=== PATIENT | female | born 1965 | race Caucasian/White ===

== ENCOUNTER 2019-02-20 10:03 | Emergency (ER) | payer MEDICAID ==
[~2019-02-20] VITALS: Ht 165.1 cm; Wt 57.1 kg
[2019-02-20] MEDS ORDERED: ROPI1TAB PO ×4 (10:26→14:45)
[2019-02-20] MEDS ORDERED: NOVOINJ3 SC ×4 (10:26→14:45)
[2019-02-20] MEDS ORDERED: BUPR150T3 PO ×2 (10:26→14:45)
[2019-02-20] MEDS ORDERED: MIRA3350 PO ×2 (10:26→14:45)
[2019-02-20] MEDS ORDERED: BASA100I SC ×2 (10:26→14:45)
[2019-02-20] MEDS ORDERED: LEVO175T2 PO ×2 (10:26→14:45)
[2019-02-20] MEDS ORDERED: ONDA4TAB6 PO ×2 (10:26→14:45)
[2019-02-20] MEDS ORDERED: SUCR1SS PO ×2 (10:40→14:45)
[2019-02-20] MEDS ORDERED: IRON1TAB2 PO ×2 (10:40→14:45)
[2019-02-20] MEDS ORDERED: CRES40TA PO ×2 (10:40→14:45)
[2019-02-20] MEDS ORDERED: PROT1TAB2 PO ×2 (10:40→14:45)
[2019-02-20] MEDS ORDERED: NS 1,000 ML IV ONE ×2 (10:45→13:00)
[2019-02-20 11:57] LABS: BASO % 0.5 % (0.0-1.0); EOS # 0.2 10^3/uL (0.0-0.5); EOS % 2.9 % (0.0-3.0); HEMOGLOBIN 9.7 g/dl (12.0-15.5); LYMPH # 1.2 10^3/uL (1.5-5.0); LYMPH % 15.1 % (24.0-44.0); MEAN CORPUSCULAR HEMOGLOBIN 26.4 pg (27.0-33.0); MEAN CORPUSCULAR HGB CONC 30.3 g/dl (32.0-36.5); MONO % 12.7 % (0.0-5.0); NEUTROPHILS # 5.5 10^3/uL (1.5-8.5); PLATELET COUNT, AUTOMATED 560 10^3/uL (150-450); RED BLOOD COUNT 3.68 10^6/uL (4.00-5.40); WHITE BLOOD COUNT 8.2 10^3/uL (4.0-10.0)
[2019-02-20 12:06] LABS: VENOUS BASE EXCESS -1.2 (-2.0-2.0); VENOUS HCO3 21.8 MEQ/L (23.0-27.0); VENOUS O2 SATURATION 95.6 % (60.0-80.0); VENOUS PARTIAL PRESSURE CO2 30.9 mmHg (38.0-50.0); VENOUS PARTIAL PRESSURE O2 72.7 mmHg (30.0-50.0); VENOUS PH 7.467 UNITS (7.330-7.430); VENOUS STANDARD HCO3 23.4 MEQ/L; VENOUS TOTAL CO2 22.8 MEQ/L (24.0-28.0)
[2019-02-20 12:37] LABS: ALBUMIN 3.1 GM/DL (3.2-5.2); ALT/SGPT 324 U/L (12-78); BILIRUBIN,DIRECT < 0.1 MG/DL (0.0-0.2); BILIRUBIN,TOTAL 0.4 MG/DL (0.2-1.0); BLOOD UREA NITROGEN 22 MG/DL (7-18); CALCIUM LEVEL 9.7 MG/DL (8.5-10.1); CARBON DIOXIDE LEVEL 25 MEQ/L (21-32); CHLORIDE LEVEL 99 MEQ/L (98-107); CREATININE FOR GFR 1.02 MG/DL (0.55-1.30); GLOMERULAR FILTRATION RATE 59.9 (>51); GLUCOSE, FASTING 425 MG/DL (70-100); LIPASE 103 U/L (73-393); POTASSIUM SERUM 5.1 MEQ/L (3.5-5.1); SODIUM LEVEL 134 MEQ/L (136-145); TOTAL PROTEIN 6.4 GM/DL (6.4-8.2)
[2019-02-20] MEDS ORDERED: ONDANSETRON 4MG/2ML VIAL (J2405) IV ONE (12:45)
[2019-02-20] MEDS ORDERED: HumuLIN R (REGULAR) INSULIN (NovoLIN R) **100U/ML** PER UNIT IV ONE (13:00)
[2019-02-20 14:52] VITALS: BP 141/91
== END 2019-02-20 15:00 | disposition home or self-care (01) ==
LOC: M ED 10:03
DX: E10.65 Type 1 diabetes mellitus with hyperglycemia (principal); Z79.4 Long term (current) use of insulin; Z90.49 Acquired absence of other specified parts of digestive tract; Z88.1 Allergy status to other antibiotic agents; Z91.040 Latex allergy status
CPT/HCPCS: 36415; 80048; 80076; 81001; 82803; 83690; 85025; 96361; 96374; 96375; 99284; J2405

== ENCOUNTER → 2019-03-02 | Outpatient (REF) | payer MEDICAID ==
[~2019-03-02] MED LIST: BASA100I SC; BUPR150T3 PO; CRES40TA PO; IRON1TAB2 PO; LEVO175T2 PO; MIRA3350 PO; NOVOINJ3 SC; ONDA4TAB6 PO; PROT1TAB2 PO; ROPI1TAB PO; SUCR1SS PO
[2019-03-02 14:00] LABS: ALBUMIN 4.2 GM/DL (3.2-5.2); BILIRUBIN,TOTAL 0.3 MG/DL (0.2-1.0); CALCIUM LEVEL 10.2 MG/DL (8.5-10.1); CREATININE FOR GFR 1.38 MG/DL (0.55-1.30); FREE T4 0.81 NG/DL (0.76-1.46); GLOMERULAR FILTRATION RATE 42.3 (>51); POTASSIUM SERUM 4.4 MEQ/L (3.5-5.1); THYROID STIMULATING HORMONE 78.5 uIU/ML (0.358-3.740); TOTAL PROTEIN 8.2 GM/DL (6.4-8.2)
== END ==
LOC: M SFHCPLAZ 11:02
PROVIDERS: ATTEND Family Medicine
DX: E10.65 Type 1 diabetes mellitus with hyperglycemia (principal); R94.5 Abnormal results of liver function studies; E03.9 Hypothyroidism, unspecified

== ENCOUNTER → 2019-04-24 | Outpatient (REF) | payer MEDICAID ==
[2019-04-24 14:31] LABS: FREE T4 1.38 NG/DL (0.76-1.46); THYROID STIMULATING HORMONE 40.4 uIU/ML (0.358-3.740)
== END ==
LOC: M SFHCPLAZ 11:31
PROVIDERS: ATTEND Family Medicine
DX: E03.9 Hypothyroidism, unspecified (principal)

== ENCOUNTER → 2019-06-07 | Outpatient (REF) | payer MEDICAID ==
[~2019-06-07] MED LIST changes: -ROPI1TAB PO; +ROPI1TAB3 PO
== END ==
LOC: M SFHCPLAZ 15:00
DX: Z53.9 Procedure and treatment not carried out, unspecified reason (principal)

== ENCOUNTER → 2019-06-07 | Outpatient (CLI) | payer MEDICAID ==
[2019-06-07 16:57] LABS: HEMATOCRIT 35.8 % (36.0-47.0); HEMOGLOBIN 11.3 g/dl (12.0-15.5); MEAN CORPUSCULAR HEMOGLOBIN 25.9 pg (27.0-33.0); MEAN CORPUSCULAR HGB CONC 31.6 g/dl (32.0-36.5); MEAN CORPUSCULAR VOLUME 82.1 fl (80.0-96.0); PLATELET COUNT, AUTOMATED 349 10^3/uL (150-450); RED BLOOD COUNT 4.36 10^6/uL (4.00-5.40); WHITE BLOOD COUNT 6.7 10^3/uL (4.0-10.0)
[2019-06-07 17:33] LABS: ALBUMIN 3.7 GM/DL (3.2-5.2); BILIRUBIN,TOTAL 0.3 MG/DL (0.2-1.0); CALCIUM LEVEL 10.2 MG/DL (8.5-10.1); CREATININE FOR GFR 1.12 MG/DL (0.55-1.30); FREE T4 1.13 NG/DL (0.76-1.46); GLOMERULAR FILTRATION RATE 53.6 (>51); POTASSIUM SERUM 4.7 MEQ/L (3.5-5.1); THYROID STIMULATING HORMONE 9.03 uIU/ML (0.358-3.740); TOTAL PROTEIN 6.9 GM/DL (6.4-8.2)
[2019-06-07 17:34] LABS: HEMOGLOBIN A1c 10.6 %
== END ==
LOC: M LAB 16:00
PROVIDERS: ATTEND Family Medicine
DX: E10.65 Type 1 diabetes mellitus with hyperglycemia (principal); E03.9 Hypothyroidism, unspecified; R00.0 Tachycardia, unspecified

== ENCOUNTER 2019-12-11 23:13 | Emergency (ER) | payer MEDICAID, OTHER ==
[~2019-12-11] VITALS: Ht 175.3 cm; Wt 49.5 kg
[2019-12-11 23:46] LABS: VENOUS BASE EXCESS -2.6 (-2.0-2.0); VENOUS HCO3 23.3 MEQ/L (23.0-27.0); VENOUS O2 SATURATION 82.9 % (60.0-80.0); VENOUS PARTIAL PRESSURE CO2 44.8 mmHg (38.0-50.0); VENOUS PARTIAL PRESSURE O2 50.8 mmHg (30.0-50.0); VENOUS PH 7.334 UNITS (7.330-7.430); VENOUS TOTAL CO2 24.7 MEQ/L (24.0-28.0)
[2019-12-11 23:47] LABS: HEMATOCRIT 34.1 % (36.0-47.0); HEMOGLOBIN 11.3 g/dl (12.0-15.5); MEAN CORPUSCULAR HEMOGLOBIN 28.5 pg (27.0-33.0); MEAN CORPUSCULAR HGB CONC 33.1 g/dl (32.0-36.5); MEAN CORPUSCULAR VOLUME 85.9 fl (80.0-96.0); PLATELET COUNT, AUTOMATED 386 10^3/uL (150-450); RED BLOOD COUNT 3.97 10^6/uL (4.00-5.40); WHITE BLOOD COUNT 7.6 10^3/uL (4.0-10.0)
[2019-12-12 00:11] LABS: HEMOGLOBIN A1c 12.4 %
[2019-12-12 00:41] LABS: ALT/SGPT 23 U/L (12-78); BLOOD UREA NITROGEN 33 MG/DL (7-18); CALCIUM LEVEL 9.9 MG/DL (8.5-10.1); CARBON DIOXIDE LEVEL 24 MEQ/L (21-32); CHLORIDE LEVEL 101 MEQ/L (98-107); CREATININE FOR GFR 1.39 MG/DL (0.55-1.30); GLOMERULAR FILTRATION RATE 41.8 (>51); GLUCOSE, FASTING 312 MG/DL (70-100); POTASSIUM SERUM 4.4 MEQ/L (3.5-5.1); SODIUM LEVEL 135 MEQ/L (136-145)
[2019-12-12 00:42] LABS: ACETONE/KETONE 0.94 MG/DL (<2.81); ALBUMIN 3.7 GM/DL (3.2-5.2); BILIRUBIN,DIRECT < 0.1 MG/DL (0.0-0.2); BILIRUBIN,TOTAL 0.2 MG/DL (0.2-1.0); LIPASE 136 U/L (73-393); MAGNESIUM LEVEL 2.2 MG/DL (1.8-2.4)
[2019-12-12 00:49] LABS: ATYPICAL LYMPH 1 % (0-5); EOSINOPHILS 3 % (0-3); LYMPHOCYTES 39 % (16-44); MONOCYTES 8 % (0-5); NEUTROPHILS 49 % (28-66); PLATELET ESTIMATE NORMAL (NORMAL)
[2019-12-12 00:50] LABS: OSMOLALITY SERUM 302 MOSM/KG (275-295)
[2019-12-12] MEDS ORDERED: NS 1,000 ML IV ONE ×2 (01:30)
[2019-12-12] MEDS ORDERED: LEVEMIR (INSULIN DETEMIR) 1 UNITS/0.01ML SC ONE (01:45)
[2019-12-12 03:10] VITALS: BP 114/55
--- NOTE | 2019-12-31 14:47 | ECGEPIP ---
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
--- NOTE | 2020-01-11 08:12 | REP ---
PORTABLE CHEST X-RAY CLINICAL: Uncontrolled diabetes. COMPARISON: None. FINDINGS: Mediastinum and cardiac silhouette normal. Lung keyes clear. No consolidation, effusion, or pneumothorax. Skeletal structures are intact. IMPRESSION: Normal portable chest x-ray. No acute cardiopulmonary process. MTDD
== END 2019-12-12 03:15 | disposition home or self-care (01) ==
LOC: M ED 23:13
DX: E11.9 Type 2 diabetes mellitus without complications (principal); E05.40 Thyrotoxicosis factitia without thyrotoxic crisis or storm; E86.0 Dehydration; R25.1 Tremor, unspecified; F17.210 Nicotine dependence, cigarettes, uncomplicated; Z88.1 Allergy status to other antibiotic agents; Z88.0 Allergy status to penicillin; Z79.4 Long term (current) use of insulin; Z79.899 Other long term (current) drug therapy

== ENCOUNTER 2020-03-16 08:08 | Inpatient (IN) | payer OTHER ==
[~2020-03-16] VITALS: Ht 162.6 cm; Wt 58.0 kg
[2020-03-16] MEDS ORDERED: NS 1,000 ML IV ONE (08:30)
[2020-03-16 08:49] LABS: BASO % 0.6 % (0.0-1.0); EOS # 0.3 10^3/uL (0.0-0.5); HEMATOCRIT 35.1 % (36.0-47.0); HEMOGLOBIN 10.7 g/dl (12.0-15.5); LYMPH # 1.7 10^3/uL (1.5-5.0); MEAN CORPUSCULAR HEMOGLOBIN 26.6 pg (27.0-33.0); MEAN CORPUSCULAR HGB CONC 30.5 g/dl (32.0-36.5); MEAN CORPUSCULAR VOLUME 87.3 fl (80.0-96.0); MONO # 0.6 10^3/uL (0.0-0.8); NEUTROPHILS # 2.2 10^3/uL (1.5-8.5); NEUTROPHILS % 44.2 % (36.0-66.0); PLATELET COUNT, AUTOMATED 319 10^3/uL (150-450); RED BLOOD COUNT 4.02 10^6/uL (4.00-5.40); WHITE BLOOD COUNT 4.9 10^3/uL (4.0-10.0)
--- NOTE | 2020-03-16 08:52 | REP ---
INDICATION: CVA - Nursing interventions must not delay CT COMPARISON: None. TECHNIQUE: Axial noncontrast images from the skull base to the vertex with coronal reformations. This CT examination was performed using the following dose reduction techniques: Automated exposure control, adjustment of mA and/or kv according to the patient's size, and use of iterative reconstruction technique. FINDINGS: The ventricles, sulci, and cisterns are normal in position and appearance. Murguia-white differentiation is maintained. No acute intracranial hemorrhage, mass/mass effect, pathology or trauma/injury. No evidence for acute infarction. No extra-axial fluid collection. Calvarium is intact. Paranasal sinuses and mastoid air cells are clear. IMPRESSION: Normal noncontrast head CT. No evidence for acute intracranial pathology or trauma/injury. <Electronically signed by Gigi Torres > 03/16/20 [id number]
--- NOTE | 2020-03-16 08:54 | REP ---
INDICATION: fall COMPARISON: None. TECHNIQUE: Axial noncontrast images from the skull base to the thoracic inlet with coronal and sagittal re-formations This CT examination was performed using the following dose reduction techniques: Automated exposure control, adjustment of mA and/or kv according to the patient's size, and use of iterative reconstruction technique. FINDINGS: Normal alignment and lordosis is maintained. Cervical vertebral bodies including transverse processes and spinous processes are intact and there is no evidence for acute fracture / compression injury or subluxation. Moderate multilevel degenerative changes include marginal spurring. Spinal canal is patent. Posterior elements are intact. Paravertebral soft tissues are normal. IMPRESSION: No evidence for acute pathology or trauma/injury. Moderate multilevel degenerative spondylosis. <Electronically signed by Gigi Torres > 03/16/20 [id number]
--- NOTE | 2020-03-16 08:54 | REP ---
INDICATION: CVA COMPARISON: 12/12/2019 TECHNIQUE: Portable AP view of the chest FINDINGS: The mediastinum and cardiac silhouette are stable and within normal limits for portable technique. The lung keyes are clear without acute consolidation, effusion, or pneumothorax. Skeletal structures are intact. IMPRESSION: No acute cardiopulmonary process appreciated. <Electronically signed by Gigi Torres > 03/16/20 [id number]
[2020-03-16] MEDS ORDERED: MORPHINE 2 MG/ML 1ML VIAL (J2270) As Ordered ONE (08:57)
[2020-03-16 08:59] LABS: INR 0.8; PROTHROMBIN TIME 11.2 SECONDS (12.5-14.3)
[2020-03-16 09:00] LABS: PARTIAL THROMBOPLASTIN TIME 22.1 SECONDS (24.2-38.5)
[2020-03-16] MEDS ORDERED: MORPHINE 2 MG/ML 1ML VIAL (J2270) IV ONE (09:00)
[2020-03-16 09:13] LABS: OSMOLALITY SERUM 299 MOSM/KG (275-295)
[2020-03-16 09:16] LABS: ALBUMIN 3.2 GM/DL (3.2-5.2); ALT/SGPT 19 U/L (12-78); BILIRUBIN,DIRECT < 0.1 MG/DL (0.0-0.2); BILIRUBIN,TOTAL 0.3 MG/DL (0.2-1.0); BLOOD UREA NITROGEN 15 MG/DL (7-18); CALCIUM LEVEL 9.6 MG/DL (8.5-10.1); CARBON DIOXIDE LEVEL 22 MEQ/L (21-32); CHLORIDE LEVEL 112 MEQ/L (98-107); CK-MB VALUE MASS 3.7 NG/ML (<3.6); CPK CREATINE PHOSPHOKINASE 127 U/L (26-192); CREATININE FOR GFR 0.91 MG/DL (0.55-1.30); ETHYL ALCOHOL (ETHANOL) < 0.003 % (0.000-0.010); FREE T4 1.16 NG/DL (0.76-1.46); GLOMERULAR FILTRATION RATE > 60.0 (>51); GLUCOSE, FASTING 160 MG/DL (70-100); MAGNESIUM LEVEL 1.9 MG/DL (1.8-2.4); MB/CK RELATIVE INDEX 2.91 (< OR =4); POTASSIUM SERUM 5.1 MEQ/L (3.5-5.1); SODIUM LEVEL 140 MEQ/L (136-145); TOTAL PROTEIN 6.4 GM/DL (6.4-8.2); TROPONIN I < 0.02 NG/ML (< 0.10)
[2020-03-16 10:08] LABS: AMPHETAMINES LEVEL URINE NEGATIVE (NEGATIVE); BARBITURATES URINE NEGATIVE (NEGATIVE); BENZODIAZEPINES URINE NEGATIVE (NEGATIVE); CANNABINOIDS URINE NEGATIVE (NEGATIVE); COCAINE METABOLITE URINE NEGATIVE (NEGATIVE); METHADONE URINE NEGATIVE (NEGATIVE); OPIATES URINE POSITIVE (NEGATIVE); PHENCYCLIDINE URINE NEGATIVE (NEGATIVE)
[2020-03-16 10:10] LABS: HEMOGLOBIN A1c 11.6 %
[2020-03-16] MEDS ORDERED: HYDROMORPHONE HCL 0.5 MG/ 0.5 ML SYRINGE (J1170 PER 1) IV ONE (10:45)
[2020-03-16] MEDS ORDERED: METOCLOPRAMIDE INJ 10MG/2ML VIAL (J2765 PER 1) IV ONE (10:45)
[2020-03-16] MEDS ORDERED: levETIRAcetam INJection 500 MG in D5W MINI-BAG PLUS 100 ML IV ONE (11:00)
[2020-03-16] MEDS ORDERED: VITMTA PO (11:44)
[2020-03-16] MEDS ORDERED: METH750T2 PO (11:44)
[2020-03-16] MEDS ORDERED: ADME100I SC ×2 (11:44)
[2020-03-16] MEDS ORDERED: LEVO150T7 PO (11:44)
[2020-03-16] MEDS ORDERED: BASA100I SC (11:44)
[2020-03-16] MEDS ORDERED: BUPR150T3 PO (11:44)
[2020-03-16] MEDS ORDERED: GABA-843 PO (11:44)
[2020-03-16] MEDS ORDERED: ROPI1TAB3 PO (11:44)
[2020-03-16] MEDS ORDERED: LABETALOL 100MG/20ML VIAL IV PRN (12:45)
--- NOTE | 2020-03-16 12:47 | HPEPDOC ---
General Date of Admission 03/16/20 Date of Service: Mar 16, 2020 Chief Complaint The patient is a 55-year-old female admitted with a reason for visit of Alt Mental Status. Source: Patient Exam Limitations: No limitations Timing/Duration: 24 hours Severity: Moderate History of Present Illness Patient is 55 years old female with past medical history of hypothyroidism, type 1 diabetes presented to the hospital after seizure. According to family she developed seizure in the morning with post ictal state. Usually patient developed seizures when she hypoglycemic. On arrival glucose level was 160. Patient stated that she had problem with balance yesterday. In ER patient was found to have negative CT scan for bleeding or acute stroke. Patient does not have leukocytosis. Her vital signs significant for hypertensive emergency with systolic blood pressure over 180. Dr. Barnard was contacted by ER physician, he recommended to continue Keppra and proceed with MRI and MRA Home Medications Scheduled Bupropion Hcl (Bupropion Xl) 150 Mg Tab.er.24h, 150 MG PO QHS, (Reported) Gabapentin (Gabapentin) 300 Mg Capsule, 300 MG PO TID, (Reported) Insulin Glargine,Hum.rec.anlog (Basaglar Kwikpen U-100) 100 Unit/1 Ml Insuln.pen, 18 UNIT SC QHS, (Reported) Insulin Lispro (Admelog) 100 Unit/1 Ml Vial, 8 UNIT SC BID, (Reported) BEFORE BREAKFAST AND LUNCH Insulin Lispro (Admelog) 100 Unit/1 Ml Vial, 15 UNIT SC ACS, (Reported) Levothyroxine Sodium (Levothyroxine Sodium) 150 Mcg Tablet, 150 MCG PO QAM, (Reported) Methocarbamol (Methocarbamol) 750 Mg Tablet, 750 MG PO TID, (Reported) Multivitamins (Thera M Plus Tablet) 1 Each Tablet, 1 TAB PO DAILY, (Reported) Ropinirole HCl (Ropinirole HCl) 1 Mg Tablet, 2 MG PO QHS, (Reported) Allergies Coded Allergies: ciprofloxacin (Verified Allergy, Unknown, hives, 12/11/19) latex (Verified Allergy, Unknown, swelling/shortness of breath, 12/11/19) piperacillin (Verified Allergy, Unknown, rash, 12/11/19) tazobactam (Verified Allergy, Unknown, rash, 12/11/19) vancomycin (Verified Allergy, Unknown, rash, 12/11/19) Past Medical History Medical History hypothyroidism, type 1 diabetes Surgical History CHOLECYSTECTOMY TOTAL HYSTERECTOMY APPENDECTOMY LEG INFECTION (LEFT) with great toe amputation ALL TOES ON RIGHT FOOT (AMPUTATION) MULTIPLE HAND SURGERIES (TRIGGER FINGER AND GROWTHS) Family History I personally reviewed family history and found not pertinent Social History * Smoker: Denies, former Smoker Alcohol: Denies Drugs: denies A-FIB/CHADSVASC A-FIB History Current/History of A-Fib/PAF?: No Current PO Anticoag Therapy: No Review of Systems Constitutional: Denies: Chills, Fever Eyes: Denies: Pain ENT: Denies: Head Aches Skin: Denies: Rash, Lesions Pulmonary: Denies: Dyspnea, Cough Cardiovascular: Denies: Chest Pain Gastrointestinal: Denies: Nausea, Vomiting Genitourinary: Denies: Dysuria Hematologic: Denies: Bruising Endocrine: Denies: Polydipsia Musculoskeletal: Denies: Neck Pain Neurological: Reports: Weakness (right leg weakness) Psych: Reports: Mood Normal Physical Examination General Exam: Positive: Alert, Cooperative Eye Exam: Positive: PERRLA ENT Exam: Positive: Atraumatic Neck Exam: Positive: Supple; Negative: JVD Chest Exam: Positive: Clear to auscultation Heart Exam: Positive: Rate Normal Telemetry: Positive: No significant arrhythmia Abdomen Exam: Positive: Normal bowel sounds Extremity Exam: Negative: Clubbing Skin Exam: Positive: Nl turgor and temperature Neuro Exam: Positive: Cranial Nerves 3-12 NL, Other (right leg strength 2/5, DTR 1/2 of LE bl) Psych Exam: Positive: Mental status NL Vital Signs Vital Signs Date Time Temp Pulse Resp B/P (MAP) Pulse Ox O2 Delivery O2 Flow Rate FiO2 03/16/20 12:15 86 18 142/65 (90) 96 Room Air 03/16/20 08:12 96.2 Laboratory Data Labs 24H Laboratory Tests 2 03/16/20 08:27: Estimated Mean Plasma Glucose 286H, Hemoglobin A1c 11.6 03/16/20 08:29: Immature Granulocyte % (Auto) 0.2, Neutrophils (%) (Auto) 44.2, Lymphocytes (%) (Auto) 35.0, Monocytes (%) (Auto) 13.0H, Eosinophils (%) (Auto) 7.0H, Basophils (%) (Auto) 0.6, Neutrophils # (Auto) 2.2, Lymphocytes # (Auto) 1.7, Monocytes # (Auto) 0.6, Eosinophils # (Auto) 0.3, Basophils # (Auto) 0.0, Nucleated Red Blood Cells % (auto) 0.0, Prothrombin Time 11.2L, Prothromb Time International Ratio 0.80, Activated Partial Thromboplast Time 22.1L, Anion Gap 6L, Glomerular Filtration Rate > 60.0, Osmolality 299H, Calcium Level 9.6, Magnesium Level 1.9, Total Bilirubin 0.3, Direct Bilirubin < 0.1, Aspartate Amino Transf (AST/SGOT) 23, Alanine Aminotransferase (ALT/SGPT) 19, Alkaline Phosphatase 141H, Total Creatine Kinase 127, Creatine Kinase MB 3.7H, Creatine Kinase MB Relative Index 2.91, Troponin I < 0.02, Total Protein 6.4, Albumin 3.2, Albumin/Globulin Ratio 1.0L, Thyroid Stimulating Hormone (TSH) 0.450, Free Thyroxine 1.16, Ethyl Alcohol Level < 0.003 03/16/20 09:29: Urine Color YELLOW, Urine Appearance CLEAR, Urine pH 5.0, Urine Specific [place] 1.013, Urine Protein NEGATIVE, Urine Glucose (UA) 1+H, Urine Ketones NEGATIVE, Urine Blood NEGATIVE, Urine Nitrite NEGATIVE, Urine Bilirubin NEGATIVE, Urine Urobilinogen 0.2, Urine Leukocyte Esterase NEGATIVE, Urine WBC (Auto) 0, Urine RBC (Auto) 2, Urine Hyaline Casts (Auto) 0, Urine Bacteria (Auto) NEGATIVE, Urine Squamous Epithelial Cells 0, Urine Sperm (Auto) , Urine Opiates Screen POSITIVEH, Urine Methadone Screen NEGATIVE, Urine Barbiturates Screen NEGATIVE, Urine Phencyclidine Screen NEGATIVE, Urine Amphetamines Screen NEGATIVE, Urine Benzodiazepines Screen NEGATIVE, Urine Cocaine Metabolite Screen NEGATIVE, Urine Cannabinoids Screen NEGATIVE 03/16/20 11:36: 03/16/20 11:57: CBC/BMP Laboratory Tests 03/16/20 08:29 Microbiology Microbiology 03/16/20 Blood Culture, Received Pending 03/16/20 Blood Culture, Received Pending Assessment/Plan Patient is 55 years old female with past medical history of hypothyroidism, type 1 diabetes presented to the hospital after seizure. According to family she developed seizure in the morning with post ictal state. Usually patient develop ed seizures when she hypoglycemic. On arrival glucose level was 160. Patient stated that she had problem with balance yesterday. In ER patient was found to have negative CT scan for bleeding or acute stroke. Patient does not have leukocytosis. Her vital signs significant for hypertensive emergency with systolic blood pressure over 180. Dr. Barnard was contacted by ER physician, he recommended to continue Keppra and proceed with MRI and MRA Problems (1) Seizure Status: Acute Problem Text: Patient has long history of seizures provoked by hypoglycemia] Neurologist team recommended Keppra 250 mg twice a day for one week then 500 mg daily EEG MRI, MRA to rule out CVA given right leg weakness and unsteady gait (2) Hypertensive emergency Status: Acute Problem Text: Labetalol IV with parameters Patient noncompliant to the treatment Lisinopril 40 mg daily (3) Uncontrolled diabetes mellitus Status: Chronic Problem Text: Patient noncompliant HbA1c 11 Detemir twice a day Diabetes diet Follow-up with data designer in the outpatient settings (4) Hypothyroidism Status: Chronic Problem Text: Continue Synthroid Plan / VTE VTE Prophylaxis Ordered?: Yes HILTON HORTON DO Mar 16, 2020 12:47
[2020-03-16] MEDS ORDERED: lisinopriL 40 MG TAB PO ONE (13:00)
[2020-03-16] MEDS ORDERED: ASPIRIN 81 MG CHEW TABLET PO ONE (13:00)
[2020-03-16] MEDS ORDERED: GLUCOSE 4GM CHEW TABLET PO PRN (13:00)
[2020-03-16] MEDS ORDERED: DEXTROSE 50% 50 ML SYRINGE IV PRN (13:00)
[2020-03-16] MEDS ORDERED: GLUCAGON INJ 1MG VIAL SC PRN (13:00)
[2020-03-16] MEDS ORDERED: LEVEMIR (INSULIN DETEMIR) 1 UNITS/0.01ML SC SCH (13:10)
--- NOTE | 2020-03-16 14:21 | REPVR ---
PROCEDURE INFORMATION: Exam: MR Head Without Contrast Exam date and time: 03/16/2020 2:11 PM Age: 55 years old Clinical indication: Numbness / parasthesia and weakness, extremity; Bilateral; Patient HX: PT states had a seizure this morning 03/16, no feeling in right leg and losing feeling in left leg; Additional info: CVA TECHNIQUE: Imaging protocol: MR of the head without contrast. COMPARISON: CT Head without contrast 03/16/2020 8:32 AM FINDINGS: Brain: There is mild generalized cerebral volume loss and a small number of scattered foci of white matter T2 hyperintensity, nonspecific but commonly secondary to chronic small vessel ischemic change. No acute ischemic infarction. No acute intracranial hemorrhage. Cerebral ventricles: Normal. No ventriculomegaly. Bones/joints: Unremarkable. Paranasal sinuses: Mild paranasal sinus mucosal thickening. Mastoid air cells: No mastoid effusion. Orbits: Unremarkable. Soft tissues: Unremarkable. IMPRESSION: No acute intracranial abnormality. Electronically signed by: Ibrahima Porter On 03/16/2020 14:22:00 PM
--- NOTE | 2020-03-16 14:33 | REPVR ---
PROCEDURE INFORMATION: Exam: MR Angiogram Head Without Contrast, Arteries Exam date and time: 03/16/2020 2:11 PM Age: 55 years old Clinical indication: Numbness and weakness; Patient HX: Patient states had a seizure this morning 03/16, no feeling in right leg and losing feeling in left leg; Additional info: CVA TECHNIQUE: Imaging protocol: MR angiogram head without contrast. Exam focused on the arteries. 3D rendering (Not supervised by radiologist): MIP and/or 3D reconstructed images were created by the technologist. COMPARISON: CT Head without contrast 03/16/2020 8:32 AM FINDINGS: Study is degraded by patient motion artifact. There is normal [id number] flow related signal intensity in the bilateral distal internal carotid arteries through the carotid termini as well as within the distal segments of the vertebral arteries. Normal flow related signal intensity within the basilar artery, anterior, middle and posterior cerebral arteries. No high-grade stenosis, occlusion, aneurysm, or other acute abnormality of the [place] vasculature. IMPRESSION: No high-grade stenosis, occlusion, or aneurysm of the [place] vasculature. Electronically signed by: Ibrahima Porter On 03/16/2020 14:32:59 PM
[2020-03-16 14:45] VITALS: BP 151/73
[2020-03-16] MEDS ORDERED: SLF 3 ML SYR IV PRN (15:15)
[2020-03-16 16:00] VITALS: BP 125/60
[2020-03-16] MEDS: HumaLOG INSULIN (NovoLOG) PER UNIT SC SCH (17:15)
[2020-03-16] MEDS: GABAPENTIN 300 MG CAP PO SCH ×2 (17:15→20:02)
[2020-03-16] MEDS: ACETAMINOPHEN TAB 650MG DOSE (2X325MG) PO PRN (17:16)
[2020-03-16] MEDS: methocarbamoL 750 MG TAB PO SCH ×2 (18:07→20:02)
[2020-03-16 20:00] VITALS: BP 87/45
[2020-03-16] MEDS: levETIRAcetam 250MG TABLET (KEPPRA) PO SCH (20:01)
[2020-03-16] MEDS: rOPINIRole 1MG TAB PO SCH (20:02)
[2020-03-16] MEDS: ATORVASTATIN 20 MG TAB PO SCH (20:02)
[2020-03-16] MEDS: buPROPion **XL** TABLET 150MG (WELLBUTRIN XL) PO SCH (20:02)
--- NOTE | 2020-03-16 20:38 | ECGEPIP ---
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
[2020-03-16] MEDS ORDERED: NS 500 ML IV ONE (22:15)
[2020-03-16] MEDS: ONDANSETRON 4MG/2ML VIAL IV PRN (22:52)
[2020-03-16] MEDS: SLF 3 ML SYR IV SCH (22:52)
[2020-03-16 23:30] VITALS: BP_SYST 100; BP_SYST 102; BP_DIAS 55; BP_DIAS 59
[2020-03-17] VITALS (7 sets, daily range): BP systolic 100–141; BP diastolic 51–65
[2020-03-17] MEDS: ACETAMINOPHEN TAB 650MG DOSE (2X325MG) PO PRN ×2 (01:11→09:49)
[2020-03-17 06:08] LABS: HEMATOCRIT 30.2 % (36.0-47.0); MEAN CORPUSCULAR HEMOGLOBIN 26.5 pg (27.0-33.0); MEAN CORPUSCULAR HGB CONC 29.8 g/dl (32.0-36.5); MEAN CORPUSCULAR VOLUME 89.1 fl (80.0-96.0); PLATELET COUNT, AUTOMATED 282 10^3/uL (150-450); RED BLOOD COUNT 3.39 10^6/uL (4.00-5.40); WHITE BLOOD COUNT 5.3 10^3/uL (4.0-10.0)
[2020-03-17 06:25] LABS: ALBUMIN 2.5 GM/DL (3.2-5.2); ALT/SGPT 14 U/L (12-78); BILIRUBIN,TOTAL 0.2 MG/DL (0.2-1.0); BLOOD UREA NITROGEN 24 MG/DL (7-18); CALCIUM LEVEL 8.5 MG/DL (8.5-10.1); CARBON DIOXIDE LEVEL 23 MEQ/L (21-32); CHLORIDE LEVEL 114 MEQ/L (98-107); GLOMERULAR FILTRATION RATE > 60.0 (>51); GLUCOSE, FASTING 169 MG/DL (70-100); MAGNESIUM LEVEL 1.8 MG/DL (1.8-2.4); POTASSIUM SERUM 4.4 MEQ/L (3.5-5.1); SODIUM LEVEL 142 MEQ/L (136-145); TOTAL PROTEIN 5.4 GM/DL (6.4-8.2)
[2020-03-17] MEDS: LEVOTHYROXINE 150MCG TABLET (0.15MG) PO SCH (06:32)
[2020-03-17] MEDS: SLF 3 ML SYR IV SCH ×3 (06:33→22:00)
[2020-03-17] MEDS ORDERED: lisinopriL 40 MG TAB PO SCH (09:00)
[2020-03-17] MEDS: ASPIRIN 81 MG CHEW TABLET PO SCH (09:38)
[2020-03-17] MEDS: levETIRAcetam 250MG TABLET (KEPPRA) PO SCH ×2 (09:38→20:44)
[2020-03-17] MEDS: GABAPENTIN 300 MG CAP PO SCH ×3 (09:38→20:44)
[2020-03-17] MEDS: methocarbamoL 750 MG TAB PO SCH ×3 (09:38→20:43)
[2020-03-17] MEDS: ENOXAPARIN 40MG/0.4ML SYRINGE (J1650 PER 10MG) SC SCH (09:38)
[2020-03-17] MEDS: LEVEMIR (INSULIN DETEMIR) 1 UNITS/0.01ML SC SCH ×2 (09:39→20:43)
[2020-03-17] MEDS: HumaLOG INSULIN (NovoLOG) PER UNIT SC SCH ×3 (09:40→17:30)
--- NOTE | 2020-03-17 10:15 | IPNPDOC ---
Text Note Date of Service The patient was seen on 03/17/20. NOTE Subjective: Overnight patient developed hypoglycemia with glucose level of 39. No seizures overnight Objective: GENERAL APPEARANCE: NAD HEENT: no scleral icterus, no JVD, EOMI CARDIOVASCULAR: S1S2 LUNGS: CTA ABDOMEN: soft & not tender w palpitation MUSCULOSKELETAL: no cyanosis, no swelling INTEGUMENT: no generalized palor NEUROLOGICAL: cranial nerve function from 2-12 intact intact, follows commands, speech not dysarthric, RLE 2/5, LLE 4/5 Assessment/Plan Patient is 55 years old female with past medical history of hypothyroidism, type 1 diabetes presented to the hospital after seizure. According to family she developed seizure in the morning with post ictal state. Usually patient developed seizures when she hypoglycemic. On arrival glucose level was 160. Patient stated that she had problem with balance yesterday. In ER patient was found to have negative CT scan for bleeding or acute stroke. Patient does not have leukocytosis. Her vital signs significant for hypertensive emergency with systolic blood pressure over 180. Dr. Barnard was contacted by ER physician, he recommended to continue Keppra and proceed with MRI and MRA Problems (1) Seizure Patient has long history of seizures provoked by hypoglycemia Neurologist team recommended Keppra 250 mg twice a day for one week then 500 mg daily Await EEG MRI, MRA negative for stroke (2) Hypertensive emergency/hypertension Labetalol IV with parameters Patient noncompliant to the treatment Lisinopril 40 mg daily Today blood pressure under control (3) Uncontrolled diabetes mellitus Patient noncompliant HbA1c 11 I decreased the dose of detemir due to episode of hyperglycemia Diabetes diet Follow-up with wire bound box machine helper in the outpatient settings (4) Hypothyroidism Continue Synthroid VS,Fishbone, I+O VS, Fishbone, I+O Laboratory Tests 03/17/20 05:40 Vital Signs Date Time Temp Pulse Resp B/P (MAP) Pulse Ox O2 Delivery O2 Flow Rate FiO2 03/17/20 07:26 97.6 85 18 106/51 (69) 96 Room Air I&O- Last 24 Hours up to 6 AM 03/17/20 06:00 Intake Total 2205 ml Output Total 950 ml Balance 1255 ml HILTON HORTON DO Mar 17, 2020 10:15
[2020-03-17] MEDS: SUMAtriptan SUCCINATE 25 MG TAB PO PRN ×2 (15:17→21:00)
[2020-03-17] MEDS: buPROPion **XL** TABLET 150MG (WELLBUTRIN XL) PO SCH (20:43)
[2020-03-17] MEDS: rOPINIRole 1MG TAB PO SCH (20:44)
[2020-03-17] MEDS: ATORVASTATIN 20 MG TAB PO SCH (20:44)
[2020-03-17] MEDS ORDERED: HumaLOG INSULIN (NovoLOG) PER UNIT SC SCH (21:00)
[2020-03-18] VITALS: BP 124/65
[2020-03-18] MEDS ORDERED: diphenhydrAMINE 50MG/ML VIAL (J1200) IM ONE (00:30)
[2020-03-18] MEDS ORDERED: diphenhydrAMINE 50MG CAP PO ONE (01:15)
[2020-03-18 04:00] VITALS: BP 149/69
[2020-03-18] MEDS: ONDANSETRON 4MG/2ML VIAL IV PRN ×2 (05:05→12:50)
[2020-03-18] MEDS: HumaLOG INSULIN (NovoLOG) PER UNIT SC SCH ×2 (05:25→12:35)
[2020-03-18] MEDS: SLF 3 ML SYR IV SCH ×2 (06:00→14:01)
[2020-03-18] MEDS: LEVOTHYROXINE 150MCG TABLET (0.15MG) PO SCH (07:20)
[2020-03-18 08:00] VITALS: BP 139/64
[2020-03-18] MEDS ORDERED: FLUBLOK(EGG FREE)(QUAD)INFLUENZA VACC 0.5ML SYRINGE 18YRS & OLDER IM ONE (09:00)
[2020-03-18] MEDS: LEVEMIR (INSULIN DETEMIR) 1 UNITS/0.01ML SC SCH (09:29)
[2020-03-18] MEDS: ENOXAPARIN 40MG/0.4ML SYRINGE (J1650 PER 10MG) SC SCH (09:29)
[2020-03-18] MEDS: methocarbamoL 750 MG TAB PO SCH ×2 (09:31→16:08)
[2020-03-18] MEDS: levETIRAcetam 250MG TABLET (KEPPRA) PO SCH (09:31)
[2020-03-18] MEDS: ASPIRIN 81 MG CHEW TABLET PO SCH (09:31)
[2020-03-18] MEDS: GABAPENTIN 300 MG CAP PO SCH ×2 (09:31→16:08)
[2020-03-18] MEDS ORDERED: KEPP250T5 PO (11:33)
[2020-03-18] MEDS ORDERED: SUMA25TA3 PO (11:33)
[2020-03-18 12:00] VITALS: BP 142/62
[2020-03-18] MEDS ORDERED: CALCIUM CARBONATE 500 MG CHEW U/D PO PRN (13:00)
--- NOTE | 2020-03-18 16:16 | DS.PDOC ---
Discharge Summary General Date of Admission Mar 16, 2020 at 12:21 Date of Discharge 03/18/2020 Discharge Summary PROCEDURES PERFORMED DURING STAY: [None]. ADMITTING DIAGNOSES: Seizure Hypertensive emergency/hypertension Uncontrolled diabetes mellitus Hypothyroidism DISCHARGE DIAGNOSES: Seizure Hypertensive emergency/hypertension Uncontrolled diabetes mellitus Hypothyroidism COMPLICATIONS/CHIEF COMPLAINT: Seizure,Uncontrolled Diabetes Mellitus. HISTORY OF PRESENT ILLNESS: Patient is 55 years old female with past medical history of hypothyroidism, type 1 diabetes presented to the hospital after seizure. According to family she developed seizure in the morning with post ictal state. Usually patient developed seizures when she hypoglycemic. On arrival glucose level was 160. Patient stated that she had problem with balance yesterday. In ER patient was found to have negative CT scan for bleeding or acute stroke. Patient does not have leukocytosis. Her vital signs significant for hypertensive emergency with systolic blood pressure over 180. Dr. Barnard was contacted by ER physician, he recommended to continue Keppra and proceed with MRI and MRA HOSPITAL COURSE: (1) Seizure Patient has long history of seizures provoked by hypoglycemia Neurologist team recommended Keppra 250 mg twice a day for one week then 500 mg daily Await EEG report MRI, MRA negative for stroke (2) Hypertensive emergency/hypertension Labetalol IV with parameters Patient noncompliant to the treatment Lisinopril 40 mg daily Today blood pressure under control (3) Uncontrolled diabetes mellitus Patient noncompliant HbA1c 11 I decreased the dose of detemir due to episode of hyperglycemia Diabetes diet Follow-up with automatic developer in the outpatient settings (4) Hypothyroidism Continue Synthroid DISCHARGE MEDICATIONS: Please see below. ALLERGIES: Please see below. PHYSICAL EXAMINATION ON DISCHARGE: VITAL SIGNS: Please see below. GENERAL APPEARANCE: NAD HEENT: no scleral icterus, no JVD, EOMI CARDIOVASCULAR: S1S2 LUNGS: CTA ABDOMEN: soft & not tender w palpitation MUSCULOSKELETAL: no cyanosis, no swelling INTEGUMENT: no generalized palor NEUROLOGICAL: cranial nerve function from 2-12 intact intact, follows commands, speech not dysarthric, RLE 2/5, LLE 4/5 LABORATORY DATA: Please see below. IMAGING: [facility] NAME: AMY MADDEN DATE OF : 1965 BUSINESS NUMBER: [id number] AGE: 55 SEX: F REPORT #: [id number] ROOM: [facility] INP TECHNOLOGIST: LEXI DOCTOR: HILTON HORTON DO Ordered for Date&Time: 03/16/20 1225 cc: [~ rep ct ivnm] Service Date&Time: 03/16/20 1411 This report is in Signed status. Interpretation performed by [facility]. Thank you for having your radiology procedures performed at [facility] RADIOLOGY REPORT Date&Time printed: [~ rep prt dt last] [~ rep prt tm last] Page 2 of 2 [place] [id number] RADIOLOGY REPORT This report is in Signed status. Interpretation performed by [facility]. Thank you for having your radiology procedures performed at [facility] RADIOLOGY REPORT Date&Time printed: [~ rep prt dt last] [~ rep prt tm last] Page 1 of 1 Exam: MR Head Without Contrast Exam date and time: 03/16/2020 2:11 PM Age: 55 years old Clinical indication: Numbness / parasthesia and weakness, extremity; Bilateral; Patient HX: PT states had a seizure this morning 03/16, no feeling in right leg and losing feeling in left leg; Additional info: CVA TECHNIQUE: Imaging protocol: MR of the head without contrast. COMPARISON: CT Head without contrast 03/16/2020 8:32 AM FINDINGS: Brain: There is mild generalized cerebral volume loss and a small number of scattered foci of white matter T2 hyperintensity, nonspecific but commonly secondary to chronic small vessel ischemic change. No acute ischemic infarction. No acute intracranial hemorrhage. Cerebral ventricles: Normal. No ventriculomegaly. Bones/joints: Unremarkable. Paranasal sinuses: Mild paranasal sinus mucosal thickening. Mastoid air cells: No mastoid effusion. Orbits: Unremarkable. Soft tissues: Unremarkable. IMPRESSION: No acute intracranial abnormality. Electronically signed by: Colt Porter On 03/16/2020 14:22:00 PM DD: COLT PORTER MD 03/16/201410 DT: ANGELIQUE 03/16/20 142 DS: BENEDICTO 03/16/20 142 [~ rep ct labl] PROGNOSIS: Fair ACTIVITY: [As tolerated]. DIET: Regular DISCHARGE INSTRUCTIONS: Follow-up with neurologist in 3-5 days, follow-up with PCP in 3-5 days DISCHARGE CONDITION: [Stable]. TIME SPENT ON DISCHARGE: Greater than 30 minutes. Vital Signs/I&Os Vital Signs Date Time Temp Pulse Resp B/P (MAP) Pulse Ox O2 Delivery O2 Flow Rate FiO2 03/18/20 12:00 98.6 85 17 142/62 (88) 96 Room Air I&O- Last 24 Hours up to 6 AM 03/18/20 06:00 Intake Total 1680 ml Output Total 2550 ml Balance -870 ml Laboratory Data Labs 24H Laboratory Tests 2 03/17/20 17:09: Bedside Glucose (Misc Panel) 51L 03/17/20 17:38: Bedside Glucose (Misc Panel) 77 03/17/20 18:24: Bedside Glucose (Misc Panel) 175H 03/17/20 20:39: Bedside Glucose (Misc Panel) 381H 03/18/20 04:34: Bedside Glucose (Misc Panel) 349H 03/18/20 08:31: Bedside Glucose (Misc Panel) 174H 03/18/20 12:11: Bedside Glucose (Misc Panel) 416H FSBS Laboratory Tests Test 03/17/20 17:09 03/17/20 17:38 03/17/20 18:24 03/17/20 20:39 Range/Units Bedside Glucose (Misc Panel) 51 77 175 381 70-105 MG/DL Test 03/18/20 04:34 03/18/20 08:31 03/18/20 12:11 Range/Units Bedside Glucose (Misc Panel) 349 174 416 70-105 MG/DL Microbiology Microbiology 03/16/20 Blood Culture - Preliminary, Resulted No Growth after 48 hours. All Specime... 03/16/20 Blood Culture - Preliminary, Resulted No Growth after 48 hours. All Specime... Discharge Medications Scheduled Bupropion Hcl (Bupropion Xl) 150 Mg Tab.er.24h, 150 MG PO QHS, (Reported) Gabapentin (Gabapentin) 300 Mg Capsule, 300 MG PO TID, (Reported) Insulin Glargine,Hum.rec.anlog (Basaglar Kwikpen U-100) 100 Unit/1 Ml Insuln.pen, 18 UNIT SC QHS, (Reported) Insulin Lispro (Admelog) 100 Unit/1 Ml Vial, 8 UNIT SC BID, (Reported) BEFORE BREAKFAST AND LUNCH Insulin Lispro (Admelog) 100 Unit/1 Ml Vial, 15 UNIT SC ACS, (Reported) Levetiracetam (Keppra) 250 Mg Tablet, 250 MG PO BID Levothyroxine Sodium (Levothyroxine Sodium) 150 Mcg Tablet, 150 MCG PO QAM, (Reported) Methocarbamol (Methocarbamol) 750 Mg Tablet, 750 MG PO TID, (Reported) Multivitamins (Thera M Plus Tablet) 1 Each Tablet, 1 TAB PO DAILY, (Reported) Ropinirole HCl (Ropinirole HCl) 1 Mg Tablet, 2 MG PO QHS, (Reported) Scheduled PRN Sumatriptan Succinate (Sumatriptan Succinate) 25 Mg Tablet, 25 MG PO Q4HP PRN for MIGRAINE Allergies Coded Allergies: ciprofloxacin (Verified Allergy, Unknown, hives, 12/11/19) latex (Verified Allergy, Unknown, swelling/shortness of breath, 12/11/19) piperacillin (Verified Allergy, Unknown, rash, 12/11/19) tazobactam (Verified Allergy, Unknown, rash, 12/11/19) vancomycin (Verified Allergy, Unknown, rash, 12/11/19) HILTON HORTON DO Mar 18, 2020 16:16
== END 2020-03-18 17:37 | disposition home or self-care (01) | DRG 53 ==
LOC: M ED 08:08 → EDBD 08:08 → M ED INP 12:21 → ENRESERV 13:17 → M PCU 14:47
PROVIDERS: ADMIT Internal Medicine; ATTEND Internal Medicine
DX: R56.9 Unspecified convulsions (principal); E10.649 Type 1 diabetes mellitus with hypoglycemia without coma; E10.65 Type 1 diabetes mellitus with hyperglycemia; I16.1 Hypertensive emergency; I10 Essential (primary) hypertension; E03.9 Hypothyroidism, unspecified; Z91.19 Patient's noncompliance with other medical treatment and regimen; Z79.4 Long term (current) use of insulin; Z79.899 Other long term (current) drug therapy; Z91.040 Latex allergy status

== ENCOUNTER 2020-12-26 17:47 | Inpatient (IN) | payer OTHER ==
[~2020-12-26] VITALS: Ht 167.6 cm; Wt 55.9 kg
[~2020-12-26 17:47] MED LIST changes: +ADME100I SC; +BUPR150T12 PO; -BUPR150T3 PO; +GABA-282 PO; +KEPP250T5 PO; +LEVO150T7 PO; +METH-1165 PO; +SUMA25TA3 PO; +VITMTA PO
[2020-12-26] MEDS ORDERED: MORPHINE 4 MG/ML 1ML VIAL/SYRINGE (J2270) IV ONE (19:40)
[2020-12-26] MEDS ORDERED: NS 1,000 ML IV SCH (19:40)
[2020-12-26 20:15] LABS: BASO % 0.4 % (0.0-1.0); EOS # 0.3 10^3/uL (0.0-0.5); EOS % 3.3 % (0.0-3.0); HEMATOCRIT 33.1 % (36.0-47.0); HEMOGLOBIN 10.7 g/dl (12.0-15.5); LYMPH # 2.2 10^3/uL (1.5-5.0); LYMPH % 26.5 % (24.0-44.0); MEAN CORPUSCULAR HEMOGLOBIN 27.7 pg (27.0-33.0); MEAN CORPUSCULAR HGB CONC 32.3 g/dl (32.0-36.5); MEAN CORPUSCULAR VOLUME 85.8 fl (80.0-96.0); MONO # 0.7 10^3/uL (0.0-0.8); MONO % 8.8 % (2.0-8.0); NEUTROPHILS % 60.6 % (36.0-66.0); PLATELET COUNT, AUTOMATED 385 10^3/uL (150-450); RED BLOOD COUNT 3.86 10^6/uL (4.00-5.40); WHITE BLOOD COUNT 8.2 10^3/uL (4.0-10.0)
[2020-12-26] MEDS: GASTROGRAFIN SOLUTION 30ML PO SCH ×2 (20:15→20:45)
[2020-12-26 20:25] LABS: INR 0.87; PROTHROMBIN TIME 12.2 SECONDS (12.7-14.5)
[2020-12-26 20:50] LABS: ALBUMIN 3.4 GM/DL (3.2-5.2); ALT/SGPT 27 U/L (12-78); BILIRUBIN,DIRECT < 0.1 MG/DL (0.0-0.2); BILIRUBIN,TOTAL 0.2 MG/DL (0.2-1.0); BLOOD UREA NITROGEN 23 MG/DL (7-18); CALCIUM LEVEL 9.1 MG/DL (8.5-10.1); CARBON DIOXIDE LEVEL 21 MEQ/L (21-32); CHLORIDE LEVEL 110 MEQ/L (98-107); CREATININE FOR GFR 1.22 MG/DL (0.55-1.30); GLOMERULAR FILTRATION RATE 48.4 (>51); GLUCOSE, FASTING 438 MG/DL (70-100); LIPASE 66 U/L (73-393); POTASSIUM SERUM 4.8 MEQ/L (3.5-5.1); SODIUM LEVEL 140 MEQ/L (136-145); TOTAL PROTEIN 6.6 GM/DL (6.4-8.2)
[2020-12-26] MEDS ORDERED: PRIMIDONE 50 MG TAB PO SCH (21:00)
[2020-12-26] MEDS ORDERED: buPROPion **XL** TABLET 150MG (WELLBUTRIN XL) PO SCH (21:00)
[2020-12-26] MEDS ORDERED: ISOVUE-370 76% 100ML VIAL As Ordered ONE (21:28)
[2020-12-26] MEDS ORDERED: HYDROMORPHONE HCL 0.5 MG/ 0.5 ML SYRINGE (J1170 PER 1) IV ONE (21:45)
--- NOTE | 2020-12-26 22:33 | REPVR ---
PROCEDURE INFORMATION: Exam: CT Abdomen And Pelvis With Contrast Exam date and time: 12/26/2020 9:36 PM Age: 55 years old Clinical indication: Abdominal pain; Localized; Left lower quadrant (llq); Additional info: Llq pain; R/O colitis/diverticulitis TECHNIQUE: Imaging protocol: Computed tomography of the abdomen and pelvis with contrast. Radiation optimization: All CT scans at this facility use at least one of these dose optimization techniques: automated exposure control; mA and/or kV adjustment per patient size (includes targeted exams where dose is matched to clinical indication); or iterative reconstruction. Contrast material: ISOVUE 370; Contrast volume: 100 ml; Contrast route: INTRAVENOUS (IV); COMPARISON: CR PORTABLE CHEST X-RAY 03/16/2020 8:40 AM FINDINGS: Liver: Normal. No mass. Gallbladder and bile ducts: Status post cholecystectomy. Pancreas: Pancreatic atrophy for age. Spleen: Normal. No splenomegaly. Adrenal glands: Normal. No mass. Kidneys and ureters: Normal. No hydronephrosis. Stomach and bowel: Wall thickening of the pylorus and to a lesser degree pre-pyloric antrum. Slight diffuse colonic wall thickening with slight pericolonic edema. Appendix: There are no changes of appendicitis. A normal appendix is not seen. Intraperitoneal space: Unremarkable. No free air. No significant fluid collection. Vasculature: There is mild calcification of the abdominal aorta with extension into the iliac arteries. Lymph nodes: Unremarkable. No enlarged lymph nodes. Urinary bladder: Unremarkable as visualized. Reproductive: Status post hysterectomy. Bones/joints: Unremarkable. No acute fracture. Soft tissues: Unremarkable. IMPRESSION: 1. There has been prior cholecystectomy and hysterectomy. 2. Question of antral gastritis and pylorospasm or PUD involving the pyloric channel. 3. Pancreatic atrophy for age. 4. Minimal nonspecific pancolitis. Electronically signed by: Cornelio Garcia On 12/26/2020 22:33:01 PM
[2020-12-26] MEDS ORDERED: ONDANSETRON 4MG/2ML VIAL IV ONE (22:40)
[2020-12-26] MEDS ORDERED: METOCLOPRAMIDE INJ 10MG/2ML VIAL (J2765 PER 1) IV ONE (23:20)
[2020-12-26] MEDS ORDERED: DEXTROSE 50% 50 ML SYRINGE IV PRN (23:30)
[2020-12-26] MEDS ORDERED: MOM 30ML SUSPENSION UDC PO PRN (23:30)
[2020-12-26] MEDS ORDERED: GLUCAGON INJ 1MG VIAL SC PRN (23:30)
[2020-12-26] MEDS ORDERED: MAALOX 30 ML SUSP *UDC PO PRN (23:30)
[2020-12-26] MEDS ORDERED: GLUCOSE 4GM CHEW TABLET PO PRN (23:30)
--- NOTE | 2020-12-26 23:35 | HPEPDOC ---
[facility] Medical History & Physical Date of Admission Dec 26, 2020 Date of Service: Dec 26, 2020 Primary Care Physician: So Pardo DO Attending Physician: PANCHO WINTERS MD History and Physical TIME OF SERVICE 1145PM CHIEF COMPLAINT: bleeding HISTORY OF PRESENT ILLNESS: For several months has been having bloody stools several times per week. A few days ago the blood in her stool reoccurred. She has also had diarrhea with about 6 episodes per day. She has been vomiting about 3 times per day and has had intermittent 10/10 in severity cramping left sided abdominal pain that is not alleviated by vomiting or having a bowel movement. She denies having fevers or chills but admits to loosing weight. Earlier on today her serum glucose was in the 30s. [place]. Prior to her ER visit she was seen by her PCP who sent her to the hospital. 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 HOME MEDICATIONS: Please see below. PHYSICAL EXAMINATION: Vital Signs Date Time Temp Pulse Resp B/P (MAP) Pulse Ox O2 Delivery O2 Flow Rate FiO2 12/26/20 17:47 98.0 102 16 134/62 (86) 97 Room Air GENERAL APPEARANCE: slim build /appears chronically ill HEENT: EOMI / MMM&P INTEGUMENT: slightly pale / old post lap scar visible at mid-abdomen / post amputation scars have healed well CARDIOVASCULAR: tachycardic / NMRG LUNGS: not coughing / CTAB on RA ABDOMEN: contour flat/ soft / she grimaces with palpation MUSCULOSKELETAL: NCAT / ROMIx 4 extremities NEUROLOGICAL: CN 2-12 grossly intact /speech not dysarthric PSYCHIATRIC: A&Ox 3 /able to understand and follow all commands LABORATORY DATA: IMAGING: CT abd/pelvis "IMPRESSION: 1. There has been prior cholecystectomy and hysterectomy. 2. Question of antral gastritis and pylorospasm or PUD involving the pyloric channel. 3. Pancreatic atrophy for age. 4. Minimal nonspecific p ancolitis." MICROBIOLOGY: + C Diff ASSESSMENT: is a 55 yr old w IDDM1 w neuropathy, RLS, Hypothyroidism, Seizure disorder, DLP, & HTN is admitted for management of C diff colitis and blood loss anemia 2/2 GI bleed. PLAN: 1 Mild C Diff Because her CR is <1.5 and the WBC # is <15 this is a mild infection Her ATLAS Score for C. Diff Infection to predict response the therapy is 2 which indicates that her cure rate is likely 92.7% Plan: admit to medical floor / because she is allergic to Vancomycin we will start fidaxomicin for 10 days 2 Blood loss anemia 2/2 GI bleed This may be due to C.Diff and possibly Antral gastritis vs pylorospasm vs PUD She has several alarm symptoms including weight loss and anemia therefore I suspect that she will need an EGD Plan: trend Hg / f/u stool occult / f/u iron studies / PPI & Carafate / will ask the day time team to consult Gen Surg in the morning 3 Vomiting Plan: Zofran / CLD and advance diet as tolerated 4 Uncontrolled IDDM w neuropathy Plan: f/u accuchecks Q6H / hypoglycemia protocol / sliding scale insulin / because she was hypoglycemic earlier on during the day we will reduce her long acting insulin from 22 units QHS to 10 units QHS for now / f/u A1C (target A1C 5 Hypothyroidism Plan: levothyroxine 6 Seizure disorder Plan: c/w Keppra 7 RLS Plan: ropinirole DVT Px w SCDs (bc of possible GI bleed) Dispo: likely home after more than 2 midnight's stay LATE ENTRY #Seizure I was informed by the patient's RN at about 645AM that the patient had a seizure that lasted 4 min despite receiving Keppra last night At the time of my evaluation at 701AM the patient was alert but listless and couldn't remember having a seizure Plan: seizure precautions / CT of the head / EEG / start Ativan 2mg IV PRN for seizure and administer one dose now / will ask the day time team to touch base with Neurology Home Medications Scheduled Bupropion Hcl (Bupropion Xl) 150 Mg Tab.er.24h, 150 MG PO QHS Gabapentin (Gabapentin) 300 Mg Capsule, 300 MG PO TID Insulin Glargine,Hum.rec.anlog (Semglee Pen) 100 Unit/Ml (3 Ml) Insuln.pen, 22 UNITS SUBQ QHS Insulin Lispro (Admelog) 100 Unit/1 Ml Vial, 8 UNIT SC BID BEFORE BREAKFAST AND LUNCH Insulin Lispro (Admelog) 100 Unit/1 Ml Vial, 11 UNIT SC QPM Levetiracetam (Levetiracetam) 250 Mg Tablet, 250 MG PO BID Levothyroxine Sodium (Levothyroxine Sodium) 200 Mcg Tablet, 200 MCG PO QAM Multivitamins (Thera M Plus Tablet) 1 Each Tablet, 1 TAB PO DAILY Primidone (Primidone) 50 Mg Tablet, 50 MG PO QAM Primidone (Primidone) 50 Mg Tablet, 100 MG PO QHS Ropinirole HCl (Ropinirole HCl) 1 Mg Tablet, 2 MG PO QHS Ropinirole HCl (Ropinirole HCl) 1 Mg Tablet, 1 MG PO BID MORNING AND AFTERNOON Rosuvastatin Calcium (Rosuvastatin Calcium) 40 Mg Tablet, 40 MG PO DAILY Allergies Coded Allergies: ciprofloxacin (Verified Allergy, Unknown, hives, 12/11/19) latex (Verified Allergy, Unknown, swelling/shortness of breath, 12/11/19) piperacillin (Verified Allergy, Unknown, rash, 12/11/19) tazobactam (Verified Allergy, Unknown, rash, 12/11/19) vancomycin (Verified Allergy, Unknown, rash, 12/11/19) A-FIB/CHADSVASC A-FIB History Current/History of A-Fib/PAF?: No Current PO Anticoag Therapy: PANCHO Bergman MD Dec 26, 2020 23:35
[2020-12-26] MEDS ORDERED: ONDANSETRON 4MG/2ML VIAL IV PRN (23:40)
[2020-12-26] MEDS ORDERED: levETIRAcetam 250MG TABLET (KEPPRA) PO ONE (23:40)
[2020-12-26] MEDS ORDERED: LEVO200T4 PO (23:57)
[2020-12-26] MEDS ORDERED: LEVE250T5 PO (23:58)
[2020-12-27] MEDS ORDERED: ROPI1TAB3 PO
[2020-12-27] MEDS ORDERED: PRIM50TA6 PO ×2
[2020-12-27] MEDS ORDERED: ROSU40TA4 PO
[2020-12-27] MEDS ORDERED: INSU100I28 SUBQ (00:02)
[2020-12-27] MEDS ORDERED: HOME MED LIST COMPLETE! XX SCH (00:05)
[2020-12-27] MEDS: PANTOPRAZOLE 40MG VIAL (C9113 PER 1) IV SCH ×3 (00:51→20:25)
[2020-12-27] MEDS: LEVEMIR (INSULIN DETEMIR) 1 UNITS/0.01ML SC SCH ×2 (00:51→20:25)
[2020-12-27] MEDS: NS 1,000 ML IV SCH ×3 (00:52→23:37)
[2020-12-27] MEDS: GABAPENTIN 300 MG CAP PO SCH ×4 (00:54→20:26)
[2020-12-27] MEDS: SUCRALFATE 1 GM TAB PO SCH ×3 (00:54→12:35)
[2020-12-27] MEDS ORDERED: MORPHINE 2 MG/ML 1ML VIAL (J2270) IV ONE (01:15)
[2020-12-27] MEDS: FIDAXOMICIN 200 MG TAB (DIFICID) PO SCH ×3 (01:43→20:25)
[2020-12-27] MEDS: rOPINIRole 1MG TAB PO SCH ×4 (01:44→20:26)
[2020-12-27 01:48] LABS: RSV AMPLIFICATION NEGATIVE (NEGATIVE)
[2020-12-27] MEDS: HumaLOG INSULIN (NovoLOG) PER UNIT SC SCH ×4 (01:56→17:12)
[2020-12-27 03:34] VITALS: BP 143/69
[2020-12-27] MEDS: ACETAMINOPHEN TAB 650MG DOSE (2X325MG) PO PRN (04:01)
[2020-12-27 06:16] LABS: HEMATOCRIT 27.8 % (36.0-47.0); HEMOGLOBIN 8.8 g/dl (12.0-15.5); MEAN CORPUSCULAR HEMOGLOBIN 27.7 pg (27.0-33.0); MEAN CORPUSCULAR HGB CONC 31.7 g/dl (32.0-36.5); MEAN CORPUSCULAR VOLUME 87.4 fl (80.0-96.0); RED BLOOD COUNT 3.18 10^6/uL (4.00-5.40); WHITE BLOOD COUNT 6.4 10^3/uL (4.0-10.0)
[2020-12-27 06:17] LABS: PLATELET COUNT, AUTOMATED 242 10^3/uL (150-450)
[2020-12-27] MEDS: LEVOTHYROXINE 100MCG TABLET (0.1MG) PO SCH (06:24)
[2020-12-27 06:34] LABS: BLOOD UREA NITROGEN 20 MG/DL (7-18); CALCIUM LEVEL 8.6 MG/DL (8.5-10.1); CARBON DIOXIDE LEVEL 21 MEQ/L (21-32); CHLORIDE LEVEL 116 MEQ/L (98-107); CREATININE FOR GFR 0.78 MG/DL (0.55-1.30); FERRITIN 10 NG/ML (8-252); GLOMERULAR FILTRATION RATE > 60.0 (>51); GLUCOSE, FASTING 68 MG/DL (70-100); IRON (FE) 64 UG/DL (50-170); PERCENT SATURATION 25.4 % (13.2-45.0); POTASSIUM SERUM 3.9 MEQ/L (3.5-5.1); SODIUM LEVEL 145 MEQ/L (136-145); TOTAL IRON BINDING CAPACITY 252 UG/DL (250-450)
[2020-12-27 06:45] VITALS: BP 112/60
[2020-12-27] MEDS ORDERED: LORazepam 2 MG/ML VIAL IV STA (06:50)
[2020-12-27] MEDS ORDERED: LORazepam 2 MG/ML VIAL IV PRN (06:50)
--- NOTE | 2020-12-27 08:36 | REP ---
INDICATION: seizure. COMPARISON: 03/16/2020. TECHNIQUE: CT brain performed in the axial plane. Coronal reconstruction images are performed. FINDINGS: The ventricles are normal in size and position.. There is no midline shift or mass effect. Murguia-white differentiation is well maintained. There is no acute intracranial hemorrhage or extra-axial fluid collection. There is a tiny left basal ganglia calcification unchanged. Bone window examination is unremarkable. The visualized mastoid air cells and paranasal sinuses are clear. There are mild vascular calcifications in the carotid siphons bilaterally. IMPRESSION: Negative noncontrast CT brain. <Electronically signed by Charlie Murguia > 12/27/20 0832
[2020-12-27] MEDS ORDERED: PRIMIDONE 50 MG TAB PO SCH (09:00)
[2020-12-27] MEDS ORDERED: levETIRAcetam 250MG TABLET (KEPPRA) PO SCH (09:00)
[2020-12-27] MEDS: ENOXAPARIN 40MG/0.4ML SYRINGE (J1650 PER 10MG) SC SCH (10:02)
--- NOTE | 2020-12-27 11:44 | IPNPDOC ---
Subjective Date Seen The patient was seen on 12/27/20. Subjective Chief Complaint/HPI Patient is seated. Opens eyes when called. Could say 1 or 2 words and then went back to sleep. Patient got IV Ativan for seizure at 7 AM Objective Physical Examination General Exam: Positive: No Acute Distress, Other (Sedated) Eye Exam: Positive: Conjunctiva & lids normal; Negative: Sclera icteric ENT Exam: Positive: Atraumatic, Mucous membr. moist/pink, Pharynx Normal, Other ENT (Bitemporal wasting) Neck Exam: Positive: Supple; Negative: JVD, thyromegaly Chest Exam: Positive: Clear to auscultation, Normal air movement Heart Exam: Positive: Rate Normal, Regular Rhythm, Normal S1, Normal S2; Negative: Murmurs, Rubs Abdomen Exam: Positive: Normal bowel sounds, Soft Extremity Exam: Positive: Other (Wasting of small muscles of the hand. 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 Prior to her ER visit she was seen by her PCP who sent her to the hospital. Her GI panel was positive for C. difficile. She was admitted for C. difficile colitis. C Diff colitis because she is allergic to Vancomycin she is given fidaxomicin for 10 days Patient will also need a EGD and colonoscopy Anemia blood loss anemia, anemia from chronic infection. CT abd and Pelvis : Question of antral gastritis and pylorospasm or PUD involving the pyloric channel. We will check iron and vitamin B12 and folate level Will need early EGD and colonoscopy. Uncontrolled IDDM w neuropathy Patient had higher sugars last evening nocturnal getting insulin she became hypoglycemic Will give lispro only AC and will lower the scale. Will give the Levemir at at bedtime. Dose has been lowered compared to her home dose. Continue gabapentin Seizure disorder Patient had a seizure overnight Continue seizure precautions, IV Ativan as needed Continue Keppra Check Keppra levels Hypothyroidism levothyroxine RLS ropinirole Essential tremors Patient on primidone Depression Patient on Wellbutrin Protein calorie malnutrition BMI of 19 with bitemporal wasting wasting of small muscles of the hand. Plan/VTE VTE Prophylaxis Ordered?: Yes VS, I&O, 24H, Fishbone Vital Signs/I&O Vital Signs Date Time Temp Pulse Resp B/P (MAP) Pulse Ox O2 Delivery O2 Flow Rate FiO2 12/27/20 06:45 97.8 102 16 112/60 (77) 100 12/27/20 03:34 Room Air I&O- Last 24 Hours up to 6 AM 12/27/20 05:59 Intake Total 1700 ml Balance 1700 ml Laboratory Data 24H LABS Laboratory Tests 2 12/26/20 19:51: Immature Granulocyte % (Auto) 0.4, Neutrophils (%) (Auto) 60.6, Lymphocytes (%) (Auto) 26.5, Monocytes (%) (Auto) 8.8H, Eosinophils (%) (Auto) 3.3H, Basophils (%) (Auto) 0.4, Neutrophils # (Auto) 5.0, Lymphocytes # (Auto) 2.2, Monocytes # (Auto) 0.7, Eosinophils # (Auto) 0.3, Basophils # (Auto) 0.0, Nucleated Red Blood Cells % (auto) 0.0, Prothrombin Time 12.2, Prothromb Time International Ratio 0.87, Activated Partial Thromboplast Time 25.0, Anion Gap 9, Glomerular Filtration Rate 48.4L, Lactic Acid Level 1.1, Calcium Level 9.1, Total Bilirubin 0.2, Direct Bilirubin < 0.1, Aspartate Amino Transf (AST/SGOT) 20, Alanine Aminotransferase (ALT/SGPT) 27, Alkaline Phosphatase 140H, Total Protein 6.6, Albumin 3.4, Albumin/Globulin Ratio 1.1L, Lipase 66L 12/27/20 00:38: Coronavirus (COVID-19)(PCR) NEGATIVE, Influenza Type A (RT-PCR) NEGATIVE, Influenza Type B (RT-PCR) NEGATIVE, Respiratory Syncytial Virus (PCR) NEGATIVE 12/27/20 01:42: Bedside Glucose (Misc Panel) 435H 12/27/20 05:54: Nucleated Red Blood Cells % (auto) 0.0, Anion Gap 8, Glomerular Filtration Rate > 60.0, Calcium Level 8.6, Iron Level 64, Total Iron Binding Capacity 252, Transferrin % Saturation 25.4, Ferritin 10 12/27/20 06:11: Bedside Glucose (Misc Panel) 61L 12/27/20 06:32: Bedside Glucose (Misc Panel) 91 CBC/BMP Laboratory Tests 12/26/20 19:51 12/27/20 01:38 12/27/20 05:54 Microbiology Microbiology 12/26/20 Gastrointestinal Tract Panel (PCR) - Final, Complete Clostridium Difficile A/B Veronica Lamb MD Dec 27, 2020 08:11
[2020-12-27 11:58] LABS: ALBUMIN 2.6 GM/DL (3.2-5.2)
[2020-12-27] MEDS: ONDANSETRON 4MG/2ML VIAL IV PRN ×2 (12:35→19:04)
[2020-12-27 14:00] VITALS: BP 110/70
--- NOTE | 2020-12-27 14:27 | IPNPDOC ---
Text Note Date of Service The patient was seen on 12/27/20. NOTE Spoke with Neuro follows with Dr Barnard. Patient was taken off keppra as it was not effective and her primodone was increased in last visit. She was supposed to see Dr barnard on 12/24/20 but was a no show. Her other medical problems are carpal tunnel, Dupuytren contracture, neuropathy, muscle spasms, tremors. For her seizures had extensive work up including ambulatory EEG , multiple EEGs which were all negative. Plan at present is to increase primidone to 100 bid and taper off the wellbutrin if lower strength available or stop it. VS,Fishbone, I+O VS, Fishbone, I+O Laboratory Tests 12/26/20 19:51 12/27/20 01:38 12/27/20 05:54 12/27/20 12:41 Vital Signs Date Time Temp Pulse Resp B/P (MAP) Pulse Ox O2 Delivery O2 Flow Rate FiO2 12/27/20 06:45 97.8 102 16 112/60 (77) 100 12/27/20 03:34 Room Air I&O- Last 24 Hours up to 6 AM 12/27/20 07:00 Intake Total 1700 ml Balance 1700 ml Veronica Lamb MD Dec 27, 2020 14:27
[2020-12-27] MEDS: MORPHINE 4 MG/ML 1ML VIAL/SYRINGE (J2270) IV PRN (15:23)
[2020-12-27] MEDS: KETOROLAC 30 MG/ML 1ML VIAL IV PRN (17:12)
[2020-12-27] MEDS: SUCRALFATE SUSP 1GM/10ML UD PO SCH ×2 (17:30→20:24)
[2020-12-27] MEDS: PRIMIDONE 50 MG TAB PO SCH (20:26)
--- NOTE | 2020-12-27 21:11 | REPVR ---
PROCEDURE INFORMATION: Exam: MR Head Without Contrast Exam date and time: 12/27/2020 6:42 PM Age: 55 years old Clinical indication: Condition or disease; Patient HX: HX epilepsy, PT has had recurring sz since this morning unable to give contrast at this time; Additional info: Reccurent seizures TECHNIQUE: Imaging protocol: MR of the head without contrast. COMPARISON: CT Head without contrast 12/27/2020 7:08 AM FINDINGS: Brain: Normal. No acute infarct. No hemorrhage. No significant white matter disease. No edema. Cerebral ventricles: Normal. No ventriculomegaly. Bones/joints: Unremarkable. Paranasal sinuses: Normal as visualized. No acute sinusitis. Mastoid air cells: Normal as visualized. No mastoid effusion. Orbital cavity: Unremarkable. Soft tissues: Unremarkable. IMPRESSION: No acute findings. Electronically signed by: Michele Salas On 12/27/2020 21:10:34 PM
[2020-12-27 22:00] VITALS: BP 123/67
[2020-12-28] MEDS: KETOROLAC 30 MG/ML 1ML VIAL IV PRN (04:31)
[2020-12-28] MEDS: ONDANSETRON 4MG/2ML VIAL IV PRN ×2 (04:31→21:31)
[2020-12-28 06:00] VITALS: BP 115/68
[2020-12-28] MEDS: MORPHINE 4 MG/ML 1ML VIAL/SYRINGE (J2270) IV PRN ×4 (06:30→21:16)
[2020-12-28] MEDS: LEVOTHYROXINE 100MCG TABLET (0.1MG) PO SCH (06:30)
[2020-12-28] MEDS: HumaLOG INSULIN (NovoLOG) PER UNIT SC SCH ×3 (07:30→17:23)
[2020-12-28 08:35] LABS: BASO % 0.3 % (0.0-1.0); EOS # 0.4 10^3/uL (0.0-0.5); EOS % 6.4 % (0.0-3.0); HEMATOCRIT 34.1 % (36.0-47.0); HEMOGLOBIN 10.8 g/dl (12.0-15.5); LYMPH # 1.6 10^3/uL (1.5-5.0); LYMPH % 27.9 % (24.0-44.0); MEAN CORPUSCULAR HGB CONC 31.7 g/dl (32.0-36.5); MEAN CORPUSCULAR VOLUME 88.3 fl (80.0-96.0); MONO # 0.5 10^3/uL (0.0-0.8); NEUTROPHILS # 3.3 10^3/uL (1.5-8.5); NEUTROPHILS % 57.2 % (36.0-66.0); PLATELET COUNT, AUTOMATED 308 10^3/uL (150-450); RED BLOOD COUNT 3.86 10^6/uL (4.00-5.40); WHITE BLOOD COUNT 5.8 10^3/uL (4.0-10.0)
[2020-12-28] MEDS: PANTOPRAZOLE 40MG VIAL (C9113 PER 1) IV SCH ×2 (08:35→21:17)
[2020-12-28] MEDS: SUCRALFATE SUSP 1GM/10ML UD PO SCH ×4 (08:35→21:17)
[2020-12-28] MEDS: FIDAXOMICIN 200 MG TAB (DIFICID) PO SCH ×2 (08:35→21:00)
[2020-12-28] MEDS: ENOXAPARIN 40MG/0.4ML SYRINGE (J1650 PER 10MG) SC SCH (08:36)
[2020-12-28] MEDS: PRIMIDONE 50 MG TAB PO SCH ×2 (08:36→21:00)
[2020-12-28] MEDS: rOPINIRole 1MG TAB PO SCH ×3 (08:36→21:18)
[2020-12-28] MEDS: GABAPENTIN 300 MG CAP PO SCH ×3 (08:36→21:17)
[2020-12-28 09:13] LABS: ALBUMIN 3.2 GM/DL (3.2-5.2); ALT/SGPT 28 U/L (12-78); BILIRUBIN,TOTAL 0.2 MG/DL (0.2-1.0); BLOOD UREA NITROGEN 9 MG/DL (7-18); CALCIUM LEVEL 9.3 MG/DL (8.5-10.1); CARBON DIOXIDE LEVEL 22 MEQ/L (21-32); CHLORIDE LEVEL 115 MEQ/L (98-107); FREE T3 2.4 PG/ML (2.2-4.0); FREE T4 1.41 NG/DL (0.76-1.46); GLOMERULAR FILTRATION RATE > 60.0 (>51); GLUCOSE, FASTING 139 MG/DL (70-100); POTASSIUM SERUM 4.4 MEQ/L (3.5-5.1); SODIUM LEVEL 143 MEQ/L (136-145); THYROID STIMULATING HORMONE < 0.005 uIU/ML (0.358-3.740); TOTAL PROTEIN 6.4 GM/DL (6.4-8.2)
--- NOTE | 2020-12-28 10:47 | REP ---
INDICATION: abdominal distension, pain. COMPARISON: CT 12/26/2020. TECHNIQUE: Two views abdomen and pelvis. FINDINGS: Contrast from prior CT exam is seen throughout the colon. There is no evidence of bowel obstruction. Phleboliths are seen in the pelvis. IMPRESSION: No evidence of obstruction. <Electronically signed by Charlie Murguia > 12/28/20 1049
[2020-12-28] MEDS ORDERED: DICYCLOMINE 10 MG CAP PO PRN (11:05)
[2020-12-28] MEDS: oxyCODONE 5MG TAB PO SCH ×2 (12:08→21:18)
--- NOTE | 2020-12-28 12:17 | IPNPDOC ---
Subjective Date Seen The patient was seen on 12/28/20. Subjective Chief Complaint/HPI Patient is awake alert and oriented this morning. Patient is crying in abdominal pain which she says is coming in cramping twisting waves. Says this has been going on for 4 months but has been really bad this week. Has been managing the pain at home with Tylenol. Says sometimes he would have bouts of diarrhea which would last for 2 or 3 days and then would stop the bowels will become regular but says the often the bowels come out flattened like a ribbon. She had a bout of diarrhea 3-4 times in the emergency room no further diarrhea after admission. She reports that she had a twisted colon 5 years ago when needed laparotomy for that. She is fearful that this may be happening again. Sometimes there is blood in stool. Fecal occult blood here has been negative. She also complains of intermittent vomiting. She did have 2 episodes of vomiting yesterday in the hospital. She also complains of increased distention of the abdomen this morning. She had 2 episodes of seizure yesterday. Her primidone has been increased. She had not been taking any Wellbutrin at home. She also reports that her Synthroid dose was increased last year and she has not had any TSH checked since then. Objective Physical Examination General Exam: Positive: Alert, Cooperative, Moderate Distress (Due to abdominal pain) Eye Exam: Positive: PERRLA, Conjunctiva & lids normal; Negative: Sclera icteric ENT Exam: Positive: Atraumatic, Mucous membr. moist/pink, Pharynx Normal, Other ENT (Bitemporal wasting) Neck Exam: Positive: Supple; Negative: JVD, thyromegaly Chest Exam: Positive: Clear to auscultation, Normal air movement Heart Exam: Positive: Rate Normal, Regular Rhythm, Normal S1, Normal S2; Negative: Murmurs, Rubs Abdomen Exam: Positive: BS Hyperactive, Soft, Tenderness (In the epigastrium, left upper quadrant, left lower quadrant) Extremity Exam: Positive: Other (Wasting of small muscles of the hand. 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 Prior to her ER visit she was seen by her PCP who sent her to the hospital. Her GI panel was positive for C. difficile. She was admitted for C. difficile colitis. C Diff colitis because she is allergic to Vancomycin she is given fidaxomicin for 10 days Abdominal pain Due to C. difficile colitis and possibly peptic ulcer disease/pyloric spasm We will check a lactic acid level There is always a possibility of chronic mesenteric ischemia. Consult with surgery We will continue with morphine and oxycodone for pain control. Continue with PPI sucralfate Abdominal x-ray does not show any bowel obstruction Gastrografin is seen throughout the colon. We will give dicyclomine as needed for abdominal cramps. Anemia blood loss anemia, anemia from chronic infection. CT abd and Pelvis : Question of antral gastritis and pylorospasm or PUD involving the pyloric channel. We will check iron and vitamin B12 and folate level Will need early EGD and colonoscopy. Uncontrolled IDDM w neuropathy Patient had higher sugars last evening nocturnal getting insulin she became hypoglycemic Will give lispro only AC and will lower the scale. Will give the Levemir at at bedtime. Dose has been lowered compared to her home dose. Continue gabapentin Seizure disorder 2 seizures in the hospital Discussed with Dr. Dan. Patient was taken off Keppra several months ago because she was not responsive to Keppra. Her primidone was increased during that visit We will further increase primidone now 200 twice daily. Will DC Wellbutrin. Patient was not taking this at home. Continue seizure precautions, IV Ativan as needed Hypothyroidism TSH very suppressed Free T3 3 and T4 is within normal limit Will reduce home Synthroid RLS ropinirole Tremors/muscle spasm/jerky movement Follows with neurology Continue primidone Depression Not on any meds Protein calorie malnutrition BMI of 19 with bitemporal wasting wasting of small muscles of the hand. Albumin of 2.3 Plan/VTE VTE Prophylaxis Ordered?: Yes VS, I&O, 24H, Fishbone Vital Signs/I&O Vital Signs Date Time Temp Pulse Resp B/P (MAP) Pulse Ox O2 Delivery O2 Flow Rate FiO2 12/28/20 11:08 16 12/28/20 06:30 Room Air 12/28/20 06:00 97.0 82 115/68 (84) 98 I&O- Last 24 Hours up to 6 AM 12/28/20 06:00 Intake Total 680 ml Output Total 1050 ml Balance -370 ml Laboratory Data 24H LABS Laboratory Tests 2 12/27/20 12:41: 12/27/20 16:50: Bedside Glucose (Misc Panel) 207H 12/27/20 17:32: Bedside Glucose (Misc Panel) 212H 12/27/20 20:06: Bedside Glucose (Misc Panel) 147H 12/28/20 03:54: Thyroid Stimulating Hormone (TSH) < 0.005L 12/28/20 06:28: Bedside Glucose (Misc Panel) 85 12/28/20 08:23: Thyroid Stimulating Hormone (TSH) < 0.005L, Immature Granulocyte % (Auto) 0.2, Neutrophils (%) (Auto) 57.2, Lymphocytes (%) (Auto) 27.9, Monocytes (%) (Auto) 8.0, Eosinophils (%) (Auto) 6.4H, Basophils (%) (Auto) 0.3, Neutrophils # (Auto) 3.3, Lymphocytes # (Auto) 1.6, Monocytes # (Auto) 0.5, Eosinophils # (Auto) 0.4, Basophils # (Auto) 0.0, Nucleated Red Blood Cells % (auto) 0.0, Anion Gap 6L, Glomerular Filtration Rate > 60.0, Calcium Level 9.3, Total Bilirubin 0.2, A spartate Amino Transf (AST/SGOT) 26, Alanine Aminotransferase (ALT/SGPT) 28, Alkaline Phosphatase 140H, Total Protein 6.4, Albumin 3.2#, Albumin/Globulin Ratio 1.0L, Free Thyroxine 1.41, Free Triiodothyronine 2.4 CBC/BMP Laboratory Tests 12/27/20 12:41 12/28/20 08:23 Microbiology Microbiology 12/27/20 Stool Occult Blood (SALLY) - Final, Complete 12/26/20 Gastrointestinal Tract Panel (PCR) - Final, Complete Clostridium Difficile A/B Veronica Lamb MD Dec 28, 2020 12:17
[2020-12-28 14:00] VITALS: BP 123/68
--- NOTE | 2020-12-28 17:33 | CR ---
CONSULTATION DATE: 12/28/2020 REASON FOR CONSULTATION: Abdominal pain. HISTORY OF PRESENT ILLNESS: The patient is a 55-year-old woman with longstanding type 1 diabetes. She has a history of neuropathy. She has a history of a seizure disorder. She was admitted on December 26, 2020 after presenting to the emergency department that evening with a complaint of Clostridium difficile colitis and vomiting. She reported intermittent rectal bleeding over the last several months. She had abdominal pain, primarily in the left lower abdomen as well as a report of diarrhea. In the emergency department, she underwent evaluation with laboratory studies that showed normal white count with mild to moderate anemia with a hematocrit of 33. Her differential count was normal. Chemistries showed a marked elevation of her glucose to 438. A CT scan was done, which showed what the radiologist felt represented some wall thickening of the pylorus and the prepyloric antrum. There was some slight diffuse colonic wall thickening with slight pericolonic edema. There was no free air or significant free fluid identified. It was noted that she had an absence of her gallbladder and uterus. She was admitted by the hospitalist service for treatment of her Clostridium (C) difficile and possible evaluation of her reported bleeding. Her diabetes was also notably out of control. The patient apparently has had some seizures yesterday and today has continued to complain of some severe cramping, intermittent pain, particularly in the left side of the abdomen. She has had some small loose stools. Because of her continued severe pain, she underwent repeat exam with an abdominal x-ray today and the hospitalist, Dr. Lamb, asks me to see the patient for evaluation. ALLERGIES: Are reported to CIPROFLOXACIN, LATEX, PIPERACILLIN, TAZOBACTAM and VANCOMYCIN. USUAL MEDICATIONS: As an outpatient include: - bupropion 150 mg daily at bedtime - gabapentin 300 mg by mouth three times daily - Glargine insulin 22 units subcutaneous at bedtime - Lispro insulin subcutaneous twice a day, before breakfast and lunch and in the evening - levetiracetam 250 mg by mouth twice daily - levothyroxine 200 mcg by mouth every morning - multivitamin daily - primidone 50 mg by mouth every morning, 100 mg by mouth at night - ropinirole 2 mg by mouth at night with 1 mg twice during the day in the morning and afternoon - rosuvastatin 40 mg by mouth daily MEDICAL HISTORY: Significant primarily for: 1. Diabetes. 2. History of associated neuropathy. 3. She has had osteomyelitis involving her toes and has had surgery on both feet. 4. History of restless leg syndrome. 5. History of hypothyroidism. 6. History of seizure disorder, which she reports has been quiescent, but she had seizures reported yesterday. 7. Dyslipidemia. 8. Essential hypertension. SURGICAL HISTORY: Significant for: 1. Appendectomy. 2. Open cholecystectomy 30 years ago. 3. Hysterectomy. 4. She reports that about six years ago, she required an exploratory laparotomy in [place] for what she describes as a twisted bowel. 5. She has had multiple hand surgeries. SOCIAL HISTORY: Patient is a former smoker. She denies significant alcohol intake. FAMILY HISTORY: Not significant other than noting that her mother had diabetes mellitus. REVIEW OF SYSTEMS: Patient has had no chest pains or palpitations. She denies shortness of breath, cough, wheezing or sputum production. She denies dysuria or hematuria. She does report that she has had intermittent cramping, abdominal pains with some blood in her stool over the last few months. Pain may last a short time, like 15 minutes or recur multiple times. She has no history of deep venous thrombosis (DVT) or pulmonary embolus. PHYSICAL EXAMINATION: GENERAL: Reveals a somewhat ill-appearing, thin woman sitting propped up in the hospital bed. She is alert and oriented and agreeable with the exam. SKIN: Warm and dry. HEENT: Sclerae anicteric. Mucous membranes are moist. The neck is supple. HEART EXAM: Shows a regular rhythm at about 85-90. LUNGS: Clear to auscultation bilaterally. ABDOMEN: May be very slightly protuberant. She has an old right subcostal scar. She also has a midline scar curving to the right of the umbilicus. She does have some bowel sounds present. There is no tympany to percussion. She does have tenderness to percussion and palpation fairly diffusely, though certainly more so on the left side of the abdomen than the right. The abdomen is soft. There is no sign of hernia. EXTREMITIES: Without peripheral edema. LABORATORY STUDIES: Laboratory studies today included a CBC showing a white count of 6, hemoglobin 11, hematocrit 34 and a platelet count of 308,000. This is quite similar to her admitting numbers. Her differential count shows 57% neutrophils, 28% lymphocytes and 8% monocytes with 6% eosinophils. Her chemistry profile today includes a sodium of 143, potassium 4.4, chloride 115, CO2 of 22, BUN of 9, creatinine 0.7 and a glucose of 139. Her lactic acid today was 2.7. Her liver function tests are not significantly abnormal, with a very slight elevation of the alkaline phosphatase to 140. Her TSH is quite low, but her Free T4 and T3 are in the normal range. She had a lipase on admission that was normal. Her COVID testing was negative on December 27, 2020. She is receiving fingerstick blood sugar determinations and these have varied between 85 and 312 over the last 24 hours. IMAGING DATA: On December 26, 2020, included a CT scan of the abdomen and pelvis. This showed a fluid and food-filled stomach. There was contrast through much of the proximal small bowel. She was noted to have some thickening, particularly in the distal transverse colon and descending colon into the sigmoid. There was no significant free fluid and certainly no free air. I reviewed the images personally. She had a KUB on December 28, 2020, which showed contrast from her CT scan, now in her colon, but no evidence of bowel obstruction. No free air was seen. IMPRESSION: The patient certainly has some abdominal pain and tenderness. This seems to be located primarily on the left side of the abdomen. She has a stool test apparently positive for Clostridium difficile toxin. Her CT scan is consistent with some inflammatory changes in her colon, particularly the distal transverse and descending. She has multiple medical problems, including her diabetes, her hypertension, hyperlipidemia and her history of seizures. At this point, she does not appear to require any acute surgical intervention. The contrast from her CT scan on December 26, 2020, has moved nicely through the small bowel and is in her colon today. There is no sign of obstruction and no sign of perforation. RECOMMENDATIONS: I would recommend continuing with management of her medical issues with treatment for her Clostridium difficile as appropriate. The patient tells me that she had a colonoscopy done at [facility] about a year to a year and a half ago, and it would certainly be reasonable to try to obtain a copy of this report. She indicates that at that time, her colonoscopy was normal. This would obviate the need for any concern about a colonic malignancy. I did ask the steward/stewardess second to see about obtaining this record. I will follow for the next day or two, as we see how her hospitalization progresses. MACHELLE
[2020-12-28] MEDS: LEVEMIR (INSULIN DETEMIR) 1 UNITS/0.01ML SC SCH (21:17)
[2020-12-28 21:36] VITALS: BP 129/70
[2020-12-29] MEDS: MORPHINE 4 MG/ML 1ML VIAL/SYRINGE (J2270) IV PRN ×3 (02:25→23:00)
[2020-12-29] MEDS: ACETAMINOPHEN TAB 650MG DOSE (2X325MG) PO PRN (02:25)
[2020-12-29 06:00] LABS: BASO % 0.5 % (0.0-1.0); EOS # 0.3 10^3/uL (0.0-0.5); EOS % 5.6 % (0.0-3.0); HEMATOCRIT 28.9 % (36.0-47.0); LYMPH # 2.1 10^3/uL (1.5-5.0); LYMPH % 37.7 % (24.0-44.0); MEAN CORPUSCULAR HEMOGLOBIN 27.2 pg (27.0-33.0); MEAN CORPUSCULAR HGB CONC 31.1 g/dl (32.0-36.5); MEAN CORPUSCULAR VOLUME 87.3 fl (80.0-96.0); MONO # 0.7 10^3/uL (0.0-0.8); MONO % 11.9 % (2.0-8.0); NEUTROPHILS # 2.5 10^3/uL (1.5-8.5); NEUTROPHILS % 44.1 % (36.0-66.0); PLATELET COUNT, AUTOMATED 297 10^3/uL (150-450); RED BLOOD COUNT 3.31 10^6/uL (4.00-5.40); WHITE BLOOD COUNT 5.6 10^3/uL (4.0-10.0)
[2020-12-29 06:28] LABS: BLOOD UREA NITROGEN 7 MG/DL (7-18); CARBON DIOXIDE LEVEL 26 MEQ/L (21-32); CHLORIDE LEVEL 111 MEQ/L (98-107); CREATININE FOR GFR 0.78 MG/DL (0.55-1.30); GLOMERULAR FILTRATION RATE > 60.0 (>51); GLUCOSE, FASTING 278 MG/DL (70-100); POTASSIUM SERUM 4.1 MEQ/L (3.5-5.1); SODIUM LEVEL 141 MEQ/L (136-145)
[2020-12-29 06:29] VITALS: BP 118/68
[2020-12-29] MEDS: HumaLOG INSULIN (NovoLOG) PER UNIT SC SCH ×3 (07:30→17:11)
[2020-12-29] MEDS: ONDANSETRON 4MG/2ML VIAL IV PRN (08:01)
[2020-12-29] MEDS: PANTOPRAZOLE 40MG VIAL (C9113 PER 1) IV SCH ×2 (08:01→21:32)
[2020-12-29] MEDS: SUCRALFATE SUSP 1GM/10ML UD PO SCH ×4 (08:02→21:33)
[2020-12-29] MEDS: PRIMIDONE 50 MG TAB PO SCH ×2 (08:03→21:31)
[2020-12-29] MEDS: rOPINIRole 1MG TAB PO SCH ×3 (08:03→21:32)
[2020-12-29] MEDS: FIDAXOMICIN 200 MG TAB (DIFICID) PO SCH ×2 (08:03→21:33)
[2020-12-29] MEDS: GABAPENTIN 300 MG CAP PO SCH ×3 (08:04→21:32)
[2020-12-29] MEDS: ENOXAPARIN 40MG/0.4ML SYRINGE (J1650 PER 10MG) SC SCH (08:04)
[2020-12-29] MEDS: oxyCODONE 5MG TAB PO SCH ×2 (08:05→21:31)
[2020-12-29] MEDS: KETOROLAC 30 MG/ML 1ML VIAL IV PRN (10:34)
--- NOTE | 2020-12-29 10:45 | IPNPDOC ---
Subjective Date Seen The patient was seen on 12/29/20. Subjective Chief Complaint/HPI Continues to have crampy abdominal pain and chronic abdominal pain located on the left side. She had 3 episodes of diarrhea in the last 24 hours. Says the pain is unchanged. As per nurses has not been able to tolerate much p.o.. Still remains on liquid Objective Physical Examination General Exam: Positive: Alert, Cooperative, Moderate Distress (Due to abdominal pain) Eye Exam: Positive: PERRLA, Conjunctiva & lids normal; Negative: Sclera icteric ENT Exam: Positive: Atraumatic, Mucous membr. moist/pink, Pharynx Normal, Other ENT (Bitemporal wasting) Neck Exam: Positive: Supple; Negative: JVD, thyromegaly Chest Exam: Positive: Clear to auscultation, Normal air movement Heart Exam: Positive: Rate Normal, Regular Rhythm, Normal S1, Normal S2; Negative: Murmurs, Rubs Abdomen Exam: Positive: BS Hyperactive, Soft, Tenderness (In the epigastrium, left upper quadrant, left lower quadrant) Extremity Exam: Positive: Other (Wasting of small muscles of the hand. 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 Prior to her ER visit she was seen by her PCP who sent her to the hospital. Her GI panel was positive for C. difficile. She was admitted for C. difficile colitis. C Diff colitis because she is allergic to Vancomycin she is given fidaxomicin for 10 days Abdominal pain Due to C. difficile colitis and possibly peptic ulcer disease/pyloric spasm There is always a possibility of chronic mesenteric ischemia will have to be evaluated after the c diff is treated. Consulted with surgery. We will continue with morphine and oxycodone and ketorolac for pain control. Continue with PPI sucralfate Abdominal x-ray does not show any bowel obstruction Gastrografin is seen thro ughout the colon. We will give dicyclomine as needed for abdominal cramps. Anemia blood loss anemia, anemia from chronic infection. CT abd and Pelvis : Question of antral gastritis and pylorospasm or PUD involving the pyloric channel. We will check iron and vitamin B12 and folate level Had EGD and colonoscopy last year . Have requested records. Uncontrolled IDDM w neuropathy Patient had higher sugars last evening nocturnal getting insulin she became hypoglycemic Will give lispro only AC and will lower the scale. Will give the Levemir at at bedtime. Dose has been lowered compared to her home dose. Continue gabapentin Seizure disorder 2 seizures in the hospital Discussed with Dr. Dan. Patient was taken off Keppra several months ago because she was not responsive to Keppra. Her primidone was increased during that visit We will further increase primidone now 200 twice daily. Will DC Wellbutrin. Patient was not taking this at home. Continue seizure precautions, IV Ativan as needed Hypothyroidism TSH very suppressed Free T3 3 and T4 is within normal limit Will reduce home Synthroid RLS ropinirole Tremors/muscle spasm/jerky movement Follows with neurology Continue primidone Depression Not on any meds Protein calorie malnutrition BMI of 19 with bitemporal wasting wasting of small muscles of the hand. Albumin of 2.3 Plan/VTE VTE Prophylaxis Ordered?: Yes VS, I&O, 24H, Fishbone Vital Signs/I&O Vital Signs Date Time Temp Pulse Resp B/P (MAP) Pulse Ox O2 Delivery O2 Flow Rate FiO2 12/29/20 08:35 20 12/29/20 06:29 98.2 84 118/68 (85) 96 Room Air I&O- Last 24 Hours up to 6 AM 12/29/20 06:00 Intake Total 800 ml Output Total 650 ml Balance 150 ml Laboratory Data 24H LABS Laboratory Tests 2 12/28/20 12:04: Bedside Glucose (Misc Panel) 312H 12/28/20 14:16: Lactic Acid Level 2.7*H 12/28/20 17:22: Bedside Glucose (Misc Panel) 122H 12/28/20 18:56: Lactic Acid Followup at 4 Hours 0.9 12/28/20 20:43: Bedside Glucose (Misc Panel) 361H 12/29/20 05:32: Immature Granulocyte % (Auto) 0.2, Neutrophils (%) (Auto) 44.1, Lymphocytes (%) (Auto) 37.7, Monocytes (%) (Auto) 11.9H, Eosinophils (%) (Auto) 5.6H, Basophils (%) (Auto) 0.5, Neutrophils # (Auto) 2.5, Lymphocytes # (Auto) 2.1, Monocytes # (Auto) 0.7, Eosinophils # (Auto) 0.3, Basophils # (Auto) 0.0, Nucleated Red Blood Cells % (auto) 0.0, Anion Gap 4L, Glomerular Filtration Rate > 60.0, Calcium Level 9.0 CBC/BMP Laboratory Tests 12/29/20 05:32 Microbiology Microbiology 12/27/20 Stool Occult Blood (SALLY) - Final, Complete 12/26/20 Gastrointestinal Tract Panel (PCR) - Final, Complete Clostridium Difficile A/B Veronica Lamb MD Dec 29, 2020 10:44
[2020-12-29 12:00] LABS: FOLATE 14.1 NG/ML (>5.4); VITAMIN B12 LEVEL 421 PG/ML (247-911)
[2020-12-29 14:00] VITALS: BP 147/65
[2020-12-29] MEDS: LEVEMIR (INSULIN DETEMIR) 1 UNITS/0.01ML SC SCH (21:32)
[2020-12-29 22:00] VITALS: BP 113/58
[2020-12-30] MEDS: MORPHINE 4 MG/ML 1ML VIAL/SYRINGE (J2270) IV PRN ×2 (03:48→11:50)
[2020-12-30 06:00] VITALS: BP 119/95
[2020-12-30 06:52] LABS: HEMATOCRIT 27.9 % (36.0-47.0); HEMOGLOBIN 8.9 g/dl (12.0-15.5); MEAN CORPUSCULAR HEMOGLOBIN 27.6 pg (27.0-33.0); MEAN CORPUSCULAR HGB CONC 31.9 g/dl (32.0-36.5); MEAN CORPUSCULAR VOLUME 86.4 fl (80.0-96.0); PLATELET COUNT, AUTOMATED 287 10^3/uL (150-450); RED BLOOD COUNT 3.23 10^6/uL (4.00-5.40)
[2020-12-30 07:09] LABS: BLOOD UREA NITROGEN 9 MG/DL (7-18); CALCIUM LEVEL 8.7 MG/DL (8.5-10.1); CARBON DIOXIDE LEVEL 26 MEQ/L (21-32); CHLORIDE LEVEL 109 MEQ/L (98-107); CREATININE FOR GFR 0.75 MG/DL (0.55-1.30); GLOMERULAR FILTRATION RATE > 60.0 (>51); GLUCOSE, FASTING 223 MG/DL (70-100); POTASSIUM SERUM 4.1 MEQ/L (3.5-5.1); SODIUM LEVEL 141 MEQ/L (136-145)
[2020-12-30 07:22] LABS: ATYPICAL LYMPH 2 % (0-5); EOSINOPHILS 5 % (0-3); LYMPHOCYTES 40 % (16-44); MONOCYTES 2 % (0-5); NEUTROPHILS 51 % (28-66); PLATELET ESTIMATE NORMAL (NORMAL)
[2020-12-30] MEDS: FIDAXOMICIN 200 MG TAB (DIFICID) PO SCH ×2 (09:20→20:10)
[2020-12-30] MEDS: GABAPENTIN 300 MG CAP PO SCH ×3 (09:20→20:11)
[2020-12-30] MEDS: PANTOPRAZOLE 40MG VIAL (C9113 PER 1) IV SCH ×2 (09:22→20:11)
[2020-12-30] MEDS: rOPINIRole 1MG TAB PO SCH ×3 (09:22→20:11)
[2020-12-30] MEDS: SUCRALFATE SUSP 1GM/10ML UD PO SCH ×4 (09:23→20:19)
[2020-12-30] MEDS: ENOXAPARIN 40MG/0.4ML SYRINGE (J1650 PER 10MG) SC SCH (09:23)
[2020-12-30] MEDS: PRIMIDONE 50 MG TAB PO SCH ×2 (09:24→20:11)
[2020-12-30] MEDS: HumaLOG INSULIN (NovoLOG) PER UNIT SC SCH ×3 (09:25→17:02)
[2020-12-30] MEDS: oxyCODONE 5MG TAB PO SCH ×2 (09:25→20:12)
--- NOTE | 2020-12-30 10:35 | EEG ---
ELECTROENCEPHALOGRAM DATE: 12/29/2020 REFERRING PHYSICIAN: Dr. Veronica Lamb DIAGNOSIS: Seizure. EEG#: [id number] HISTORY: The patient is a 55-year-old woman with a history of diabetes, restless leg syndrome who was admitted to [facility] due to anemia, C. difficile colitis. This EEG was done to rule out epileptic potential. She is currently taking Tramadol, ropinirole, sucralfate, Gabapentin, Oxycodone, fidaxomicin, etc. TECHNICAL DESCRIPTION: This digital electroencephalogram (EEG) was recorded by 21 scalp, ear, and two electrocardiogram (EKG) electrodes and was reviewed in bipolar and referential montages following reformatting in 10-20 international electrode placement system. INTERPRETATION: The patient was noted to be in awake and drowsy states during this EEG. Resting and awake background rhythm consisted of 9 Hz alpha activity measuring 15-40 microvolts in amplitude which was symmetric and reactive to eye opening. Attenuation of posterior dominant rhythm was seen during transition to drowsiness. Stage I and II sleep were reviewed and were symmetric bilaterally. Hyperventilation could not be performed. Photic stimulation remained unremarkable. EKG revealed normal sinus rhythm. No focal, lateralizing, or epileptiform abnormalities were seen. No relevant clinical activity was noted. CONCLUSION: This EEG in awake, drowsy states, stage I and II sleep is within normal limits.
[2020-12-30 14:00] VITALS: BP 131/56
[2020-12-30] MEDS: KETOROLAC 30 MG/ML 1ML VIAL IV PRN (17:02)
[2020-12-30] MEDS: metroNIDAZOLE 500 MG in IV 1 EA IV SCH (18:40)
--- NOTE | 2020-12-30 18:47 | REP ---
INDICATION: abd distention/c.diff +. COMPARISON: 12/28/2020. TECHNIQUE: Single view abdomen and pelvis. FINDINGS: There is no evidence of bowel obstruction. Moderate fecal material seen throughout the colon. No dilated bowel loops are seen. Phleboliths are seen in the pelvis. IMPRESSION: No evidence of bowel obstruction. Moderate fecal material throughout the colon. <Electronically signed by Charlie Murguia > 12/30/20 [id number]
[2020-12-30] MEDS: LEVEMIR (INSULIN DETEMIR) 1 UNITS/0.01ML SC SCH (20:14)
[2020-12-30 22:00] VITALS: BP 133/84
[2020-12-31] MEDS: metroNIDAZOLE 500 MG in IV 1 EA IV SCH ×3 (02:42→17:53)
[2020-12-31] MEDS: MORPHINE 4 MG/ML 1ML VIAL/SYRINGE (J2270) IV PRN (02:43)
[2020-12-31 06:00] VITALS: BP 136/83
[2020-12-31 06:22] LABS: BASO % 0.4 % (0.0-1.0); EOS # 0.3 10^3/uL (0.0-0.5); EOS % 4.1 % (0.0-3.0); HEMATOCRIT 30.4 % (36.0-47.0); HEMOGLOBIN 9.8 g/dl (12.0-15.5); LYMPH # 1.9 10^3/uL (1.5-5.0); LYMPH % 27.2 % (24.0-44.0); MEAN CORPUSCULAR HEMOGLOBIN 27.8 pg (27.0-33.0); MEAN CORPUSCULAR HGB CONC 32.2 g/dl (32.0-36.5); MEAN CORPUSCULAR VOLUME 86.4 fl (80.0-96.0); MONO # 0.8 10^3/uL (0.0-0.8); MONO % 11.8 % (2.0-8.0); NEUTROPHILS # 3.9 10^3/uL (1.5-8.5); NEUTROPHILS % 56.1 % (36.0-66.0); PLATELET COUNT, AUTOMATED 298 10^3/uL (150-450); RED BLOOD COUNT 3.52 10^6/uL (4.00-5.40)
[2020-12-31 07:01] LABS: BLOOD UREA NITROGEN 15 MG/DL (7-18); CALCIUM LEVEL 8.9 MG/DL (8.5-10.1); CARBON DIOXIDE LEVEL 28 MEQ/L (21-32); CHLORIDE LEVEL 105 MEQ/L (98-107); CREATININE FOR GFR 0.88 MG/DL (0.55-1.30); GLOMERULAR FILTRATION RATE > 60.0 (>51); GLUCOSE, FASTING 279 MG/DL (70-100); MAGNESIUM LEVEL 1.9 MG/DL (1.8-2.4); PHOSPHORUS LEVEL 2.6 MG/DL (2.5-4.9); POTASSIUM SERUM 4.1 MEQ/L (3.5-5.1); SODIUM LEVEL 139 MEQ/L (136-145)
[2020-12-31] MEDS: PANTOPRAZOLE 40MG VIAL (C9113 PER 1) IV SCH ×2 (09:41→21:57)
[2020-12-31] MEDS: KETOROLAC 30 MG/ML 1ML VIAL IV PRN ×2 (09:44→15:54)
[2020-12-31] MEDS: HumaLOG INSULIN (NovoLOG) PER UNIT SC SCH ×3 (09:45→17:54)
[2020-12-31] MEDS: SUCRALFATE SUSP 1GM/10ML UD PO SCH ×4 (09:45→21:55)
[2020-12-31] MEDS: FIDAXOMICIN 200 MG TAB (DIFICID) PO SCH ×2 (09:46→21:56)
[2020-12-31] MEDS: PRIMIDONE 50 MG TAB PO SCH ×2 (09:46→21:56)
[2020-12-31] MEDS: ENOXAPARIN 40MG/0.4ML SYRINGE (J1650 PER 10MG) SC SCH (09:46)
[2020-12-31] MEDS: GABAPENTIN 300 MG CAP PO SCH ×3 (09:46→21:56)
[2020-12-31] MEDS: rOPINIRole 1MG TAB PO SCH ×3 (09:46→21:57)
[2020-12-31 11:14] LABS: RSV AMPLIFICATION NEGATIVE (NEGATIVE)
[2020-12-31] MEDS: ACETAMINOPHEN TAB 650MG DOSE (2X325MG) PO PRN (12:38)
--- NOTE | 2020-12-31 12:54 | IPNPDOC ---
Subjective Date Seen The patient was seen on 12/31/20. Subjective Chief Complaint/HPI Patient was seen and examined at bedside this morning. She continues to complain of diffuse abdominal pain. She also reported that she was having less bowel movements and not passing flatulence as often. She denied chest pain, shortness of breath, nausea, vomiting, and problems with urination. Objective Physical Examination Other physical findings General: Lying in bed, no acute distress Head/Neck/Throat: Trachea midline, mucous membranes moist Eyes: Sclera anicteric, no erythema or discharge appreciated bilaterally Thorax: Normal respiratory effort on room air, lungs clear to auscultation bilaterally, no wheezes/rales/rhonchi Cardiovascular: Normal rate, regular rhythm, normal S1, S2; no S3, S4, rubs/gallops/murmurs Abdomen: Bowel sounds present, soft, mildly distended, tenderness reported with palpation diffusely, no rebound tenderness Genitourinary: No CVA tenderness, no Nicole in place Musculoskeletal: Moving all extremities, no edema Skin: Warm, dry Neurologic: AAOx3, speech fluent and goal-directed, no focal deficits, grossly intact Assessment /Plan Assessment #C. difficile colitis -Pancolitis appreciated on CT scan with positive C. difficile toxin. Continue fidaxomicin x 10 days; will also add Flagyl 500 mg ever 8 hrs. -Follow-up on colonoscopy records. -Repeat KUB did not show evidence of bowel obstruction, there was moderate fecal material throughout the colon. Will discontinue narcotics. #Anemia -Normocytic anemia. RN, vitamin B12, and folate within normal limits. -Occult blood test was negative -Follow-up on EGD and colonoscopy, records still pending. #IDDM w neuropathy -Continue with Levemir and sliding scale. -Continue gabapentin. #Seizure disorder -She had 2 seizures during hospitalization. This was discussed with the neurologist and it was recommended to increase primidone. Apparently, she was taken off Keppra several months ago but she was not responsive to it. -Continue seizure precautions, IV Ativan as needed #Subclinical hypothyroidism -TSH suppressed. Free T3 3 and T4 is within normal limit.her Synthroid was decreased. She will need repeat thyroid function test. #RLS -Continue with ropinirole #Tremors -Follows with neurology. Continue primidone #DVT prophylax -Enoxaparin Plan/VTE VTE Prophylaxis Ordered?: Yes VS, I&O, 24H, Zeynep Vital Signs/I&O Vital Signs Date Time Temp Pulse Resp B/P (MAP) Pulse Ox O2 Delivery O2 Flow Rate FiO2 12/31/20 06:00 99.1 80 20 136/83 (100) 98 Room Air I&O- Last 24 Hours up to 6 AM 12/31/20 05:59 Intake Total 300 ml Output Total 400 ml Balance -100 ml Laboratory Data 24H LABS Laboratory Tests 2 12/30/20 16:25: Bedside Glucose (Misc Panel) 288H 12/30/20 20:14: Bedside Glucose (Misc Panel) 263H 12/31/20 06:09: Immature Granulocyte % (Auto) 0.4, Neutrophils (%) (Auto) 56.1, Lymphocytes (%) (Auto) 27.2, Monocytes (%) (Auto) 11.8H, Eosinophils (%) (Auto) 4.1H, Basophils (%) (Auto) 0.4, Neutrophils # (Auto) 3.9, Lymphocytes # (Auto) 1.9, Monocytes # (Auto) 0.8, Eosinophils # (Auto) 0.3, Basophils # (Auto) 0.0, Nucleated Red Blood Cells % (auto) 0.0, Anion Gap 6L, Glomerular Filtration Rate > 60.0, Calcium Level 8.9, Phosphorus Level 2.6, Magnesium Level 1.9 12/31/20 09:06: Lactic Acid Level 0.7 12/31/20 09:38: Coronavirus (COVID-19)(PCR) NEGATIVE, Influenza Type A (RT-PCR) NEGATIVE, Influenza Type B (RT-PCR) NEGATIVE, Respiratory Syncytial Virus (PCR) NEGATIVE 12/31/20 11:56: Bedside Glucose (Misc Panel) 372H CBC/BMP Laboratory Tests 12/31/20 06:09 Microbiology Microbiology 12/31/20 Blood Culture, Received Pending 12/31/20 Blood Culture, Received Pending 12/27/20 Stool Occult Blood (SALLY) - Final, Complete 12/26/20 Gastrointestinal Tract Panel (PCR) - Final, Complete Clostridium Difficile A/B MAMTA PRATT M.D. Dec 31, 2020 12:52
[2020-12-31 13:14] LABS: LIPASE 54 U/L (73-393)
[2020-12-31 14:00] VITALS: BP 143/83
[2020-12-31] MEDS ORDERED: traMADol 50 MG TAB PO ONE (17:50)
[2020-12-31] MEDS: MIRALAX *UNIT DOSE* 17GM PACKET PO SCH (17:53)
[2020-12-31] MEDS: ACETAMINOPHEN TAB 650MG DOSE (2X325MG) PO SCH (18:27)
[2020-12-31] MEDS: ONDANSETRON 4MG/2ML VIAL IV PRN (19:03)
[2020-12-31] MEDS ORDERED: HumaLOG INSULIN (NovoLOG) PER UNIT SC SCH (21:00)
[2020-12-31] MEDS ORDERED: LEVEMIR (INSULIN DETEMIR) 1 UNITS/0.01ML SC SCH (21:00)
[2020-12-31 22:00] VITALS: BP 145/84
[2021-01-01] MEDS: ACETAMINOPHEN TAB 650MG DOSE (2X325MG) PO SCH ×4 (00:23→18:21)
[2021-01-01] MEDS: RAMELTEON 8 MG TAB (ROZEREM) PO PRN ×2 (00:23→22:24)
[2021-01-01] MEDS: oxyCODONE 5MG TAB PO PRN ×2 (00:24→06:37)
[2021-01-01] MEDS: metroNIDAZOLE 500 MG in IV 1 EA IV SCH ×3 (02:47→18:21)
[2021-01-01 06:00] VITALS: BP 133/66
[2021-01-01 06:45] LABS: BASO % 0.6 % (0.0-1.0); EOS # 0.3 10^3/uL (0.0-0.5); EOS % 6.4 % (0.0-3.0); HEMATOCRIT 26.4 % (36.0-47.0); HEMOGLOBIN 8.6 g/dl (12.0-15.5); LYMPH # 1.6 10^3/uL (1.5-5.0); LYMPH % 31.2 % (24.0-44.0); MEAN CORPUSCULAR HEMOGLOBIN 27.7 pg (27.0-33.0); MEAN CORPUSCULAR HGB CONC 32.6 g/dl (32.0-36.5); MEAN CORPUSCULAR VOLUME 85.2 fl (80.0-96.0); MONO # 0.7 10^3/uL (0.0-0.8); MONO % 12.5 % (2.0-8.0); NEUTROPHILS # 2.6 10^3/uL (1.5-8.5); NEUTROPHILS % 49.1 % (36.0-66.0); PLATELET COUNT, AUTOMATED 256 10^3/uL (150-450); WHITE BLOOD COUNT 5.2 10^3/uL (4.0-10.0)
[2021-01-01] MEDS ORDERED: oxyCODONE 5MG TAB PO PRN ×2 (06:55→17:30)
[2021-01-01 07:01] LABS: HEMOGLOBIN A1c 10.7 %
[2021-01-01 07:06] LABS: BLOOD UREA NITROGEN 18 MG/DL (7-18); CALCIUM LEVEL 8.5 MG/DL (8.5-10.1); CARBON DIOXIDE LEVEL 27 MEQ/L (21-32); CHLORIDE LEVEL 106 MEQ/L (98-107); GLOMERULAR FILTRATION RATE > 60.0 (>51); GLUCOSE, FASTING 316 MG/DL (70-100); MAGNESIUM LEVEL 1.8 MG/DL (1.8-2.4); POTASSIUM SERUM 4.4 MEQ/L (3.5-5.1); SODIUM LEVEL 140 MEQ/L (136-145)
[2021-01-01] MEDS: ENOXAPARIN 40MG/0.4ML SYRINGE (J1650 PER 10MG) SC SCH (09:38)
[2021-01-01] MEDS: PANTOPRAZOLE 40MG VIAL (C9113 PER 1) IV SCH ×2 (09:38→22:10)
[2021-01-01] MEDS: MIRALAX *UNIT DOSE* 17GM PACKET PO SCH ×2 (09:38→22:10)
[2021-01-01] MEDS: SUCRALFATE SUSP 1GM/10ML UD PO SCH ×4 (09:39→22:10)
[2021-01-01] MEDS: GABAPENTIN 300 MG CAP PO SCH ×3 (09:39→22:10)
[2021-01-01] MEDS: FIDAXOMICIN 200 MG TAB (DIFICID) PO SCH ×2 (09:39→22:11)
[2021-01-01] MEDS: PRIMIDONE 50 MG TAB PO SCH ×2 (09:39→22:11)
[2021-01-01] MEDS: rOPINIRole 1MG TAB PO SCH ×3 (09:39→22:11)
[2021-01-01] MEDS: HumaLOG INSULIN (NovoLOG) PER UNIT SC SCH ×6 (09:40→18:21)
[2021-01-01] MEDS: ONDANSETRON 4MG/2ML VIAL IV PRN ×2 (09:47→20:25)
--- NOTE | 2021-01-01 10:57 | IPNPDOC ---
Subjective Date Seen The patient was seen on 01/01/21. Subjective Chief Complaint/HPI Patient was seen and examined at bedside this morning. She reported not having bowel movements for the last 2 days and not having flatulence, she also feels that her abdomen is slightly more distended than before. She attempted to eat dinner last night and reported feeling nauseated therefore stopped. She denies chest pain, shortness of breath, palpitations, problems with urination. Objective Physical Examination Other physical findings General: Lying in bed, no acute distress Head/Neck/Throat: Trachea midline, mucous membranes moist Eyes: Sclera anicteric, no erythema or discharge appreciated bilaterally Thorax: Normal respiratory effort on room air, lungs clear to auscultation bilaterally, no wheezes/rales/rhonchi Cardiovascular: Normal rate, regular rhythm, normal S1, S2; no S3, S4, rubs/gallops/murmurs Abdomen: Bowel sounds present, soft, distended, tenderness reported with palp ation diffusely, no rebound tenderness Genitourinary: No CVA tenderness, no Nicole in place Musculoskeletal: Moving all extremities, no edema Skin: Warm, dry Neurologic: AAOx3, speech fluent and goal-directed, no focal deficits, grossly intact Assessment /Plan Assessment #C. difficile colitis -Pancolitis appreciated on CT scan with positive C. difficile toxin. Continue fidaxomicin x 10 days; will also add Flagyl 500 mg ever 8 hrs. #Abdominal pain -Add bowel regimen for possible narcotic bowel -Surgery to re-evaluate pt today to Dr. Joe #Anemia -Normocytic anemia. RN, vitamin B12, and folate within normal limits. -Occult blood test was negative -Follow-up on EGD and colonoscopy, records requested from [facility] #IDDM w neuropathy -Continue with Levemir and sliding scale. -Continue gabapentin. #Seizure disorder -She had 2 seizures during hospitalization. This was discussed with the neurologist and it was recommended to increase primidone. Apparently, she was taken off Keppra several months ago but she was not responsive to it. -Continue seizure precautions, IV Ativan as needed #Subclinical hypothyroidism -TSH suppressed. Free T3 3 and T4 is within normal limit.her Synthroid was decreased. She will need repeat thyroid function test. #RLS -Continue with ropinirole #Tremors -Follows with neurology. Continue primidone #DVT prophylax -Enoxaparin Plan/VTE VTE Prophylaxis Ordered?: Yes VS, I&O, 24H, Fishbone Vital Signs/I&O Vital Signs Date Time Temp Pulse Resp B/P (MAP) Pulse Ox O2 Delivery O2 Flow Rate FiO2 01/01/21 06:37 20 01/01/21 06:00 98.2 73 133/66 (88) 96 Room Air I&O- Last 24 Hours up to 6 AM 01/01/21 06:00 Intake Total 1540 ml Output Total 1000 ml Balance 540 ml Laboratory Data 24H LABS Laboratory Tests 2 12/31/20 11:56: Bedside Glucose (Misc Panel) 372H 12/31/20 17:03: Bedside Glucose (Misc Panel) 268H 12/31/20 20:13: Bedside Glucose (Misc Panel) 303H 01/01/21 06:26: Immature Granulocyte % (Auto) 0.2, Neutrophils (%) (Auto) 49.1, Lymphocytes (%) (Auto) 31.2, Monocytes (%) (Auto) 12.5H, Eosinophils (%) (Auto) 6.4H, Basophils (%) (Auto) 0.6, Neutrophils # (Auto) 2.6, Lymphocytes # (Auto) 1.6, Monocytes # (Auto) 0.7, Eosinophils # (Auto) 0.3, Basophils # (Auto) 0.0, Nucleated Red Blood Cells % (auto) 0.0, Anion Gap 7L, Glomerular Filtration Rate > 60.0, Estimated Mean Plasma Glucose 260H, Hemoglobin A1c 10.7, Calcium Level 8.5, Phosphorus Level 3.0, Magnesium Level 1.8 01/01/21 09:13: Bedside Glucose (Misc Panel) 305H CBC/BMP Laboratory Tests 01/01/21 06:26 Microbiology Microbiology 12/31/20 Blood Culture - Preliminary, Resulted No growth after 24 hours . All specim... 12/31/20 Blood Culture - Preliminary, Resulted No growth after 24 hours . All specim... 12/27/20 Stool Occult Blood (SALLY) - Final, Complete 12/26/20 Gastrointestinal Tract Panel (PCR) - Final, Complete Clostridium Difficile A/B MAMTA PRATT M.D. Jan 01, 2021 10:55
[2021-01-01] MEDS: DOCUSATE SODIUM 100MG CAPSULE PO SCH ×2 (11:53→22:10)
[2021-01-01 14:00] VITALS: BP 131/86
[2021-01-01] MEDS ORDERED: D5W/0.45% SODIUM CHLORIDE 1,000 ML IV SCH (19:15)
--- NOTE | 2021-01-01 19:15 | REP ---
INDICATION: r/o obstruction. COMPARISON: 12/30/2020. TECHNIQUE: Two AP views abdomen and pelvis. FINDINGS: No significantly dilated bowel loops are seen. There is no evidence of bowel obstruction. Moderate fecal material seen in the rectum. Few phleboliths are seen in the pelvis. IMPRESSION: No evidence of bowel obstruction. <Electronically signed by Charlie Murguia > 01/01/21 1911
[2021-01-01] MEDS ORDERED: LEVEMIR (INSULIN DETEMIR) 1 UNITS/0.01ML SC SCH ×2 (21:00)
[2021-01-01 22:00] VITALS: BP 160/85
--- NOTE | 2021-01-01 23:01 | IPN ---
PROGRESS NOTE DATE: 01/01/2021 HISTORY: The patient is a 55-year-old woman who I saw in consultation on the 28 of December. She had been admitted on the by the Hospitalist Service with a complaint of clostridium difficile colitis and vomiting. She had also noted some intermittent rectal bleeding. She had abdominal pain, particularly on the left side. Her laboratory studies showed a marked elevation of her glucose and moderate anemia but were otherwise not significantly abnormal. She has been treated over the last few days with antibiotics. She apparently seemed to be improving but then today has complained again of severe pain and I was asked by the Hospitalist to reevaluate her. Vital signs show that she has been afebrile over the past 24 hours. Her pulse is in the 70's and low 80's and her blood pressure is normal to slightly elevated. Room air oxygenation is normal. Intake and output show that yesterday she had 1,900 mL recorded in with 1,500 mL of urine recorded. OBJECTIVE: PHYSICAL EXAMINATION: GENERAL APPEARANCE: The patient is lying quietly in the hospital bed. She is watching TV when I entered her room. She is alert and oriented and cooperative. She reports significant abdominal pain with some cramping on the left side in particular. SKIN: Warm and dry. HEART: Regular rhythm. LUNGS: Clear. ABDOMEN: Mildly protuberant. The abdomen is notable for a right subcostal scar of the right lower quadrant and a midline scar curving around the umbilicus. There is no evident hernia. She has bowel sounds present. The abdomen is fairly firm. Light touch does not seem to elicit and any tenderness. Palpation in the left mid to lower abdomen laterally is more uncomfortable. She does not appear to have any rebound tenderness on light palpation. LABORATORY STUDIES: Today white count of 5 with a differential showing 49% neutrophils, 31% lymphocytes, 12% monocytes and 60 eosinophils. Her chemistry profile showed normal electrolytes with a BUN of 18, creatinine 0.9 and a glucose this morning of 316. She had a hemoglobin A1c today of 10.7 indicating an estimated mean plasma glucose of 260. A lactic acid level was done this evening which was 1.4. She had a KUB done this evening for evaluation of abdominal distention and her discomfort. This showed a slight increase in intestinal air from what she had on abdominal x-rays on the and . This was not dramatic. She was noted to have some stool in the distal colon. There was no evidence of free air. IMPRESSION: The patient has noted a worsening of her abdominal pain, apparently starting yesterday evening and into today. She has been on narcotics and there has been some concern from the Hospitalist that she may have some constipation. There is some stool noted in her distal colon. The Hospitalist had done a rectal exam and reported to the nurse that there was no evidence of fecal impaction. She did have an enema and had a moderate bowel movement shortly before I came to see her. She reports that it was soft and without any blood. She is not feeling any better since the bowel movement. At this point there is certainly no evidence of need for urgent surgical intervention. Her x-ray is not suggestive of a bowel obstruction. Her labs have remained unremarkable. She remains on antibiotics for her clostridium difficile. RECOMMENDATIONS: At this point I would continue close monitoring and observation. I think her enema was a reasonable approach. She has also had an order placed for some Miralax and this is probably not unreasonable with a low risk of causing problems. Her pain does seem somewhat out of proportion to what has been going on. If her severe pain persists, then repeat imaging, possibly a small-bowel follow through study would be most appropriate. MACHELLE
[2021-01-02] MEDS: HumaLOG INSULIN (NovoLOG) PER UNIT SC SCH ×5 (01:00→20:11)
[2021-01-02] MEDS: metroNIDAZOLE 500 MG in IV 1 EA IV SCH ×3 (01:01→17:25)
[2021-01-02] MEDS: ONDANSETRON 4MG/2ML VIAL IV PRN (02:28)
[2021-01-02 06:00] VITALS: BP 116/81
[2021-01-02] MEDS: ACETAMINOPHEN TAB 650MG DOSE (2X325MG) PO SCH ×4 (06:00→17:25)
[2021-01-02 06:41] LABS: BLOOD UREA NITROGEN 13 MG/DL (7-18); CALCIUM LEVEL 8.5 MG/DL (8.5-10.1); CARBON DIOXIDE LEVEL 25 MEQ/L (21-32); CHLORIDE LEVEL 106 MEQ/L (98-107); CREATININE FOR GFR 0.72 MG/DL (0.55-1.30); GLOMERULAR FILTRATION RATE > 60.0 (>51); GLUCOSE, FASTING 347 MG/DL (70-100); MAGNESIUM LEVEL 1.7 MG/DL (1.8-2.4); PHOSPHORUS LEVEL 2.6 MG/DL (2.5-4.9); POTASSIUM SERUM 4.1 MEQ/L (3.5-5.1); SODIUM LEVEL 140 MEQ/L (136-145)
[2021-01-02] MEDS ORDERED: NS 1,000 ML IV SCH (07:20)
[2021-01-02] MEDS: SUCRALFATE SUSP 1GM/10ML UD PO SCH ×4 (07:30→20:49)
[2021-01-02] MEDS ORDERED: D5/0.45%NACL 1000ML IV SCH (09:00)
[2021-01-02] MEDS ORDERED: LEVEMIR (INSULIN DETEMIR) 1 UNITS/0.01ML SC ONE (09:00)
[2021-01-02] MEDS ORDERED: PILL CUTTER 1 EACH XX PRN (09:05)
[2021-01-02 09:30] LABS: BASO % 0.4 % (0.0-1.0); EOS # 0.1 10^3/uL (0.0-0.5); EOS % 2.1 % (0.0-3.0); HEMOGLOBIN 9.9 g/dl (12.0-15.5); LYMPH # 1.4 10^3/uL (1.5-5.0); LYMPH % 25.4 % (24.0-44.0); MEAN CORPUSCULAR HEMOGLOBIN 27.4 pg (27.0-33.0); MEAN CORPUSCULAR HGB CONC 31.9 g/dl (32.0-36.5); MEAN CORPUSCULAR VOLUME 85.9 fl (80.0-96.0); MONO # 0.6 10^3/uL (0.0-0.8); MONO % 9.9 % (2.0-8.0); NEUTROPHILS # 3.5 10^3/uL (1.5-8.5); NEUTROPHILS % 61.8 % (36.0-66.0); PLATELET COUNT, AUTOMATED 330 10^3/uL (150-450); RED BLOOD COUNT 3.61 10^6/uL (4.00-5.40); WHITE BLOOD COUNT 5.6 10^3/uL (4.0-10.0)
[2021-01-02] MEDS ORDERED: ISOVUE-370 76% 100ML VIAL As Ordered ONE (09:41)
[2021-01-02] MEDS ORDERED: METOCLOPRAMIDE 5 MG TAB PO ONE (10:00)
[2021-01-02] MEDS: ENOXAPARIN 40MG/0.4ML SYRINGE (J1650 PER 10MG) SC SCH (10:34)
[2021-01-02] MEDS: rOPINIRole 1MG TAB PO SCH ×2 (10:34→20:50)
[2021-01-02] MEDS: PANTOPRAZOLE 40MG VIAL (C9113 PER 1) IV SCH ×2 (10:34→20:49)
[2021-01-02] MEDS: DOCUSATE SODIUM 100MG CAPSULE PO SCH ×2 (10:35→20:50)
[2021-01-02] MEDS: FIDAXOMICIN 200 MG TAB (DIFICID) PO SCH ×2 (10:35→20:50)
[2021-01-02] MEDS: GABAPENTIN 300 MG CAP PO SCH ×3 (10:35→20:50)
[2021-01-02] MEDS: PRIMIDONE 50 MG TAB PO SCH ×2 (10:35→20:50)
[2021-01-02] MEDS: MIRALAX *UNIT DOSE* 17GM PACKET PO SCH (10:36)
--- NOTE | 2021-01-02 11:09 | REP ---
INDICATION: abdominal pain COMPARISON: 12/26/2020. TECHNIQUE: CT angiogram of the abdomen and pelvis was performed with intravenous administration of 100 cc of Isovue 370, without oral contrast. 3D MIP reconstruction images performed. FINDINGS: Abdominal aorta: No aneurysm or dissection. There is moderate diffuse plaquing of the distal abdominal aorta, with mild narrowing, without significant stenosis. The superior, inferior mesenteric arteries and celiac artery are patent with no significant stenosis. There is no evidence of significant renal artery stenosis bilaterally. Mild diffuse plaquing is seen of the bilateral common iliac and external iliac arteries without significant stenosis. Lung bases: There is a small hiatal hernia. Liver: Normal Gallbladder: Prior cholecystectomy. Spleen: Normal. Adrenals: Normal. Pancreas: Normal. Kidneys: Normal. Small and large bowel: Unremarkable. Free fluid: There is trace free fluid in the pelvis. Adenopathy: None. Appendix: The prior appendectomy. Pelvis: No mass. Prior hysterectomy. Osseous structures: Unremarkable. IMPRESSION: Areas of atheromatous plaquing of the abdominal aorta and iliac system. No significant arterial stenosis in the abdomen or pelvis. Trace free fluid in the pelvis. No acute pathology.. <Electronically signed by Charlie Murguia > 01/02/21 [id number]
[2021-01-02 14:00] VITALS: BP 117/65
[2021-01-02] MEDS ORDERED: HumaLOG INSULIN (NovoLOG) PER UNIT SC SCH (17:30)
--- NOTE | 2021-01-02 18:14 | IPNPDOC ---
Subjective Date Seen The patient was seen on 01/02/21. Subjective Chief Complaint/HPI Pt was seen and examined at bedside this morning. She reported significant improvement in her abdominal pain after receiving laxatives and a tap water enema. She reports improvement in her emesis, but still feels nauseated. She was willing to advance her diet to clear liquids for now. Other systems 10 point review of system was negative except for what is noted in the HPI Objective Physical Examination Other physical findings General: Lying in bed, no acute distress Head/Neck/Throat: Trachea midline, mucous membranes moist Eyes: Sclera anicteric, no erythema or discharge appreciated bilaterally Thorax: Normal respiratory effort on room air, lungs clear to auscultation bilaterally, no wheezes/rales/rhonchi Cardiovascular: Normal rate, regular rhythm, normal S1, S2; no S3, S4, rubs/gallops/murmurs Abdomen: Bowel sounds present, soft, nondistended, no rebound tenderness or tenderness reported Genitourinary: No CVA tenderness, no Nicole in place Musculoskeletal: Moving all extremities, no edema Skin: Warm, dry Neurologic: AAOx3, speech fluent and goal-directed, no focal deficits, grossly intact Assessment /Plan Assessment #C. difficile colitis -Pancolitis appreciated on CT scan with positive C. difficile toxin. Continue f idaxomicin x 10 days; will also add Flagyl 500 mg ever 8 hrs. #Abdominal pain -Much improved after bowel regimen. CTA of the abdomen was negative. -Evaluated by surgeon no acute intervention required at this time #Anemia -Normocytic anemia. iron panel, vitamin B12, and folate within normal limits. -Occult blood test was negative -Follow-up on EGD and colonoscopy, records requested from [facility] #IDDM w neuropathy -Continue with Levemir and sliding scale. -Continue gabapentin. -Suspect patient may have gastroparesis, gastric emptying study has been ordered. She did receive metoclopramide x1 (side effects including permanent EPS were discussed with her, she was willing to accept these risk). #Seizure disorder -She had 2 seizures during hospitalization. This was discussed with the neurolo gist and it was recommended to increase primidone. Apparently, she was taken off Keppra several months ago but she was not responsive to it. -Continue seizure precautions, IV Ativan as needed #Subclinical hypothyroidism -TSH suppressed. Free T3 3 and T4 is within normal limit.her Synthroid was dec reased. She will need repeat thyroid function test. #RLS -Continue with ropinirole #Tremors -Follows with neurology. Continue primidone #DVT prophylax -Enoxaparin Plan/VTE VTE Prophylaxis Ordered?: Yes VS, I&O, 24H, Fishbone Vital Signs/I&O Vital Signs Date Time Temp Pulse Resp B/P (MAP) Pulse Ox O2 Delivery O2 Flow Rate FiO2 01/02/21 14:00 98.7 81 16 117/65 (82) 97 Room Air I&O- Last 24 Hours up to 6 AM 01/02/21 06:00 Intake Total 700 ml Output Total 400 ml Balance 300 ml Laboratory Data 24H LABS Laboratory Tests 2 01/01/21 16:19: Bedside Glucose (Misc Panel) 123H 01/01/21 18:14: Bedside Glucose (Misc Panel) 193H 01/01/21 20:37: Lactic Acid Level 1.4 01/01/21 21:48: Bedside Glucose (Misc Panel) 127H 01/02/21 00:05: Bedside Glucose (Misc Panel) 236H 01/02/21 06:05: Anion Gap 9, Glomerular Filtration Rate > 60.0, Calcium Level 8.5, Phosphorus Level 2.6, Magnesium Level 1.7L 01/02/21 06:43: Bedside Glucose (Misc Panel) 398H 01/02/21 09:19: Immature Granulocyte % (Auto) 0.4, Neutrophils (%) (Auto) 61.8, Lymphocytes (%) (Auto) 25.4, Monocytes (%) (Auto) 9.9H, Eosinophils (%) (Auto) 2.1, Basophils (%) (Auto) 0.4, Neutrophils # (Auto) 3.5, Lymphocytes # (Auto) 1.4L, Monocytes # (Auto) 0.6, Eosinophils # (Auto) 0.1, Basophils # (Auto) 0.0, Nucleated Red Blood Cells % (auto) 0.0 01/02/21 11:41: Bedside Glucose (Misc Panel) 296H 01/02/21 14:11: Bedside Glucose (Misc Panel) 236H CBC/BMP Laboratory Tests 01/02/21 06:05 01/02/21 09:19 Microbiology Microbiology 12/31/20 Blood Culture - Preliminary, Resulted No Growth after 48 hours. All Specime... 12/31/20 Blood Culture - Preliminary, Resulted No Growth after 48 hours. All Specime... 12/27/20 Stool Occult Blood (SALLY) - Final, Complete 12/26/20 Gastrointestinal Tract Panel (PCR) - Final, Complete Clostridium Difficile A/B MAMTA PRATT M.D. Jan 02, 2021 14:59
[2021-01-02] MEDS ORDERED: MAG SULF 1GM/100ML (MAG RUN) 1 GM in IV 1 EA IV ONE (18:25)
[2021-01-02] MEDS: LEVEMIR (INSULIN DETEMIR) 1 UNITS/0.01ML SC SCH (20:53)
[2021-01-02 22:00] VITALS: BP 156/79
[2021-01-02] MEDS: RAMELTEON 8 MG TAB (ROZEREM) PO PRN (22:08)
[2021-01-03] MEDS: metroNIDAZOLE 500 MG in IV 1 EA IV SCH ×3 (01:22→18:37)
[2021-01-03] MEDS: ACETAMINOPHEN TAB 650MG DOSE (2X325MG) PO SCH ×4 (01:22→18:36)
[2021-01-03 06:00] VITALS: BP 133/69
[2021-01-03 06:38] LABS: BASO % 0.6 % (0.0-1.0); EOS # 0.2 10^3/uL (0.0-0.5); EOS % 4.9 % (0.0-3.0); HEMATOCRIT 28.3 % (36.0-47.0); HEMOGLOBIN 8.9 g/dl (12.0-15.5); LYMPH % 42.2 % (24.0-44.0); MEAN CORPUSCULAR HEMOGLOBIN 27.1 pg (27.0-33.0); MEAN CORPUSCULAR HGB CONC 31.4 g/dl (32.0-36.5); MEAN CORPUSCULAR VOLUME 86.3 fl (80.0-96.0); MONO # 0.6 10^3/uL (0.0-0.8); MONO % 12.5 % (2.0-8.0); NEUTROPHILS # 1.8 10^3/uL (1.5-8.5); NEUTROPHILS % 39.6 % (36.0-66.0); PLATELET COUNT, AUTOMATED 315 10^3/uL (150-450); RED BLOOD COUNT 3.28 10^6/uL (4.00-5.40); WHITE BLOOD COUNT 4.7 10^3/uL (4.0-10.0)
[2021-01-03 07:02] LABS: BLOOD UREA NITROGEN 9 MG/DL (7-18); CALCIUM LEVEL 8.7 MG/DL (8.5-10.1); CARBON DIOXIDE LEVEL 26 MEQ/L (21-32); CHLORIDE LEVEL 105 MEQ/L (98-107); CREATININE FOR GFR 0.78 MG/DL (0.55-1.30); GLOMERULAR FILTRATION RATE > 60.0 (>51); GLUCOSE, FASTING 296 MG/DL (70-100); MAGNESIUM LEVEL 2.1 MG/DL (1.8-2.4); PHOSPHORUS LEVEL 2.7 MG/DL (2.5-4.9); POTASSIUM SERUM 4.1 MEQ/L (3.5-5.1); SODIUM LEVEL 141 MEQ/L (136-145)
[2021-01-03] MEDS: SUCRALFATE SUSP 1GM/10ML UD PO SCH ×4 (07:30→20:19)
[2021-01-03] MEDS: HumaLOG INSULIN (NovoLOG) PER UNIT SC SCH ×4 (08:30→20:21)
[2021-01-03] MEDS: PANTOPRAZOLE 40MG VIAL (C9113 PER 1) IV SCH ×2 (08:30→20:20)
[2021-01-03] MEDS ORDERED: MIRALAX *UNIT DOSE* 17GM PACKET PO SCH (09:00)
[2021-01-03] MEDS: GABAPENTIN 300 MG CAP PO SCH ×3 (09:00→20:20)
[2021-01-03] MEDS: ENOXAPARIN 40MG/0.4ML SYRINGE (J1650 PER 10MG) SC SCH (12:30)
[2021-01-03] MEDS: FIDAXOMICIN 200 MG TAB (DIFICID) PO SCH ×2 (12:30→20:20)
[2021-01-03] MEDS: DOCUSATE SODIUM 100MG CAPSULE PO SCH ×2 (12:32→20:20)
[2021-01-03] MEDS: rOPINIRole 1MG TAB PO SCH ×2 (12:32→20:20)
[2021-01-03] MEDS: PRIMIDONE 50 MG TAB PO SCH ×2 (12:32→20:20)
[2021-01-03] MEDS: LEVEMIR (INSULIN DETEMIR) 1 UNITS/0.01ML SC SCH (20:21)
[2021-01-03 22:00] VITALS: BP 141/103
[2021-01-03] MEDS: ONDANSETRON 4MG/2ML VIAL IV PRN (22:50)
[2021-01-04] MEDS: ACETAMINOPHEN TAB 650MG DOSE (2X325MG) PO SCH ×5 (00:12→23:04)
[2021-01-04] MEDS ORDERED: PINK BISMUTH SUSP 524MG/30ML ORAL SYRINGE PO ONE (00:25)
[2021-01-04] MEDS: metroNIDAZOLE 500 MG in IV 1 EA IV SCH ×2 (01:00→10:44)
[2021-01-04 06:00] VITALS: BP 126/65
[2021-01-04 06:34] LABS: BASO % 0.6 % (0.0-1.0); EOS # 0.3 10^3/uL (0.0-0.5); EOS % 5.7 % (0.0-3.0); HEMATOCRIT 28.4 % (36.0-47.0); LYMPH # 2.3 10^3/uL (1.5-5.0); LYMPH % 41.7 % (24.0-44.0); MEAN CORPUSCULAR HEMOGLOBIN 26.9 pg (27.0-33.0); MEAN CORPUSCULAR HGB CONC 31.7 g/dl (32.0-36.5); MONO # 0.7 10^3/uL (0.0-0.8); MONO % 13.4 % (2.0-8.0); NEUTROPHILS # 2.1 10^3/uL (1.5-8.5); NEUTROPHILS % 38.4 % (36.0-66.0); PLATELET COUNT, AUTOMATED 332 10^3/uL (150-450); RED BLOOD COUNT 3.34 10^6/uL (4.00-5.40); WHITE BLOOD COUNT 5.5 10^3/uL (4.0-10.0)
[2021-01-04 07:02] LABS: BLOOD UREA NITROGEN 9 MG/DL (7-18); CALCIUM LEVEL 9.1 MG/DL (8.5-10.1); CARBON DIOXIDE LEVEL 26 MEQ/L (21-32); CHLORIDE LEVEL 107 MEQ/L (98-107); CREATININE FOR GFR 0.81 MG/DL (0.55-1.30); GLOMERULAR FILTRATION RATE > 60.0 (>51); GLUCOSE, FASTING 103 MG/DL (70-100); POTASSIUM SERUM 3.9 MEQ/L (3.5-5.1); SODIUM LEVEL 141 MEQ/L (136-145)
[2021-01-04] MEDS: HumaLOG INSULIN (NovoLOG) PER UNIT SC SCH ×4 (07:30→21:00)
[2021-01-04] MEDS: FIDAXOMICIN 200 MG TAB (DIFICID) PO SCH ×2 (08:20→22:53)
[2021-01-04] MEDS: SUCRALFATE SUSP 1GM/10ML UD PO SCH ×4 (08:20→22:52)
[2021-01-04] MEDS: GABAPENTIN 300 MG CAP PO SCH ×3 (08:21→22:53)
[2021-01-04] MEDS: PRIMIDONE 50 MG TAB PO SCH ×2 (08:21→22:53)
[2021-01-04] MEDS: PANTOPRAZOLE 40MG VIAL (C9113 PER 1) IV SCH ×2 (08:21→22:53)
[2021-01-04] MEDS: rOPINIRole 1MG TAB PO SCH ×2 (08:21→22:53)
[2021-01-04] MEDS: ENOXAPARIN 40MG/0.4ML SYRINGE (J1650 PER 10MG) SC SCH (08:22)
[2021-01-04] MEDS: ONDANSETRON 4MG/2ML VIAL IV PRN ×2 (10:44→23:04)
--- NOTE | 2021-01-04 10:51 | IPNPDOC ---
Subjective Date Seen The patient was seen on 01/04/21. Subjective Chief Complaint/HPI Pt seen and examined at bedside this morning. She had four loose bowel movements and complains of bloating. She was explained she had to be placed on laxatives due to narcotic bowel, which will not be discontinued. She denied nausea, vomiting, chest pain, sob, problems with urination. Overnight pt received Pepto Bismol. Objective Physical Examination Other physical findings General: Lying in bed, no acute distress Head/Neck/Throat: Trachea midline, mucous membranes moist Eyes: Sclera anicteric, no erythema or discharge appreciated bilaterally Thorax: Normal respiratory effort on room air, lungs clear to auscultation bilaterally, no wheezes/rales/rhonchi Cardiovascular: Normal rate, regular rhythm, normal S1, S2; no S3, S4, rubs/gallops/murmurs Abdomen: Bowel sounds present, soft, nondistended, no rebound tenderness, reports mild tenderness with palpation Genitourinary: No CVA tenderness, no Nicole in place Musculoskeletal: Moving all extremities, no edema Skin: Warm, dry Neurologic: AAOx3, speech fluent and goal-directed, no focal deficits, grossly intact Assessment /Plan Assessment #C. difficile colitis -Pancolitis appreciated on CT scan with positive C. difficile toxin. Continue fidaxomicin x 10 days. Flagyl discontinued now. #Abdominal pain -Much improved after bowel regimen. CTA of the abdomen was negative. -Evaluated by surgeon no acute intervention required at this time -She also had possible PUD on ct-scan - continue ppi -With uncontrolled BG also suspect gastroparesis, gastric empty ordered #Anemia -Normocytic anemia. iron panel, vitamin B12, and folate within normal limits. -Occult blood test was negative -Follow-up on EGD and colonoscopy, records requested from [facility] but not received. #IDDM w neuropathy -Continue with Levemir and sliding scale. -Continue gabapentin. -Suspect patient may have gastroparesis, gastric emptying study has been ordered. She did receive metoclopramide x1 (side effects including permanent EPS were discussed with her, she was willing to accept these risk). #Seizure disorder -She had 2 seizures during hospitalization. This was discussed with the neurologist and it was recommended to increase primidone. Apparently, she was taken off Keppra several months ago but she was not responsive to it. -Continue seizure precautions, IV Ativan as needed #Subclinical hypothyroidism -TSH suppressed. Free T3 3 and T4 is within normal limit. Her Synthroid was decreased. She will need repeat thyroid function test upon discharge. #RLS -We will begin to taper as this may be contributing to her symptoms to the minimal dose required. #Tremors -Follows with neurology. Continue primidone #DVT prophylax -Enoxaparin Plan/VTE VTE Prophylaxis Ordered?: Yes VS, I&O, 24H, Fishbone Vital Signs/I&O Vital Signs Date Time Temp Pulse Resp B/P (MAP) Pulse Ox O2 Delivery O2 Flow Rate FiO2 01/04/21 06:00 97.2 72 18 126/65 (85) 96 Room Air I&O- Last 24 Hours up to 6 AM 01/04/21 06:00 Intake Total 720 ml Balance 720 ml Laboratory Data 24H LABS Laboratory Tests 2 01/03/21 12:10: Bedside Glucose (Misc Panel) 203H 01/03/21 16:50: Bedside Glucose (Misc Panel) 311H 01/03/21 19:58: Bedside Glucose (Misc Panel) 279H 01/04/21 05:27: Bedside Glucose (Misc Panel) 67L 01/04/21 06:09: Immature Granulocyte % (Auto) 0.2, Neutrophils (%) (Auto) 38.4, Lymphocytes (%) (Auto) 41.7, Monocytes (%) (Auto) 13.4H, Eosinophils (%) (Auto) 5.7H, Basophils (%) (Auto) 0.6, Neutrophils # (Auto) 2.1, Lymphocytes # (Auto) 2.3, Monocytes # (Auto) 0.7, Eosinophils # (Auto) 0.3, Basophils # (Auto) 0.0, Nucleated Red Blood Cells % (auto) 0.0, Anion Gap 8, Glomerular Filtration Rate > 60.0, Calcium Level 9.1 01/04/21 07:01: Bedside Glucose (Misc Panel) 96 CBC/BMP Laboratory Tests 01/04/21 06:09 Microbiology Microbiology 12/31/20 Blood Culture - Preliminary, Resulted No Growth after 72 hours. All specime... 12/31/20 Blood Culture - Preliminary, Resulted No Growth after 72 hours. All specime... 12/27/20 Stool Occult Blood (SALLY) - Final, Complete 12/26/20 Gastrointestinal Tract Panel (PCR) - Final, Complete Clostridium Difficile A/B MAMTA PRATT M.D. Jan 04, 2021 10:47
[2021-01-04] MEDS: PINK BISMUTH SUSP 524MG/30ML ORAL SYRINGE PO PRN ×2 (14:04→23:15)
[2021-01-04 14:07] VITALS: BP 135/72
[2021-01-04 22:00] VITALS: BP 162/85
[2021-01-04] MEDS ORDERED: HumaLOG INSULIN (NovoLOG) PER UNIT SC ONE (22:45)
[2021-01-04] MEDS: LEVEMIR (INSULIN DETEMIR) 1 UNITS/0.01ML SC SCH (22:54)
[2021-01-04] MEDS: RAMELTEON 8 MG TAB (ROZEREM) PO PRN (23:15)
[2021-01-05] MEDS ORDERED: HumaLOG INSULIN (NovoLOG) PER UNIT SC STA (00:35)
[2021-01-05] MEDS ORDERED: NS 1,000 ML IV SCH (00:50)
[2021-01-05 01:09] VITALS: BP 158/92
[2021-01-05 01:12] LABS: VENOUS BASE EXCESS 0.6 (-2.0-2.0); VENOUS HCO3 24.1 MEQ/L (23.0-27.0); VENOUS O2 SATURATION 99.1 % (60.0-80.0); VENOUS PARTIAL PRESSURE CO2 34.3 mmHg (38.0-50.0); VENOUS PH 7.464 UNITS (7.330-7.430); VENOUS TOTAL CO2 25.1 MEQ/L (24.0-28.0)
[2021-01-05 01:17] LABS: HEMOGLOBIN 9.3 g/dl (12.0-15.5); MEAN CORPUSCULAR HEMOGLOBIN 27.4 pg (27.0-33.0); MEAN CORPUSCULAR HGB CONC 32.1 g/dl (32.0-36.5); MEAN CORPUSCULAR VOLUME 85.5 fl (80.0-96.0); PLATELET COUNT, AUTOMATED 303 10^3/uL (150-450); RED BLOOD COUNT 3.39 10^6/uL (4.00-5.40); WHITE BLOOD COUNT 5.7 10^3/uL (4.0-10.0)
[2021-01-05 01:19] LABS: ACETONE/KETONE 2.43 MG/DL (<2.81); ALBUMIN 2.7 GM/DL (3.2-5.2); BILIRUBIN,TOTAL 0.1 MG/DL (0.2-1.0); CALCIUM LEVEL 8.2 MG/DL (8.5-10.1); CREATININE FOR GFR 1.46 MG/DL (0.55-1.30); FREE T4 0.71 NG/DL (0.76-1.46); GLOMERULAR FILTRATION RATE 39.3 (>51); MAGNESIUM LEVEL 1.7 MG/DL (1.8-2.4); POTASSIUM SERUM 3.5 MEQ/L (3.5-5.1); THYROID STIMULATING HORMONE 0.087 uIU/ML (0.358-3.740); TOTAL PROTEIN 5.8 GM/DL (6.4-8.2)
[2021-01-05] MEDS: ONDANSETRON 4MG/2ML VIAL IV PRN ×2 (05:29→15:45)
[2021-01-05] MEDS: D5W/0.9% SODIUM CHLORIDE 1,000 ML IV SCH ×3 (05:29→18:32)
[2021-01-05] MEDS: ACETAMINOPHEN TAB 650MG DOSE (2X325MG) PO SCH ×4 (05:30→17:21)
[2021-01-05 06:00] VITALS: BP 106/50
[2021-01-05 06:36] LABS: HEMOGLOBIN 8.8 g/dl (12.0-15.5); MEAN CORPUSCULAR HEMOGLOBIN 26.8 pg (27.0-33.0); MEAN CORPUSCULAR HGB CONC 31.4 g/dl (32.0-36.5); MEAN CORPUSCULAR VOLUME 85.4 fl (80.0-96.0); PLATELET COUNT, AUTOMATED 309 10^3/uL (150-450); RED BLOOD COUNT 3.28 10^6/uL (4.00-5.40)
[2021-01-05 07:00] LABS: BLOOD UREA NITROGEN 12 MG/DL (7-18); CALCIUM LEVEL 8.4 MG/DL (8.5-10.1); CARBON DIOXIDE LEVEL 31 MEQ/L (21-32); CHLORIDE LEVEL 106 MEQ/L (98-107); CREATININE FOR GFR 0.86 MG/DL (0.55-1.30); GLOMERULAR FILTRATION RATE > 60.0 (>51); GLUCOSE, FASTING 75 MG/DL (70-100); MAGNESIUM LEVEL 1.9 MG/DL (1.8-2.4); PHOSPHORUS LEVEL 3.1 MG/DL (2.5-4.9); POTASSIUM SERUM 3.8 MEQ/L (3.5-5.1); SODIUM LEVEL 143 MEQ/L (136-145)
[2021-01-05] MEDS: HumaLOG INSULIN (NovoLOG) PER UNIT SC SCH ×4 (07:30→22:34)
[2021-01-05] MEDS: PANTOPRAZOLE 40MG VIAL (C9113 PER 1) IV SCH ×2 (08:49→22:33)
[2021-01-05] MEDS: FIDAXOMICIN 200 MG TAB (DIFICID) PO SCH ×2 (08:49→22:33)
[2021-01-05] MEDS: SUCRALFATE SUSP 1GM/10ML UD PO SCH ×4 (08:49→22:33)
[2021-01-05] MEDS: GABAPENTIN 300 MG CAP PO SCH ×3 (08:50→22:33)
[2021-01-05] MEDS: PRIMIDONE 50 MG TAB PO SCH ×2 (08:50→22:34)
[2021-01-05] MEDS: ENOXAPARIN 40MG/0.4ML SYRINGE (J1650 PER 10MG) SC SCH (08:50)
--- NOTE | 2021-01-05 19:33 | IPNPDOC ---
Subjective Date Seen The patient was seen on 01/05/21. Subjective Chief Complaint/HPI Patient was seen and examined at bedside this morning. She reports some improvement in her abdominal pain. She denied nausea, vomiting, problems and is tolerating a diet, and bowel movements. Overnight, she was hypoglycemic and received insulin. Subsequently, she was placed on an T9Tffeos saline due to a drop in blood glucose but still within normal limits. She was found with several popup bottles on her side table, and educated about appropriate diet and diabetes and to minimize sugar intake. Objective Physical Examination Other physical findings General: Lying in bed, no acute distress Head/Neck/Throat: Trachea midline, mucous membranes moist Eyes: Sclera anicteric, no erythema or discharge appreciated bilaterally Thorax: Normal respiratory effort on room air, lungs clear to auscultation bilaterally, no wheezes/rales/rhonchi Cardiovascular: Normal rate, regular rhythm, normal S1, S2; no S3, S4, rubs/gallops/murmurs Abdomen: Bowel sounds present, soft, nondistended, no rebound tenderness, reports mild tenderness with palpation Genitourinary: No CVA tenderness, no Nicole in place Musculoskeletal: Moving all extremities, no edema Skin: Warm, dry Neurologic: AAOx3, speech fluent and goal-directed, no focal deficits, grossly intact Assessment /Plan Assessment #C. difficile colitis -Pancolitis appreciated on CT scan with positive C. difficile toxin. Continue fidaxomicin x 10 days. Flagyl discontinued now. #Abdominal pain -Improved but still mild persistent pain. CTA of the abdomen was negative. -Evaluated by surgeon no acute intervention required at this time -She also had possible PUD on ct-scan - continue ppi -Spoke with gastroenterology team, plan for endoscopy tomorrow to rule out pyloric mass/obstruction #Anemia -Normocytic anemia. iron panel, vitamin B12, and folate within normal limits. -Occult blood test was negative -Follow-up on EGD and colonoscopy, records requested from [facility] but not received. #IDDM w neuropathy -Uncontrolled blood glucose due to noncompliance with his diet. Patient educated about this. -Continue with Levemir and sliding scale. -Continue gabapentin. -Suspect patient may have gastroparesis, gastric emptying study has been ordered but cannot be done until 01/07. -She did receive metoclopramide x1 (side effects including permanent EPS were discussed with her, she was willing to accept these risk). #Seizure disorder -She had 2 seizures during hospitalization. This was discussed with the neurologist and it was recommended to increase primidone. Apparently, she was taken off Keppra several months ago but she was not responsive to it. -Continue seizure precautions, IV Ativan as needed #Subclinical hypothyroidism -TSH suppressed. Free T3 3 and T4 is within normal limit. Her Synthroid was decreased. She will need repeat thyroid function test upon discharge. #RLS -We will begin to taper as this may be contributing to her symptoms to the minimal dose required. #Tremors -Follows with neurology. Continue primidone #DVT prophylax -Enoxaparin Plan/VTE VTE Prophylaxis Ordered?: Yes VS, I&O, 24H, Fishbone Vital Signs/I&O Vital Signs Date Time Temp Pulse Resp B/P (MAP) Pulse Ox O2 Delivery O2 Flow Rate FiO2 01/05/21 06:00 98.7 75 18 106/50 (68) 96 Room Air I&O- Last 24 Hours up to 6 AM 01/05/21 06:00 Intake Total 1690 ml Output Total 2000 ml Balance -310 ml Laboratory Data 24H LABS Laboratory Tests 2 01/04/21 21:35: Bedside Glucose (Misc Panel) 500H 01/04/21 21:56: Bedside Glucose Confirm (Misc) 525*H 01/05/21 00:06: Bedside Glucose (Misc Panel) 528*H 01/05/21 00:09: Bedside Glucose (Misc Panel) 549*H 01/05/21 00:31: Bedside Glucose Confirm (Misc) 518*H, Anion Gap 10, Glomerular Filtration Rate 39.3L, Calcium Level 8.2L, Magnesium Level 1.7L, Total Bilirubin 0.1L, Aspartate Amino Transf (AST/SGOT) 18, Alanine Aminotransferase (ALT/SGPT) 29, Alkaline Phosphatase 122H, Total Protein 5.8L, Albumin 2.7L, Albumin/Globulin Ratio 0.9L, Thyroid Stimulating Hormone (TSH) 0.087L, Free Thyroxine 0.71L, B- Hydroxybutyrate 2.43 01/05/21 00:48: Nucleated Red Blood Cells % (auto) 0.0, Blood Gas Puncture Site UNKNOWN, Blood Gas Bicarbonate Standard 25.0, Venous Blood pH 7.464H, Venous Blood Partial Pressure CO2 34.3L, Venous Blood Partial Pressure O2 192.0H, Venous Blood Total Carbon Dioxide 25.1, Venous Blood HCO3 24.1, Venous Blood Oxygen Saturation 99.1H, Venous Blood Base Excess 0.6, Lactic Acid Level 3.9*H 01/05/21 01:58: Bedside Glucose (Misc Panel) 322H 01/05/21 04:17: Bedside Glucose (Misc Panel) 81 01/05/21 05:04: Bedside Glucose (Misc Panel) 70 01/05/21 05:44: Nucleated Red Blood Cells % (auto) 0.0, Anion Gap 6L, Glomerular Filtration Rate > 60.0, Lactic Acid Followup at 4 Hours 0.7, Calcium Level 8.4L, Phosphorus Level 3.1, Magnesium Level 1.9 01/05/21 06:02: Bedside Glucose (Misc Panel) 89 01/05/21 11:37: Bedside Glucose (Misc Panel) 325H 01/05/21 15:40: Bedside Glucose (Misc Panel) 382H CBC/BMP Laboratory Tests 01/05/21 00:31 01/05/21 00:48 01/05/21 05:44 Microbiology Microbiology 12/31/20 Blood Culture - Final, Complete NO GROWTH AFTER 5 DAYS 12/31/20 Blood Culture - Final, Complete NO GROWTH AFTER 5 DAYS 12/27/20 Stool Occult Blood (SALLY) - Final, Complete 12/26/20 Gastrointestinal Tract Panel (PCR) - Final, Complete Clostridium Difficile A/B MAMTA PRATT M.D. Jan 05, 2021 19:19
[2021-01-05 22:00] VITALS: BP 179/88
[2021-01-05] MEDS: RAMELTEON 8 MG TAB (ROZEREM) PO PRN (22:33)
[2021-01-05] MEDS: rOPINIRole 1MG TAB PO SCH (22:33)
[2021-01-05] MEDS: METOCLOPRAMIDE 5 MG TAB PO SCH (22:34)
[2021-01-05] MEDS: LEVEMIR (INSULIN DETEMIR) 1 UNITS/0.01ML SC SCH (22:34)
[2021-01-06] MEDS: ACETAMINOPHEN TAB 650MG DOSE (2X325MG) PO SCH ×5 (01:31→17:53)
[2021-01-06 06:00] VITALS: BP 126/69
[2021-01-06 06:51] LABS: HEMATOCRIT 29.6 % (36.0-47.0); HEMOGLOBIN 9.5 g/dl (12.0-15.5); MEAN CORPUSCULAR HEMOGLOBIN 27.6 pg (27.0-33.0); MEAN CORPUSCULAR HGB CONC 32.1 g/dl (32.0-36.5); PLATELET COUNT, AUTOMATED 342 10^3/uL (150-450); RED BLOOD COUNT 3.44 10^6/uL (4.00-5.40); WHITE BLOOD COUNT 6.3 10^3/uL (4.0-10.0)
[2021-01-06] MEDS ORDERED: fentaNYL 100 MCG/2 ML INJECTION (J3010) As Ordered ONE (06:58)
[2021-01-06 07:22] LABS: BLOOD UREA NITROGEN 12 MG/DL (7-18); CALCIUM LEVEL 8.9 MG/DL (8.5-10.1); CARBON DIOXIDE LEVEL 28 MEQ/L (21-32); CHLORIDE LEVEL 109 MEQ/L (98-107); CREATININE FOR GFR 0.77 MG/DL (0.55-1.30); GLOMERULAR FILTRATION RATE > 60.0 (>51); GLUCOSE, FASTING 149 MG/DL (70-100); MAGNESIUM LEVEL 2.1 MG/DL (1.8-2.4); POTASSIUM SERUM 4.1 MEQ/L (3.5-5.1); SODIUM LEVEL 143 MEQ/L (136-145)
[2021-01-06] MEDS: HumaLOG INSULIN (NovoLOG) PER UNIT SC SCH ×3 (07:30→17:53)
[2021-01-06] MEDS: SUCRALFATE SUSP 1GM/10ML UD PO SCH ×3 (07:30→17:52)
[2021-01-06] MEDS: ENOXAPARIN 40MG/0.4ML SYRINGE (J1650 PER 10MG) SC SCH (09:00)
[2021-01-06] MEDS: PANTOPRAZOLE 40MG VIAL (C9113 PER 1) IV SCH (10:50)
[2021-01-06] MEDS: METOCLOPRAMIDE 5 MG TAB PO SCH ×3 (10:50→17:52)
[2021-01-06] MEDS: FIDAXOMICIN 200 MG TAB (DIFICID) PO SCH (10:50)
[2021-01-06] MEDS: PRIMIDONE 50 MG TAB PO SCH (10:51)
[2021-01-06] MEDS: GABAPENTIN 300 MG CAP PO SCH ×2 (10:51→15:06)
[2021-01-06 14:00] VITALS: BP 160/97
[2021-01-06] MEDS ORDERED: propofoL 500 MG/50 ML VIAL As Ordered ONE (14:17)
--- NOTE | 2021-01-06 16:24 | ROOR ---
Patient Name: Anna Marie Cantu Procedure Date: 01/06/2021 4:06 PM Date of : 1965 Age: 55 Room: [facility] Gender: Female Note Status: Finalized Procedure: Upper GI endoscopy Indications: Epigastric abdominal pain, Generalized abdominal pain Providers: Jeremy Helton MD Referring MD: 2. Inpatient 2. Inpatient, Varun Paula Do Requesting Provider: Medicines: Monitored Anesthesia Care Complications: No immediate complications. Procedure: Pre-Anesthesia Assessment: - The heart rate, respiratory rate, oxygen saturations, blood pressure, adequacy of pulmonary ventilation, and response to care were monitored throughout the procedure. The Endoscope was introduced through the mouth, and advanced to the second part of duodenum. The upper GI endoscopy was accomplished without difficulty. The patient tolerated the procedure well. Findings: The examined esophagus was normal. A single localized erosion was found in the gastric antrum. Biopsies were taken with a cold forceps for Helicobacter pylori testing. The exam of the stomach was otherwise normal. The examined duodenum was normal. Impression: - Normal esophagus. - A single 5 mm shallow gastric erosion. Biopsied. - Normal examined duodenum. Recommendation: - Etiology for chronic abdominal pain is not determined on this exam. - Telephone endoscopist for pathology results in 2 weeks. - No ibuprofen, naproxen, or other non-steroidal anti-inflammatory drugs. - Use Prilosec (omeprazole) 20 mg PO daily. - Follow up with PCP and GI team at [facility]. Procedure Code(s): --- Professional --- 54483, Esophagogastroduodenoscopy, flexible, transoral; with biopsy, single or multiple Diagnosis Code(s): --- Professional --- R10.84, Generalized abdominal pain R10.13, Epigastric pain K25.9, Gastric ulcer, unspecified as acute or chronic, without hemorrhage or perforation CPT copyright 2019 [employer]. All rights reserved. The codes documented in this report are preliminary and upon skein spooler review may be revised to meet current compliance requirements. Jeremy Helton MD Jeremy Helton MD 01/06/2021 4:24:06 PM Electronically signed by Jeremy Helton MD Number of Addenda: 0 Note Initiated On: 01/06/2021 4:06 PM Estimated Blood Loss: Estimated blood loss: none.
[2021-01-06 16:35] VITALS: BP 145/65
[2021-01-06] MEDS: ONDANSETRON 4MG/2ML VIAL IV PRN (16:35)
[2021-01-06] MEDS ORDERED: ONDANSETRON 4MG/2ML VIAL IV PRN (16:50)
[2021-01-06] MEDS ORDERED: METO5TAB2 PO (18:03)
[2021-01-06] MEDS ORDERED: PANT40TA29 PO (18:03)
[2021-01-06] MEDS ORDERED: MYSO50TA5 PO (18:03)
[2021-01-06] MEDS ORDERED: LEVO150T7 PO (18:18)
--- NOTE | 2021-01-06 18:21 | DS.PDOC ---
Discharge Summary General Date of Admission Dec 27, 2020 at 00:54 Date of Discharge 01/06/21 Discharge Summary DISCHARGE DIAGNOSES: 1. C. difficile 2. Gastric erosio 3. Seizure 4. Constipation 5. Gastroparesis 6. Insulin-dependent diabetes mellitus with neuropathy 7. Subclinical hypothyroidism COMPLICATIONS/CHIEF COMPLAINT: C. Difficilile Colitis, Intractable Vomiting. HOSPITAL COURSE: Ms. Cantu, is a 55-year-old female that presented to [facility] on 12/26 with complaints of loose stools and hematochezia and was admitted for further evaluation. She was positive for C. difficile. CT scan noted on nonspecific pancolitis. She was started on fidaxomicin, due to her vancomycin allergy. Due to no GI coverage, she was evaluated by the surgical team for ongoing abdominal pain as well as distention. No acute intervention required during this hospitalization. With medical management for her C. difficile there was improvement in her symptoms and serial abdominal exams. There was episodes of where she also got constipated due to the pain medications, which were discontinued and she received laxatives with significant improvement. Due to her uncontrolled diabetes there is suspicion that she may have gastroparesis therefore she was started on metoclopramide 2.5 ACHS. She understood the risks including permanent tardive dyskinesia - irreversible movement disorder; and was willing to accept the risks. Of note, the CT scan of the abdomen that was done showed antral gastritis, pylorospasm and/or peptic ulcer disease. On 01/06 (GI coverage was available) she underwent an endoscopy evaluation which showed a single localized erosion of the gastric antrum. There was a single 5 mm shallow gastric erosion as well. Biopsies were taken and patient was asked to follow-up with the endoscopist in 2 weeks. She will be taking pantoprazole 40 mg daily. Of note, her ropinirole dosage for his restless leg syndrome has also been decreased. It is possible that this may be contributing to her abdominal symptoms. She was instructed to take 2 mg at night and talk to her neurologist about possibly weaning off ropinirole. She reported having a electrician manager (did not know the name but needed the office number, [phone]) which she will be following up with upon discharge. She reports she will be making the next available appointment. She was explained she may require repeat colonoscopy and gastric emptying setting test. Of note CT angiography of the abdomen was also done due to ongoing pain during hospitalization which was negative for cute pathology. During this visit, she also had 2 seizures. Her primary neurologist was contacted and it was recommended for her her primidone dosage to be increased. An EEG was within normal limits. An MRI was done which showed no acute findings. She was asked to follow-up with the neurologist as an outpatient. She was extensively educated about diabetes. Her hemoglobin A1c was 10.7%. This is likely due to lack of compliance with an appropriate diabetic diet. She will be going home with her home regimen of insulin but reports she will follow up with her primary care physician for adjustments if required. Please note, levothyroxine dose was decreased from 200 MCG's to 150 MCG's as her TSH was suppressed. She needs repeat TSH with her primary care physician in 4 to 6 weeks. DISCHARGE MEDICATIONS: Please see below. ALLERGIES: Please see below. PHYSICAL EXAMINATION ON DISCHARGE: VITAL SIGNS: Please see below. General: Lying in bed, no acute distress Head/Neck/Throat: Trachea midline, mucous membranes moist Eyes: Sclera anicteric, no erythema or discharge appreciated bilateral Thorax: Normal respiratory effort on room air, lungs clear to auscultation bilaterally, no wheezes/rales/rhonchi Cardiovascular: Normal rate, regular rhythm, normal S1, S2; no S3, S4, rubs/gallops/murmurs Abdomen: Bowel sounds present, soft/nontender/nondistended Genitourinary: No CVA tenderness, no Nicole in place Musculoskeletal: Moving all extremities, no edema Skin: Warm, dry Neurologic: AAOx3, speech fluent and goal-directed, no focal deficits, grossly intact LABORATORY DATA: Please see below. IMAGING: Please see imaging section PROGNOSIS: Good ACTIVITY: As tolerated DIET: Diabetic diet ITEMS TO FOLLOWUP ON ON OUTPATIENT: 1. Please follow-up with your primary care physician and electrician manager within 5 to 7 days DISCHARGE CONDITION: Stable TIME SPENT ON DISCHARGE: 30-minute minutes. Vital Signs/I&Os Vital Signs Date Time Temp Pulse Resp B/P (MAP) Pulse Ox O2 Delivery O2 Flow Rate FiO2 01/06/21 16:35 97.1 83 16 145/65 (91) 96 Room Air I&O- Last 24 Hours up to 6 AM 01/06/21 06:00 Intake Total 915 ml Output Total 1700 ml Balance -785 ml Laboratory Data Labs 24H Laboratory Tests 2 01/05/21 21:10: Bedside Glucose (Misc Panel) 282H 01/06/21 02:25: Bedside Glucose (Misc Panel) 252H 01/06/21 06:03: Nucleated Red Blood Cells % (auto) 0.0, Anion Gap 6L, Glomerular Filtration Rate > 60.0, Calcium Level 8.9, Phosphorus Level 3.0, Magnesium Level 2.1 01/06/21 10:50: Coronavirus (COVID-19)(PCR) NEGATIVE 01/06/21 11:58: Bedside Glucose (Misc Panel) 207H 01/06/21 17:38: Bedside Glucose (Misc Panel) 312H CBC/BMP Laboratory Tests 01/06/21 06:03 FSBS Laboratory Tests Test 01/05/21 21:10 01/06/21 02:25 01/06/21 11:58 01/06/21 17:38 Range/Units Bedside Glucose (Misc Panel) 282 252 207 312 70-105 MG/DL Microbiology Microbiology 12/31/20 Blood Culture - Final, Complete NO GROWTH AFTER 5 DAYS 12/31/20 Blood Culture - Final, Complete NO GROWTH AFTER 5 DAYS 12/27/20 Stool Occult Blood (SALLY) - Final, Complete Discharge Medications Scheduled Bupropion Hcl (Bupropion Xl) 150 Mg Tab.er.24h, 150 MG PO QHS, (Reported) Gabapentin (Gabapentin) 300 Mg Capsule, 300 MG PO TID, (Reported) Insulin Glargine,Hum.rec.anlog (Semglee Pen) 100 Unit/Ml (3 Ml) Insuln.pen, 22 UNITS SUBQ QHS, (Reported) Insulin Lispro (Admelog) 100 Unit/1 Ml Vial, 8 UNIT SC BID, (Reported) BEFORE BREAKFAST AND LUNCH Insulin Lispro (Admelog) 100 Unit/1 Ml Vial, 11 UNIT SC QPM, (Reported) Levetiracetam (Levetiracetam) 250 Mg Tablet, 250 MG PO BID, (Reported) Levothyroxine Sodium (Levothyroxine Sodium) 150 Mcg Tablet, 1 TAB PO DAILY Metoclopramide HCl (Metoclopramide HCl) 5 Mg Tablet, 2.5 MG PO ACHS Multivitamins (Thera M Plus Tablet) 1 Each Tablet, 1 TAB PO DAILY, (Reported) Pantoprazole Sodium (Pantoprazole Sodium) 40 Mg Tablet.dr, 1 TAB PO DAILY Primidone (Mysoline) 50 Mg Tablet, 100 MG PO BID Ropinirole HCl (Ropinirole HCl) 1 Mg Tablet, 2 MG PO QHS, (Reported) Rosuvastatin Calcium (Rosuvastatin Calcium) 40 Mg Tablet, 40 MG PO DAILY, (Reported) Allergies Coded Allergies: ciprofloxacin (Verified Allergy, Unknown, hives, 12/11/19) latex (Verified Allergy, Unknown, swelling/shortness of breath, 12/11/19) piperacillin (Verified Allergy, Unknown, rash, 12/11/19) tazobactam (Verified Allergy, Unknown, rash, 12/11/19) vancomycin (Verified Allergy, Unknown, rash, 12/11/19) MAMTA PRATT M.D. Jan 06, 2021 18:13
== END 2021-01-06 20:00 | disposition home or self-care (01) | DRG 248 ==
LOC: M ED 17:47 → M ED INP 17:48 → OBSVTOIN 12-27 00:54 → ENRESERV 12-27 02:51 → M MSPAV 12-27 03:30
PROVIDERS: ADMIT Internal Medicine; ATTEND Internal Medicine
PROC: 0DB68ZX Excision of Stomach, Via Natural or Artificial Opening Endoscopic, Diagnostic (ICD-10-PCS; principal; 2021-01-06 15:00)
DX: A04.72 Enterocolitis due to Clostridium difficile, not specified as recurrent (principal); Z68.1 Body mass index [BMI] 19.9 or less, adult; D50.0 Iron deficiency anemia secondary to blood loss (chronic); G40.909 Epilepsy, unspecified, not intractable, without status epilepticus; E10.43 Type 1 diabetes mellitus with diabetic autonomic (poly)neuropathy; K25.9 Gastric ulcer, unspecified as acute or chronic, without hemorrhage or perforation; E10.65 Type 1 diabetes mellitus with hyperglycemia; K31.84 Gastroparesis; E46 Unspecified protein-calorie malnutrition; E03.9 Hypothyroidism, unspecified; Z79.4 Long term (current) use of insulin; K59.00 Constipation, unspecified; Z79.899 Other long term (current) drug therapy; Z91.040 Latex allergy status; Z88.8 Allergy status to other drugs, medicaments and biological substances; G25.81 Restless legs syndrome; Z87.891 Personal history of nicotine dependence; I10 Essential (primary) hypertension; Z89.421 Acquired absence of other right toe(s); Z89.422 Acquired absence of other left toe(s); F32.9 Major depressive disorder, single episode, unspecified

== ENCOUNTER → 2021-02-03 | Outpatient (CLI) | payer OTHER ==
[~2021-02-03] MED LIST changes: +INSU100I28 SUBQ; +LEVE250T5 PO; +LEVO200T4 PO; +METO5TAB2 PO; +MYSO50TA5 PO; +PANT40TA29 PO; +PRIM50TA6 PO; +ROSU40TA4 PO
[2021-02-03 17:34] LABS: HEMATOCRIT 33.1 % (36.0-47.0); HEMOGLOBIN 10.4 g/dl (12.0-15.5); MEAN CORPUSCULAR HGB CONC 31.4 g/dl (32.0-36.5); PLATELET COUNT, AUTOMATED 318 10^3/uL (150-450); RED BLOOD COUNT 3.85 10^6/uL (4.00-5.40); WHITE BLOOD COUNT 6.9 10^3/uL (4.0-10.0)
[2021-02-03 17:53] LABS: ALBUMIN 3.7 GM/DL (3.2-5.2); ALT/SGPT 62 U/L (12-78); BILIRUBIN,TOTAL 0.2 MG/DL (0.2-1.0); BLOOD UREA NITROGEN 22 MG/DL (7-18); CALCIUM LEVEL 9.5 MG/DL (8.5-10.1); CARBON DIOXIDE LEVEL 26 MEQ/L (21-32); CHLORIDE LEVEL 109 MEQ/L (98-107); CHOLESTEROL LEVEL 324 MG/DL (<200); CHOLESTEROL RISK RATIO 2.945 (<5); CREATININE FOR GFR 0.89 MG/DL (0.55-1.30); GLOMERULAR FILTRATION RATE > 60.0 (>51); GLUCOSE, FASTING 70 MG/DL (70-100); HDL CHOLESTEROL 110 MG/DL (>40); LDL CHOLESTEROL 190 MG/DL (<100); NON-HDL-C 214 MG/DL; POTASSIUM SERUM 4.7 MEQ/L (3.5-5.1); SODIUM LEVEL 140 MEQ/L (136-145); TOTAL PROTEIN 6.9 GM/DL (6.4-8.2); TRIGLYCERIDES LEVEL 118 MG/DL (<150)
[2021-02-03 18:10] LABS: HEMOGLOBIN A1c 9.3 %
== END ==
LOC: M PLALAB 14:30
PROVIDERS: ATTEND Family Medicine
DX: E10.65 Type 1 diabetes mellitus with hyperglycemia (principal)

== ENCOUNTER 2021-02-24 16:32 | Inpatient (IN) | payer OTHER ==
[~2021-02-24] VITALS: Ht 165.1 cm; Wt 54.4 kg
[2021-02-24] MEDS: HumaLOG INSULIN (NovoLOG) PER UNIT SC SCH (01:14)
[~2021-02-24 16:32] MED LIST changes: +INSU100I28 SC; -INSU100I28 SUBQ
[2021-02-24] MEDS ORDERED: CHLO125TA (16:40)
[2021-02-24] MEDS ORDERED: ESCITALOPRAM (16:40)
--- OUTSIDE RECORDS SUMMARY | 2021-02-24 16:43 | CCD ---
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 Manager Name Role Phone ANA CRISTINA HAYNES MD Unavailable Unavailable ANA CRISTINA HAYNES MD Unavailable Unavailable ANA CRISTINA HAYNES MD Unavailable Unavailable ANA CRISTINA HAYENS MD Unavailable Unavailable ANA CRISTINA HAYNES MD Unavailable Unavailable ANA CRISTINA HAYNES MD Unavailable Unavailable ANA CRISTINA HAYNES MD Unavailable Unavailable ANA CRISTINA HAYNES MD Unavailable Unavailable ANA CRISTINA HAYNES MD Unavailable Unavailable ANA CRISTINA HAYNES MD Unavailable Unavailable ANA CRISTINA HAYNES MD Unavailable Unavailable ANA CRISTINA HAYNES MD Unavailable Unavailable ANA CRISTINA HAYNES MD Unavailable Unavailable ANA CRISTINA HAYNES MD Unavailable Unavailable ANA CRISTINA HAYNES MD Unavailable Unavailable ANA CRISTINA HAYNES MD Unavailable Unavailable ANA CRISTINA HAYNES MD Unavailable Unavailable ANA CRISTINA HAYNES MD Unavailable Unavailable ANA CRISTINA HAYNES MD Unavailable Unavailable ANA CRISTINA HAYNES MD Unavailable Unavailable ANA CRISTINA HAYNES MD Unavailable Unavailable ANA CRISTINA HAYNES MD Unavailable Unavailable ANA CRISTINA HAYNES MD Unavailable Unavailable ANA CRISTINA HAYNES MD Unavailable Unavailable ANA CRISTINA HAYNES MD Unavailable Unavailable ANA CRISTINA HAYNES MD Unavailable Unavailable ANA CRISTINA HAYNES MD Unavailable Unavailable MANOCHAANA CRISTINA MD Unavailable Unavailable MANOCHA, ANA CRISTINA GARCIA Unavailable Unavailable MANOCHAANA CRISTINA MD Unavailable Unavailable MANOCHAANA CRISTINA MD Unavailable Unavailable MANOCHAANA CRISTINA MD Unavailable Unavailable Ali, Robert GARCIA Unavailable Unavailable Ali, Robert GARCIA Unavailable Unavailable Ali, Robert Unavailable Unavailable Ali, Robert Unavailable Unavailable Ali, Robert MD Unavailable Unavailable Ali, Robert MD Unavailable Unavailable Ali, Robert MD Unavailable Unavailable Ali, Robert MD Unavailable Unavailable Ali, Robert MD Unavailable Unavailable Ali, Robert MD Unavailable Unavailable Ali, Robert MD Unavailable Unavailable Ali, Robert MD Unavailable Unavailable Ali, Robert MD Unavailable Unavailable Ali, Robert MD Unavailable Unavailable Ali, Robert MD Unavailable Unavailable Ali, Robert MD Unavailable Unavailable Ali, Robert MD Unavailable Unavailable Ali, Robert MD Unavailable Unavailable Ali, Robert MD Unavailable Unavailable Ali, Robert MD Unavailable Unavailable Ali, Robert MD Unavailable Unavailable Ali, Robert MD Unavailable Unavailable Ali, Robert MD Unavailable Unavailable Ali, Robert MD Unavailable Unavailable Ali, Robert GARCIA Unavailable Unavailable Ali, Robert MD Unavailable Unavailable Ali, Robert MD Unavailable Unavailable Ali, Robert MD Unavailable Unavailable Ali, Robert MD Unavailable Unavailable Ali, Robert MD Unavailable Unavailable Ali, Robert MD Unavailable Unavailable Ali, Robert MD Unavailable Unavailable Ali, Robert MD Unavailable Unavailable Ali, Robert MD Unavailable Unavailable Ali, Robert MD Unavailable Unavailable Ali, Robert MD Unavailable Unavailable Ali, Robert MD Unavailable Unavailable Ali, Robert MD Unavailable Unavailable Ali, Robert MD Unavailable Unavailable Ali, Robert GARCIA Unavailable Unavailable Ali, Robert GARCIA Unavailable Unavailable Ali, Robert GARCIA Unavailable Unavailable Ali, Robert GARCIA Unavailable Unavailable Ali, Robert GARCIA Unavailable Unavailable Ali, Robert GARCIA Unavailable Unavailable Ali, Robert GARCIA Unavailable Unavailable Ali, Robert GARCIA Unavailable Unavailable Ali, Robert GARCIA Unavailable Unavailable Ali, Robert GARCIA Unavailable Unavailable Ali, Robert GARCIA Unavailable Unavailable Ali, Robert GARCIA Unavailable Unavailable Paul Arenas MD Unavailable Unavailable ArenasPaul saravia MD Unavailable Unavailable Arenas, L Devon GARCIA Unavailable Unavailable ArenasPaul saravia MD Unavailable Unavailable ArenasPaul MD Unavailable Unavailable ArenasPaul MD Unavailable Unavailable ArenasPaul saravia MD Unavailable Unavailable ArenasPaul saravia MD Unavailable Unavailable ArenasPaul MD Unavailable Unavailable ArenasPaul MD Unavailable Unavailable ArenasPaul MD Unavailable Unavailable Arenas L Devon GARCIA Unavailable Unavailable Arenas, L Devon GARCIA Unavailable Unavailable Aernas, L Devon GARCIA Unavailable Unavailable Arenas, L Devon GARCIA Unavailable Unavailable Arenas, L Devon GARCIA Unavailable Unavailable Arenas, L Devon GARCIA Unavailable Unavailable Arenas, L Devon GARCIA Unavailable Unavailable Arenas, L Devon GARCIA Unavailable Unavailable Arenas, L Devon GARCIA Unavailable Unavailable Arenas, L Devon GARCIA Unavailable Unavailable Arenas, L Devon GARCIA Unavailable Unavailable Arenas, L Devon GARCIA Unavailable Unavailable Arenas, L Devon GARCIA Unavailable Unavailable Arenas, L Devon GARCIA Unavailable Unavailable Arenas, L Devon GARCIA Unavailable Unavailable Arenas, L Devon GARCIA Unavailable Unavailable Arenas, L Devon GARCIA Unavailable Unavailable Arenas, L Devon GARCIA Unavailable Unavailable Arenas, L Devon GARCIA Unavailable Unavailable Arenas, L Devon GARCIA Unavailable Unavailable Arenas, L Devon GARCIA Unavailable Unavailable Arenas, L Devon GARCIA Unavailable Unavailable Arenas, L Devon GARCIA Unavailable Unavailable Arenas, L Devon GARCIA Unavailable Unavailable Arenas, L Devon GARCIA Unavailable Unavailable Arenas, L Devon GARCIA Unavailable Unavailable Arenas, L Devon GARCIA Unavailable Unavailable Arenas, L Devon GARCIA Unavailable Unavailable Arenas, L Devon GARCIA Unavailable Unavailable Arenas, L Devon GARCIA Unavailable Unavailable Arenas, L Devon GARCIA Unavailable Unavailable Arenas, L Devon GARCIA Unavailable Unavailable Arenas, L Devon GARCIA Unavailable Unavailable Arenas, L Devon GARCIA Unavailable Unavailable Arenas, L Devon GARCIA Unavailable Unavailable Arenas, L Devon GARCIA Unavailable Unavailable Arenas, L Devon GARCIA Unavailable Unavailable Arenas, L Devon GARCIA Unavailable Unavailable Arenas, L Devon GARCIA Unavailable Unavailable LAWRENCE, Deb HUBBARD MD Unavailable Unavailable LAWRENCEDeb MD Unavailable Unavailable LAWRENCEDeb MD Unavailable Unavailable LAWRENCE B STEVIE GARCIA Unavailable Unavailable LAWRENCE B STEVIE GARCIA Unavailable Unavailable LAWRENCE, B STEVIE GARCIA Unavailable Unavailable LAWRENCEDeb MD Unavailable Unavailable LAWRENCE B STEVIE GARCIA Unavailable Unavailable LAWRENCEDeb MD Unavailable Unavailable LAWRENCE B STEVIE GARCIA Unavailable Unavailable LAWRENCE, B STEVIE GARCIA Unavailable Unavailable LAWRENCE, B STEVIE GARCIA Unavailable Unavailable LAWRENCE, B STEVIE GARCIA Unavailable Unavailable LAWRENCE, B STEVIE GARCIA Unavailable Unavailable LAWRENCE B STEVIE GARCIA Unavailable Unavailable LAWRENCE, B STEVIE GARCIA Unavailable Unavailable LAWRENCE, B STEVIE GARCIA Unavailable Unavailable LAWRENCE, B STEVIE GARCIA Unavailable Unavailable LAWRENCE, B STEVIE GARCIA Unavailable Unavailable LAWRENCE, B STEVIE GARCIA Unavailable Unavailable LAWRENCE, Deb HUBBARD MD Unavailable Unavailable LAWRENCE, Deb HUBBARD MD Unavailable Unavailable LAWRENCE, Deb HUBBARD MD Unavailable Unavailable LAWRENCE, Deb HUBBARD MD Unavailable Unavailable LAWRENCE, Deb HUBBARD MD Unavailable Unavailable LAWERNCE, Deb HUBBARD MD Unavailable Unavailable LAWRENCE, Deb HUBBARD MD Unavailable Unavailable LAWRENCE, Deb HUBBARD MD Unavailable Unavailable LAWRENCE, Deb HUBBARD MD Unavailable Unavailable LAWRENCE, Dbe HUBBARD MD Unavailable Unavailable LAWRENCE, Deb HUBABRD MD Unavailable Unavailable LAWRENCE, Deb HUBBARD MD Unavailable Unavailable LAWRENCE, Deb HUBBARD MD Unavailable Unavailable LAWRENCE, Deb HUBBARD MD Unavailable Unavailable LAWRENCE, Deb HUBBARD MD Unavailable Unavailable LAWRENCE, Deb HUBBARD MD Unavailable Unavailable LAWRENCE, Deb HUBBARD MD Unavailable Unavailable LAWRENCE, Deb HUBBARD MD Unavailable Unavailable LAWRENCE, Deb HUBBARD MD Unavailable Unavailable LAWRENCE, Deb HUBBARD MD Unavailable Unavailable LAWRENCE, Deb HUBBARD MD Unavailable Unavailable LAWRENCE, Deb HUBBARD MD Unavailable Unavailable LAWRENCE, Deb HUBBARD MD Unavailable Unavailable LAWRENCE, Deb HUBBARD MD Unavailable Unavailable LAWRENCE, Deb HUBBARD MD Unavailable Unavailable LAWRENCE, Deb HUBBARD MD Unavailable Unavailable LAWRENCE, Deb HUBBARD MD Unavailable Unavailable LAWRENCE, Deb HUBBARD MD Unavailable Unavailable LAWRENCE, Deb HUBBARD MD Unavailable Unavailable LAWRENCE, Deb HUBBARD MD Unavailable Unavailable LAWRENCE, Deb HUBBARD MD Unavailable Unavailable LAWRENCE, Deb HUBBARD MD Unavailable Unavailable LAWRENCE, Deb HUBBARD MD Unavailable Unavailable LAWRENCE, Deb HUBBARD MD Unavailable Unavailable LAWRENCE, Deb HUBBARD MD Unavailable Unavailable LAWRENCE, Deb HUBBARD MD Unavailable Unavailable LAWRENCE, Deb HUBBARD MD Unavailable Unavailable LAWRENCE, Deb HUBBARD MD Unavailable Unavailable LAWRENCE, Deb HUBBARD MD Unavailable Unavailable LAWRENCE, Deb HUBBARD MD Unavailable Unavailable LAWRENCE, Deb HUBBARD MD Unavailable Unavailable LAWRENCE, Deb HUBBARD MD Unavailable Unavailable LAWRENCE, Deb HUBBARD MD Unavailable Unavailable LAWRENCE, Deb HUBBARD MD Unavailable Unavailable LAWRENCE, Deb HUBBARD MD Unavailable Unavailable LAWRENCE, Deb HUBBARD MD Unavailable Unavailable LAWRENCE, Deb HUBBARD MD Unavailable Unavailable LAWRENCE, Deb HUBBARD MD Unavailable Unavailable LAWRENCE, Deb HUBBARD MD Unavailable Unavailable LAWRENCE, B STEVIE MD Unavailable Unavailable LAWRENCE, B STEVIE MD Unavailable Unavailable LAWRENCE, B STEVIE MD Unavailable Unavailable LAWRENCE, B STEVIE MD Unavailable Unavailable LAWRENCE, B STEVIE MD Unavailable Unavailable LAWRENCE, B STEVIE MD Unavailable Unavailable LAWRENCE, B STEVIE MD Unavailable Unavailable LAWRENCE, B STEVIE MD Unavailable Unavailable LAWRENCE, B STEVIE MD Unavailable Unavailable LAWRENCE, B STEVIE MD Unavailable Unavailable LAWRENCE, B STEVIE MD Unavailable Unavailable LAWRENCE, B STEVIE MD Unavailable Unavailable LAWRENCE, B STEVIE MD Unavailable Unavailable LAWRENCE, B STEVIE MD Unavailable Unavailable LAWRENCE, B STEVIE MD Unavailable Unavailable LAWRENCE, B STEVIE MD Unavailable Unavailable LAWRENCE, B STEVIE MD Unavailable Unavailable LAWRENCE, B STEVIE MD Unavailable Unavailable LAWRENCE, B STEVIE MD Unavailable Unavailable ORTEZ, A ANDERSON PA Unavailable Unavailable ORTEZ, A ANDERSON PA Unavailable Unavailable ORTEZ, A ANDERSON PA Unavailable Unavailable ORTEZ, A ANDERSON PA Unavailable Unavailable ORTEZ, A ANDERSON PA Unavailable Unavailable ORTEZ, A ANDERSON PA Unavailable Unavailable ORTEZ, A ANDERSON PA Unavailable Unavailable ORTEZ, A ANDERSON PA Unavailable Unavailable ORTEZ, A ANDERSON PA Unavailable Unavailable ORTEZ, A ANDERSON PA Unavailable Unavailable ORTEZ, A ANDERSON PA Unavailable Unavailable SELLERELVA Unavailable Unavailable Re-disclosure Warning The records that you are about to access may contain information from federally-assisted alcohol or drug abuse programs. If such information is present, then the following federally mandated warning applies: This information has been disclosed to you from records protected by federal confidentiality rules (42 CFR part 2). The federal rules prohibit you from making any further disclosure of this information unless further disclosure is expressly permitted by the written consent of the person to whom it pertains or as otherwise permitted by 42 CFR part 2. A general authorization for the release of medical or other information is NOT sufficient for this purpose. The Federal rules restrict any use of the information to criminally investigate or prosecute any alcohol or drug abuse patient.The records that you are about to access may contain highly sensitive health information, the redisclosure of which is protected by Article 27-F of the [facility] Public Health law. If you continue you may have access to information: Regarding HIV / AIDS; Provided by facilities licensed or operated by the [facility] Office of Mental Health; or Provided by the [facility] Office for People With Developmental Disabilities. If such information is present, then the following [facility] mandated warning applies: This information has been disclosed to you from confidential records which are protected by state law. State law prohibits you from making any further disclosure of this information without the specific written consent of the person to whom it pertains, or as otherwise permitted by law. Any unauthorized further disclosure in violation of state law may result in a fine or mcfp sentence or both. A general authorization for the release of medical or other information is NOT sufficient authorization for further disc losure. Allergies and Adverse Reactions Type Description Substance Reaction Status Data Source(s ) Propensity to adverse reactions [facility] Encounters Encounter Providers Location Date Indications Data Source(s ) Outpatient Attender: ANDERSON FALCON 03/19/2021 12:00:00 AM [facility] Outpatient Attender: ANDERSON FALCON 02/17/2021 12:00:00 AM [facility] Outpatient Attender: STEVIE BRAVO MD [id number] 02/16/2021 12:00:00 AM [facility] Unknown [address] [facility] [id number] 01/27/2021 12:00:00 AM EDT eCW1 ([facility]) Outpatient [address] [facility] [facility] [place] [address] 12/26/2020 12:00:00 AM EDT eCW1 ([facility]) Unknown [address] [facility] [place] [address] 12/12/2020 12:00:00 AM EDT eCW1 ([facility]) Unknown [address] [place] [address] 10/11/2020 12:00:00 AM EDT eCW1 ([facility]) Unknown [address] [place] [address] 10/07/2020 12:00:00 AM EDT eCW1 ([facility]) Office Visit Attender: Robert Barnard MD Main office - [place] 09/18/2020 01:45:00 PM EDT MEDENT ([facility] ) Outpatient Attender: STEVIE BRAVO MD 07/25/2020 12:00:00 AM [facility] Outpatient 07/12/2020 12:00:00 AM [facility] Office Visit Attender: Robert Barnard MD Main office - [place] 06/24/2020 01:30:00 PM EST MEDENT ([facility]) Outpatient Attender: STEVIE BRAVO MDReferrer: Devon Arenas MD [id number] 06/13/2020 12:00:00 AM EST Pain in right hand [facility] Pain in right hand Outpatient Referrer: STEVIE BRAVO MD 06/13/2020 12:00: 00 AM EST Pain in right hand [facility] Pain in right hand [place] [address] [place] [address] 05/07/2020 12:00:00 AM EST eCW1 ([facility]) Outpatient Attender: Robert Barnard MD Main office - [place] 05/06/2020 09:00:00 AM EST MEDENT ([facility]) Outpatient Attender: Devon Arenas MD Physical Therapy 04/28/2020 0 8:00:00 AM EST [facility] ([facility]) [place] [address] [place] [address] 04/22/2020 12:00:00 AM EST eCW1 ([facility]) [place] [address] [place] [address] 04/10/2020 12:00:00 AM EST eCW1 ([facility]) [place] [address] [place] [address] 04/04/2020 12:00:00 AM EST eCW1 ([facility]) [place] [address] [place] [address] 04/01/2020 12:00:00 AM EST eCW1 ([facility]) Outpatient LERAYLA 01/31/2020 09:32:00 AM EDT [facility] Outpatient LERAYDC 01/31/2020 08:44:01 AM EDT [facility] Outpatient Attender: ANA CRISTINA HAYNES MDAdmitter: ANA CRISTINA Donald MD [id number] 01/01/2020 12:00:00 AM EDT - 01/01/2020 01:37:00 PM EDT Chronic abdominal pain [R10.9, G89.29], rectal bleeding [facility] Chronic abdominal pain [R10.9, G89.29], rectal bleeding Patient discharged. Outpatient Attender: RIGO HYLTON [id number] 12/27/2019 12:00:00 AM EDT - 12/28/2019 12:00:00 AM EDT [facility] Immunizations Vaccine Date Status Description Data Source(s) COVID-19 VACCINE Moderna 01/16/2021 12:00:00 AM EDT completed [facility] Vaccine Series Complete: YESThis Data wa s Submitted to [facility] Via [employer]. COVID-19 VACCINE Moderna 12/19/2020 12:00:00 AM EDT completed [facility] Vaccine Series Complete: NOThis Data was Submitted to [facility] Via [employer]. Medications Medication Brand Name Start Date Product Form Dose Route Admi nistrative Instructions Pharmacy Instructions Status Indications Reaction Description Data Source(s) pantoprazole 40 MG Delayed Release Oral Tablet Pantopr azole Sodium 40 MG Pantoprazole Sodium 40 MG 01/27/2021 12:00:00 AM EDT 1.0 {tablet} active Pantoprazole Sodium 40 MG eCW1 ( [facility]) Escitalopram 10 MG Oral Tablet Escitalopram Oxalate 10 MG Escitalopram Oxalate 10 MG 01/27/2021 12:00:00 AM EDT 1.0 {tablet} activ e Escitalopram Oxalate 10 MG eCW1 ([facility]) Primidone 50 MG Oral Tablet Primidone 06/24/2020 12:00:00 AM EST ORAL active MEDENT ([facility] ) ropinirole 1 MG Oral Tablet Ropinirole HCL 05/06/2020 12:00:00 AM EST active MEDENT ([facility] ) Levetiracetam 250 MG Oral Tablet Levetiracetam 05/06/2020 12:00:00 AM EST ORAL completed [facility] ([facility]) gabapentin 300 MG Oral Capsule Gabapentin 04/28/2020 12:00:00 AM EST ORAL active [facility] ([facility]) Blood Glucose Monitoring Suppl - UNK 04/10/2020 12:00:00 AM EST active Blood Glucose Monitoring Suppl - eCW1 ([facility]) Test Strips - UNK 04/10/2020 12:00:00 AM EST acti ve Test Strips - eCW1 ([facility]) Test Strips - UNK 04/10/2020 12:00:00 AM EST acti ve Test Strips - eCW1 ([facility]) Lancets Misc. - UNK 04/10/2020 12:00:00 AM EST active Lancets Misc. - eCW1 ([facility]) Blood Glucose Monitoring Suppl - UNK 04/10/2020 12:00:00 AM EST active Blood Glucose Monitoring Suppl - eCW1 ([facility]) Blood Glucose Monitoring Suppl - UNK 04/10/2020 12:00:00 AM EST active Blood Glucose Monitoring Suppl - eCW1 ([facility]) Lancets Misc. - UNK 04/10/2020 12:00:00 AM EST active Lancets Misc. - eCW1 ([facility]) Lancets Misc. - UNK 04/10/2020 12:00:00 AM EST active Lancets Misc. - eCW1 ([facility]) Blood Glucose Monitoring Suppl - UNK 04/10/2020 12:00:00 AM EST active Blood Glucose Monitoring Suppl - eCW1 ([facility]) Lancets Misc. - UNK 04/10/2020 12:00:00 AM EST active Lancets Misc. - eCW1 ([facility]) Lancets Misc. - UNK 04/10/2020 12:00:00 AM EST active Lancets Misc. - eCW1 ([facility]) Lancets Misc. - UNK 04/10/2020 12:00:00 AM EST active Lancets Misc. - eCW1 ([facility]) Test Strips - UNK 04/10/2020 12:00:00 AM EST acti ve Test Strips - eCW1 ([facility]) Test Strips - UNK 04/10/2020 12:00:00 AM EST acti ve Test Strips - eCW1 ([facility]) Test Strips - UNK 04/10/2020 12:00:00 AM EST acti ve Test Strips - eCW1 ([facility]) Blood Glucose Monitoring Suppl - UNK 04/10/2020 12:00:00 AM EST active Blood Glucose Monitoring Suppl - eCW1 ([facility]) Lancets Misc. - UNK 04/10/2020 12:00:00 AM EST active Lancets Misc. - eCW1 ([facility]) Blood Glucose Monitoring Suppl - UNK 04/10/2020 12:00:00 AM EST active Blood Glucose Monitoring Suppl - eCW1 ([facility]) Test Strips - UNK 04/10/2020 12:00:00 AM EST acti ve Test Strips - eCW1 ([facility]) Blood Glucose Monitoring Suppl - UNK 04/10/2020 12:00:00 AM EST active Blood Glucose Monitoring Suppl - eCW1 ([facility]) Test Strips - UNK 04/10/2020 12:00:00 AM EST acti ve Test Strips - eCW1 ([facility]) Test Strips - UNK 04/10/2020 12:00:00 AM EST acti ve Test Strips - eCW1 ([facility]) Blood Glucose Monitoring Suppl - UNK 04/10/2020 12:00:00 AM EST active Blood Glucose Monitoring Suppl - eCW1 ([facility]) Lancets Misc. - UNK 04/10/2020 12:00:00 AM EST active Lancets Misc. - eCW1 ([facility]) cefdinir 300 MG Oral Capsule Cefdinir 300 MG Cefdinir 300 MG 04/04/2020 12:00:00 AM EST active Cefdinir 300 MG e CW1 ([facility]) cefdinir 300 MG Oral Capsule Cefdinir 300 MG Cefdinir 300 MG 04/04/2020 12:00:00 AM EST suspended Cefdinir 300 M G eCW1 ([facility]) cefdinir 300 MG Oral Capsule Cefdinir 300 MG Cefdinir 300 MG 04/04/2020 12:00:00 AM EST suspended Cefdinir 300 M G eCW1 ([facility]) cefdinir 300 MG Oral Capsule Cefdinir 300 MG Cefdinir 300 MG 04/04/2020 12:00:00 AM EST active Cefdinir 300 MG e CW1 ([facility]) cefdinir 300 MG Oral Capsule Cefdinir 300 MG Cefdinir 300 MG 04/04/2020 12:00:00 AM EST suspended Cefdinir 300 M G eCW1 ([facility]) cefdinir 300 MG Oral Capsule Cefdinir 300 MG Cefdinir 300 MG 04/04/2020 12:00:00 AM EST suspended Cefdinir 300 M G eCW1 ([facility]) cefdinir 300 MG Oral Capsule Cefdinir 300 MG Cefdinir 300 MG 04/04/2020 12:00:00 AM EST suspended Cefdinir 300 M G eCW1 ([facility]) cefdinir 300 MG Oral Capsule Cefdinir 300 MG Cefdinir 300 MG 04/04/2020 12:00:00 AM EST suspended Cefdinir 300 M G eCW1 ([facility]) cefdinir 300 MG Oral Capsule Cefdinir 300 MG Cefdinir 300 MG 04/04/2020 12:00:00 AM EST active Cefdinir 300 MG e CW1 ([facility]) Blood Glucose Monitoring Suppl w/Device UNK 04/01/2020 12:00:[address] active Blood Glucose Monitoring Sup pl w/Device eCW1 ([facility]) Semglee 100 UNIT/ML Semglee 100 UNIT/ML 04/01/2020 12:00:00 AM EST active Semglee 100 UNIT/ML eCW1 ([facility]) Semglee 100 UNIT/ML Semglee 100 UNIT/ML 04/01/2020 12:00:00 AM EST active Semglee 100 UNIT/ML eCW1 ([facility]) Blood Glucose Monitoring Suppl w/Device UNK 04/01/2020 12:00:[address] active Blood Glucose Monitoring Sup pl w/Device eCW1 ([facility]) Semglee 100 UNIT/ML Semglee 100 UNIT/ML 04/01/2020 12:00:00 AM EST active Semglee 100 UNIT/ML eCW1 ([facility]) Semglee 100 UNIT/ML Semglee 100 UNIT/ML 04/01/2020 12:00:00 AM EST active Semglee 100 UNIT/ML eCW1 ([facility]) Semglee 100 UNIT/ML Semglee 100 UNIT/ML 04/01/2020 12:00:00 AM EST active Semglee 100 UNIT/ML eCW1 ([facility]) Blood Glucose Monitoring Suppl w/Device UNK 04/01/2020 12:00:[address] active Blood Glucose Monitoring Sup pl w/Device eCW1 ([facility]) Blood Glucose Monitoring Suppl w/Device UNK 04/01/2020 12:00:[address] active Blood Glucose Monitoring Sup pl w/Device eCW1 ([facility]) Blood Glucose Monitoring Suppl w/Device UNK 04/01/2020 12:00:[address] active Blood Glucose Monitoring Sup pl w/Device eCW1 ([facility]) Blood Glucose Monitoring Suppl w/Device UNK 04/01/2020 12:00:[address] active Blood Glucose Monitoring Sup pl w/Device eCW1 ([facility]) Semglee 100 UNIT/ML Semglee 100 UNIT/ML 04/01/2020 12:00:00 AM EST active Semglee 100 UNIT/ML eCW1 ([facility]) Semglee 100 UNIT/ML Semglee 100 UNIT/ML 04/01/2020 12:00:00 AM EST active Semglee 100 UNIT/ML eCW1 ([facility]) Blood Glucose Monitoring Suppl w/Device UNK 04/01/2020 12:00:[address] active Blood Glucose Monitoring Sup pl w/Device eCW1 ([facility]) Semglee 100 UNIT/ML Semglee 100 UNIT/ML 04/01/2020 12:00:00 AM EST active Semglee 100 UNIT/ML eCW1 ([facility]) Blood Glucose Monitoring Suppl w/Device UNK 04/01/2020 12:00:[address] active Blood Glucose Monitoring Sup pl w/Device eCW1 ([facility]) Semglee 100 UNIT/ML Semglee 100 UNIT/ML 04/01/2020 12:00:00 AM EST active Semglee 100 UNIT/ML eCW1 ([facility]) Blood Glucose Monitoring Suppl w/Device UNK 04/01/2020 12:00:[address] active Blood Glucose Monitoring Sup pl w/Device eCW1 ([facility]) Blood Glucose Monitoring Suppl w/Device UNK 04/01/2020 12:00:[address] active Blood Glucose Monitoring Sup pl w/Device eCW1 ([facility]) Semglee 100 UNIT/ML Semglee 100 UNIT/ML 04/01/2020 12:00:00 AM EST active Semglee 100 UNIT/ML eCW1 ([facility]) sodium chloride (preservative free) 0.9 % flush 3 mL 01/01/2020 05:00:00 PM EDT 3 mL Intravenous active [Ord er 1 Start] Name: Peripheral IV Signed Summary: Routine, CONTINUOUS, Starting Tue01/01/20 at 1015, Until Andie 01/31/20, For 30 days
Pre-op [Order 1 End] [Order 2 Start] Name: sodium chloride (p reservative free) 0.9 % flush 3 mL Signed Summary: 3 mL, Intravenous, Every 8 hours Standard, First dose on Tue01/01/20 at 1700, For 30 days, Pre- op
Saline Lock. Flush Q8H and after each use to Saline Lock.
[Order 2 End] [Order 3 Start] Name: sodium chloride (preservative free) 0.9 % flush 3 mL Signed Summary: 3 mL, Intravenous, Continuous PRN, Line Care, Starting Tue01/01/20 at 1014, For 30 days, Pre-op
Saline Lock. Flush Q8H and after each use to Saline Lock.
[Order 3 End] [Order 4 Start] Name: Saline Lock order Signed Summary: Routine, ONCE, Tue01/01/20 at 1015, For 1 occurrence
Pre-op [Order 4 End] [Order 5 Start] Name: NaCl infusion 0.9 % Signed Summary: at 0.2- 10 mL/hr, Intravenous, PRN, For Meds, Starting Tue01/01/20 at 1014, For 30 days, Pre-op [Order 5 End] [Order 6 Start] Name: dextrose infusion 5 % Signed Summary: at 0.2-10 mL/hr, Intravenous, PRN, For Meds, Starting Tue01/01/20 at 1014, For 30 days, Pre-op [Order 6 End] [facility] Medication administered onsite sodium chloride (preservative free) 0.9 % flush 10 mL 89790- [id number] 01/01/2020 10:14:38 AM EDT 10 mL Intravenous active 10 mL, Intravenous, Continuous PRN, Line Care, Starting Tue01/01/20 at 1014, For 30 days, Pre- op
Verify blood return before use. For deaccessing: flush with 10 mL Sodium Chloride 0.9 % followed by 5 mL Heparin 100 units/mL. Flush per CM C-34C Central Line Policy for Infusaport.
[facility] Medication administered onsite 3 ML heparin sodium, porcine 100 UNT/ML Prefilled Syringe heparin flush (porcine) 100 UNIT/ML injection 500 Units heparin flush (porcine) 100 UNIT/ML injection 500 Units 01/01/2020 10:14:37 AM EDT 500 U Intravenous active 500 Units, Intravenous, Continuous PRN, Line Care, Starting Tue01/01/20 at 1014, For 30 days, Pre-op
Verify blood return before use. For deaccessing: flush with 10 mL Sodium Chloride 0.9 % followed by 5 mL Heparin 100 units/mL. Flush per CM C-34C Central Line Policy for Infusaport.
[facility] Medication administered onsite heparin sodium, porcine 10 UNT/ML Inject able Solution heparin lock flush 10 UNIT/ML injection 50 Units heparin lock flush 10 UNIT/ML injection 50 Units 01/01/2020 10:14:37 AM EDT 50 U Intravenous active 50 Units, Intravenous, Continuous PRN, Line Care, Starting Tue01/01/20 at 1014, For 30 days, Pre-op
Verify blood return before use. For intermittent access: flush with 10 mL Sodium Chloride 0.9 % followed by 5 mL Heparin 10 units/mL. Flush per CM C-34C Central Line Policy for Infusaport.
[facility] Medication administered onsite sodium chloride (preservative free) 0.9 % flush 10 mL [id number] 186-00 01/01/2020 10:14:37 AM EDT 10 mL Intravenous active 10 mL, Intravenous, Continuous PRN, Line Care, Starting Tue01/01/20 at 1014, For 30 days, Pre- op
Verify blood return before use. For intermittent access: flush with 10 mL Sodium Chloride 0.9 % followed by 5 mL Heparin 10 units/mL. Flush per CM C-34C Central Line Policy for Infusaport.
[facility] Medication administered onsite Dicyclomine Hydrochloride 20 MG Oral Tablet Dicyclomin e HCl 20 MG Oral Tablet Dicyclomine HCl 20 MG Oral Tablet 06/19/2019 12:00:00 AM EST 20 mg Oral active Chronic abdominal pain Take 1 tablet by mouth Th ree times daily [facility] Chronic abdominal pain Insurance Providers Payer name Policy type / Coverage type Policy ID Covered republican ID Covered republican's relationship to white Policy White Plan Information MEDICAID M [id number] Self [id number] DARWIN I [id number] Self [id number] DARWIN I [id number] Self [id number] EMEDNY [id number] SP [id number] DARWIN [id number] SP [id number] [place] [id number] S [id number] Managed Care Darwin P [id number] S [id number] Medicaid S [id number] S [id number] Managed Care [place] P UNAVAILABLE S UNAVAILABLE Medicaid S UNAVAILABLE S UNAVAILA BLE MEDICAID -O/P [id number] MEDICAID [id number] SP [id number] MEDICAID [id number] SP [id number] DARWIN [id number] SP [id number] [place] [id number] S [id number] Problems, Conditions, and Diagnoses Code Display Name Description Problem Type Effective Dates Data Source(s) M79.641 Pain in right hand Pain in right hand Diagnosis 10:05:18 AM EST [facility] Chronic abdominal pain [R10.9, G89.29], rectal bleeding Chronic abdominal pain [R10.9, G89.29], rectal bleeding Diagnosis 01/01/2020 09:57:00 AM EDT [facility] F33.9 [id number] Recurrent major depr essive disorder, remission status unspecified Problem 01/27/2021 12:00:00 AM EDT eCW1 ([facility]) E11.649 [id number] Hypoglycemia associated with type 2 diabe brandon mellitus Problem 12/28/2020 12:00:00 AM EDT eCW1 ([facility]) 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 Problem 09/18/2020 12:00:00 AM EDT MEDENT ([facility]) I95.1 Orthostatic hypotension Orthostatic hypotension Proble m 06/24/2020 12:00:00 AM EST MEDENT ([facility]) G25.81 Restless legs Restless legs Problem 06/24/2020 12:00:00 AM EST MEDENT ([facility]) H91.93 [id number] Bilateral hearing loss, unspecified heari ng loss type Problem 05/07/2020 12:00:00 AM EST eCW1 ([facility]) G47.00 [id number] Insomnia, unspecified type Problem 12:00:00 AM EST eCW1 ([facility]) R25.2 Cramp and spasm Cramp and spasm Problem 05/06/2020 12:0 0:00 AM EST MEDENT ([facility]) G21.8 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 Problem 05/06/2020 12:00:00 AM EST ME DENT ([facility]) G25.0 Essential tremor Essential tremor Problem 05/06/2020 12 :00:00 AM EST MEDENT ([facility]) E10.42 Type 1 diabetes mellitus with diabetic p olyneuropathy Type 1 diabetes mellitus with diabetic polyneuropathy Problem 05/06/2020 12:00:00 AM EST MEDENT ([facility]) G47.62 Cramp in lower leg associated with rest Cramp in lower leg associated with rest Problem 05/06/2020 12:00:00 AM EST MEDENT ([facility] Surgeries/Procedures Procedure Description Date Indications Data Source(s) EEG Complete STD Phys/QHP>36 HR<60 HR W/O Video 2020 12:00:00 AM EST MEDENT ([facility] EEG Complete STD Phys/QHP>60 HR<84 HR W/O Video 2020 12:00:00 AM EST MEDENT ([facility] TSTG ANS FUNCJ CARDIOVAGAL INNERVAJ PARASYMP 12:00:00 AM EST MEDENT ([facility] TESTING AUTONOMIC NERVOUS SYSTEM FUNCTION 05/28/2020 1 2:00:00 AM EST MEDENT ([facility] UPPER GI ENDOSCOPY <td>UPPER GI ENDOSCOPY</td>< td></td><td>01/01/2020 12:00 AM EDT</td><td></td><td></td> 01/01/2020 12:00:00 AM EDT [facility] Screening colonoscopy (procedure) <td>COLONOSCOPY</td> <td></td><td>01/01/2020 12:00 AM EDT</td><td></td><td></td> 01/01/2020 12:00:00 AM EDT [facility] Results ID Date Data Source [id number] 02/18/2021 07:21:33 AM EDT [facility] Name Value Range Interpretation Code Description Data Sophia rce(s) Supporting Document(s) Progress Note [facility] ZDERDt2iQsRKRgCt84/YVGxgOXTjj3UnBOdiCJf6OVheTEOvV7VeVIO7kK5dXLY3ISzVNsVyThOjGDCw lbm [file] Pb2DRJp2DtNMEtOuWA0VCGt= ID Date Data Source [id number] 02/16/2021 06:42:03 PM EDT [facility] Name Value Range Interpretation Code Description Data Sophia rce(s) Supporting Document(s) Progress Note [facility] ZUMWSy0qFhDVXsWt01/AJKppYSJrt9GsJPcoFBi3LNvlAUDwV6RrJRU4kP3oDOF6ZZnSEiHfIgDvEBDt lbm [file] AgICAgICAgICAgICAgICAgICAgICAgICAgICAgICAgICAgICAgICAgICAgICAgICAgICAgICAgICAgIC AgICAgICAgICAgICAgICAgICAgICAgICAgICAgICAgICAgICAgICANCiAgICAgICAgICAgICAgICAgIC AgICAgICAgICAgICAgICAgICAgICAgICAgICAgICAg ICAgICAgICAgICAgICAgICAgICAgICAgICAgICAgICAgICAgICAgICAgICAgICAgICANCiAgICAgICAg ICAgICAgICAgICAgICAgICAgICAgICAgICAgICAgICAgICAgICAgICAgICAgICAgICAgICAgICAgICAg ICAgICAgICAgICAgICAgICAgICAgICAgICAgICAgIC ANCiAgICAgICAgICAgICAgICAgICAgICAgICAgICAgICAgICAgICAgICAgICAgICAgICAgICAgICAgIC AgICAgICAgICAgICAgICAgICAgICAgICAgICAgICAgICAgICAgICAgICANCiAgICAgICAgICAgICAgIC AgICAgICAgICAgICAgICAgICAgICAgICAgICAgICAg ICAgICAgICAgICAgICAgICAgICAgICAgICAgICAgICAgICAgICAgICAgICAgICAgICAgICANCiAgICAg ICAgICAgICAgICAgICAgICAgICAgICAgICAgICAgICAgICAgICAgICAgICAgICAgICAgICAgICAgICAg ICAgICAgICAgICAgICAgICAgICAgICAgICAgICAgIC AgICANCiAgICAgICAgICAgICAgICAgICAgICAgICAgICAgICAgICAgICAgICAgICAgICAgICAgICAgIC AgICAgICAgICAgICAgICAgICAgICAgICAgICAgICAgICAgICAgICAgICAgICANCiAgICAgICAgICAgIC AgICAgICAgICAgICAgICAgICAgICAgICAgICAgICAg ICAgICAgICAgICAgICAgICAgICAgICAgICAgICAgICAgICAgICAgICAgICAgICAgICAgICAgICANCiAg ICAgICAgICAgICAgICAgICAgICAgICAgICAgICAgICAgICAgICAgICAgICAgICAgICAgICAgICAgICAg ICAgICAgICAgICAgICAgICAgICAgICAgICAgICAgIC AgICAgICANCiAgICAgICAgICAgICAgICAgICAgICAgICAgICAgICAgICAgICAgICAgICAgICAgICAgIC AgICAgICAgICAgICAgICAgICAgICAgICAgICAgICAgICAgICAgICAgICAgICAgICANCjw/oZWsD3egjK YpipE4B1ynLx8HMa0LMW2uz4TiSBHrVUueicBgVmrO OeHyPCGcPqrJZnu0VBhnMT4DdDNeQ1DkU9WpQOsdCB2RIFFvSDPvsREeSMIpAQZkAiP6SLZrUXjyNI5B fYDyDTnmPWCvPKWvPH6XQBPdF279dwDzLE5KVt5LIyDiPD2lrf0VVIjwVPYeQrsIFue2KBqvBH4IlVGx pDTuKRUhFACRHwAmU8wbk1PgQdXwJBEAZSuzYU5Bi1 VudCAxDQo+Uh3XMX8pr9KzWPgcAFIeUM2lbf0KLCbJQwRyU4MpdGevSTFns5nzJSDyLJ7umVCoWQM7SQ Cds69poiNLVQOsBUXwPWuxPOTgOBOfKKSqHD4aLUKqTDH1ZtB3IQGGBF4IQVXoUAMleYEyKVJrLRPVKL 6VZZunCFB7GYZftjGclOFdYGreFF9VCNWemhPrWMce MCBSDQo+Hk6ZAT9hl3AlPBmhNPZfVW2oza0UAVrURnIoU7L2vFFfE9J0DVkxKh3URUFmCDRjJVlvUKHD YSviCV5AJM8trtU3IH0BiDEiITXjFRTunCGkGWy5T71dxHZiCAwcOM7OVHW+Lynda+Ar2JSLFkROXaKTUb VdJlJYUCUkYbC9CzX2JQo0AwK5KqKC55qBaoavDuEH qoTZ0CGU3nVQMyESCZIG1UbIMisT3sokQaWCYxXWIMAsFoV88waBLnBFElNRA2EAMbDu7OMJDoQ7Fkky UlfHqbhiCxUOYiDQEKAI5QRPtzjyDieQIrhMnyVI53eKzjDD1QEj1NDmRlRM0fav1VkMAtQz3GEPTkCw 3HRCFdVQSqENEnSQI7BBPeCqRyBTubMBOaSWAsQDM1 HIWaFIZeXC3RZkTnAZDqUMc8XlktVMDwYKEfmm7UFUBcKUOsRLE3QaYaZIIeJLBwLGgyCPKlEZFaFLL8 OHTfIRWaOG9QWvHhJOCjQSS4TKXjXKOkWLDwrr4CGGLwLYNgQcLxQAYiMNZrGSJyDAvtDHNaIOJaKTP7 QAQlQPFgUP9RIdOzFEZkABFfRuIwCBIuDCOizd5UGE SxSFOmEBB2AlYlKHEdGBJlCPzsKBMjEJA8IbLbFVJtNNZyMU0OBsVcOJKrFOV6YQHmBLEdBDIhqy4RNV IdDAJuXRL2NUNuHTRrLYCjHPlnWFMzXLP6HGE0BWNzRGSwBA8XXeImZTGqLJpaNoWySFAaSXLzca8DBV WjEUEgAiF0RRUfKOHeOHPpWMzxKFZjQIT3DFZwZSFj RFCvUV5HFdOmLYNlYCm8DXJrSFBrDQFyun9SPNZrHABaRLW3AaXxZWVyBJOiGGwmPEPlZAG4Qzd4NUBf OHYoCG7TEyIcYIWiOWu1QvDsJVPjYUFrjk0RPXSxPTYfSXWhVGTlIXPtRHNqJUn9nhSxgHRfZIz5GY6K K0VxxnVsPcSLXk7Jo569OTVcJRSkKl9EV6igDr0fCV JxMKFSBc9XYJo8VCB7AtPdKfVoXtW1LuS6IfBpMSDgQHc7IIWdXlZwVxY+HQc6XVUdKsFzAQA3Und7VI yzVCFwPIIeRGDxQdH1MBHkRk6lUFXMKi9+XFddfSRfnIbfWFYCCxIjPvW1RSmlKQMCIu9B ID Date Data Source [id number] 01/06/2021 10:50:00 AM EDT [facility] Name Value Range Interpretation Code Description Data Sophia rce(s) Supporting Document(s) SARS coronavirus 2 RNA [Presence] in Res piratory specimen by CRISTI with probe detection NEGATIVE [facility] This lab was ordered by [facility] a nd reported by [facility]. ID Date Data Source [id number] 12/31/2020 09:38:00 AM EDT [facility] Name Value Range Interpretation Code Description Data Sophia rce(s) Supporting Document(s) SARS coronavirus 2 RNA [Presence] in Res piratory specimen by CRISTI with probe detection NEGATIVE [facility] This lab was ordered by [facility] a nd reported by [facility]. ID Date Data Source [id number] 12/27/2020 12:38:00 AM EDT [facility] Name Value Range Interpretation Code Description Data Sophia rce(s) Supporting Document(s) SARS coronavirus 2 RNA [Presence] in Res piratory specimen by CRISTI with probe detection NEGATIVE [facility] This lab was ordered by [facility] a nd reported by [facility]. ID Date Data Source [id number] 06/15/2020 10:34:46 AM [facility] Name Value Range Interpretation Code Description Data Sophia rce(s) Supporting Document(s) Progress Note [facility] IZLMIg1vBvNMDtNh92/STWikXHGlq6ZkJFnrFQb0AWgfDNToY7PbAOI8uQ4nEZC7LApHQeAnOxKiGgA4 lbm [file] WvJUJ9USArNUCdVFC3KMFgKiMmSsPuST3TAt3CNyJ8WDY2aSVvTq6HHhWpWPbKClErRV3QAYi= ID Date Data Source [id number] 06/13/2020 10:43:57 PM EST [facility] XR HAND 3 OR MORE VIEWS [id number] RESUL TInterpreted by:Newton Rao hand 4 viewsINDICATION: Contractures of right handCOMPARISON: NoneFINDINGS:Normal bone mineralization. Moderate triscaphe joint and thumb carpometacarpal joint space narrowing degenerative change. The second, third, and fifth digits are in flexion positioning of the PIP greater than DIP joints. No acute fracture is seen. No dislocation.IMPRESSION:Flexion positioning of the second, third, and fifth fingers. Degenerative changes as above.This document has been electronically signed by Jose Rafael Reynoso MD on 06/13/2020 10:41 PM Name Value Range Interpretation Code Description Data Sophia rce(s) Supporting Document(s) ID Date Data Source [id number] 06/13/2020 11:31:41 AM EST [facility] Name Value Range Interpretation Code Description Data Sophia rce(s) Supporting Document(s) Progress Note [facility] VOMEBv3pWnDQVxBd19/FGNuhGKLlx8IvFGtyHSj6DCgoRQPjF1FwCRD1kX8qFVT3ONlDHvFfEhVbMoR2 [facility] QdZxxNRnRrYJNgQndHEaYzIXjkDdkzxNDiOL0HkXC9MZYqT93wECNfPPUpQ8PxMIOtCoU+Pl6XNXQemJ BiTO6XYaxZ1H4nJwVTEh7DaN/IRzMrO8YF+uXCsFECRDMIcshRwkd4Seq0wCNQ7nNR8q41HM/PYKoYPl eeIKBcQzuA9Ka5AWm07DcWbgGE/u//lto3QpeX90/3 b4fuvnpG7hdn6WNd64dOL/jIFaTFctIBmY0G/lswqgtr2gQ9fiTditn7xd36FAUhoi0ZLnWx+QcMT1Ul z0ECbvQfW5l7mLn7xWLLSB+XzujHhBYneTEIdWmWl/xAlzZISZHSnibjupVU+5BZbBPXZ7NAgZ9Rm/Ax YboSD5pIekytrjS79gDC0izjnkhDrFNYbpreJct5zI JvBgL4pOXTQa/8kJd/1bs5aNDWxrALuleAt/2KGAbxnxeJr4/hNkyNHCaCglSii775pRXw5rst4TLAl2 j7ZbBcn5xJZl2RERYJkDZo9DVnWavHndo6KZKR2GWcowlhdwv7878e5Elky0nr9Viv3uGr1MQAQ3+OBl NzM+PEob/gZWjKt+yJ04qWgSfQnzkteZHx2NQs892S p7lR46ElV6wqQX6sbKvTAr/2v3hnjTD4mERmSmPCqww+xJYVtVveOiDLr5Cte15tT5qGjOZU4583v43M +K5H43WceMx36CgK74CYx8z6BDjaV9N6CUAizSD7gV0pyhHmqy2VsB0C0QvTuZXBTxfRntf2tJ/y25E6 /yDmgaLKwmlgRCLrHZWlamUqzOMeVndl3A+GkbsZeN n//fDqP+u7MhZnFMkHotEGhrJg5AMCcaoYIabrczd8nKVmeWGyzGDu/QbxiCdN3HgTiuCpKAkSk8aDdS 8MoK4KzzQwO5wPLoESse/kycjeGHQGPO+B/BbeQofo5vBe6a9K0d6ofif5Md4k2CvmgDnOrmmFhyxujd 9v4dUj5CE4tWtP6W94JDnqsSJ8pmJ2Jm7Xi8b46j74 [file] W09cN/XkrPRvffWH410s2q6F+kEqGaRiRK4Ru748yp6ahva3YV9U0ZvlZEnZHk4s+uCn0wGVO2Ezy+cow tester [file] NlUrVY6MRz9GWaI3KJV0cAIaPs8KGtF9PWSZMgDoVN1FCPp= ID Date Data Source [id number] 01/31/2020 08:55:50 AM EDT [facility] Current Problems: DENTAL CARIES EXTENDIN G INTO PULP (ICD-521.03) (ICD10- K02.63)Current Allergies: * LATEX (Critical) Dental Chart: Procedures:Type - CDT Code - Description B - (D0140) Limited oral evaluation - problem focused on Tooth # 30 (Performed by Guille Wong DDS) Existing:Type - CDT Code - Description[E] Missing - [place] and Root On #1 Surface O Region XR, #10 Surface I Region XR, #11 Surface I Region XR, #12 Surface O Region XR, #13 Surface O Region XR, #14 Surface O Region XR, #15 Surface O Region XR, #16 Surface O Region XR, #17 Surface O Region XR, #18 Surface O Region XR, #19 Surface O Region XR, #2 Surface O Region XR, #20 Surface O Region XR, #21 Surface O Region XR, #22 Surface I Region XR, #23 Surface I Region XR, #24 Surface I Region XR, #25 Surface I Region XR, #26 Surface I Region XR, #27 Surface I Region XR, #28 Surface O Region XR, #29 Surface O Region XR, #3 Surface O Region XR, #30 Surface O Region XR, #31 Surface O Region XR, #32 Surface O Region XR, #4 Surface O Region XR, #5 Surface O Region XR, #6 Surface I Region XR, #7 Surface I Region XR, #8 Surface I Region XR, #9 Surface I Region XR Chart Notes:mjain (Jan 31 2020 9:31AM): CC: "I'm hvaing pain where they pulled my teeth."HPI: pt went to [facility] for extraction of mandibular teeth about a month ago. Pt is having pain and can't eat on bottom right.Pain Lvl: 7RMH (-) per ptAllergies; Vancomycin, LatexBP: 120/91Temperature: 97.1 passed COVID questionaireExam reveals: lingual of #30 tender to touch. Bone sequesterm can be seen. Pt. is extremely tender, no swelling, no infection.pt. was cooperativeDX: bone sequestrum.Plan: Pt is to call [facility] who did the extractions) to have them evaulate and treat appropriately.Additional PPE requirements due to COVID-19 in the dental setting, N95, surgical mask, hair covering, gown Pt was cooperative.NV: COMP Guille Quick DDS by victor m (01/31/2020 9:31 AM): Tooth Notes and Watches: Assessment & Plan Allergies:* LATEX (Critical)Elect ronically signed by Guille Wong DDS on 01/31/2020 at 9:31 AM Name Value Range Interpretation Code Description Data Sophia rce(s) Supporting Document(s) ID Date Data Source [id number] 01/01/2020 02:11:19 PM EDT [facility] Name Value Range Interpretation Code Description Data Sophia rce(s) Supporting Document(s) Progress Note [facility] FMVVQk6sIlZDSmZr99/ZICffWDEct9TyBIanDRk8LMezJPBtZ5ImMUS6xU5aXVH2RWgUUsVfKqVzABH7 [facility] [file] AgICAgICAgICAgICAgICAgICAgICAgICAgICAgICAg ULRfFRFaICNbJPKsZECaRLTeEMOtAQVkNUGsFY8HYPKnTRQlKWAxCGVqDAJtRDUiPEKcDICuGVPzPOFi ICAgICAgICAgICAgICAgICAgICAgICAgICAgICAgICAgICAgICAgICAgICAgICAgICAgICAgICAgICAg NMDhBSUgOQQxMI5XBFIxLOEyPEUwCTJzLNSgHUWtHU AgICAgICAgICAgICAgICAgICAgICAgICAgICAgICAgICAgICAgICAgICAgICAgICAgICAgICAgICAgIC CtDMGzCNQhKFYdUKPoIYSsXUInPU0JRNAsTBMzFYJtGYYhUXHlJKTmFDScWCNnOAHnMTLuBUGgPNIyXC AgICAgICAgICAgICAgICAgICAgICAgICAgICAgICAg LPArASSbECItKKIgHFObSSCwZRNaMSGvZIEsKMRxDQ3HUZErPTLeODLtHUZlRTBvDJYoKWBrVUPrJEUl ICAgICAgICAgICAgICAgICAgICAgICAgICAgICAgICAgICAgICAgICAgICAgICAgICAgICAgICAgICAg AVIpFLBzNVYpIHViEK2LCCWvIAXbUAAxOKVuUEVwFS AgICAgICAgICAgICAgICAgICAgICAgICAgICAgICAgICAgICAgICAgICAgICAgICAgICAgICAgICAgIC MxOCXkVMTaILKhTJGhYVQsEFTcRNLqDM6WEMHbOULqFRKoRCLyXJFcSHXzVYFkKRCtOOGpBHYgXNVqHZ AgICAgICAgICAgICAgICAgICAgICAgICAgICAgICAg XHTfPQZiVIJpYRIwZNRzWVFnIMKiEMBtFQZhCULeGBIzCO8IZRLoIQWkHHSvAEMxYQIsZNDdACFhFNHk ICAgICAgICAgICAgICAgICAgICAgICAgICAgICAgICAgICAgICAgICAgICAgICAgICAgICAgICAgICAg LFRyMLLxCIHeAGVqGEAjMH3QBSHdZEReKIBcGMZxTD AgICAgICAgICAgICAgICAgICAgICAgICAgICAgICAgICAgICAgICAgICAgICAgICAgICAgICAgICAgIC HsIILjBIYsAIVsYNLiGEThQPQdDDTpKFRqXX6TNSThFBZrYBOgATZiAMRmGXSwLBVlIVVpCGApCPIiVJ AgICAgICAgICAgICAgICAgICAgICAgICAgICAgICAg GTCcMWLdKXXqNAWsEURcHWHdHRPvMZOrNRMyNLLtSUKwDLZhIZ9KXC13zQQkb7B8VRUwWS4rkvv/Pg0K GHwuvrOvvOCeXQ8GHfEjPO7bjj3NEbXuQJ3fgd7YAHzGXrXfM6I8aWYsXOAbJIQPMmXzL42uPNxaMc02 EWqjLACgIlHsGKw6Ay5OQqPwO3asUHKcArZ3WCKaPu JqOXefXF5Hs6WmqIWmLZl+Xi4HNC9mx8TfNWygJIBwZR7hys0NWAnGTlDnR5TopwU2KOC7GSOzBg1OUZ GnAMEibAOoPFInAFBZVkIxD7VzkV67ZSFOFm1+KVlnduNuEkiHGlQ2TDEpa6ZySIs0UA6WCYRhSEi0yJ HjLIIfZ8Vsg7ThDp92RIHuMiftLAPgzQXeCgPUuKde orcsXm9vHDNhED0hVG6wRFZpKPGzFzL2RUOYVU6GKORcFNUzmYKdGATpZVTRPB8IXXhqRIT7ABHrzbPm rRWrOEwoMU1FNRWjueFkVBYdAUGBGCu+Rh5AHS6bp1FkKUycYoQuOB0tsx1XIPaEZgTeQ9K4jGQaM5S9 GMxaJv1JRUMcHSJsWISsNNICXSboOW0EYB4phyR0UD 3JmTGpOJIlHVLdiNXxADh0J02knCMpKIixJI7EJRK+Lynda+Gm5ESUBlWORoSZAiPdXqGPGVCtFjF2JuQ4 TQa9YgR2LeSV43aWwjgmXaJYniNV8FLW5uPNAsLTCCSK2RqPTnbP7gnxMrFCYlQQASInPtB36buYZeZX RsYMBvAZCeHg0WTHUtR2ZbebPjzVegxoOpMGRbTRXF OB8XWDljccMapIGfdAnpBT11oUikED6QTv9SCkMvVF7jgo2QsWSvOu5PNXLzBm8CXNEhIYNaINMjGNT0 BBEiUzJnGJbdEMNqLWAbLFV2NVYtFLXhFI1COrCkLWVdJYP8HjSzDOUzWIZqia6FZONsOWUnSbP9CBVh DNWqECRrEThrDDVbXQYjANK3CSAoXDZeHK4BRfGpDL YvHCQ8JWSkXGWoOTDobu4ZPCNeWZOtUbMaGYFuODEsPUDlJAfrANIdHXTjDSg2ZMOvMJOcNC6XLoLpYZ QgNNSfDzLpULVvOLHbbs7YXIWsYTYnRkN7TiIyBCGdWFOrATfkLCZrYNL4ZwRxHVQtXATxZS6AFkAsIZ DiXIP1AEHkDKKrXDQhdp2MHHApIVDvPXdqLCYpZLCz IWVrWFxxAECwVCP4SPC5SUEdBVRcGK4GRiAeSWVlHOM5YRYhQSYeBSMbse3VRNWfRDZxJjWqGsUsIEFc KOEmJNeaBNZqHZF1WeCxYXMcDCNoDZ5GBeIiNWdcIUZBLzz1RWhcL3p1MZZuLk0LC5Uoo0FrBTDmXKML MNupIY3kxaKwSAGtVp9KU6hYZsc3UVS0USV3ITOlUD sjLxy9PvR7YgTbBjHoZ2EfTqqqCG8bBBV2YAWeNilyGcMdNEDoJBnqRcshAPF4JOC3HbHaZGXnFkFfAG 0YXu5SYfY6LEZ4eUUbBd8RWaCvAS3BDJVWO9HPZx== ID Date Data Source [id number] 01/01/2020 01:14:13 PM EDT [facility] Name Value Range Interpretation Code Description Data Sophia rce(s) Supporting Document(s) History and Physical [facility] KASPWf2fTwPQEfQk21/NJAlcQGHgx5XwDRuyCVh1ONrbIWTeS5ZcBJT7lS9dYIV6AYoEXrZbPmWmLVR2 lbm [file] E+DQogICAgICAgICAgICAgICAgICAgICAgICAgICAg ICAgICAgICAgICAgICAgICAgICAgICAgICAgICAgICAgICAgICAgICAgICAgICAgICAgICAgICAgICAg ICAgICAgICAgICAgDQogICAgICAgICAgICAgICAgICAgICAgICAgICAgICAgICAgICAgICAgICAgICAg ICAgICAgICAgICAgICAgICAgICAgICAgICAgICAgIC AgICAgICAgICAgICAgICAgICAgICAgDQogICAgICAgICAgICAgICAgICAgICAgICAgICAgICAgICAgIC AgICAgICAgICAgICAgICAgICAgICAgICAgICAgICAgICAgICAgICAgICAgICAgICAgICAgICAgICAgIC AgICAgDQogICAgICAgICAgICAgICAgICAgICAgICAg ICAgICAgICAgICAgICAgICAgICAgICAgICAgICAgICAgICAgICAgICAgICAgICAgICAgICAgICAgICAg ICAgICAgICAgICAgICAgDQogICAgICAgICAgICAgICAgICAgICAgICAgICAgICAgICAgICAgICAgICAg ICAgICAgICAgICAgICAgICAgICAgICAgICAgICAgIC AgICAgICAgICAgICAgICAgICAgICAgICAgDQogICAgICAgICAgICAgICAgICAgICAgICAgICAgICAgIC AgICAgICAgICAgICAgICAgICAgICAgICAgICAgICAgICAgICAgICAgICAgICAgICAgICAgICAgICAgIC AgICAgICAgDQogICAgICAgICAgICAgICAgICAgICAg ICAgICAgICAgICAgICAgICAgICAgICAgICAgICAgICAgICAgICAgICAgICAgICAgICAgICAgICAgICAg ICAgICAgICAgICAgICAgICAgDQogICAgICAgICAgICAgICAgICAgICAgICAgICAgICAgICAgICAgICAg ICAgICAgICAgICAgICAgICAgICAgICAgICAgICAgIC AgICAgICAgICAgICAgICAgICAgICAgICAgICAgDQogICAgICAgICAgICAgICAgICAgICAgICAgICAgIC AgICAgICAgICAgICAgICAgICAgICAgICAgICAgICAgICAgICAgICAgICAgICAgICAgICAgICAgICAgIC AgICAgICAgICAgDQogICAgICAgICAgICAgICAgICAg ICAgICAgICAgICAgICAgICAgICAgICAgICAgICAgICAgICAgICAgICAgICAgICAgICAgICAgICAgICAg PGRlGTNlLDPuATTnOIZaITJdSZRvLMm9O3gyHCVtNFEyKA1hRYr3Da4+IPlHRtTxVJO4xiZahJ9JPW9d j7WzJAvtGCEoh2QtZRn1AV5YNTLwQSlxWC4CYPemwa 5KMQZvOSNsxQZPr0hzVhQqLQF9VZPlIuttKF1VBEIpX6cvcxHwFVYtQHYXNEbtRVZDFQkbMNRJGC8TPg UfD5VerU06TSMUUj7+GGwzmqJuNfgOZbJ2RTQnm0SwKNu8KO0BAKQlIkqjy9KfPovbMFCFZUkcWV1NJS I7ZRY9XLVbEg3XMFWtC202doJzFC7NVz4FDpIlMC5j go7MXspcOPLnZkdOPgt6MPfaOA2QeEXzAEjJZhOqGtedBIb8INdeEIVtj0SgPJguLBZnSIEiMS5zCF0z SWIgHJTeThHcRVYEFI0NHIRaLPDznEFvQSGjJGJUVV8OZGgrVQP7LUSfmdIihQTzUFytYO8THOQxlsZw MjYgMCBSDQo+Rw4SVL7iz1XzJVseUDQfRM0ezr9HSJ sCOtUqO5S6fZBsN0E6BGwtNv8WDJJiQNXjEuSqVDMIZNnwHZ6DHW6gpsN7HZ5GxYSzQFWuXXKcaTEhOA l0J85shXQyUGmsOL3OFSE+Lynda+De7QCJOpGFTdQAKlPnKjWOTPWmRgT7GtV2WFo1KmP0ZfXN18bVecgy OmYAleAV7LMY8nWPUcWLZWQV6FbEYlnT6vdsJuHfKn HLBHCkQuM42lxVUoIEJaUDI3EDJuHe4MDWTdW6NnzxXasKhlbuAyUWUbBDRCAB5ALPaekkBbcAWntGio VP41kBgyJZ2XGu7OKrTqLY4bfy3NzGAaGu0VCIRsGI2VASYsGXEsJJWyLYZ3COMxXwFzQBwmRUNiSQEk SPY8TNUcJPSpDI1KDvSnJZXlUuD9WvHiKQRqJMNzhz 9GAEGsLZMyBNLiAhZjQSVvJBTrDKxuGMHxBNPkUTQ0XZIlTRJlFK9DQwEcHEEeMAPtJZWtYBEyMQYsdo 7BMLJuRAKyCvY2CzYcWEBaLUIeJGprJTLwGRP7UWH4KCHaPCBsUZ6FIrWdLUCeNQwoVDZfDUFeNEEykp 4ERBLyUFBxNQE7LAWkLMSaCDJuNJdyNAEaMECwHIS8 GDBhMCIuJW8EPfDhTOUzEUE4TMLdYDOvBKSrzs4HAGCkQDWxVMbdTZNxVAJiRSVqPGisGJPxUPYvMAs1 XJBrEXUsJU5FLpDzCBTpIED0OPRoOBEtEMUvnn2LSEOyQHIsScX4RNJvRVCdCWTqCZkmIWKcPAGaJtWb VJSwRZPqKO1VQfRzRVEeWpH8KzklVBJgOYJkvz7RDI GzYXTiLGr1IyZzSEMvXHSaWUooKNEkZAS5DZC0ZVCrTLOhZZ3EEgLbJVDfFzXbQQDfYIUjIAJmfx3ZCZ WiCOEuNOZ8TFQoKPQwGFTcUAgcFNHyVGL8TUu9EBGjWHYgLK0OYkMhXRNhOzT3MzItNVEePDBfty9GIE NaCFTgWfi2NEVkWXOxDPIsUCtiGPNkOUR5GhP8UQNv WUNvAZ7SPxEwYRPdUjt5CFejBDUjAUWbir6WTRToIJMpIEo3MBYlUPXtKVXaPVjeWXMrIHW2JLD1GMTd TDPzUF4YEdZjUPvoRERBEoj1XWxdT1m0XVYwLJ8ZJ7Obz2NlEszqQCEGVLidOZ4lenEfPZWuVp5VG8nQ WzhqSFX9AIQbPAKmTEC8XLFfYgs2YLWlEBWlPjBtZL F0MW0fOQH7Dsb0LfUrXTDmYPRvZPDvDvYxI0IoFVJ6FIU1KPp6DbGjKX9JAy6WNtS6QWA4dVSqVj3OYv ysGjjKDdIgXQ0QZHx= ID Date Data Source [id number] 01/03/2020 12:43:00 PM [facility] Surgical Pathology ReportName: AMY MADDENMRN: [id number] Number: [id number] Date: 01/01/2020 00:00Received Date: 01/01/2020 13:50Physician(s): ANA CRISTINA HAYNES MD MANOCHA, DIVEY, MDSpecimen(s) ReceivedA: Duodenum biopsyB: Gastric biopsyC: GE junction biopsyClinical HistoryAbdominal pain. DiagnosisA) DUODENUM, BIOPSY: UNREMARKABLE DUODENAL MUCOSA. B) STOMACH, BIOPSY: REACTIVE GASTROPATHY WITH FOCAL INTESTINAL METAPLASIA. NO DYSPLASIA OR H. PYLORI IDENTIFIED.C) GE JUNCTION, BIOPSY: SQUAMOUS MUCOSA WITH REFLUX ESOPHAGITIS AND SMALLSEGMENT OF GASTRIC MUCOSA WITH CHRISTINE'S ESOPHAGUS. NO DYSPLASIAIDENTIFIED. /pmwElectronically Signed By Fransisco Briscoe MD;, Attending Pathologist01/03/2020 12:43:13 Unless 'gross-only' is specified, the final diagnosis is based on amicroscopic examination of branch service representative sections of tissue.Gross DescriptionThe specimen is received in three parts.Part A is received in formalin labeled with the patient's name "Rufina" and " duodenum". It consists of two soft beal tissue fragmentsmeasuring from 0.3 to 0.7 cm in greatest dimension. Totally submitted inone cassette. Part B is received in formalin labeled with the patient's name "Rufina" and "gastric". It consists of three soft beal tissue fragmentsmeasuring from 0.5 to 0.8 cm in greatest dimension. Totally submitted inone cassette. Part C is received in formalin labeled with the patient's name "Rufina" and "GE junction". It consists of two soft beal tissue fragmentsmeasuring from 0.3 to 0.6 cm in greatest dimension. Totally submitted inone cassette. MB/pmw This report may include one or more immunohistochemical stain results thatuse analyte specific reagents. All positive and negative controls havebeen reviewed by the attending pathologist and are satisfactory. The testswere developed and their performance characteristics determined by [facility] Pathology department. They have not been cleared or approved by the USFood and Drug Administration. The FDA has determined that such clearanceor approval is not necessary. Name Value Range Interpretation Code Description Data Sophia rce(s) Supporting Document(s) ID Date Data Source [id number] 12/28/2019 11:50:08 AM [facility] Service Cmnt XXX-Imp : NoneMicroorganism XXX Cult : 2019 nCoV Real-Time RT-PCR: NOT DETECTEDThis test method was designed to detect the causative agent of COVID-19. The Dept. of Pathology [facility] has Emergency Use Authorization (EUA) from the FDA to peform this test to allow for rapid response during a declared public health emergency.Initial validation was performed by the Centers for Disease Control and Prevention (CDC) and additionally validated by the Dept. of Pathology [facility]. Negative results do not preclude SARS-CoV-2 infection and should not be used as the sole basis for patient management decisions.Additional information is available on the following FDA websites for health care providers and patients. https://www.fda.gov/media/654228/download, ht tps://www.fda.gov/media/875068/download. Name Value Range Interpretation Code Description Data Sophia rce(s) Supporting Document(s) ID Date Data Source [id number] 12/27/2019 12:53:00 PM [facility] Service Cmnt XXX-Imp : NoneMicroorganism XXX Cult : 2019 nCoV Real-Time RT-PCR: NOT DETECTEDThis test method was designed to detect the causative agent of COVID-19. The Dept. of Pathology [facility] has Emergency Use Authorization (EUA) from the FDA to peform this test to allow for rapid response during a declared public health emergency.Initial validation was performed by the Centers for Disease Control and Prevention (CDC) and additionally validated by the Dept. of Pathology [facility]. Negative results do not preclude SARS-CoV-2 infection and should not be used as the sole basis for patient management decisions.Additional information is available on the following FDA websites for health care providers and patients. https://www.fda.gov/media/605725/download, ht tps://www.fda.gov/media/466160/download. Name Value Range Interpretation Code Description Data Sophia rce(s) Supporting Document(s) Microorganism identified in Unspecified specimen by [facility] This lab was ordered by [facility] and reported by [facility]. ID Date Data Source [id number] 12/27/2019 12:52:56 PM EDT [facility] Name Value Range Interpretation Code Description Data Sophia rce(s) Supporting Document(s) Progress Note [facility] TJMKIf9pMtXNXxPr74/QAVssVOGcn0IwBJqdGRl1QEssTHJxJ2DyZUP2sX8lMVO9KSgXOtMbJiQmVIPg lbm [file] AgICAgICAgICAgICAgICAgICAgICAgICAgICAgICAgICAgICAgICAgICAgICAgICAgICAgICAgICAgIC AgICAgDQogICAgICAgICAgICAgICAgICAgICAgICAg ICAgICAgICAgICAgICAgICAgICAgICAgICAgICAgICAgICAgICAgICAgICAgICAgICAgICAgICAgICAg ICAgICAgICAgICAgICAgDQogICAgICAgICAgICAgICAgICAgICAgICAgICAgICAgICAgICAgICAgICAg ICAgICAgICAgICAgICAgICAgICAgICAgICAgICAgIC AgICAgICAgICAgICAgICAgICAgICAgICAgDQogICAgICAgICAgICAgICAgICAgICAgICAgICAgICAgIC AgICAgICAgICAgICAgICAgICAgICAgICAgICAgICAgICAgICAgICAgICAgICAgICAgICAgICAgICAgIC AgICAgICAgDQogICAgICAgICAgICAgICAgICAgICAg ICAgICAgICAgICAgICAgICAgICAgICAgICAgICAgICAgICAgICAgICAgICAgICAgICAgICAgICAgICAg ICAgICAgICAgICAgICAgICAgDQogICAgICAgICAgICAgICAgICAgICAgICAgICAgICAgICAgICAgICAg ICAgICAgICAgICAgICAgICAgICAgICAgICAgICAgIC AgICAgICAgICAgICAgICAgICAgICAgICAgICAgDQogICAgICAgICAgICAgICAgICAgICAgICAgICAgIC AgICAgICAgICAgICAgICAgICAgICAgICAgICAgICAgICAgICAgICAgICAgICAgICAgICAgICAgICAgIC AgICAgICAgICAgDQogICAgICAgICAgICAgICAgICAg ICAgICAgICAgICAgICAgICAgICAgICAgICAgICAgICAgICAgICAgICAgICAgICAgICAgICAgICAgICAg ICAgICAgICAgICAgICAgICAgICAgDQogICAgICAgICAgICAgICAgICAgICAgICAgICAgICAgICAgICAg ICAgICAgICAgICAgICAgICAgICAgICAgICAgICAgIC AgICAgICAgICAgICAgICAgICAgICAgICAgICAgICAgDQogICAgICAgICAgICAgICAgICAgICAgICAgIC AgICAgICAgICAgICAgICAgICAgICAgICAgICAgICAgICAgICAgICAgICAgICAgICAgICAgICAgICAgIC EcVJTyQIKjYBRcNIFfEUb1L2auRYIuILFkYA6yDMa2 Jz8+QSxIOrByFTT6ylNnzE0NIH8lo6QkAKftURMkj0NqIPk3HG7HAIUdNPvuHM8FKDfciu1MGKWpHXXp gIWXa8itRfLuZOH8YXYtLbeoBC7NTWMbH3dtwaZkKFZsNMMNZQ7AAuSfZ9VtjS74KYVTFx0+DQplbmRv OkqOApW7NCVci3KiFIl5QE3MHMRtQmpiu1SjTdCnAC FPBJtrJJ1PEEP1CUUyIQAcPb7RSFQqF577ynBmID1RNs3ITiOvLR0lwp3ESmMfESGiPspWOvv8XGecEB 2ZqUQzYLrNkf5lewJipkRCm4NpdbAjrJJYxc3hCP3cdaffBEMvvGswmznfPq6vWGMqUZ6bLV1xDRInBL MiRcXpIZISIA4XKJXpCJMibNJlJGFdAOXLHF4WXAhc JSO1HXCxoxSfmPKuDGkhUI7QJWMhbeQoBJrdMZQAZUl+Uf8MCO7sb9FjNNliWMIsMQ3pll3YYTvUJwBt H0M9bNZoZ5H2FJwaVw2BWKXwYOHeDGytQQBUTBtuJR3TDD6tgrS9CD8KmCSaSOZnXEQbbKYyYWr7R37o hBAcTQtzEJ6ZPGF+Lynda+Gy9NTAOiEKCtLNKzWzOzUI KXBcHzX0UsB9INz7UoP9SbXE86wBeqecFkJXajYC0BWI5sJTEvUBVNSR3HvGDagU9rlaQdZQMfDDPPZo InS05gyXHgLPXkCKO4BBKvYd3UIPQtU5TofjWwbRvjvyCvOZGkDJKXJF7MJPkvegOqiAZpoZjtJV85eB umUR0LCi6DErFeDV6ejr5CjSVmKh6DISTcFd9LPTEd SIKqRZCtCYO5KKIcZaPbUIeoLEQsXOWsIUP8PZTzHBRmLS2JStZgTQOuZIhdGEIgOJVjLPMedh8JXYFc MIJaZNykZkOuXBIlULZiCZeyIYKmCQSyPAV2HAWuGQLzFP0XJvLlUXBpCDJ5PmUdNSBwLQCksq2ZIUXi MDAwMjEyNCAwMDAwMCBuDQowMDAwMDAzMDgzIDAwMD EvRF3TSmDcRVPnFKFyVuyaPDEjPVNbaq8WARXuIUPmAyW0NDWsZUPlCNKvTKooAXQiSAK3PJP6WYTjGV PxDD0KBaFoSUMdTYH0UYuhNPZfHWYizq2FGSShSEUpDIlgAxWoAFSaXCAlSSjiJFJnKDO3XAQxIBCkJU EeDJ5VCnTdBQWjBJI2AhsvWUOwRVNmwp9ZPLHnYGFk YbS8XkVcGGNfDFPkYToaFSHuCPY5AJH5UVKlADIlLN4FTpGnZDHeMFrzVxVmXEJeNLBlru6YSLQsIIKg VrQ6WoYhZRSqKHKxQQrjGBNxUXS8GNKhHBIiAMKyTW9PBhFyOMWvFXx2ZVQsLUAbHNYnnb1HLJLzBKTh CDGiHlLvOTObABZqUYq0dkCumISqHIx0GH2XX4Spbz RgXqRPMb2Um458LUJkIYDuUs5YM4jdJs9zXCBnYGBBPx6YCVp2DEUoLsHmRJY4MlXiAxydNVc5LIY7QQ AwNzcwMmRhOWE+KTjrAIUuDaGjOsEiHwE8K0S8XMRzHXK8TIF6HwXvAOA4WS8gXODLFm1+DQpzdGFydH swESPMVeU6Euz8LBznZHCRHu7W Procedure Social History Code Duration Value Status Description Data Source(s ) Smoking 01/27/2021 12:00:00 AM EDT Former Smoker completed Former Smoker eCW1 ([facility]) Smoking 12/28/2020 12:00:00 AM EDT Former Smoker completed Former Smoker eCW1 ([facility]) Smoking 05/06/2020 12:00:00 AM EST Former Smoker completed Former Smoker eCW1 ([facility]) Smoking 05/06/2020 12:00:00 AM EST Former Smoker completed Former Smoker eCW1 ([facility]) Smoking 05/06/2020 12:00:00 AM EST Former Smoker completed Former Smoker eCW1 ([facility]) Smoking 05/06/2020 12:00:00 AM EST Former Smoker completed Former Smoker eCW1 ([facility]) Smoking 04/23/2020 12:00:00 AM EST Former Smoker completed Former Smoker eCW1 ([facility]) Smoking 04/01/2020 12:00:00 AM EST Former Smoker completed Former Smoker eCW1 ([facility]) Smoking 04/01/2020 12:00:00 AM EST Former Smoker completed Former Smoker eCW1 ([facility]) Smoking 04/01/2020 12:00:00 AM EST Former Smoker completed Former Smoker eCW1 ([facility]) Alcohol intake 01/01/2020 12:00:00 AM EDT Ex-drinker (finding) comp leted Ex- drinker (finding) [facility] Tobacco use and exposure 01/01/2020 12:00:00 AM EDT Never used co mpleted Never used [facility] Cigarette pack-years 01/01/2020 12:00:00 AM EDT UNK completed [facility] Cigarettes smoked current (pack per day) - Reported 01/01/20 20 12:00:00 AM EDT UNK completed [facility] Smoking 01/01/2020 12:00:00 AM EDT Former smoker completed Former smoker [facility] Vital Signs ID Date Data Source UNK Name Value Range Interpretation Code Description Data Source(s) Body weight 116.2 [lb_av] 116.2 [lb_av] eCW1 ([facility]) Body weight 52.71 kg 52.71 kg eCW1 ([facility]) Body height 65 [in_i] 65 [in_i] eCW1 ([facility]) Body mass index (BMI) [Ratio] 19.33 kg/m2 19.33 kg/m2 eCW1 ([facility]) Heart rate 101 /min 101 /min eCW1 ([facility]) Respiratory rate 18 /min 18 /min eCW1 ([facility]) Body temperature 98.0 [degF] 98.0 [degF] eCW1 ( [facility]) Systolic blood pressure 140 mm[Hg] 140 mm[Hg] e CW1 ([facility]) Diastolic blood pressure 80 mm[Hg] 80 mm[Hg] eCW1 ([facility]) Body weight 120.6 [lb_av] 120.6 [lb_av] eCW1 ([facility]) Body height 65 [in_i] 65 [in_i] eCW1 ([facility]) Body mass index (BMI) [Ratio] 20.07 kg/m2 20.07 kg/m2 eCW1 ([facility]) Heart rate 100 /min 100 /min eCW1 ([facility]) Respiratory rate 20 /min 20 /min eCW1 ([facility]) Body temperature 97.2 [degF] 97.2 [degF] eCW1 ( [facility]) Systolic blood pressure 130 mm[Hg] 130 mm[Hg] e CW1 ([facility]) Diastolic blood pressure 78 mm[Hg] 78 mm[Hg] eCW1 ([facility]) Respiratory rate 14 /min 14 /min MEDENT ( [facility]) Body height 65 [in_i] 65 [in_i] MEDENT ([facility]) 5'5" Body weight 110.00 [lb_av] 110.00 [lb_av] MEDEN T ([facility], ) Body mass index (BMI) [Ratio] 18.3 kg/m2 18.3 k g/m2 MEDENT ([facility], ) Systolic blood pressure 140 mm[Hg] 140 mm[Hg] M EDENT ([facility], ) Diastolic blood pressure 90 mm[Hg] 90 mm[Hg] MEDENT ([facility], ) Heart rate 74 /min 74 /min MEDENT ([facility], ) Temple body weight 125 [lb_av] 125 [lb_av] MEDEN T ([facility], ) Body weight 115 [lb_av] 115 [lb_av] [facility]CW[facility]) Respiratory rate 17 /min 17 /min eCW1 ([facility]) Body temperature 97.0 [degF] 97.0 [degF] eCW1 ( [facility]) Systolic blood pressure 124 mm[Hg] 124 mm[Hg] e CW1 ([facility]) Diastolic blood pressure 84 mm[Hg] 84 mm[Hg] eCW1 ([facility]) Body height 65 [in_i] 65 [in_i] eCW1 ([facility]) Body mass index (BMI) [Ratio] 19.13 kg/m2 19.13 kg/m2 eCW1 ([facility]) Heart rate 123 /min 123 /min eCW1 ([facility]) Patient Treatment Plan of Care Planned Activity Planned Date Details Description Data Source (s) pantoprazole 40 MG Delayed Release Oral Tablet 01/27/2021 12:00:00 AM EDT eCW1 ([facility]) Escitalopram 10 MG Oral Tablet 01/27/2021 12:00:00 AM EDT eCW1 ([facility]) Test Strips - 04/10/2020 12:00:00 AM EST eCW1 ([facility]) Blood Glucose Monitoring Suppl - 04/10/2020 12:00:00 AM EST eCW1 ([facility]) Lancets Misc. - 04/10/2020 12:00:00 AM EST eCW1 ([facility]) cefdinir 300 MG Oral Capsule 04/04/2020 12:00:00 AM EST eCW1 ([facility]) cefdinir 300 MG Oral Capsule 04/04/2020 12:00:00 AM EST eCW1 ([facility]) Blood Glucose Monitoring Suppl w/Device 04/01/2020 12:00:00 AM EST eCW1 ([facility]) Semglee 100 UNIT/ML 04/01/2020 12:00:00 AM EST eCW1 ([facility]) Semglee 100 UNIT/ML 04/01/2020 12:00:00 AM EST eCW1 ([facility]) Blood Glucose Monitoring Suppl w/Device 04/01/2020 12:00:00 AM EST eCW1 ([facility]) Semglee 100 UNIT/ML 04/01/2020 12:00:00 AM EST eCW1 ([facility]) Blood Glucose Monitoring Suppl w/Device 04/01/2020 12:00:00 AM EST eCW1 ([facility]) sodium chloride (preservative free) 0.9 % flush 3 mL 05:00:00 PM [facility] sodium chloride (preservative free) 0.9 % flush 10 mL 01/01/2020 10:14:38 AM [facility] sodium chloride (preservative free) 0.9 % flush 10 mL 01/01/2020 10:14:37 AM [facility] heparin sodium, porcine 10 UNT/ML Injectable Solution 01/01/2020 10:14:37 AM [facility] 3 ML heparin sodium, porcine 100 UNT/ML Prefilled Syri nge 01/01/2020 10:14:37 AM [facility] Dicyclomine Hydrochloride 20 MG Oral Tablet 06/19/2019 12:00:00 AM [facility]
--- OUTSIDE RECORDS SUMMARY | 2021-02-24 16:43 | CCD ---
Author Author [facility] Organization [facility] Address Unknown Phone Unavailable Care Team Providers Care Claims Assistant Name Role Phone Judie Alejandra Unavailable PROBLEMS Type Condition ICD9-CM Code [id number] Code Onset Dates Condition S tatus W/U Status Risk SNOMED Code Notes Problem Acquired hypothyroidism E03.9 Active confirmed 334107864 Problem Gastroparesis K31.84 Active confirmed 637476 006 Problem Type 1 diabetes mellitus with hyperglycemia E10.65 Active confirmed [id number] Problem Hypoglycemia associated with type 2 diabetes mellitus E11.649 Active confirmed 072529881 Problem Constipation, unspecified constipation type K59.00 Active confirmed 14110238 Problem Recurrent major depressive disorder, remission s tatus unspecified F33.9 Active confirmed 09708283 Problem Peptic ulcer disease K27.9 Active confirmed 93929485 Problem Dupuytrens contracture M72.0 Active confirmed 207640511 Problem Insomnia, unspecified type G47.00 Active confirmed 313372868 Problem Bilateral hearing loss, unspecified hearing loss type H91.93 Active confirmed 22822193 ALLERGIES Allergen (clinical drug ingredient) Drug/Non Drug Allergy do cumented on EMR Reaction Allergy Type Onset Date Status Latex (for allergy use only) Unknown Drug Allergy Active vancomycin Vancomycin HCl([facility] Code:[address]-13) Unknown Drug All ergy Active ENCOUNTERS from 1965 to 2021-01-28 Encounter Location Date Provider Diagnosis [address] [phone] [place] [address] Jan, Judie Godfreyi IMMUNIZATIONS No Information SOCIAL HISTORY Tobacco Use: Social History Observation Description Date Details (start date - stop date) Former Smoker Sex Assigned At : Social History Observation Description Sex Assigned At Unknown Audit Question Answer Notes Total Score: 0 Interpretation: Alcohol Education Drug and Alcohol Question Answer Notes Total Score: 0 Interpretation: No problems reported Tobacco Use: Question Answer Notes Are you a: former smoker How long has it been since you last smoked? 1-5 years REASON FOR REFERRAL No Information VITAL SIGNS No information MEDICATIONS Medication SIG (Take, Route, Frequency, Duration) Notes Start Da te End Date Status FreeStyle Lancets - as directed as directed 5 times a day for 30 days Feb, Active Gabapentin 300 MG TAKE 1 CAPSULE BY MOUTH ONCE EVERY EVENING FOR ONE WEEK THEN TWICE A DAY Oral for 30 days Act chrissie Glucagon Emergency 1 MG as directed Injection as nee ded for severe hypoglycemia for 30 days Mar, Active Iron 65 MG 1 tablet Orally every other day Not-Taking Keppra 250 MG 1 tablet Orally every 12 hrs for 30 day(s) Active Fluocinolone Acetonide 0.01 % 5 drops into affected ea r Otic Twice a day for 7 day(s) Feb, Not-Taking rOPINIRole HCl 1 MG 2 tabs Orally Once a day for 30 Active Carafate 1 GM/10ML 10 ml on an empty stomach Orally four times daily Not-Taking Blood Glucose Monitoring Suppl w/Device as directed for 999 days Mar, Active Semglee 100 UNIT/ML 22 units Subcutaneous at bedtime for 30 days Mar, Active Ondansetron 4 MG 1 tablet on the tongue and a llow to dissolve Orally every 8 hours as needed for 14 days Not- Taking Test Strips - in morning, before each meal , before bed, and as needed for hypo or hyperglycemia symptoms MDD: 8 strips for 30 days Mar, Active Blood Glucose Monitoring Suppl - as directed for 999 days Mar, Active Escitalopram Oxalate 10 MG 1 tablet Orally Once a day for 90 day (s) Jan, Active Rosuvastatin Calcium 40 MG 1 tablet Orally Once a day for 30 day(s) Active Lancets Misc. - in the morning, before meals , before bed, and as needed for hypo or hyperglycemia symtpoms MDD:8 for 30 days Mar, Active Cefdinir 300 MG as directed Orally BID for 10 days Mar, Not-Taking Admelog SoloStar 100 UNIT/ML 8 units twice daily and 1 5 units in the evening Subcutaneous before meals MDD: 50 units August, Active FreeStyle Lite Test - as directed In Vitro 5 times a day for 30 Active Levothyroxine Sodium 200 MCG 1 tablet in the morning o n an empty stomach Orally Once a day for 30 Active Polyethylene Glycol 3350 - 17 grams in water Orally Once a day for 30 Not-Taking Pantoprazole Sodium 40 MG 1 tablet Orally Once a day for 60 day( s) Jan, Active PROCEDURES No Information RESULTS No Results REASON FOR VISIT Gabapentin 300 MG Capsule MEDICAL (GENERAL) HISTORY Type Description Date Medical History DM type I Medical History Cataract Medical History siezures Medical History Grade a esophagitis and gastritis on end oscopy. 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) Surgical History multiple hand surgeries (trigger finger and growths) Hospitalization History [facility] for hyperglycemia 02/2019 Hospitalization History siezure 02/2020 Goals Section No Information Health Concerns No Information MEDICAL EQUIPMENT No Information MENTAL STATUS No Information FUNCTIONAL STATUS No Information ASSESSMENTS No Information PLAN OF TREATMENT Medication Medication Name Sig Start Date Stop Date Pantoprazole Sodium 40 MG 1 tablet Orally Once a day for 60 day( s) Jan, Escitalopram Oxalate 10 MG 1 tablet Orally Once a day for 90 day(s) Jan, Gabapentin 300 MG TAKE 1 CAPSULE BY MOUTH ONCE EVERY EVENING FOR ONE WEEK THEN TWICE A DAY Oral for 30 days Next Appt Details Provider Name:Judie Alejandra, 2021-02-03 01: 15:00 PM, [address] [facility], , [place], [address], Insurance Providers Payer Name Payer Address Payer Phone Insured Name Patient Relati onship to Insured Coverage Start Date Coverage End Date [facility] [employer] DEPT [address] [place] [phone] AMY MADDEN
--- OUTSIDE RECORDS SUMMARY | 2021-02-24 16:43 | CCD ---
Author Author [facility] Organization [facility] Address Unknown Phone Unavailable Care Team Providers Care Sound Art Instructor Name Role Phone Jayjay Watson Unavailable PROBLEMS Type Condition ICD9-CM Code SME16-RC Code Onset Dates Condition S tatus W/U Status Risk SNOMED Code Notes Problem Constipation, unspecified constipation type K59.00 Active confirmed 93620224 Problem Acquired hypothyroidism E03.9 Active confirmed 059043548 Problem Bilateral hearing loss, unspecified hearing loss type H91.93 Active confirmed 19364995 Problem Insomnia, unspecified type G47.00 Active confirmed 311756493 Problem Gastroparesis K31.84 Active confirmed 765059 006 Problem Type 1 diabetes mellitus with hyperglycemia E10.65 Active confirmed 610555265751008 Problem Peptic ulcer disease K27.9 Active confirmed 67503960 Problem Dupuytrens contracture M72.0 Active confirmed 662382195 ALLERGIES Allergen (clinical drug ingredient) Drug/Non Drug Allergy do cumented on EMR Reaction Allergy Type Onset Date Status Latex (for allergy use only) Unknown Drug Allergy Active vancomycin Vancomycin HCl([facility] Code:[address]-70) Unknown Drug All ergy Active ENCOUNTERS from 1965 to 2020-12-13 Encounter Location Date Provider Diagnosis [address] [phone] [place] [address] Nov, Jayjay Watson IMMUNIZATIONS No Information SOCIAL HISTORY Tobacco Use: [...] Notes Start Da te End Date Status Polyethylene Glycol 3350 - 17 grams in water Orally Once a day for 30 Active Cefdinir 300 MG as directed Orally BID for 10 days Mar, Not-Taking FreeStyle Lancets - as directed as directed 5 times a day for 30 days Feb, Active Semglee 100 UNIT/ML 22 units Subcutaneous at bedtime for 30 days Mar, Active Blood Glucose Monitoring Suppl - as directed for days Mar, Active Iron 65 MG 1 tablet Orally every other day Not-Taking buPROPion HCl ER (XL) 150 MG 1 tablet in the morning Orally Once a day for 30 Active Carafate 1 GM/10ML 10 ml on an empty stomach Orally four times daily Active Blood Glucose Monitoring Suppl w/Device as directed for Mar, Active Rosuvastatin Calcium 40 MG 1 tablet Orally Once a day for 30 day(s) Active Lancets Misc. - in the morning, before meals , before bed, and as needed for hypo or hyperglycemia symtpoms MDD:8 for 30 days Mar, Active Admelog SoloStar 100 UNIT/ML 8 units twice daily and 1 5 units in the evening Subcutaneous before meals MDD: 50 units August, Active rOPINIRole HCl 1 MG 2 tabs Orally Once a day for 30 Active Test Strips - in morning, before each meal , before bed, and as needed for hypo or hyperglycemia symptoms MDD: 8 strips for 30 days Mar, Active Keppra 250 MG 1 tablet Orally every 12 hrs for 30 day(s) Active FreeStyle Lite Test - as directed In Vitro 5 times a day for 30 Active Fluocinolone Acetonide 0.01 % 5 drops into affected ea r Otic Twice a day for 7 day(s) Feb, Active Glucagon Emergency 1 MG as directed Injection as nee ded for severe hypoglycemia for 30 days Mar, Active Levothyroxine Sodium 200 MCG 1 tablet in the morning o n an empty stomach Orally Once a day for 30 Active Ondansetron 4 MG 1 tablet on the tongue and a llow to dissolve Orally every 8 hours as needed for 14 days Not- Taking PROCEDURES No Information RESULTS No Results REASON FOR VISIT refill MEDICAL (GENERAL) HISTORY Type Description Date Medical History DM Medical History Cataract Medical History siezures 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) Surgical History multiple hand surgeries (trigger finger and growths) Hospitalization History [facility] for hyperglycemia 02/2019 Hospitalization History siezure 02/2020 Goals Section No Information Health Concerns No Information MEDICAL EQUIPMENT No Information MENTAL STATUS No Information FUNCTIONAL STATUS No Information ASSESSMENTS No Information PLAN OF TREATMENT Medication Medication Name Sig Start Date Stop Date Levothyroxine Sodium 200 MCG 1 tablet in the morning o n an empty stomach Orally Once a day for 30 Next Appt Details Provider Name:Judie Alejandra, 2020-12-26 02: 15:00 PM, [address] [facility], , [place], [address], Insurance Providers Payer Name Payer Address Payer Phone Insured Name Patient Relati onship to Insured Coverage Start Date Coverage End Date [facility] CORPORATE CLAIMS DEPT [address] [facility] [phone] AMY MADDEN self
--- OUTSIDE RECORDS SUMMARY | 2021-02-24 16:43 | CCD ---
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 Name Role Phone Judie Alejandra Unavailable PROBLEMS Type Condition ICD9-CM Code SRE75-BH Code Onset Dates Condition S tatus W/U Status Risk SNOMED Code Notes Problem Constipation, unspecified constipation type K59.00 Active confirmed 81724515 Problem Acquired hypothyroidism E03.9 Active confirmed 854297345 Problem Gastroparesis K31.84 Active confirmed 229678 006 Problem Bilateral hearing loss, unspecified hearing loss type H91.93 Active confirmed 86353522 Problem Hypoglycemia associated with type 2 diabetes mellitus E11.649 Active confirmed 260838900 Problem Type 1 diabetes mellitus with hyperglycemia E10.65 Active confirmed 256434351635864 Problem Peptic ulcer disease K27.9 Active confirmed 20596786 Problem Dupuytrens contracture M72.0 Active confirmed 712016488 Problem Insomnia, unspecified type G47.00 Active confirmed 640624766 ALLERGIES Allergen (clinical drug ingredient) Drug/Non Drug Allergy do cumented on EMR Reaction Allergy Type Onset Date Status Latex (for allergy use only) Unknown Drug Allergy Active vancomycin Vancomycin HCl([facility] Code:[address]-61) Unknown Drug All ergy Active ENCOUNTERS from 1965 to 2020-12-29 Encounter Location Date Provider Diagnosis [facility] Resident [address] [facility] [address] [phone] [place] [address] 10 Dec, 2020 Judie Alejandra Episode of shaking R 25.1 ; Left lower quadrant abdominal pain R10.32 ; Blood clots in stool K92.1 ; Blood on toilet paper R58 and Hypoglycemia associated with type 2 diabetes mellitus E11.649 IMMUNIZATIONS No Information SOCIAL HISTORY Tobacco Use: [...] REASON FOR REFERRAL No Information VITAL SIGNS Weight 116.2 lbs Dec, Weight-kg 52.71 kg Dec, Height 65 in Dec, BMI 19.33 kg/m2 Dec, Heart Rate 101 /min Dec, Respiratory Rate 18 /min Dec, Temperature 98.0 degrees Fahrenheit Dec, Oximetry 98 Dec, Blood pressure systolic 140 mm Hg Dec, Blood pressure diastolic 80 mm Hg Dec, MEDICATIONS Medication SIG (Take, Route, Frequency, Duration) Notes Start Da te End Date Status FreeStyle Lite Test - as directed In Vitro 5 times a day for 30 Active Rosuvastatin Calcium 40 MG 1 tablet Orally Once a day for 30 day(s) Not-Taking Semglee 100 UNIT/ML 22 units Subcutaneous at bedtime for 30 days Mar, Active Gabapentin 300 MG TAKE 1 CAPSULE BY MOUTH ONCE EVERY EVENING FOR ONE WEEK THEN TWICE A DAY Oral for 30 Active Levothyroxine Sodium 200 MCG 1 tablet in the morning o n an empty stomach Orally Once a day for 30 Not-Taking Lancets Misc. - in the morning, before meals , before bed, and as needed for hypo or hyperglycemia symtpoms MDD:8 for 30 days Mar, Active Carafate 1 GM/10ML 10 ml on an empty stomach Orally four times daily Not-Taking Blood Glucose Monitoring Suppl - as directed for 999 days Mar, Active Iron 65 MG 1 tablet Orally every other day Not-Taking Polyethylene Glycol 3350 - 17 grams in water Orally Once a day for 30 Not-Taking Keppra 250 MG 1 tablet Orally every 12 hrs for 30 day(s) Not-Taking FreeStyle Lancets - as directed as directed 5 times a day for 30 days Feb, Active Ondansetron 4 MG 1 tablet on the tongue and a llow to dissolve Orally every 8 hours as needed for 14 days Not- Taking rOPINIRole HCl 1 MG 2 tabs Orally Once a day for 30 Not-Taking Fluocinolone Acetonide 0.01 % 5 drops into affected ea r Otic Twice a day for 7 day(s) Feb, Not-Taking Cefdinir 300 MG as directed Orally BID for 10 days Mar, Not-Taking Glucagon Emergency 1 MG as directed Injection as nee ded for severe hypoglycemia for 30 days Mar, Active Blood Glucose Monitoring Suppl w/Device as directed for 999 days Mar, Active buPROPion HCl ER (XL) 150 MG 1 tablet in the morning Orally Once a day for 30 Not-Taking Test Strips - in morning, before each meal , before bed, and as needed for hypo or hyperglycemia symptoms MDD: 8 strips for 30 days Mar, Active Admelog SoloStar 100 UNIT/ML 8 units twice daily and 1 5 units in the evening Subcutaneous before meals MDD: 50 units August, Active PROCEDURES No Information RESULTS No Results REASON FOR VISIT follow up MEDICAL (GENERAL) HISTORY Type Description Date Medical History DM type I Medical History Cataract Medical History siezures Medical History Grade a esophagitis and gastritis on end oscopy. 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) Surgical History multiple hand surgeries (trigger finger and growths) Hospitalization History [facility] for hyperglycemia 02/2019 Hospitalization History [facility] 02/2020 Goals Section No Information Health Concerns No Information MEDICAL EQUIPMENT No Information MENTAL STATUS No Information FUNCTIONAL STATUS No Information ASSESSMENTS Encounter Date Diagnosis Assessment Notes Treatment Notes Treatm ent Clinical Notes Dec, Episode of shaking (ICD-10 - R25.1) Patient been being placed in the room was excessively cold and shaky had stated not been able to eat for the last 3 days because of her abdominal pain. Based on this finding patient's finger blood glucose was checked and was found to be 56. Patient was given some chocolate to improve her sugar levels after which she seemed to be feeling a lot better. However she does have baseline bilateral hand tremor which was unabated. Dec, Left lower quadrant abdominal pain (ICD-10 - R10 .32) Patient's left lower quadrant pain was also extending to his left upper quadrant and left flank that seems severe enough and required urgent work-up and attention. Being 4:00 on a Tuesday I believe the patient needs to be admitted to the ER to get that urgent attention and lab work. The pain could result because of an underlying diverticulitis since the patient has a history of diverticulosis based on her colonoscopy in 2014. Patient is accompanied by her daughter and she agrees with the plan and understands the importance of getting urgent evaluation. She states that she will go after dropping her grandson home straight to the ER. ER charge nurse Shantal was contacted regarding the patient who will be expecting her soon. Dec, Blood clots in stool (ICD-10 - K92.1) She states that the blood was mixed in the stool and appeared as clots in between. She has a history of gastritis and grade a esophagitis none since a long time. Continues to smoke may lead to gastric bleeding ulcers. The patient states that she has had colonoscopy in the past 1 year however I do not see the records in patient documents. However I do have the number of the patient's GI docto's office, will try to get records. Dec, Blood on toilet paper (ICD-10 - R58) Patient does have a history of internal hemorrhoids proven on colonoscopy. She will need to see a surgeon soon after she is stabilized. Dec, Hypoglycemia associated with type 2 diabetes mellitus (ICD-10 - E11.649) PLAN OF TREATMENT Treatment Notes Assessment Notes Clinical Notes Episode of shaking Patient been being p laced in the room was excessively cold and shaky had stated not been able to eat for the last 3 days because of her abdominal pain. Based on this finding patient's finger blood glucose was checked and was found to be 56.Patient was given some chocolate to improve her sugar levels after which she seemed to be feeling a lot better. However she does have baseline bilateral hand tremor which was unabated. Left lower quadrant abdominal pain Patie nt's left lower quadrant pain was also extending to his left upper quadrant and left flank that seems severe enough and required urgent work-up and attention. Being 4:00 on a Tuesday I believe the patient needs to be admitted to the ER to get that urgent attention and lab work.The pain could result because of an underlying diverticulitis since the patient has a history of diverticulosis based on her colonoscopy in 2014.Patient is accompanied by her daughter and she agrees with the plan and understands the importance of getting urgent evaluation. She states that she will go after dropping her grandson home straight to the ER. ER charge nurse Shantal was contacted regarding the patient who will be expecting her soon. Blood clots in stool She states that the blood was mixed in the stool and appeared as clots in between. She has a history of gastritis and grade a esophagitis none since a long time. Continues to smoke may lead to gastric bleeding ulcers.The patient states that she has had colonoscopy in the past 1 year however I do not see the records in patient documents. However I do have the number of the patient's GI docto's office, will try to get records. Blood on toilet paper Patient does have a history of internal hemorrhoids proven on colonoscopy.She will need to see a surgeon soon after she is stabilized. Treatment Notes Test Name Order Date Fingerstick blood sugar 2020-12-26 Next Appt Details 2 Weeks Reason:Post Er follow-up visit Follow Up:2 WeeksPost Er follow-up visit Insurance Providers Payer Name Payer Address Payer Phone Insured Name Patient Relati onship to Insured Coverage Start Date Coverage End Date [facility] CORPORATE CLAIMS DEPT [address] [facility] [phone] AMY MADDEN self
[2021-02-24 17:49] LABS: VENOUS BASE EXCESS -7.7 (-2.0-2.0); VENOUS HCO3 13.5 MEQ/L (23.0-27.0); VENOUS O2 SATURATION 98.9 % (60.0-80.0); VENOUS PARTIAL PRESSURE CO2 18.8 mmHg (38.0-50.0); VENOUS PARTIAL PRESSURE O2 151.9 mmHg (30.0-50.0); VENOUS PH 7.475 UNITS (7.330-7.430); VENOUS STANDARD HCO3 18.3 MEQ/L; VENOUS TOTAL CO2 14.1 MEQ/L (24.0-28.0)
[2021-02-24 17:51] LABS: BASO # 0.1 10^3/uL (0.0-0.2); BASO % 0.8 % (0.0-1.0); EOS # 0.1 10^3/uL (0.0-0.5); EOS % 1.4 % (0.0-3.0); HEMATOCRIT 36.2 % (36.0-47.0); HEMOGLOBIN 11.6 g/dl (12.0-15.5); LYMPH # 2.5 10^3/uL (1.5-5.0); MEAN CORPUSCULAR HEMOGLOBIN 26.9 pg (27.0-33.0); MEAN CORPUSCULAR VOLUME 83.8 fl (80.0-96.0); MONO # 0.4 10^3/uL (0.0-0.8); MONO % 6.2 % (2.0-8.0); NEUTROPHILS # 3.3 10^3/uL (1.5-8.5); NEUTROPHILS % 52.3 % (36.0-66.0); PLATELET COUNT, AUTOMATED 421 10^3/uL (150-450); RED BLOOD COUNT 4.32 10^6/uL (4.00-5.40); WHITE BLOOD COUNT 6.3 10^3/uL (4.0-10.0)
[2021-02-24 17:57] LABS: RSV AMPLIFICATION NEGATIVE (NEGATIVE)
[2021-02-24 18:33] LABS: ALT/SGPT 55 U/L (12-78); BILIRUBIN,DIRECT < 0.1 MG/DL (0.0-0.2); BILIRUBIN,TOTAL 0.3 MG/DL (0.2-1.0); CK-MB VALUE MASS 4.3 NG/ML (<3.6); CPK CREATINE PHOSPHOKINASE 177 U/L (26-192); MB/CK RELATIVE INDEX 2.43 (< OR =4); NT-PRO BNP 36 PG/ML (<125); THYROXINE (T4) 6.1 UG/DL (4.5-12.0); TOTAL PROTEIN 7.6 GM/DL (6.4-8.2); TROPONIN I < 0.02 NG/ML (< 0.10)
[2021-02-24] MEDS ORDERED: NS 1,000 ML IV SCH (19:00)
[2021-02-24] MEDS ORDERED: ONDANSETRON 4MG/2ML VIAL IV ONE ×2 (19:00→21:30)
[2021-02-24] MEDS ORDERED: MORPHINE 4 MG/ML 1ML VIAL/SYRINGE (J2270) IV ONE ×2 (19:00→21:30)
[2021-02-24 19:05] LABS: LIPASE 51 U/L (73-393)
--- NOTE | 2021-02-24 19:49 | ECGEPIP ---
[facility] - ED Test Date: 2021-02-24 Pat Name: AMY MADDEN Department: Room: - Gender: Female [employer]: : 1965 Requested By: LENCHO Machado Order Number: [id number] Reading MD: Sudhir Cazares Measurements Intervals [place] Rate: 86 P: 80 [place]: 118 QRS: 82 QRSD: 74 T: 15 QT: 350 QTc: 418 Interpretive Statements Normal sinus rhythm Nonspecific ST T wave changes Baseline artifact may affect reading cw 03/16/[address] T wave changes Electronically Signed on 02-24-2021 19:49:07 EST by Sudhir Cazares
[2021-02-24 20:02] LABS: BLOOD UREA NITROGEN 30 MG/DL (7-18); CALCIUM LEVEL 9.7 MG/DL (8.5-10.1); CARBON DIOXIDE LEVEL 21 MEQ/L (21-32); CHLORIDE LEVEL 107 MEQ/L (98-107); CK-MB VALUE MASS 4.5 NG/ML (<3.6); CPK CREATINE PHOSPHOKINASE 136 U/L (26-192); CREATININE FOR GFR 1.43 MG/DL (0.55-1.30); GLOMERULAR FILTRATION RATE 40.3 (>51); GLUCOSE, FASTING 124 MG/DL (70-100); MB/CK RELATIVE INDEX 3.31 (< OR =4); POTASSIUM SERUM 4.2 MEQ/L (3.5-5.1); SODIUM LEVEL 137 MEQ/L (136-145); TROPONIN I < 0.02 NG/ML (< 0.10)
[2021-02-24] MEDS ORDERED: ISOVUE-370 76% 100ML VIAL As Ordered ONE ×2 (20:33→23:25)
--- NOTE | 2021-02-24 20:51 | REPVR ---
PROCEDURE INFORMATION: Exam: XR Chest Exam date and time: 02/24/2021 7:51 PM Age: 55 years old Clinical indication: Cough and dyspnea; Additional info: Dyspnea/cough TECHNIQUE: Imaging protocol: XR of the chest. Views: 1 view. COMPARISON: CR PORTABLE CHEST X-RAY 03/16/2020 8:40 AM FINDINGS: Lungs: Unremarkable. No consolidation. Pleural spaces: Unremarkable. No pleural effusion. No pneumothorax. Heart/Mediastinum: Unremarkable. No cardiomegaly. Bones/joints: Unremarkable. IMPRESSION: Negative chest without significant change from 03/16/2020. Electronically signed by: Cornelio Garcia On 02/24/2021 20:51:30 PM
--- NOTE | 2021-02-24 21:46 | REPVR ---
PROCEDURE INFORMATION: Exam: CT Abdomen And Pelvis Without Contrast Exam date and time: 02/24/2021 9:15 PM Age: 55 years old Clinical indication: Abdominal pain; Localized; Left; Additional info: L sided abd pain, vomiting TECHNIQUE: Imaging protocol: Computed tomography of the abdomen and pelvis without contrast. Radiation optimization: All CT scans at this facility use at least one of these dose optimization techniques: automated exposure control; mA and/or kV adjustment per patient size (includes targeted exams where dose is matched to clinical indication); or iterative reconstruction. COMPARISON: CT ABD/PEL W/IV ORAL CONTRAS 12/26/2020 9:34 PM FINDINGS: Tubes, catheters and devices: Right common femoral vein central line to the cephalad right common iliac vein. Liver: Normal. No mass. Gallbladder and bile ducts: Status post cholecystectomy. Pancreas: Pancreatic atrophy for age. Spleen: Normal. No splenomegaly. Adrenal glands: Normal. No mass. Kidneys and ureters: Normal. No hydronephrosis. Stomach and bowel: Unremarkable. No obstruction. No mucosal thickening. Appendix: There are no changes of appendicitis. A normal appendix is not seen. Intraperitoneal space: Unremarkable. No free air. No significant fluid collection. Vasculature: There is mild calcification of the abdominal aorta. Lymph nodes: Unremarkable. No enlarged lymph nodes. Urinary bladder: Unremarkable as visualized. Reproductive: Status post hysterectomy. Bones/joints: Unremarkable. No acute fracture. Soft tissues: Unremarkable. IMPRESSION: 1. Right common femoral vein central line to the cephalad right common iliac vein. 2. There has been prior cholecystectomy and hysterectomy. 3. Pancreatic atrophy for age. 4. Otherwise negative CT abdomen/pelvis with decreased evidence of colitis since 12/26/2020. Electronically signed by: Cornelio Garcia On 02/24/2021 21:45:53 PM
--- OUTSIDE RECORDS SUMMARY | 2021-02-24 22:27 | CCD ---
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 If you continue you may have access to information: Regarding HIV / AIDS; Provided by facilities licensed or operated by the [facility] Office of Mental Health; or Provided by the [facility] Office for People With Developmental Disabilities. If such information is present, then the following [facility] mandated warning applies: This information has [...] law may result in a fine or alf sentence or both. A general authorization for the release of medical or other information is NOT sufficient authorization for further disc losure. Allergies and Adverse Reactions Type Description Substance Reaction Status Data Source(s ) Propensity to adverse reactions [facility] Encounters Encounter Providers Location Date Indications Data Source(s ) Outpatient Attender: ANDERSON FALCON 03/19/2021 12:00:00 AM [facility] Outpatient Attender: ANDERSON FALCON 02/17/2021 12:00:00 AM [facility] Outpatient Attender: STEVIE BRAVO MD [id number] 02/16/2021 12:00:00 AM [facility] Unknown [address] [facility] [address] 01/27/2021 12:00:00 AM EDT eCW1 ([facility]) Outpatient [address] [facility] [place] [address] 12/26/2020 12:00:00 AM EDT eCW1 ([facility]) Unknown [address] [facility] [place] [address] 12/12/2020 12:00:00 AM EDT eCW1 ([facility]) Unknown [address] [facility] [place] [address] 10/11/2020 12:00:00 AM EDT eCW1 ([facility]) Unknown [address] [facility] [place] [address] 10/07/2020 12:00:00 AM EDT eCW1 ([facility]) Office Visit Attender: Robert Barnard MD Main office - [place] 09/18/2020 01:45:00 PM EDT MEDENT ([facility] ) Outpatient Attender: STEVIE BRAVO MD 07/25/2020 12:00:00 AM [facility] Outpatient 07/12/2020 12:00:00 AM [facility] Office Visit Attender: Robert Barnard MD Main office - [place] 06/24/2020 01:30:00 PM EST MEDENT ([facility]) Outpatient Attender: STEVIE BRAVO MDReferrer: Devon Arenas MD [id number] 06/13/2020 12:00:00 AM EST Pain in right hand [facility] Pain in right hand Outpatient Referrer: STEVIE BRAVO MD 06/13/2020 12:00: 00 AM EST Pain in right hand [facility] Pain in right hand [place] [address] [facility] [place] [address] 05/07/2020 12:00:00 AM EST eCW1 ([facility]) Outpatient Attender: Robert Barnard MD Main office - [place] 05/06/2020 09:00:00 AM EST MEDENT ([facility]) Outpatient Attender: Devon Arenas MD Physical Therapy 04/28/2020 0 8:00:00 AM EST MED[facility] ([facility]) [place] [address] [facility] [place] [address] 04/22/2020 12:00:00 AM EST eCW1 ([facility]) [place] [address] [facility] [place] [address] 04/10/2020 12:00:00 AM EST eCW1 ([facility]) [place] [address] [facility] [place] [address] 04/04/2020 12:00:00 AM EST eCW1 ([facility]) Outpatient [address] [facility] [place] [address] 04/01/2020 12:00:00 AM EST eCW1 ([facility]) Outpatient LERAYCA 01/31/2020 09:32:00 AM EDT [facility] Outpatient LERAYDC 01/31/2020 08:44:01 AM EDT [facility] Outpatient Attender: ANA CRISTINA HAYNES MDAdmitter: ANA CRISTINA Donald MD [id number] 01/01/2020 12:00:00 AM EDT - 01/01/2020 01:37:00 PM EDT Chronic abdominal pain [R10.9, G89.29], rectal bleeding [facility] Chronic abdominal pain [R10.9, G89.29], rectal bleeding Patient discharged. Outpatient Attender: RIGO HYLTON [id number] 12/27/2019 12:00:00 AM EDT - 12/28/2019 12:00:[address] [facility] Immunizations Vaccine Date Status Description Data Source(s) COVID-19 VACCINE Moderna 01/16/2021 12:00:00 AM EDT completed [facility] Vaccine Series Complete: YESThis Data wa s Submitted to [facility]. COVID-19 VACCINE Moderna 12/19/2020 12:00:00 AM EDT completed [facility] Vaccine Series Complete: NOThis Data was Submitted to [facility]. Medications Medication Brand Name Start Date Product Form Dose Route Admi nistrative Instructions Pharmacy Instructions Status Indications Reaction Description Data Source(s) pantoprazole 40 MG Delayed Release Oral Tablet Pantopr azole Sodium 40 MG Pantoprazole Sodium 40 MG 01/27/2021 12:00:00 AM EDT 1.0 {tablet} active Pantoprazole Sodium 40 MG eCW1 ( [facility]) Escitalopram 10 MG Oral Tablet Escitalopram Oxalate 10 MG Escitalopram Oxalate 10 MG 01/27/2021 12:00:00 AM EDT 1.0 {tablet} activ e Escitalopram Oxalate 10 MG eCW1 ([facility]) Primidone 50 MG Oral Tablet Primidone 06/24/2020 12:00:00 AM EST ORAL active MEDENT ([facility] ) ropinirole 1 MG Oral Tablet Ropinirole HCL 05/06/2020 12:00:00 AM EST active MEDENT ([facility] ) Levetiracetam 250 MG Oral Tablet Levetiracetam 05/06/2020 12:00:00 AM EST ORAL completed MEDENT ([facility]) gabapentin 300 MG Oral Capsule Gabapentin 04/28/2020 12:00:00 AM EST ORAL active MEDENT ([facility]) Blood Glucose Monitoring Suppl - UNK 04/10/2020 12:00:00 AM EST active Blood Glucose Monitoring Suppl - eCW1 ([facility]) Test Strips - UNK 04/10/2020 12:00:00 AM EST acti ve Test Strips - eCW1 ([facility]) Test Strips - UNK 04/10/2020 12:00:00 AM EST acti ve Test Strips - eCW1 ([facility]) Lancets Misc. - UNK 04/10/2020 12:00:00 AM EST active Lancets Misc. - eCW1 ([facility]) Blood Glucose Monitoring Suppl - UNK 04/10/2020 12:00:00 AM EST active Blood Glucose Monitoring Suppl - eCW1 ([facility]) Blood Glucose Monitoring Suppl - UNK 04/10/2020 12:00:00 AM EST active Blood Glucose Monitoring Suppl - eCW1 ([facility]) Lancets Misc. - UNK 04/10/2020 12:00:00 AM EST active Lancets Misc. - eCW1 ([facility]) Lancets Misc. - UNK 04/10/2020 12:00:00 AM EST active Lancets Misc. - eCW1 ([facility]) Blood Glucose Monitoring Suppl - UNK 04/10/2020 12:00:00 AM EST active Blood Glucose Monitoring Suppl - eCW1 ([facility]) Lancets Misc. - UNK 04/10/2020 12:00:00 AM EST active Lancets Misc. - eCW1 ([facility]) Lancets Misc. - UNK 04/10/2020 12:00:00 AM EST active Lancets Misc. - eCW1 ([facility]) Lancets Misc. - UNK 04/10/2020 12:00:00 AM EST active Lancets Misc. - eCW1 ([facility]) Test Strips - UNK 04/10/2020 12:00:00 AM EST acti ve Test Strips - eCW1 ([facility]) Test Strips - UNK 04/10/2020 12:00:00 AM EST acti ve Test Strips - eCW1 ([facility]) Test Strips - UNK 04/10/2020 12:00:00 AM EST acti ve Test Strips - eCW1 ([facility]) Blood Glucose Monitoring Suppl - UNK 04/10/2020 12:00:00 AM EST active Blood Glucose Monitoring Suppl - eCW1 ([facility]) Lancets Misc. - UNK 04/10/2020 12:00:00 AM EST active Lancets Misc. - eCW1 ([facility]) Blood Glucose Monitoring Suppl - UNK 04/10/2020 12:00:00 AM EST active Blood Glucose Monitoring Suppl - eCW1 ([facility]) Test Strips - UNK 04/10/2020 12:00:00 AM EST acti ve Test Strips - eCW1 ([facility]) Blood Glucose Monitoring Suppl - UNK 04/10/2020 12:00:00 AM EST active Blood Glucose Monitoring Suppl - eCW1 ([facility]) Test Strips - UNK 04/10/2020 12:00:00 AM EST acti ve Test Strips - eCW1 ([facility]) Test Strips - UNK 04/10/2020 12:00:00 AM EST acti ve Test Strips - eCW1 ([facility]) Blood Glucose Monitoring Suppl - UNK 04/10/2020 12:00:00 AM EST active Blood Glucose Monitoring Suppl - eCW1 ([facility]) Lancets Misc. - UNK 04/10/2020 12:00:00 AM EST active Lancets Misc. - eCW1 ([facility]) cefdinir 300 MG Oral Capsule Cefdinir 300 MG Cefdinir 300 MG 04/04/2020 12:00:00 AM EST active Cefdinir 300 MG e CW1 ([facility]) cefdinir 300 MG Oral Capsule Cefdinir 300 MG Cefdinir 300 MG 04/04/2020 12:00:00 AM EST suspended Cefdinir 300 M G eCW1 ([facility]) cefdinir 300 MG Oral Capsule Cefdinir 300 MG Cefdinir 300 MG 04/04/2020 12:00:00 AM EST suspended Cefdinir 300 M G eCW1 ([facility]) cefdinir 300 MG Oral Capsule Cefdinir 300 MG Cefdinir 300 MG 04/04/2020 12:00:00 AM EST active Cefdinir 300 MG e CW1 ([facility]) cefdinir 300 MG Oral Capsule Cefdinir 300 MG Cefdinir 300 MG 04/04/2020 12:00:00 AM EST suspended Cefdinir 300 M G eCW1 ([facility]) cefdinir 300 MG Oral Capsule Cefdinir 300 MG Cefdinir 300 MG 04/04/2020 12:00:00 AM EST suspended Cefdinir 300 M G eCW1 ([facility]) cefdinir 300 MG Oral Capsule Cefdinir 300 MG Cefdinir 300 MG 04/04/2020 12:00:00 AM EST suspended Cefdinir 300 M G eCW1 ([facility]) cefdinir 300 MG Oral Capsule Cefdinir 300 MG Cefdinir 300 MG 04/04/2020 12:00:00 AM EST suspended Cefdinir 300 M G eCW1 ([facility]) cefdinir 300 MG Oral Capsule Cefdinir 300 MG Cefdinir 300 MG 04/04/2020 12:00:00 AM EST active Cefdinir 300 MG e CW1 ([facility]) Blood Glucose Monitoring Suppl w/Device UNK 04/01/2020 12:00:[address] active Blood Glucose Monitoring Sup pl w/Device eCW1 ([facility]) Semglee 100 UNIT/ML Semglee 100 UNIT/ML 04/01/2020 12:00:00 AM EST active Semglee 100 UNIT/ML eCW1 ([facility]) Semglee 100 UNIT/ML Semglee 100 UNIT/ML 04/01/2020 12:00:00 AM EST active Semglee 100 UNIT/ML eCW1 ([facility]) Blood Glucose Monitoring Suppl w/Device UNK 04/01/2020 12:00:[address] active Blood Glucose Monitoring Sup pl w/Device eCW1 ([facility]) Semglee 100 UNIT/ML Semglee 100 UNIT/ML 04/01/2020 12:00:00 AM EST active Semglee 100 UNIT/ML eCW1 ([facility]) Semglee 100 UNIT/ML Semglee 100 UNIT/ML 04/01/2020 12:00:00 AM EST active Semglee 100 UNIT/ML eCW1 ([facility]) Semglee 100 UNIT/ML Semglee 100 UNIT/ML 04/01/2020 12:00:00 AM EST active Semglee 100 UNIT/ML eCW1 ([facility]) Blood Glucose Monitoring Suppl w/Device UNK 04/01/2020 12:00:[address] active Blood Glucose Monitoring Sup pl w/Device eCW1 ([facility]) Blood Glucose Monitoring Suppl w/Device UNK 04/01/2020 12:00:[address] active Blood Glucose Monitoring Sup pl w/Device eCW1 ([facility]) Blood Glucose Monitoring Suppl w/Device UNK 04/01/2020 12:00:[address] active Blood Glucose Monitoring Sup pl w/Device eCW1 ([facility]) Blood Glucose Monitoring Suppl w/Device UNK 04/01/2020 12:00:[address] active Blood Glucose Monitoring Sup pl w/Device eCW1 ([facility]) Semglee 100 UNIT/ML Semglee 100 UNIT/ML 04/01/2020 12:00:00 AM EST active Semglee 100 UNIT/ML eCW1 ([facility]) Semglee 100 UNIT/ML Semglee 100 UNIT/ML 04/01/2020 12:00:00 AM EST active Semglee 100 UNIT/ML eCW1 ([facility]) Blood Glucose Monitoring Suppl w/Device UNK 04/01/2020 12:00:[address] active Blood Glucose Monitoring Sup pl w/Device eCW1 ([facility]) Semglee 100 UNIT/ML Semglee 100 UNIT/ML 04/01/2020 12:00:00 AM EST active Semglee 100 UNIT/ML eCW1 ([facility]) Blood Glucose Monitoring Suppl w/Device UNK 04/01/2020 12:00:[address] active Blood Glucose Monitoring Sup pl w/Device eCW1 ([facility]) Semglee 100 UNIT/ML Semglee 100 UNIT/ML 04/01/2020 12:00:00 AM EST active Semglee 100 UNIT/ML eCW1 ([facility]) Blood Glucose Monitoring Suppl w/Device UNK 04/01/2020 12:00:[address] active Blood Glucose Monitoring Sup pl w/Device eCW1 ([facility]) Blood Glucose Monitoring Suppl w/Device UNK 04/01/2020 12:00:[address] active Blood Glucose Monitoring Sup pl w/Device eCW1 ([facility]) Semglee 100 UNIT/ML Semglee 100 UNIT/ML 04/01/2020 12:00:00 AM EST active Semglee 100 UNIT/ML eCW1 ([facility]) sodium chloride (preservative free) 0.9 % [...] For 30 days, Pre-op [Order [address]] [facility] Medication administered onsite sodium chloride (preservative free) 0.9 % flush 10 mL 26389- 186-00 01/01/2020 10:14:38 AM EDT 10 mL Intravenous active 10 mL, Intravenous, Continuous PRN, Line Care, Starting Tue01/01/20 at 1014, For 30 days, Pre- op
Verify blood return before use. For deaccessing: flush with 10 mL Sodium Chloride 0.9 % followed by 5 mL Heparin 100 units/mL. Flush per CM C-34C Central Line Policy for [facility].
[facility] Medication administered onsite 3 ML [...] CM C-34C Central Line Policy for [facility].
[facility] Medication administered onsite heparin sodium, [...] CM C-34C Central Line Policy for [facility].
[facility] Medication administered onsite sodium chloride (preservative free) 0.9 % flush 10 mL 28681- 186-00 01/01/2020 10:14:37 AM EDT 10 mL Intravenous active 10 mL, Intravenous, Continuous PRN, Line Care, Starting Tue01/01/20 at 1014, For 30 days, Pre- op
Verify blood return before use. For intermittent access: flush with 10 mL Sodium Chloride 0.9 % followed by 5 mL Heparin 10 units/mL. Flush per CM C-34C Central Line Policy for [facility].
[facility] Medication administered onsite Dicyclomine Hydrochloride 20 MG Oral Tablet Dicyclomin e HCl 20 MG Oral Tablet Dicyclomine HCl 20 MG Oral Tablet 06/19/2019 12:00:00 AM EST 20 mg Oral active Chronic abdominal pain Take 1 tablet by mouth Th ree times daily [facility] Chronic abdominal pain Insurance Providers Payer name Policy type / Coverage type Policy ID Covered constitution party ID Covered constitution party's relationship to white Policy White Plan Information MEDICAID M [id number] Self [id number] DARWIN I [id number] Self [id number] DARWIN I [id number] Self [id number] [id number] SP [id number] DARWIN [id number] SP [id number] DARWIN CARE SD O [id number] S [id number] Managed Care Darwin P [id number] S [id number] Medicaid S [id number] S [id number] Managed Care Darwin P UNAVAILABLE S UNAVAILABLE Medicaid S UNAVAILABLE S UNAVAILA BLE MEDICAID -O/[id number] MEDICAID [id number] SP [id number] MEDICAID [id number] SP [id number] DARWIN [id number] SP [id number] DARWIN CARE [place] O [id number] S [id number] Problems, Conditions, and Diagnoses Code Display Name Description Problem Type Effective Dates Data Source(s) M79.641 Pain in right hand Pain in right hand Diagnosis 10:05:[address] [facility] Chronic abdominal pain [R10.9, G89.29], rectal bleeding Chronic abdominal pain [R10.9, G89.29], rectal bleeding Diagnosis 01/01/2020 09:57:[address] 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 Problem 09/18/2020 12:00:00 AM EDT MEDENT ([facility]) I95.1 Orthostatic hypotension Orthostatic hypotension Proble m 06/24/2020 12:00:00 AM EST MEDENT ([facility]) G25.81 Restless legs Restless legs Problem 06/24/2020 12:00:00 AM EST MEDENT ([facility]) H91.93 [id number] Bilateral hearing loss, unspecified heari ng loss type Problem 05/07/2020 12:00:00 AM EST eCW1 ([facility]) G47.00 [id number] Insomnia, unspecified type Problem 12:00:00 AM EST eCW1 ([facility]) R25.2 Cramp and spasm Cramp and spasm Problem 05/06/2020 12:0 0:00 AM EST MEDENT ([facility]) G21.8 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 Problem 05/06/2020 12:00:00 AM EST ME DENT ([facility]) G25.0 Essential tremor Essential tremor Problem 05/06/2020 12 :00:00 AM EST MEDENT ([facility]) E10.42 Type 1 diabetes mellitus with diabetic p olyneuropathy Type 1 diabetes mellitus with diabetic polyneuropathy Problem 05/06/2020 12:00:00 AM EST MEDENT ([facility]) G47.62 Cramp in lower leg associated with rest Cramp in lower leg associated with rest Problem 05/06/2020 12:00:00 AM EST MEDENT ([facility] Surgeries/Procedures Procedure Description Date Indications Data Source(s) EEG Complete STD Phys/QHP>36 HR<60 HR W/O Video 2020 12:00:00 AM EST MEDENT ([facility] EEG Complete STD Phys/QHP>60 HR<84 HR W/O Video 2020 12:00:00 AM EST MEDENT ([facility] TSTG ANS FUNCJ CARDIOVAGAL INNERVAJ PARASYMP 12:00:00 AM EST MEDENT ([facility] TESTING AUTONOMIC NERVOUS SYSTEM FUNCTION 05/28/2020 1 2:00:00 AM EST MEDENT ([facility] UPPER GI ENDOSCOPY <td>UPPER GI ENDOSCOPY</td>< td></td><td>01/01/2020 12:00 AM EDT</td><td></td><td></td> 01/01/2020 12:00:00 AM EDT [facility] Screening colonoscopy (procedure) <td>COLONOSCOPY</td> <td></td><td>01/01/2020 12:00 AM EDT</td><td></td><td></td> 01/01/2020 12:00:[address] [facility] Results ID Date Data Source [id number] 02/18/2021 07:21:33 AM EDT [facility] Name Value Range Interpretation Code Description Data Sophia rce(s) Supporting Document(s) Progress Note [facility] WWSHOu5lNyNDWyAl83/INExpTYHqr1BhEHqyELw4BXikTFBrX6GjQYE4rL2iOPA3RImJXyTcCfOjIYNd lbm [file] Ej4OLBd0DbTSWsRcNM2OFMt= ID Date Data Source [id number] 02/16/2021 06:42:03 PM EDT [facility] Name Value Range Interpretation Code Description Data Sophia rce(s) Supporting Document(s) Progress Note [facility] NGWBXb8lDjKYFfHe77/UXBarFQMte9MqQYlfZVx9GVxvZZHoL5ZbMXJ7zL7rIBJ0MNePJaNyPhGsBETy lbm [file] AgICAgICAgICAgICAgICAgICAgICAgICAgICAgICAgICAgICAgICAgICAgICAgICAgICAgICAgICAgIC AgICAgICAgICAgICAgICAgICAgICAgICAgICAgICAgICAgICAgICANCiAgICAgICAgICAgICAgICAgIC AgICAgICAgICAgICAgICAgICAgICAgICAgICAgICAg ICAgICAgICAgICAgICAgICAgICAgICAgICAgICAgICAgICAgICAgICAgICAgICAgICANCiAgICAgICAg ICAgICAgICAgICAgICAgICAgICAgICAgICAgICAgICAgICAgICAgICAgICAgICAgICAgICAgICAgICAg ICAgICAgICAgICAgICAgICAgICAgICAgICAgICAgIC ANCiAgICAgICAgICAgICAgICAgICAgICAgICAgICAgICAgICAgICAgICAgICAgICAgICAgICAgICAgIC AgICAgICAgICAgICAgICAgICAgICAgICAgICAgICAgICAgICAgICAgICANCiAgICAgICAgICAgICAgIC AgICAgICAgICAgICAgICAgICAgICAgICAgICAgICAg ICAgICAgICAgICAgICAgICAgICAgICAgICAgICAgICAgICAgICAgICAgICAgICAgICAgICANCiAgICAg ICAgICAgICAgICAgICAgICAgICAgICAgICAgICAgICAgICAgICAgICAgICAgICAgICAgICAgICAgICAg ICAgICAgICAgICAgICAgICAgICAgICAgICAgICAgIC AgICANCiAgICAgICAgICAgICAgICAgICAgICAgICAgICAgICAgICAgICAgICAgICAgICAgICAgICAgIC AgICAgICAgICAgICAgICAgICAgICAgICAgICAgICAgICAgICAgICAgICAgICANCiAgICAgICAgICAgIC AgICAgICAgICAgICAgICAgICAgICAgICAgICAgICAg ICAgICAgICAgICAgICAgICAgICAgICAgICAgICAgICAgICAgICAgICAgICAgICAgICAgICAgICANCiAg ICAgICAgICAgICAgICAgICAgICAgICAgICAgICAgICAgICAgICAgICAgICAgICAgICAgICAgICAgICAg ICAgICAgICAgICAgICAgICAgICAgICAgICAgICAgIC AgICAgICANCiAgICAgICAgICAgICAgICAgICAgICAgICAgICAgICAgICAgICAgICAgICAgICAgICAgIC AgICAgICAgICAgICAgICAgICAgICAgICAgICAgICAgICAgICAgICAgICAgICAgICANCjw/oLZoI8jbxO DgqfA1X3rtKm3BEw9SAX3zy5FtCDZmATtmkyZuTkdK AqSlKWQbQosGTwm2FCflAJ4GjWHuF3SnA1MfUHjxCT2HNKKlRGIqrJCzXEKxLHBuLxB7SSDvTLhfGU6U oLPsWLpnQYUwBSGnPB9CTSZpJ493ruKfQH4IUy8JRrNpOB5vzy7QIVtaVIKyHviMPxy5JJenNB3VjNCj bVYpNCAlFIZIGqQaZ8lpq5QcCpNdCJCVTOipSN6Xj3 VudCAxDQo+Ir5GVJ3hw9XxRUlwZUCwAP9zth6KKPuFGdDtF2RxkKfmKCYff9poRNGvCN0jzUMoQUO1UV Uiy64jbuAKOQCwXBZzOSqrSDOiIPIgWMOtJS6rRIMmMYD8HxQ2PXXQYS5ONEAzSNRvdICsUCSoNULOYR 5DRKnxXKJ4GQUpjbDfmRRbEEmfQX1NGJFtmbKyXCub MCBSDQo+Mm9DGR6yw6YmUXwpIVJgIK9vyq2SKLeLJiDjW7K0dXVqL4L3MNfhHe7LBPXnDKNwRHapDTLX WRywQU1KLL0oczY5XL0ZxPNoDJUzWPJbiGNaTJc4X58pzRNpQMxmMT0BVBK+Lynda+Tp9ZYNOuIQXaGWNn KpPaJUBEXzIvB8RpL6UQp8HyF8LnBI48rLfumtTqDK ieRZ7EPW2sJNNoAWVQJT5YfNJkvC3hgaZcETLcSJMLRdYtD61qaELxPWBpTUN7AYIdPj0JFCWpF9Yvef UenCdqlwAiYSKmMZEEDM4UIOnidsSqpZYtvSfyLG13hXcvTJ1RZr5ZKeCwHL1kua5DnPBaOu5XTOKrZk 7SZVNnOYJuTVHbLQU2YQFpFlStEFjeLSHoTQZaYSI3 OGAwRDOhFE4UJfPsOKCaOAe5GdssVXFpOZVzva5XFNVjPOHnWOV8GrVrOMBiDKRsVUghIUYoNSWiJZB1 NPSqHAHoHA4VCnZtICFuJZN3RJKaBNZgCBXpsj6LPEVgOPWcMdCkCKTsZMUdEBWzTSwqSMBxNNThFIT4 PTYqFCIhYT2SJqGuEJEtSWMuIeKkEKWrQNLbzv5QKF CrETFvXTX3UdDwTPIpJGCpYMlxNXMxXBU6JxKfTVFlRQXoGL5NKkAwGKHtDLS8FYZmWPIbOODiob2KDC NjZFGyMBR0KXFbACWxZKYvTQyzFYBnTPZ9TAG3ADFcCADiIG3CXpAmQMAsOBonQsIcVGYkLOFfmq5UGD VbXWSvPeQ8LOQgSRSgKHGmBPusBECzNZK5MVVgWEKj BSQzNT1WDlZpHHZaXAr1QOPzGEAiFYUxwu5RXZSxYJFaCQV9WsSuHGOyRRMcYLssIPIpTTL6Wwi3NLTr JIDnLP9PTgYwNTCgBXo8RrMcDXCbWCSgys0YUBZrFRTmQUKbTADaESLtOTHnQAo2xmXyvYCaWLq7LE3G K6ToijBgJlBQFp4Bf393LMGaVTXrVq9DE4rzXa4tEC BhXCXOAr9PEUx0EZB9JjFnWcOwGhM7CyV1SgJiTMHfLGd3MWEhBgJoAxA+QBq2DDVaEgCkYEM0Auv8ZL dwZORiHOGyBCApDjO6OXVcWg9kKDELPx5+ESyzvEJakSgeODRZAcPqIzK4UHrzWYBEXm2K ID Date Data Source [id number] 01/06/2021 10:50:00 AM EDT [facility] Name Value Range Interpretation Code Description Data Sophia rce(s) Supporting Document(s) SARS coronavirus 2 RNA [Presence] in Res piratory specimen by CRISTI with probe detection NEGATIVE [facility] This lab was ordered by [facility] a nd reported by [facility]. ID Date Data Source [id number] 12/31/2020 09:38:00 AM EDT [facility] Name Value Range Interpretation Code Description Data Sophia rce(s) Supporting Document(s) SARS coronavirus 2 RNA [Presence] in Res piratory specimen by CRISTI with probe detection NEGATIVE [facility] This lab was ordered by [facility] a nd reported by [facility]. ID Date Data Source [id number] 12/27/2020 12:38:00 AM EDT [facility] Name Value Range Interpretation Code Description Data Sophia rce(s) Supporting Document(s) SARS coronavirus 2 RNA [Presence] in Res piratory specimen by CRISTI with probe detection NEGATIVE [facility] This lab was ordered by [facility] a nd reported by [facility]. ID Date Data Source [id number] 06/15/2020 10:34:46 AM [facility] Name Value Range Interpretation Code Description Data Sophia rce(s) Supporting Document(s) Progress Note [facility] DBLBSb0pFeLDKrDa33/ZDRraYZYru4TfXZecHYa5BDpoCMGtA1DmUWZ3jB3fMWH9HUmNOuGnVxMpNmP1 lbm [file] RzKDT2RFLnUACwKXB3OZWzBpMfUaFdBW9SMm4TTzA1GJC0aSOsTt5DRyMzCKaXUvUnXK1VSXs= ID Date Data Source [id number] 06/13/2020 10:43:57 PM EST [facility] XR HAND 3 OR MORE VIEWS 04858KTCER RESUL TInterpreted by:Newton Rao hand 4 viewsINDICATION: [...] rce(s) Supporting Document(s) ID Date Data Source [id number] 06/13/2020 11:31:41 AM EST [facility] Name Value Range Interpretation Code Description Data Sophia rce(s) Supporting Document(s) Progress Note [facility] PJSUFj4jAzDSHfOc97/UCIvtRXSmd7FeVQyaTAx2RFslJGOkC0CwAJM7xF2lWQH7OYxOMdSoEhGiGgM4 [facility] ObTmeUTiTuSHCvGuhSFxVlXYacGwdubJVhVB6DkUZ0XZYpM98eQOOyGJIhC3WcYLTfOfO+Cy7QYVWvdL UzPE0XNwqU4R7cSqXYPy0GdQ/ISnHvN3FD+gFIiBJNPEHPpopFqeh8Hqr9pTSW6hIF9p37ZZ/PYKoYPl ktYWFdGafJ7Iu5LSm80VgSnvFD/u//wee4HemE69/3 q7wsulnE9mdo8YFr44lCW/nUUjQDplSNdK3F/wpwlnxa2jA2csCbhhv7xq97MFNmja0EXkTz+UmSD2Js r3TKmoCfW0l0qJb9yEMYFU+XzujHhBYneTEIdWmWl/xAlzZISZHSnibjupVU+6AIwEEZZ6TCcJ9Hc/Ax FflHP9tYbxwywxA43iLF2zykrtxNmZRAujqvBaa6hJ DiKhI5fCHNPq/8kJd/1ee4qDHOrxKKfdiHk/6EYMiwkudAw5/sAhoOQLmJvcEeb705gRMn0boj7SMGi3 f7VlWxm4kLIy6ZKJHYqBJs3IVsDntApnp2WMQE3LYhfycorvl6115o9Osed6kk4Qad2iFl8YUME4+OBl NzM+PEob/gZWjKt+pB74pKxIjNobkesOAl9PUw580V v5uV65PxS8veGW4ypJrNLf/9o4ijwTU8aQSgUgWOyqi+pACXlZktKtWVu3Gsw22hE5cOxNFL1027m94I +P8I32CyzZf31OeX91RBg2p3WVlzS2P1WRPzcEX1sV3dufOyhj7BpH6Y8ZdYdMKMLdrNvpj7eR/y25E6 /eGruvDRygfsFQOqPZBdxbFxfBNxXeun2C+GkbsZeN n//fDqP+q8LiLnGQaMhlJOwbQd5JTMsyrKMscxnzb6ePKmgMYejSTi/HszbIdQ1RqRfnMhLMrLh0aWhG 4StM9BzhFbV2xJOgZMon/kycjeGHQGPO+B/ShlHlyj6iWi4n4Y0n2kgqa9Ay7d8BuxwIyWdooHfgrary 0s4uRc3JS6zHbG1Y02ZBtfmIS8rgA7Ab3Ib8g16y81 [file] W09cN/VdqXBfgcTH361c3t7S+qCyQgYqKM9Fv737ab5okiy6NB2W8LabXYfTUn8f+iHf2tBIR7[facility]re[facility] [file] DwBpVV2DCh5JRnO5YRY1vQJnId8ILnG5JGZEMnKiUQ1TGYl= ID Date Data Source [id number] 01/31/2020 08:55:50 AM EDT [facility] Current Problems: DENTAL CARIES EXTENDIN G INTO PULP (ICD-521.03) (ICD10- K02.63)Current Allergies: * LATEX (Critical) Dental Chart: Procedures:Type - CDT Code - Description B - (D0140) Limited oral evaluation - problem focused on Tooth # 30 (Performed by Guille Wong DDS) Existing:Type - CDT Code - Description[E] Missing - [place] and Root On #1 Surface O Region [...] rce(s) Supporting Document(s) ID Date Data Source [id number] 01/01/2020 02:11:19 PM EDT [facility] Name Value Range Interpretation Code Description Data Sophia rce(s) Supporting Document(s) Progress Note [facility] IERMNj5yHxRVBzOs69/WTNdzDYTlx3RxNMajQRh0CRrqVXTzA1WkOPL5zY6dPCF6CJaCCdLlKwSoTSF6 [facility] [file] AgICAgICAgICAgICAgICAgICAgICAgICAgICAgICAg UUAaQUYyJSFbHEPxKVIcCKLdQNLnTGUbTXOiIJ3NGCRaHPRtNOMuAVHjWAHzXXLkOFUtLZHwUTIkTXEj ICAgICAgICAgICAgICAgICAgICAgICAgICAgICAgICAgICAgICAgICAgICAgICAgICAgICAgICAgICAg TOHyYKTzTGOdRQ4CGROePVIhHPWbMVHpXMYxUUXkRA AgICAgICAgICAgICAgICAgICAgICAgICAgICAgICAgICAgICAgICAgICAgICAgICAgICAgICAgICAgIC AhZGMhXFKrHEKkNYYwXLHyDZOiFM0JMXDqZWNwNEFnASPtJRQfZMUgATAgEIMwXBXlJQHaQOLcIFEeCX AgICAgICAgICAgICAgICAgICAgICAgICAgICAgICAg CFAaUNQfTSWpXNRgKGQhTBPmWEKuUIRmABYvJEZzXS1HHOUqBQBiEQXsMGDaRZGkXBPeZVDpWDLnKWAe ICAgICAgICAgICAgICAgICAgICAgICAgICAgICAgICAgICAgICAgICAgICAgICAgICAgICAgICAgICAg XGYqFHKsLJRtFGBqUE8YLRQeGLOlMCRmULQtSHLfFV AgICAgICAgICAgICAgICAgICAgICAgICAgICAgICAgICAgICAgICAgICAgICAgICAgICAgICAgICAgIC XiMKYlWGRjCTWqYIFrTIVzSVXmWRAaFA2ZDPEwADTmKQIeIGJeNYXzFGRqIWPjZNHnYDYdHVLxYLHpMM AgICAgICAgICAgICAgICAgICAgICAgICAgICAgICAg QFUbDRVtMUPoQVFsQYSnZBJgOULyQGPgSBEzGEFoBRKdZZ1ZXHClEIIgMFPqZZNwJZQcFQPcZWIkWMAn ICAgICAgICAgICAgICAgICAgICAgICAgICAgICAgICAgICAgICAgICAgICAgICAgICAgICAgICAgICAg DZHiLCUeIYLzIMXnKOOhHA1BXKYsKBGtSZNpQJSqJW AgICAgICAgICAgICAgICAgICAgICAgICAgICAgICAgICAgICAgICAgICAgICAgICAgICAgICAgICAgIC HfPUVaQFSlRYGtEBYcYIAsFPSjOIWhFSNlME9OFJKtZQIhBCHmXKRzJJOiSQUgXQYdYMVbJPJkJSWjZC AgICAgICAgICAgICAgICAgICAgICAgICAgICAgICAg OUJaJMFbVLVoICZkGODdLGOjUGZcUNVsXHGdPFUeGMZxATHdIG3ZFW82bBBbo1U6OJTwUM6rofe/Pg0K QRfijvDbqVQvFO6QQdXrZX4ooa4NTdPtKU6mkt1EUBqUSiVhH6S2vCDyVOHtMIMTQlBmO96wHZfyXg22 RMemVNSkWfChSYy1Ob1EMiEuE0rsQMMeFhR8OZAvTk ZkBQhxFC0Ht5HlmQIjPPc+Dn7PEY2fj8FzVCjgCJSkCP6avg3SAHoARgJtD2ItxmF4GRN7CZGxAg5KNX OiTHAtvRBlDWUyKKRWUoNoO9QydI52KFDCOv2+PRyycoRyFboWZaN0MYXdy7LyDQf3VI7SKEKbMPg1vA ZvJQMmC6Xrv5PdPn86EWTfXoubGRSdnYIpKpJOjMoc batqEo6bPKHtJH7nCQ3cHFXoRVOeGtI0HCONUC8VGIVeSDRdiTKoMRYhYIDQKY1TRWgyYXS6IRYcibFg aUApTBfyES1BIIJwxwHxFAPqJEUQIMj+Pf5NKQ0da3KcIPlyBjTcMR4tcg6ZPRwSFsXrE0B8gSFfC5K2 ERqzAj5RAVGkIQSbTXJxHRBRHIggOA4GUA3qxwM3FU 3DoULfOCZlJCXopKGyDTp4I48paONwLOvsRI3HJYQ+Lynda+Mz9GRQYeLEZsDVObWjXtKIQKJhPxD5OrA5 QHj1FiX6VxJW69wEzflyGlRUluIG8KDY5lRFNdKUVWIB4JePBsgC6xtuMrNQUwGFAWSjHsR20eaOTbJV JoZVQdKCLlTw4TUTApZ6RmvaGnnMujwxYpOMPqDFMX HI1CWJiwytLqmIYngSsoYF59zGvyYS1FPh3EDuArEM0som4PqZNbYl6ASIIgOk2LEJWlKENxDSVyLVI9 QBJaQwNbOEtbXPSrBVUnEUK3WZUcIICzTP4RRaJmDVHiUPW9YuPxEPEqKHCldn8GGTRjJTDmQnP1UWHx HKQzDERePLsrNWPpRRYkNGB0ARRxCIWbYT5LJmTaLB GyPOP6VREsYUFgNUCbrr1MQOCvZWAtQzXpEQIlRRKzHGYoYPohXMVgLQJiVBd6FQShOSRnZW1CMwSpDH MzTOItCwCjPIYdBXEdir9IQGDiNSZuUsY6YhIuYVEoFCVhBEzvDIRoCVU5LlZvXRUtGOJlEG9QJyCjDJ KlCTG9EMAcNEWvCSJehp5TFGYmKPAsMUnkGKMaJAFy EEWwAVpyGBNuKXE9BYS7RDHtYSWbZA5RMwEvOWOgWVA6TCSvKXXnLOHhfo6LGCBpIQAvOkRjTjRhQOOt YOIeNQrjKAKoSNW3QuEtMFUfBJLsQT8CPeEbQZhlNPZCHze2VCuhA5s7ZLCwWg8DM3Umz5XdYZJyMXNV GTilNN3kykLlNOJqWq6WY4yGTyt3NPP8TWN4KQKgZK rhLqm5BsO1HhUlSxRdD4IaPmjjEA5kLBU3XVEmIpdoGbZbYGWkXQzeUpfvHWZ2UEZ5EyBaACBqKfDvKI 2MBp4YHyN5BLB9yCYpHn0FHqBdWQ3HUJIVJ8MICu== ID Date Data Source [id number] 01/01/2020 01:14:13 PM EDT [facility] Name Value Range Interpretation Code Description Data Sophia rce(s) Supporting Document(s) History and Physical [facility] JHEDPl3rDcBRVdFj63/YFLqwPCTys8GtDGgdBKh5YWjkEJGoT1YmKDU2xT9oVWZ8ZKmTXnBwDiQnVOP7 lbm [file] E+DQogICAgICAgICAgICAgICAgICAgICAgICAgICAg ICAgICAgICAgICAgICAgICAgICAgICAgICAgICAgICAgICAgICAgICAgICAgICAgICAgICAgICAgICAg ICAgICAgICAgICAgDQogICAgICAgICAgICAgICAgICAgICAgICAgICAgICAgICAgICAgICAgICAgICAg ICAgICAgICAgICAgICAgICAgICAgICAgICAgICAgIC AgICAgICAgICAgICAgICAgICAgICAgDQogICAgICAgICAgICAgICAgICAgICAgICAgICAgICAgICAgIC AgICAgICAgICAgICAgICAgICAgICAgICAgICAgICAgICAgICAgICAgICAgICAgICAgICAgICAgICAgIC AgICAgDQogICAgICAgICAgICAgICAgICAgICAgICAg ICAgICAgICAgICAgICAgICAgICAgICAgICAgICAgICAgICAgICAgICAgICAgICAgICAgICAgICAgICAg ICAgICAgICAgICAgICAgDQogICAgICAgICAgICAgICAgICAgICAgICAgICAgICAgICAgICAgICAgICAg ICAgICAgICAgICAgICAgICAgICAgICAgICAgICAgIC AgICAgICAgICAgICAgICAgICAgICAgICAgDQogICAgICAgICAgICAgICAgICAgICAgICAgICAgICAgIC AgICAgICAgICAgICAgICAgICAgICAgICAgICAgICAgICAgICAgICAgICAgICAgICAgICAgICAgICAgIC AgICAgICAgDQogICAgICAgICAgICAgICAgICAgICAg ICAgICAgICAgICAgICAgICAgICAgICAgICAgICAgICAgICAgICAgICAgICAgICAgICAgICAgICAgICAg ICAgICAgICAgICAgICAgICAgDQogICAgICAgICAgICAgICAgICAgICAgICAgICAgICAgICAgICAgICAg ICAgICAgICAgICAgICAgICAgICAgICAgICAgICAgIC AgICAgICAgICAgICAgICAgICAgICAgICAgICAgDQogICAgICAgICAgICAgICAgICAgICAgICAgICAgIC AgICAgICAgICAgICAgICAgICAgICAgICAgICAgICAgICAgICAgICAgICAgICAgICAgICAgICAgICAgIC AgICAgICAgICAgDQogICAgICAgICAgICAgICAgICAg ICAgICAgICAgICAgICAgICAgICAgICAgICAgICAgICAgICAgICAgICAgICAgICAgICAgICAgICAgICAg EJMaZSUbKVFoHWHmACJqXHGmRZWcVYr6W3akOBRoTHCfLS5tIGp3Id3+OShBObDgUJC8tpMsmI8EPM5a z9RwVHhvJGTdh6PkQYx0XL1JHWIlBZjyZW7TWWagcx 6NVCEpKRQrrVSPg6pnRrWuQEX2YAOpKexkBJ8EFIUaK2kkoeObVTHmNOBPROaoNYCTUGooIRGAFN4LXg QkD6NmiG86RBKPXv4+JQavqeReVitEKqR8PWFsj5AzPBe7AB7YPSRxPbjdb5MkRofwRGYZMCbfOR4IFB E2GUR8DBJhJv3ZALCaI508luSeQJ9NPf5XXxObRB6g qo8VSnaaJREkHtwBCon0ZLouEH5BtRKiEMmPVbBlRqarEUi9PMrqUHVsy9NiONswHQQgXCLyJZ3wKM2r BMGrHYCsUgRnHEEKXL7JMVRbLFJegRHrTVMgHCFHOS3NZXykTHC0JWWsylCbzVEwJByoIB7YRMPvopHm MjYgMCBSDQo+Ym8UTF1ct3QdCFzsXCPnLC9uim5EIJ lWWlNyJ7P0rYVuG9W4ODnoLu7UNJAtYASbGkYtHBULHUgiIG3WUA4dicH0YR1JsREgCCOgQTTlbJTjFB e1P22mtROnWNezPA5JCYI+Lynda+Gj8HTHIdGAMsIJHzCvXsYFNPLtOgL5FlA8TAg3XyP2IpUK80iVovxl CkCPwzMO3IPX2aIINnYIASEM1FzQJstF1khtFqFxJc RHOUQuBkH06hyBViCFFkZOE9YKTsNq7RTHObH7SjwcQmhDrjtzQmIMJkUJIGYW8AYOfzjoDxfMZmbKuh AT60jLliWD4AXw9GTcVcTG9qkj3DwSUlDx9CTQTiAH9JJSZpBVJkNBLqBNR8JMYoUiPxWQvyWJVmMILg KLC5WHBuTPQaFW1ZKhKyNBVnPgE7PwKlHVXbLQRaik 4BEBXiRYBaAAZxJzFyQNWlJSSeGOspPYKxYWRlSAT2APTcLLGxQV2RDcHdGPOtWRMaAGOqMPRdSGJlhi 1QLSVfCXEhNmZ6NhXbWEUsDBMcKVqrLJQvVBJ6ODC2RSCwIETfRV4VUfJyIFJlQIpbYDPnCLHeBCRipn 7IJTVbHFByYHX2DPFfIAXnHWNjBPqqSHUxZIPaSRL8 CKBgTGWlQB8HQnAiIEJhHOK7SSQuIRKiVCYotz5JKIYbVDMdDGurVOYqMUOmQHTsYZdxYLYkOQJxCHb7 BVNuTNRqMV4WUmMrBHMtWBZ4PBFyZNWcDCWfqd7XWXDpZNAsAkH2IVNaLPSpSWNsURrnWJHzMAZlVzUk MCDrKWXbOV8ETlRcJATwCwS1YrbuAIVuBDGwuv3DBX GfQJAfSKe2MeFbKIWlUUKcIUwjWVSwRWU9LIB7GPGgPYVlJT0NNtZgMAIoWeAkGJMxJKFdDVXasn1BNJ AaAXUnNZO4ABBbNTFyODCjAQpwVOOrLBB3UXb3HFEcLQFaKZ2LRsCnEFKkDqN7WkByLQVbNALlbt2CYU CxHJDpUoz2NXUoBFZoNMCkUVmnFVIfEWM5VzE4MMVv WAIbAL0OOrBzZJHzCid3FSxmYSElMEHsxg8BEFAdVIVeVAl3YYObQNVpBEGsQUzpZXCnDZZ9TOC5EIYn GHNzBP9KMbQjFZbjEICMXrv8MDlqF9o6ISNsCU9RN9His2BjIzmoTMQEUMbtBN6psqUxLIXuGa4OY3kO KgnvJXJ3RKDoPLUfZSF7DBKsFxz2LLCyDUVsFkQkNW N8PV3jFZD9Ayi8PzZmCZFhALCuORRoObBkW4KhFDE8KXO5VVi6JnQhLO1ECx7HUvP3XAM8iCCmTu6NZm soNqhXGzVoXZ5BCOn= ID Date Data Source [id number] 01/03/2020 12:43:00 PM [facility] Surgical Pathology ReportName: AMY MADDENMRN: [id number] Number: [id number] Date: 01/01/2020 00:00Received Date: 01/01/2020 13:50Physician(s): ANA [...] diagnosis is based on amicroscopic examination of international sales representative sections of tissue.Gross DescriptionThe specimen is [...] developed and their performance characteristics determined by [facility] Pathology department. They have not been cleared or approved by the USFood and Drug Administration. The FDA has determined that such clearanceor approval is not necessary. Name Value Range Interpretation Code Description Data Sophia rce(s) Supporting Document(s) ID Date Data Source [id number] 12/28/2019 11:50:08 AM [facility] Service Cmnt XXX-Imp : NoneMicroorganism XXX Cult : 2019 nCoV Real-Time RT-PCR: NOT DETECTEDThis test method was designed to detect the causative agent of COVID-19. The Dept. of Pathology [facility] [place] has Emergency Use Authorization (EUA) from the FDA to peform this test to allow for rapid response during a declared public health emergency.Initial validation was performed by the Centers for Disease Control and Prevention (CDC) and additionally validated by the Dept. of Pathology [facility]. Negative results do not preclude SARS-CoV-2 infection and should not be used as the sole basis for patient management decisions.Additional information is available on the following FDA websites for health care providers and patients. https://www.fda.gov/media/244481/download, ht tps://www.fda.gov/media/499622/download. Name Value Range Interpretation Code Description Data Sophia rce(s) Supporting Document(s) ID Date Data Source [id number] 12/27/2019 12:53:00 PM [facility] Service Cmnt XXX-Imp : NoneMicroorganism XXX Cult : 2019 nCoV Real-Time RT-PCR: NOT DETECTEDThis test method was designed to detect the causative agent of COVID-19. The Dept. of Pathology [facility] [place] has Emergency Use Authorization (EUA) from the FDA to peform this test to allow for rapid response during a declared public health emergency.Initial validation was performed by the Centers for Disease Control and Prevention (CDC) and additionally validated by the Dept. of Pathology [facility]. Negative results do not preclude SARS-CoV-2 infection and should not be used as the sole basis for patient management decisions.Additional information is available on the following FDA websites for health care providers and patients. https://www.fda.gov/media/265657/download, ht tps://www.fda.gov/media/534491/download. Name Value Range Interpretation Code Description Data Sophia rce(s) Supporting Document(s) Microorganism identified in Unspecified specimen by [facility] This lab was ordered by [facility] and reported by [facility] [place] [facility]. ID Date Data Source [id number] 12/27/2019 12:52:56 PM EDT [facility] Name Value Range Interpretation Code Description Data Sophia rce(s) Supporting Document(s) Progress Note [facility] NRMOGt3iXyXAXcJz75/ZUQlgTRMrk9YhHAhiEXz8MAvwRHZpC2MzLYV2zE4nZWJ8QJpTWbMrYeWsSHXr lbm [file] AgICAgICAgICAgICAgICAgICAgICAgICAgICAgICAgICAgICAgICAgICAgICAgICAgICAgICAgICAgIC AgICAgDQogICAgICAgICAgICAgICAgICAgICAgICAg ICAgICAgICAgICAgICAgICAgICAgICAgICAgICAgICAgICAgICAgICAgICAgICAgICAgICAgICAgICAg ICAgICAgICAgICAgICAgDQogICAgICAgICAgICAgICAgICAgICAgICAgICAgICAgICAgICAgICAgICAg ICAgICAgICAgICAgICAgICAgICAgICAgICAgICAgIC AgICAgICAgICAgICAgICAgICAgICAgICAgDQogICAgICAgICAgICAgICAgICAgICAgICAgICAgICAgIC AgICAgICAgICAgICAgICAgICAgICAgICAgICAgICAgICAgICAgICAgICAgICAgICAgICAgICAgICAgIC AgICAgICAgDQogICAgICAgICAgICAgICAgICAgICAg ICAgICAgICAgICAgICAgICAgICAgICAgICAgICAgICAgICAgICAgICAgICAgICAgICAgICAgICAgICAg ICAgICAgICAgICAgICAgICAgDQogICAgICAgICAgICAgICAgICAgICAgICAgICAgICAgICAgICAgICAg ICAgICAgICAgICAgICAgICAgICAgICAgICAgICAgIC AgICAgICAgICAgICAgICAgICAgICAgICAgICAgDQogICAgICAgICAgICAgICAgICAgICAgICAgICAgIC AgICAgICAgICAgICAgICAgICAgICAgICAgICAgICAgICAgICAgICAgICAgICAgICAgICAgICAgICAgIC AgICAgICAgICAgDQogICAgICAgICAgICAgICAgICAg ICAgICAgICAgICAgICAgICAgICAgICAgICAgICAgICAgICAgICAgICAgICAgICAgICAgICAgICAgICAg ICAgICAgICAgICAgICAgICAgICAgDQogICAgICAgICAgICAgICAgICAgICAgICAgICAgICAgICAgICAg ICAgICAgICAgICAgICAgICAgICAgICAgICAgICAgIC AgICAgICAgICAgICAgICAgICAgICAgICAgICAgICAgDQogICAgICAgICAgICAgICAgICAgICAgICAgIC AgICAgICAgICAgICAgICAgICAgICAgICAgICAgICAgICAgICAgICAgICAgICAgICAgICAgICAgICAgIC ErOGRyKCOaEYEtHLQvEUx8N0fnLYBwIVVyIO2dBZp2 Jz8+RErXOwBaGRB3izGiiJ5UKB0wf6FsQVpuBUWyj3MeKUt2UG0HWCBnVXlfDK1CNUpdus4OCNZmSXZn aYZKw1fpGwMlJZC2XHCbXphpFX2OPLOmQ9vockNeRPDrWJFVES2TYoUvM2OhlD50TKSSUt5+DQplbmRv HotUOyG0AADcf8JhIYy8DZ5CWCBbBwlio0PzDrPuMV PXICvhXR3XTSU3YAIpJEPvSv6XEUSeB914uyFkMH7AEv4OKvMvOW9blm1GOlJvIKVyXlrQOxf0ZFhyKC 4XiVUwOOvZlb1cxkVtufBRq1DclcImaRLMts9hRQ9biisiNEDwcUdaasmyJi3pDFJgOL8dZA4fOGQtRU NiMkRbQZDTVQ2TSNCxWHLrlFWxGJFcKVYIJW0YFNvb TZU3TYKdfdUmnSGmVCawRY1UBKQqydAdFEdgNUIAMSc+Wl3WZI5fa8NxTRhtWYPsND9dua1UPCqTKcCf I8C2qBDzG4F0XTnpQq6GATHvGRPfKWmjHKFCRQhxKX2SPO6aofE9HB1XdKMgKFXpZYSvxFGeATb8C74f tVGdIKlaLH5GNTQ+Lynda+Ol6EMDJfSQTeNYBbPzAnEP KEChDuY7IlA9CMa0BgJ0TkJH99pFdpfsMeSWbyBL6WMF2lTUXeAQIMHQ0ElURvjM1zubJjBBFgIPXXKf ReC65vgNSoEVYkZHQ5BBWdAc8WLOWfF8InwzUopTiijvNhGCUaWYTIJP2XMYhmtgJefJSmoDmtLW02hN skTZ5NEv2UBwVcDA9obo6HrFSuQo9AFHKoGs3YIOCt WIMsCRKfLAC2NFMbIdUuKInsTREyWSJnJTJ1OWMjMIUkUH5XXzLyFVDiFRnrYNMxMZUsZPHxpo5FVRGc HZEjVIheJfIjMTFjGEGjEMvxYEWqGMEhPRI9MZImGKFcTS4MYqMxUCJtZHX2LdQfRYTrIJBhuu6GCJXn MDAwMjEyNCAwMDAwMCBuDQowMDAwMDAzMDgzIDAwMD MvAO3NPqLyDSJzYRNdQcvnPLDgEMHnpj6SPTHmEHKdFwL2RUIiTTQfTITmFQlqKYOuXAD7VVK9UNMeEI JpFM5GOdScXBXmZZU5DQfmIKXzKGCana9XXUXlZQLsZGdbSsJtRNTjOCIfQMsdWTEeSWW1OXDbUDYwAR YyYE5LOnSgMJNeMUL2HhimUBStIMCfpk0BXWCoGJPs RmZ8HpRoYEZiFZHjIEfiPZFjDTI5EZV2WWGfLHMzQY2ISaBfMZPiFVphSeKbUEKhFCQuqb9OOYKoQVTa UoI3ClRxTJUyHVWvNDmaCBGwCKH3BPTqOUDfTKApAL3GHiWfPAUgKSe7OQOfWAEsOOBzau1TYVRmLDBp ANVbZiWrHVBeCVOeELn4wiXaaCCfQYt5SS0IQ3Gbnw IrEzBWUs4Zu090DSEfXTZjRj8OV9kzVy7eBLVvAYDADz5YVBs7EUTpAvFnNBY5KjBtGvxsOCa1ZPV9WO AwNzcwMmRhOWE+YUsyAAQaIyRnBdLsZaP7L8L5QXJqOQO3KJY9YbNuXAZ2MI2uNLLEZw1+DQpzdGFydH vjITSYCpL0Hkt0OKaiVFZQPk4B Procedure Social History Code Duration Value Status Description Data Source(s ) Smoking 01/27/2021 12:00:00 AM EDT Former Smoker completed Former Smoker eCW1 ([facility]ly [facility]) Smoking 12/28/2020 12:00:00 AM EDT Former Smoker completed Former Smoker eCW1 ([facility]ly [facility]) Smoking 05/06/2020 12:00:00 AM EST Former Smoker completed Former Smoker eCW1 ([facility]ly [facility]) Smoking 05/06/2020 12:00:00 AM EST Former Smoker completed Former Smoker eCW1 ([facility]ly [facility]) Smoking 05/06/2020 12:00:00 AM EST Former Smoker completed Former Smoker eCW1 ([facility]ly [facility]) Smoking 05/06/2020 12:00:00 AM EST Former Smoker completed Former Smoker eCW1 ([facility]ly [facility]) Smoking 04/23/2020 12:00:00 AM EST Former Smoker completed Former Smoker eCW1 ([facility]ly [facility]) Smoking 04/01/2020 12:00:00 AM EST Former Smoker completed Former Smoker eCW1 ([facility]ly [facility]) Smoking 04/01/2020 12:00:00 AM EST Former Smoker completed Former Smoker eCW1 ([facility]ly [facility]) Smoking 04/01/2020 12:00:00 AM EST Former Smoker completed Former Smoker eCW1 ([facility]ly [facility]) Alcohol intake 01/01/2020 12:00:00 AM EDT Ex-drinker (finding) comp leted Ex- drinker (finding) [facility] Tobacco use and exposure 01/01/2020 12:00:00 AM EDT Never used co mpleted Never used [facility] Cigarette pack-years 01/01/2020 12:00:00 AM EDT UNK completed [facility] Cigarettes smoked current (pack per day) - Reported 01/01/20 20 12:00:00 AM EDT UNK completed [facility] Smoking 01/01/2020 12:00:00 AM EDT Former smoker completed Former smoker [facility] Vital Signs ID Date Data Source UNK Name Value Range Interpretation Code Description Data Source(s) Body weight 116.2 [lb_av] 116.2 [lb_av] eCW1 ([facility]) Body weight 52.71 kg 52.71 kg eCW1 ([facility]) Body height 65 [in_i] 65 [in_i] eCW1 ([facility]) Body mass index (BMI) [Ratio] 19.33 kg/m2 19.33 kg/m2 eCW1 ([facility]) Heart rate 101 /min 101 /min eCW1 (Formerly [facility]) Respiratory rate 18 /min 18 /min eCW1 ([facility]) Body temperature 98.0 [degF] 98.0 [degF] eCW1 ( [facility]) Systolic blood pressure 140 mm[Hg] 140 mm[Hg] e CW1 ([facility]) Diastolic blood pressure 80 mm[Hg] 80 mm[Hg] eCW1 ([facility]) Body weight 120.6 [lb_av] 120.6 [lb_av] eCW1 ([facility]) Body height 65 [in_i] 65 [in_i] eCW1 ([facility]) Body mass index (BMI) [Ratio] 20.07 kg/m2 20.07 kg/m2 eCW1 ([facility]) Heart rate 100 /min 100 /min eCW1 ([facility]) Respiratory rate 20 /min 20 /min eCW1 ([facility]) Body temperature 97.2 [degF] 97.2 [degF] eCW1 ( [facility]) Systolic blood pressure 130 mm[Hg] 130 mm[Hg] e CW1 ([facility]) Diastolic blood pressure 78 mm[Hg] 78 mm[Hg] eCW1 ([facility]) Respiratory rate 14 /min 14 /min MEDENT ( [facility]) Body height 65 [in_i] 65 [in_i] MEDENT ([facility]) 5'5" Body weight 110.00 [lb_av] 110.00 [lb_av] MEDEN T ([facility], ) Body mass index (BMI) [Ratio] 18.3 kg/m2 18.3 k g/m2 MEDENT ([facility], ) Systolic blood pressure 140 mm[Hg] 140 mm[Hg] M EDENT ([facility], ) Diastolic blood pressure 90 mm[Hg] 90 mm[Hg] MEDENT ([facility], ) Heart rate 74 /min 74 /min MEDENT ([facility], ) [place] body weight 125 [lb_av] 125 [lb_av] MEDEN T ([facility]) Body weight 115 [lb_av] 115 [lb_av] eCW1 ([facility]) Body height 65 [in_i] 65 [in_i] eCW1 ([facility]) Respiratory rate 17 /min 17 /min eCW1 ([facility]) Body mass index (BMI) [Ratio] 19.13 kg/m2 19.13 kg/m2 eCW1 ([facility]) Body temperature 97.0 [degF] 97.0 [degF] eCW1 ( [facility]) Systolic blood pressure 124 mm[Hg] 124 mm[Hg] e CW1 ([facility]) Diastolic blood pressure 84 mm[Hg] 84 mm[Hg] eCW1 ([facility]) Heart rate 123 /min 123 /min eCW1 ([facility]) Patient Treatment Plan of Care Planned Activity Planned Date Details Description Data Source (s) pantoprazole 40 MG Delayed Release Oral Tablet 01/27/2021 12:00:00 AM EDT eCW1 ([facility]) Escitalopram 10 MG Oral Tablet 01/27/2021 12:00:00 AM EDT eCW1 ([facility]) Test Strips - 04/10/2020 12:00:00 AM EST eCW1 ([facility]) Blood Glucose Monitoring Suppl - 04/10/2020 12:00:00 AM EST eCW1 ([facility]) Lancets Misc. - 04/10/2020 12:00:00 AM EST eCW1 ([facility]) cefdinir 300 MG Oral Capsule 04/04/2020 12:00:00 AM EST eCW1 ([facility]) cefdinir 300 MG Oral Capsule 04/04/2020 12:00:00 AM EST eCW1 ([facility]) Blood Glucose Monitoring Suppl w/Device 04/01/2020 12:00:00 AM EST eCW1 ([facility]) Semglee 100 UNIT/ML 04/01/2020 12:00:00 AM EST eCW1 ([facility]) Semglee 100 UNIT/ML 04/01/2020 12:00:00 AM EST eCW1 ([facility]) Blood Glucose Monitoring Suppl w/Device 04/01/2020 12:00:00 AM EST eCW1 ([facility]) Semglee 100 UNIT/ML 04/01/2020 12:00:00 AM EST eCW1 ([facility]) Blood Glucose Monitoring Suppl w/Device 04/01/2020 12:00:00 AM EST eCW1 ([facility]) sodium chloride (preservative free) 0.9 % flush 3 mL 05:00:00 PM [facility] sodium chloride (preservative free) 0.9 % flush 10 mL 01/01/2020 10:14:38 AM [facility] sodium chloride (preservative free) 0.9 % flush 10 mL 01/01/2020 10:14:37 AM [facility] heparin sodium, porcine 10 UNT/ML Injectable Solution 01/01/2020 10:14:37 AM [facility] 3 ML heparin sodium, porcine 100 UNT/ML Prefilled Syri nge 01/01/2020 10:14:37 AM [facility] Dicyclomine Hydrochloride 20 MG Oral Tablet 06/19/2019 12:00:00 AM [facility]
[2021-02-24] MEDS ORDERED: METO5TAB2 PO (23:16)
[2021-02-24] MEDS ORDERED: LEVOTAB10 PO (23:16)
[2021-02-24] MEDS ORDERED: PRIM50TA6 PO (23:16)
[2021-02-24] MEDS ORDERED: LEXA1TAB PO (23:16)
[2021-02-24] MEDS ORDERED: PANT-23 PO (23:16)
[2021-02-24] MEDS ORDERED: SYNT150T PO (23:16)
[2021-02-24] MEDS ORDERED: CHLO125TA PO (23:16)
[2021-02-24] MEDS ORDERED: TEMO0.0517 TOP (23:16)
[2021-02-24] MEDS ORDERED: ENOXAPARIN 60MG/0.6ML SYRINGE (J1650 PER 10MG) SC ONE (23:20)
[2021-02-24] MEDS ORDERED: DEXTROSE 50% 50 ML SYRINGE IV PRN (23:20)
[2021-02-24] MEDS ORDERED: MOM 30ML SUSPENSION UDC PO PRN (23:20)
[2021-02-24] MEDS ORDERED: GLUCOSE 4GM CHEW TABLET PO PRN (23:20)
[2021-02-24] MEDS ORDERED: GLUCAGON INJ 1MG VIAL SC PRN (23:20)
[2021-02-24] MEDS ORDERED: MAALOX 30 ML SUSP *UDC PO PRN (23:20)
[2021-02-24] MEDS ORDERED: ONDANSETRON 4MG/2ML VIAL IV PRN (23:20)
[2021-02-24] MEDS ORDERED: HOME MED LIST COMPLETE! XX SCH (23:20)
--- OUTSIDE RECORDS SUMMARY | 2021-02-24 23:25 | CCD ---
Author Author [facility] Organization [facility] Address Unknown Phone Unavailable Care Team Providers Care Diesel Mechanic Name Role Phone ANA CRISTINA HAYNES MD [...] Unavailable Unavailable ArenasPaul saravia MD Unavailable Unavailable ArenasPual MD Unavailable Unavailable ArenasPaul MD Unavailable Unavailable [...] Devon GARCIA Unavailable Unavailable Arenas, L Devon GARCAI Unavailable Unavailable Arenas, L Devon GARCIA Unavailable Unavailable Arenas, L Devon GARCIA Unavailable Unavailable Arenas, L Devno GARCIA Unavailable Unavailable Arenas, L Devon GARCIA [...] Deb HUBBARD MD Unavailable Unavailable LAWRENCE, Deb HBUBARD MD Unavailable Unavailable LAWRENCE, Deb HUBBARD MD [...] is protected by Article 27-F of the [facility] Public Health law. If you continue you may have access to information: Regarding HIV / AIDS; Provided by facilities licensed or operated by the [facility] Office of Mental Health; or Provided by the [facility] Office for People With Developmental Disabilities. If such information is present, then the following [facility] mandated warning applies: This information has [...] law may result in a fine or senior care sentence or both. A general authorization for the release of medical or other information is NOT sufficient authorization for further disc losure. Allergies and Adverse Reactions Type Description Substance Reaction Status Data Source(s ) Propensity to adverse reactions [facility] Encounters Encounter Providers Location Date Indications Data Source(s ) Outpatient Attender: ANDERSON FALCON 03/19/2021 12:00:00 AM [facility] Outpatient Attender: ANDERSON FALCON 02/17/2021 12:00:[address] [facility] Outpatient Attender: STEVIE BRAVO MD [id number] 02/16/2021 12:00:[address] [facility] Unknown [address] [facility] [address] 01/27/2021 12:00:00 AM EDT eCW1 ([facility]) Outpatient [address] [facility] [place] [address] 12/26/2020 12:00:00 AM EDT eCW1 ([facility]) Unknown [address] [facility] [place] [address] 12/12/2020 12:00:00 AM EDT eCW1 ([facility]) Unknown [address] [facility] [place] [address] 10/11/2020 12:00:00 AM EDT eCW1 ([facility]) Unknown [address] [facility] [place] [address] 10/07/2020 12:00:00 AM EDT eCW1 ([facility]) Office Visit Attender: Robert Barnard MD Main office - [place] 09/18/2020 01:45:00 PM EDT MEDENT ([facility] ) Outpatient Attender: STEVIE BRAVO MD 07/25/2020 12:00:[address] [facility] Outpatient 07/12/2020 12:00:[address] [facility] Office Visit Attender: Robert Barnard MD Main office - [place] 06/24/2020 01:30:00 PM EST MEDENT ([facility]) Outpatient Attender: STEVIE BRAVO MDReferrer: Devon Arenas MD [id number] 06/13/2020 12:00:00 AM EST Pain in right hand [facility] Pain in right hand Outpatient Referrer: STEVIE BRAVO MD 06/13/2020 12:00: 00 AM EST Pain in right hand [facility] Pain in right hand [place]patient [address] [facility] [place] [address] 05/07/2020 12:00:00 AM EST eCW1 ([facility]) Outpatient Attender: Robert Barnard MD Main office - [place] 05/06/2020 09:00:00 AM EST MEDENT ([facility]) Outpatient Attender: Devon Arenas MD Physical Therapy 04/28/2020 0 8:00:00 AM EST MED[facility] ([facility]) [place] [address] [facility] [place] [address] 04/22/2020 12:00:00 AM EST eCW1 ([facility]) [place] [address] [facility] [place] [address] 04/10/2020 12:00:00 AM EST eCW1 ([facility]) [place] [address] [facility] [place] [address] 04/04/2020 12:00:00 AM EST eCW1 ([facility]) Outpatient [address] [facility] [place] [address] 04/01/2020 12:00:00 AM EST eCW1 ([facility]) Outpatient LERAYKS 01/31/2020 09:32:00 AM EDT [facility] Outpatient LERAYDC 01/31/2020 08:44:01 AM EDT [facility] Outpatient Attender: ANA CRISTINA HAYNES MDAdmitter: ANA CRISTINA Donald MD [id number] 01/01/2020 12:00:00 AM EDT - 01/01/2020 01:37:00 PM EDT Chronic abdominal pain [R10.9, G89.29], rectal bleeding [facility] Chronic abdominal pain [R10.9, G89.29], rectal bleeding Patient discharged. Outpatient Attender: RIGO HYLTON [id number] 12/27/2019 12:00:00 AM EDT - 12/28/2019 12:00:[address] [facility] Immunizations Vaccine Date Status Description Data Source(s) COVID-19 VACCINE Moderna 01/16/2021 12:00:00 AM EDT completed [facility] Vaccine Series Complete: YESThis Data wa s Submitted to [facility] Via [employer]. COVID-19 VACCINE Moderna 12/19/2020 12:00:00 AM EDT completed [facility] Vaccine Series Complete: NOThis Data was Submitted to [facility] Via [employer]. Medications Medication Brand Name Start Date Product Form Dose Route Admi nistrative Instructions Pharmacy Instructions Status Indications Reaction Description Data Source(s) pantoprazole 40 MG Delayed Release Oral Tablet Pantopr azole Sodium 40 MG Pantoprazole Sodium 40 MG 01/27/2021 12:00:00 AM EDT 1.0 {tablet} active Pantoprazole Sodium 40 MG eCW1 ( [facility]) Escitalopram 10 MG Oral Tablet Escitalopram Oxalate 10 MG Escitalopram Oxalate 10 MG 01/27/2021 12:00:00 AM EDT 1.0 {tablet} activ e Escitalopram Oxalate 10 MG eCW1 ([facility]) Primidone 50 MG Oral Tablet Primidone 06/24/2020 12:00:00 AM EST ORAL active MEDENT ([facility] ) ropinirole 1 MG Oral Tablet Ropinirole HCL 05/06/2020 12:00:00 AM EST active MEDENT ([facility] ) Levetiracetam 250 MG Oral Tablet Levetiracetam 05/06/2020 12:00:00 AM EST ORAL completed MEDENT ([facility]) gabapentin 300 MG Oral Capsule Gabapentin 04/28/2020 12:00:00 AM EST ORAL active MEDENT ([facility]) Blood Glucose Monitoring Suppl - UNK 04/10/2020 12:00:00 AM EST active Blood Glucose Monitoring Suppl - eCW1 ([facility]) Test Strips - UNK 04/10/2020 12:00:00 AM EST acti ve Test Strips - eCW1 ([facility]) Test Strips - UNK 04/10/2020 12:00:00 AM EST acti ve Test Strips - eCW1 ([facility]) Lancets Misc. - UNK 04/10/2020 12:00:00 AM EST active Lancets Misc. - eCW1 ([facility]) Blood Glucose Monitoring Suppl - UNK 04/10/2020 12:00:00 AM EST active Blood Glucose Monitoring Suppl - eCW1 ([facility]) Blood Glucose Monitoring Suppl - UNK 04/10/2020 12:00:00 AM EST active Blood Glucose Monitoring Suppl - eCW1 ([facility]) Lancets Misc. - UNK 04/10/2020 12:00:00 AM EST active Lancets Misc. - eCW1 ([facility]) Lancets Misc. - UNK 04/10/2020 12:00:00 AM EST active Lancets Misc. - eCW1 ([facility]) Blood Glucose Monitoring Suppl - UNK 04/10/2020 12:00:00 AM EST active Blood Glucose Monitoring Suppl - eCW1 ([facility]) Lancets Misc. - UNK 04/10/2020 12:00:00 AM EST active Lancets Misc. - eCW1 ([facility]) Lancets Misc. - UNK 04/10/2020 12:00:00 AM EST active Lancets Misc. - eCW1 ([facility]) Lancets Misc. - UNK 04/10/2020 12:00:00 AM EST active Lancets Misc. - eCW1 ([facility]) Test Strips - UNK 04/10/2020 12:00:00 AM EST acti ve Test Strips - eCW1 ([facility]) Test Strips - UNK 04/10/2020 12:00:00 AM EST acti ve Test Strips - eCW1 ([facility]) Test Strips - UNK 04/10/2020 12:00:00 AM EST acti ve Test Strips - eCW1 ([facility]) Blood Glucose Monitoring Suppl - UNK 04/10/2020 12:00:00 AM EST active Blood Glucose Monitoring Suppl - eCW1 ([facility]) Lancets Misc. - UNK 04/10/2020 12:00:00 AM EST active Lancets Misc. - eCW1 ([facility]) Blood Glucose Monitoring Suppl - UNK 04/10/2020 12:00:00 AM EST active Blood Glucose Monitoring Suppl - eCW1 ([facility]) Test Strips - UNK 04/10/2020 12:00:00 AM EST acti ve Test Strips - eCW1 ([facility]) Blood Glucose Monitoring Suppl - UNK 04/10/2020 12:00:00 AM EST active Blood Glucose Monitoring Suppl - eCW1 ([facility]) Test Strips - UNK 04/10/2020 12:00:00 AM EST acti ve Test Strips - eCW1 ([facility]) Test Strips - UNK 04/10/2020 12:00:00 AM EST acti ve Test Strips - eCW1 ([facility]) Blood Glucose Monitoring Suppl - UNK 04/10/2020 12:00:00 AM EST active Blood Glucose Monitoring Suppl - eCW1 ([facility]) Lancets Misc. - UNK 04/10/2020 12:00:00 AM EST active Lancets Misc. - eCW1 ([facility]) cefdinir 300 MG Oral Capsule Cefdinir 300 MG Cefdinir 300 MG 04/04/2020 12:00:00 AM EST active Cefdinir 300 MG e CW1 ([facility]) cefdinir 300 MG Oral Capsule Cefdinir 300 MG Cefdinir 300 MG 04/04/2020 12:00:00 AM EST suspended Cefdinir 300 M G eCW1 ([facility]) cefdinir 300 MG Oral Capsule Cefdinir 300 MG Cefdinir 300 MG 04/04/2020 12:00:00 AM EST suspended Cefdinir 300 M G eCW1 ([facility]) cefdinir 300 MG Oral Capsule Cefdinir 300 MG Cefdinir 300 MG 04/04/2020 12:00:00 AM EST active Cefdinir 300 MG e CW1 ([facility]) cefdinir 300 MG Oral Capsule Cefdinir 300 MG Cefdinir 300 MG 04/04/2020 12:00:00 AM EST suspended Cefdinir 300 M G eCW1 ([facility]) cefdinir 300 MG Oral Capsule Cefdinir 300 MG Cefdinir 300 MG 04/04/2020 12:00:00 AM EST suspended Cefdinir 300 M G eCW1 ([facility]) cefdinir 300 MG Oral Capsule Cefdinir 300 MG Cefdinir 300 MG 04/04/2020 12:00:00 AM EST suspended Cefdinir 300 M G eCW1 ([facility]) cefdinir 300 MG Oral Capsule Cefdinir 300 MG Cefdinir 300 MG 04/04/2020 12:00:00 AM EST suspended Cefdinir 300 M G eCW1 ([facility]) cefdinir 300 MG Oral Capsule Cefdinir 300 MG Cefdinir 300 MG 04/04/2020 12:00:00 AM EST active Cefdinir 300 MG e CW1 ([facility]) Blood Glucose Monitoring Suppl w/Device UNK 04/01/2020 12:00:[address] active Blood Glucose Monitoring Sup pl w/Device eCW1 ([facility]) Semglee 100 UNIT/ML Semglee 100 UNIT/ML 04/01/2020 12:00:00 AM EST active Semglee 100 UNIT/ML eCW1 ([facility]) Semglee 100 UNIT/ML Semglee 100 UNIT/ML 04/01/2020 12:00:00 AM EST active Semglee 100 UNIT/ML eCW1 ([facility]) Blood Glucose Monitoring Suppl w/Device UNK 04/01/2020 12:00:[address] active Blood Glucose Monitoring Sup pl w/Device eCW1 ([facility]) Semglee 100 UNIT/ML Semglee 100 UNIT/ML 04/01/2020 12:00:00 AM EST active Semglee 100 UNIT/ML eCW1 ([facility]) Semglee 100 UNIT/ML Semglee 100 UNIT/ML 04/01/2020 12:00:00 AM EST active Semglee 100 UNIT/ML eCW1 ([facility]) Semglee 100 UNIT/ML Semglee 100 UNIT/ML 04/01/2020 12:00:00 AM EST active Semglee 100 UNIT/ML eCW1 ([facility]) Blood Glucose Monitoring Suppl w/Device UNK 04/01/2020 12:00:[address] active Blood Glucose Monitoring Sup pl w/Device eCW1 ([facility]) Blood Glucose Monitoring Suppl w/Device UNK 04/01/2020 12:00:[address] active Blood Glucose Monitoring Sup pl w/Device eCW1 ([facility]) Blood Glucose Monitoring Suppl w/Device UNK 04/01/2020 12:00:[address] active Blood Glucose Monitoring Sup pl w/Device eCW1 ([facility]) Blood Glucose Monitoring Suppl w/Device UNK 04/01/2020 12:00:[address] active Blood Glucose Monitoring Sup pl w/Device eCW1 ([facility]) Semglee 100 UNIT/ML Semglee 100 UNIT/ML 04/01/2020 12:00:00 AM EST active Semglee 100 UNIT/ML eCW1 ([facility]) Semglee 100 UNIT/ML Semglee 100 UNIT/ML 04/01/2020 12:00:00 AM EST active Semglee 100 UNIT/ML eCW1 ([facility]) Blood Glucose Monitoring Suppl w/Device UNK 04/01/2020 12:00:[address] active Blood Glucose Monitoring Sup pl w/Device eCW1 ([facility]) Semglee 100 UNIT/ML Semglee 100 UNIT/ML 04/01/2020 12:00:00 AM EST active Semglee 100 UNIT/ML eCW1 ([facility]) Blood Glucose Monitoring Suppl w/Device UNK 04/01/2020 12:00:[address] active Blood Glucose Monitoring Sup pl w/Device eCW1 ([facility]) Semglee 100 UNIT/ML Semglee 100 UNIT/ML 04/01/2020 12:00:00 AM EST active Semglee 100 UNIT/ML eCW1 ([facility]) Blood Glucose Monitoring Suppl w/Device UNK 04/01/2020 12:00:[address] active Blood Glucose Monitoring Sup pl w/Device eCW1 ([facility]) Blood Glucose Monitoring Suppl w/Device UNK 04/01/2020 12:00:[address] active Blood Glucose Monitoring Sup pl w/Device eCW1 ([facility]) Semglee 100 UNIT/ML Semglee 100 UNIT/ML 04/01/2020 12:00:00 AM EST active Semglee 100 UNIT/ML eCW1 ([facility]) sodium chloride (preservative free) 0.9 % flush [...] 30 days, Pre-op [Order [address]] [facility] Medication administered onsite sodium chloride (preservative free) 0.9 % flush 10 mL 77466- 186-00 01/01/2020 10:14:38 AM EDT 10 mL Intravenous active 10 mL, Intravenous, Continuous PRN, Line Care, Starting Tue01/01/20 at 1014, For 30 days, Pre- op
Verify blood return before use. For deaccessing: flush with 10 mL Sodium Chloride 0.9 % followed by 5 mL Heparin 100 units/mL. Flush per CM C-34C Central Line Policy for Infusaport.
[facility] Medication administered onsite 3 ML heparin sodium, [...] C-34C Central Line Policy for Infusaport.
[facility] Medication administered onsite heparin sodium, porcine 10 [...] C-34C Central Line Policy for Infusaport.
[facility] Medication administered onsite sodium chloride (preservative free) 0.9 % flush 10 mL 46772- 186-00 01/01/2020 10:14:37 AM EDT 10 mL Intravenous active 10 mL, Intravenous, Continuous PRN, Line Care, Starting Tue01/01/20 at 1014, For 30 days, Pre- op
Verify blood return before use. For intermittent access: flush with 10 mL Sodium Chloride 0.9 % followed by 5 mL Heparin 10 units/mL. Flush per CM C-34C Central Line Policy for Inf[facility]aport.
[facility] Medication administered onsite Dicyclomine Hydrochloride 20 MG Oral Tablet Dicyclomin e HCl 20 MG Oral Tablet Dicyclomine HCl 20 MG Oral Tablet 06/19/2019 12:00:00 AM EST 20 mg Oral active Chronic abdominal pain Take 1 tablet by mouth Th ree times daily [facility] Chronic abdominal pain Insurance Providers Payer name Policy type / Coverage type Policy ID Covered libertarian ID Covered libertarian's relationship to white Policy White Plan Information MEDICAID M [id number] Self [id number] DARWIN I [id number] Self [id number] DARWIN I [id number] Self [id number] [place] [id number] SP [id number] DARWIN [id number] SP [id number] [place] [id number] S [id number] Managed Care Darwin P [id number] S [id number] Medicaid S [id number] S [id number] Managed Care Darwin P UNAVAILABLE S UNAVAILABLE Medicaid S UNAVAILABLE S UNAVAILA BLE MEDICAID -O/[id number] MEDICAID [id number] SP [id number] MEDICAID [id number] SP [id number] DARWIN [id number] SP [id number] 500 [place] [id number] S [id number] Problems, Conditions, and Diagnoses Code Display Name Description Problem Type Effective Dates Data Source(s) M79.641 Pain in right hand Pain in right hand Diagnosis 10:05:[address] [facility] Chronic abdominal pain [R10.9, G89.29], rectal bleeding Chronic abdominal pain [R10.9, G89.29], rectal bleeding Diagnosis 01/01/2020 09:57:[address] 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 Problem 09/18/2020 12:00:00 AM EDT MEDENT ([facility]) I95.1 Orthostatic hypotension Orthostatic hypotension Proble m 06/24/2020 12:00:00 AM EST MEDENT ([facility]) G25.81 Restless legs Restless legs Problem 06/24/2020 12:00:00 AM EST MEDENT ([facility]) H91.93 [id number] Bilateral hearing loss, unspecified heari ng loss type Problem 05/07/2020 12:00:00 AM EST eCW1 ([facility]) G47.00 [id number] Insomnia, unspecified type Problem 12:00:00 AM EST eCW1 ([facility]) R25.2 Cramp and spasm Cramp and spasm Problem 05/06/2020 12:0 0:00 AM EST MEDENT ([facility]) G21.8 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 Problem 05/06/2020 12:00:00 AM EST ME DENT ([facility]) G25.0 Essential tremor Essential tremor Problem 05/06/2020 12 :00:00 AM EST MEDENT ([facility]) E10.42 Type 1 diabetes mellitus with diabetic p olyneuropathy Type 1 diabetes mellitus with diabetic polyneuropathy Problem 05/06/2020 12:00:00 AM EST MEDENT ([facility]) G47.62 Cramp in lower leg associated with rest Cramp in lower leg associated with rest Problem 05/06/2020 12:00:00 AM EST MEDENT ([facility] Surgeries/Procedures Procedure Description Date Indications Data Source(s) EEG Complete STD Phys/QHP>36 HR<60 HR W/O Video 2020 12:00:00 AM EST MEDENT ([facility] EEG Complete STD Phys/QHP>60 HR<84 HR W/O Video 2020 12:00:00 AM EST MEDENT ([facility] ) TSTG ANS FUNCJ CARDIOVAGAL INNERVAJ PARASYMP 12:00:00 AM EST MEDENT ([facility] ) TESTING AUTONOMIC NERVOUS SYSTEM FUNCTION 05/28/2020 1 2:00:00 AM EST MEDENT ([facility] ) UPPER GI ENDOSCOPY <td>UPPER GI ENDOSCOPY</td>< td></td><td>01/01/2020 12:00 AM EDT</td><td></td><td></td> 01/01/2020 12:00:00 AM EDT [facility] Screening colonoscopy (procedure) <td>COLONOSCOPY</td> <td></td><td>01/01/2020 12:00 AM EDT</td><td></td><td></td> 01/01/2020 12:00:[address] [facility] Results ID Date Data Source [id number] 02/18/2021 07:21:33 AM EDT [facility] Name Value Range Interpretation Code Description Data Sophia rce(s) Supporting Document(s) Progress Note [facility] XVTRKn1uFjCZInWr49/UBDhcJSDqy1AcHGwuCYt1RRwuOZCbV8CtXQQ3eD5lHZN2IIuINmTmNmTwJKHg lbm [file] Cv7YWLb6SiEDXuOeQN7EEOs= ID Date Data Source [id number] 02/16/2021 06:42:03 PM EDT [facility] Name Value Range Interpretation Code Description Data Sophia rce(s) Supporting Document(s) Progress Note [facility] JYXQMc2nHrSGRpUn59/BLJpkDBAjl1LaOMmkPJf4GHnbUYVvZ5DpLFJ0uV4cDAW3TVnIGlRxTdPsWJDw lbm [file] AgICAgICAgICAgICAgICAgICAgICAgICAgICAgICAgICAgICAgICAgICAgICAgICAgICAgICAgICAgIC AgICAgICAgICAgICAgICAgICAgICAgICAgICAgICAgICAgICAgICANCiAgICAgICAgICAgICAgICAgIC AgICAgICAgICAgICAgICAgICAgICAgICAgICAgICAg ICAgICAgICAgICAgICAgICAgICAgICAgICAgICAgICAgICAgICAgICAgICAgICAgICANCiAgICAgICAg ICAgICAgICAgICAgICAgICAgICAgICAgICAgICAgICAgICAgICAgICAgICAgICAgICAgICAgICAgICAg ICAgICAgICAgICAgICAgICAgICAgICAgICAgICAgIC ANCiAgICAgICAgICAgICAgICAgICAgICAgICAgICAgICAgICAgICAgICAgICAgICAgICAgICAgICAgIC AgICAgICAgICAgICAgICAgICAgICAgICAgICAgICAgICAgICAgICAgICANCiAgICAgICAgICAgICAgIC AgICAgICAgICAgICAgICAgICAgICAgICAgICAgICAg ICAgICAgICAgICAgICAgICAgICAgICAgICAgICAgICAgICAgICAgICAgICAgICAgICAgICANCiAgICAg ICAgICAgICAgICAgICAgICAgICAgICAgICAgICAgICAgICAgICAgICAgICAgICAgICAgICAgICAgICAg ICAgICAgICAgICAgICAgICAgICAgICAgICAgICAgIC AgICANCiAgICAgICAgICAgICAgICAgICAgICAgICAgICAgICAgICAgICAgICAgICAgICAgICAgICAgIC AgICAgICAgICAgICAgICAgICAgICAgICAgICAgICAgICAgICAgICAgICAgICANCiAgICAgICAgICAgIC AgICAgICAgICAgICAgICAgICAgICAgICAgICAgICAg ICAgICAgICAgICAgICAgICAgICAgICAgICAgICAgICAgICAgICAgICAgICAgICAgICAgICAgICANCiAg ICAgICAgICAgICAgICAgICAgICAgICAgICAgICAgICAgICAgICAgICAgICAgICAgICAgICAgICAgICAg ICAgICAgICAgICAgICAgICAgICAgICAgICAgICAgIC AgICAgICANCiAgICAgICAgICAgICAgICAgICAgICAgICAgICAgICAgICAgICAgICAgICAgICAgICAgIC AgICAgICAgICAgICAgICAgICAgICAgICAgICAgICAgICAgICAgICAgICAgICAgICANCjw/vYKpD2ihtS NkqrB9E3zaWt7NGj5URB3fm4AbJPUjKEogtdIcViaN CmAbDIKwVyxDXdh6WGloUW1OzVJaD4MnN9KfIWemJU3CQHJgPJDyqYKkXLXuSIClXmR6RHCnXCagUN6S uDUuGBuyIKXbFQXbGC7EJHEgR215xlBpWH7MPd1BYaQcUO0aor2LWFluAYJuPhcFHzf5ZJbuZJ4HbTRx mQKkISKrBNSYEpXsB4vmr2CiOaEdNWLXLFbpOZ4To5 VudCAxDQo+Jy9RZB2zf2BxLTwpMFBiUQ7ltl5WVWfEFdFqK4OsyWnjNCEnd8xcUDCbUS6lcZXrMLB4TS Xqk17mbmMKZQMpMSXeVHweESUgJFGqGMGfMG4bKDHmWEY2BlW4FOALFD1SMJZpOFAfnIHvMVHiJXVPAS 6YUMpsUXB1FNUuzoKocSOrFWjmQN7DVSEunxRbXCri MCBSDQo+Dc5UGV5ld5ThNMoiAEHfRP6iwc2PBYlAQbYxD5H5bCCmA1B7MJsqBl8RKUNlVADlDOmpANTN DVqjKJ0QBO3ixeW5NQ7InREuCVKzFOOakJBoFKq0U00skRQlRFzkNB3AKAZ+Lynda+Uv6WTQJzEVGzNYSk PgSxKPOFSsPoG5ZjU5GBh9RgS4GnHL79dCgdeaJtVG hkWY3GIE7yLXUlHCNWES6MiWHoqS6wehKoTIXyRMCLHkGsR08fvXDiNCGfYAN6TCBjRv8ENZPzA8Mszn EudCogjeNbFRAkFBQAER2OSQazcbTwdZSxcDvbHV80gGyuNG1LAr9ULtTvES9ruo2RfGYsMg0ZPGXtGc 3MIWGqGBQaLZTlMVL6GMEbMtZeSPjxBRCxYBFaTKF2 YTFlESStJL4MViZtOUNiHOg6RfpoDPEbKGIlsd1ZAXOiAJKcDYL9UiWpIRMzUIKfCJcpAUOvZORqQJK7 LREgJSZsOB5WOxCiZVOePUL6HVPuLMQaYJRfpn6CCUAsJVFfNhZvTAZpNYWwEZTvLFshSYUbPJMsJLZ3 MLDnQKGjGL5YFdHeBIHrVRGtDtPzLOZeDSQbje4EOB LrTLTtWMN9MnUtEOJrNFYcKAdkMVAwCNH9FbHrQNFaPZGeXC8MEfHwPWFqFRQ9LOCfIQNhSPXhrl4MQW VxJRCaWPN2NXHoDICxJQPhLXliOXOrEUC1QAJ6DZAqLEPrZV5IXqKbJAUzSFrhBpEjUTDiAXJxup9XFM MyMQLfAtG7ALCgKSNiTMMrDGehBTKeILV2JBYpOWVv WHUwNQ3BYsLgCISvSRe4EAIgXAVgDWCgvl3OZKPcYMJyEIM8DeToSTGhIFWgRMafIRMdJXL8Rer9HOPp TKTrNQ8RUyJeNOSuFSb4XqXpETOaADJjps9EOMSuTOYmWPErTKKzSAFlBVYmFUt6xfDfzRVvTCq1LY8M H8DfwmPdZpWTGn2Dn604THNcAGZaOj1VG7hmTw0qTQ ZkGXCBGv5HHJc5FCS2LaThGjEpLyL2NwB3EpAaNWQnKUr3RDKaAwLyQqP+PFi3UWXwNaJqTKI3Rli2CF kiPMNzDZHgCVGiZeP6DLKpOz2zLZDSSz2+AOasxTRyeJxlIXEKPvYfRvC7BIyeTPNKYa0C ID Date Data Source [id number] 01/06/2021 10:50:00 AM EDT [facility] Name Value Range Interpretation Code Description Data Sophia rce(s) Supporting Document(s) SARS coronavirus 2 RNA [Presence] in Res piratory specimen by CRISTI with probe detection NEGATIVE [facility] This lab was ordered by [facility] a nd reported by [facility]. ID Date Data Source [id number] 12/31/2020 09:38:00 AM EDT [facility] Name Value Range Interpretation Code Description Data Sophia rce(s) Supporting Document(s) SARS coronavirus 2 RNA [Presence] in Res piratory specimen by CRISTI with probe detection NEGATIVE [facility] This lab was ordered by [facility] a nd reported by [facility]. ID Date Data Source [id number] 12/27/2020 12:38:00 AM EDT [facility] Name Value Range Interpretation Code Description Data Sophia rce(s) Supporting Document(s) SARS coronavirus 2 RNA [Presence] in Res piratory specimen by CRISTI with probe detection NEGATIVE [facility] This lab was ordered by [facility] a nd reported by [facility]. ID Date Data Source [id number] 06/15/2020 10:34:46 AM [facility] Name Value Range Interpretation Code Description Data Sophia rce(s) Supporting Document(s) Progress Note [facility] IHRDQf2kNbSNWhOt06/YQTyyRQIjg8XuPYyzOBn6WXqhUZQcC9WgOHC3uC0jLNW1WOoPSqZsYbCaBmB4 lbm [file] VgZNU5SXQmXDRmWWZ5HPAgFaBtHoCgAL9DVs1ULbS4GNH0lIGhCv1ZQoFeVAkKXuMiXA7MUPd= ID Date Data Source [id number] 06/13/2020 10:43:57 PM EST [facility] XR HAND 3 OR MORE VIEWS [id number] RESUL TInterpreted by:Newton Rao hand 4 viewsINDICATION: [...] rce(s) Supporting Document(s) ID Date Data Source [id number] 06/13/2020 11:31:41 AM EST [facility] Name Value Range Interpretation Code Description Data Sophia rce(s) Supporting Document(s) Progress Note [facility] AIOTQm0yBrNGMkTt65/UKIcoUZDfg3IvDCvmURx9ZWgbAAUfV6WfSKH9iM4pFJK5YLxJXiAnHzEwJhP7 [facility] CuCizVRtXmTHZyYurOJwThJFrnOqsgyVJtPU0DmCJ5CQAeN43oDNVrDACpU1XsTONtRkK+Vj6DOULhtY DbEN0BLstA8N1yEaWEUu9LfX/WSdCrK7SY+zVQvLIDJVKRgtiOklg7Ixe0sTBA1cXY3n32IU/PYKoYPl lzSEVmIrhB1Kk0SJn07HbSoqIE/u//zui7ScgP41/3 s6pumbjL2ofm4MKh62bVS/xXGvJYlhNHzZ7S/epoyoad0hV6voSwhse4ni07MCAoph1ZCuAf+QjGT2Si h5DBjiKrI4c9oMm5uSIJMH+XzujHhBYneTEIdWmWl/xAlzZISZHSnibjupVU+5HKxZWDG5GVaL6Qy/Ax FltSA4lVclufemT92nUU2tbtygaGtZZCvwhwXts2nB NiPuS7nIJLUh/8kJd/1yk9dRONraOAskfWz/5MLDmjeznSn0/aYmdKJQyGxlKwv002rHKv6eax0OTIy3 c8GlKmv6cYHc5KPIFSyIDi3IXqRscZdmj3HWFI5AUomtrbvur2582p2Ckqr3nv7Sci3yYo8DVKQ0+OBl NzM+PEob/gZWjKt+hX75yAyDhEpskgcWXm6YPc546E d6qV95GjH2wsNH8tpBwZWg/5q5tghZN0uXBdAqQOcwk+wHMMwTgoDqWAo1Eev02eZ6lEpMBN7037d80X +A7O01TvgVo19IvE70NYy7e3NOgzR6U6ETAtbUB9oY4xgjUimo8JpD1N9HjLlVVRFswPdzb1wF/y25E6 /lAwnsOIyxtfLWOhRLXsaiMiqPEfRjeg8A+GkbsZeN n//fDqP+b0HlUzZYcFgzLAqlUg4SYQtkqBIlsutfe3lBIubSJauGHq/BtavDgX7ChYxtGsWUyYb4jRzK 7VkV4YpeEhC5gRPkXXbe/kycjeGHQGPO+B/JzoEcek4xMr6s2U4j0otrt7Sq9m8StepGnQjbrTcfwgfk 8o6mOj4ZP0hGiH3U65YOwbeGT6qcY8Nw0Ei3s83r37 [file] W09cN/JjgWHukzMJ450l5u1J+bVtOtIwFX7Hu096bh8wmnr9KW4W8AigNBdKZt6l+uZo9hHYD6Ghv+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 [file] HpRsTO3XUo4LVlN4ZFQ4lDGuOi4DKoH8OGLVCiTwCE2NNWw= ID Date Data Source [id number] 01/31/2020 08:55:50 AM EDT [facility] Current Problems: DENTAL CARIES EXTENDIN G INTO PULP (ICD-521.03) (ICD10- K02.63)Current Allergies: * LATEX (Critical) Dental Chart: Procedures:Type - CDT Code - Description B - (D0140) Limited oral evaluation - problem focused on Tooth # 30 (Performed by Guille Wong DDS) Existing:Type - CDT Code - Description[E] Missing - Conde and Root On #1 Surface O Region [...] rce(s) Supporting Document(s) ID Date Data Source [id number] 01/01/2020 02:11:19 PM EDT [facility] Name Value Range Interpretation Code Description Data Sophia rce(s) Supporting Document(s) Progress Note [facility] HQMEHh4zPkIBAiTs36/QOPerAHEdc1YwCOnsFGz6GKiaSMMdJ3DaVRA4mY7pNNB0EStSZcCkZcXjOQL1 [facility] [file] AgICAgICAgICAgICAgICAgICAgICAgICAgICAgICAg OAQyASJxMBNnLAAsJFKpKVKaZHHhJDKfDSJzJL8OADZkFSUjZXZhRAApVDOlKHQtXIExIRGiACQlEAPj ICAgICAgICAgICAgICAgICAgICAgICAgICAgICAgICAgICAgICAgICAgICAgICAgICAgICAgICAgICAg XRSgMRTrTETbSO8NFQGhJDTmCDLaQUCxZHXoNOHbHU AgICAgICAgICAgICAgICAgICAgICAgICAgICAgICAgICAgICAgICAgICAgICAgICAgICAgICAgICAgIC ZfEKRxGKFhXKQaNDTwPNJrSSTzGQ6IQNHuIFCaZYOeIPZkNHMnNHSsCGVjOMMtGJQzULExXRLhXFQrNT AgICAgICAgICAgICAgICAgICAgICAgICAgICAgICAg AZCzIPJdVGDyQIEhGJRnVAOmAXGbEHNrXSRkAVIyNS4PKCFxCHAlOLArTEWzOKSlOOJmFXEtRCYqATVk ICAgICAgICAgICAgICAgICAgICAgICAgICAgICAgICAgICAgICAgICAgICAgICAgICAgICAgICAgICAg PKKbCPHxGDQeLHOmAI0ITEXsXUBdQUIgXFZhEGUjAP AgICAgICAgICAgICAgICAgICAgICAgICAgICAgICAgICAgICAgICAgICAgICAgICAgICAgICAgICAgIC ApVVPnPCPlQENiPRZrRWJsQZJjMKFsNA8HGSAnWAEtDXWhBWAaCXJmBPAiKAXcQYQpBGNnEUMbUJFvVP AgICAgICAgICAgICAgICAgICAgICAgICAgICAgICAg AXSwKRRfSNHnXKAnWPUtCINnVHIzJNVdBZXzESMgTWVcZP7FASZxCJKvFENxNBGyUHBfBBViFRPdDLBh ICAgICAgICAgICAgICAgICAgICAgICAgICAgICAgICAgICAgICAgICAgICAgICAgICAgICAgICAgICAg ANXgXMRaOZUqRJFbTCLbDA6DROPbOHBkZCWvBDEgTY AgICAgICAgICAgICAgICAgICAgICAgICAgICAgICAgICAgICAgICAgICAgICAgICAgICAgICAgICAgIC AcLNYyFGVzMYIwAPUoGKRjNUDePINtDYHnQK2SCYVgYJDfCWAfLYGqBKPvUWPuGXLoALZsJIVgYQKyUK AgICAgICAgICAgICAgICAgICAgICAgICAgICAgICAg GHZhNOFtNHQyEIWuUJJkZKRnXWYgSAGrBXHwXDNiGRGiQWDkEW8ZNC67hSBwf3D0HBAhEZ0odix/Pg0K XWienyRksPIpVU2MNlZhNK0ukz4YTjLfIR5gau8ZVLhPJhJjU0J0hTLtOJToXZPCGeCzK59aINuiSs52 KCbkOMXtOqNnINa0Nb6CGdFlX3tcPBRiRnG7PSWuJx QaEIglXU2Do5RkoRMjOFk+Wc0RSF5ho9FtWVdhONZbUG0krv8NDXuMDcHeG6RtzmM9LIW4RAGmTy7YAL TuQTZzbUEyLITiKCQQEmVvY9DcbL34MRYNXf9+LBpqmxOeRwaURaJ7BCNxc8IzLLw8JS5BBYXhSSn1nD ReYRWtP2Qkg8FeXx52CIEbNxwxROHbdSUoNqLNsAiv bdpyCi4gISBwNQ9oXD1aXSDiVELyBtL0PISUWP1CFCSwWXKvsSBcKRLrAJFXTG9FHQcjNVK5RGBasnNp cRGsXNsxXV9SQJOngjAoWOLwLHAPGXe+Tq9HQJ7og0GrUOjmVkTeDX6arz8ITGwEPvHoO2D0dDScB2B3 TPpxCm3BNXHhXBZlMNQmIAVQNHobRB5MSJ0qazK2VN 1XtGSdVOPyAQQxwYMwLTy4K55xxYXeTBezQR2DPFH+Lynda+Yu8RDXPhOBLaWCHyNqQgKWBJNnTzI9CxD3 PGf3RrP7PpNG30rWyeiiXiKByxSK9MXD0qTGAdAQRKJD4DpUPryM9wzdTqDENrIPHQHsBdE50eqHBmCA BqULCkCUTnTr7ITGPuS9BfjmIrpKkbaoHeLUUcRFWX PL3AKFtanwJpwNLybOjjEU52qDxmAN4QEo9WBuHoDN0rhh1QcKXkEi4ACTDjEk0FLJDqLBSkSVQfAYO9 UQNkDtEnIVxyJORdYHEvKKL2ISGiPFVpIN9DDlAiBYRxENP8GdQwONWsHHKdpc1BHZVtSIBpCaD3JZIy DEGsKQKaLYmfSVEmJGPrIZE6VQJwAKPhKW5UFmWiSP IsRIL6NQNpJXOqVJMkkl6VKLOkYJIdRaGvEMWlKCSyCOEmGSdpAPIiUXAzEFr8MIMjTVRiQT7HJmJqKQ DpZSLxYmRiCOTmVKZmrf1QSIYsWZYnUaF7UeWgIGDdDXWvNAkbIKAfQVV0JpFgJDXjFSDqBD2ZRtAkVA KeRXR7IJVsLWMqARVetz6QUWFaOTHfZNglVSTlUEHg UNIkZLygVSBnYSP5TZK9SDRdMRSlMF5XIkMlVJPjIXL1PSJsBRHsKNEpuf8WOZOwBSUdCoRaFxRpRAUh EGPjSMgvHEXlNJH9UqNyCWAmCXKbKX3GUjJlOCeaEWYANtc4OAocW2e8DELhUh4RG3Dyo6ImDKDiPMEH MOqyXR5ljwKeXUKdZe6GW8wIOhp1AGK5AXP4YWAmZH mpVwd7EkH3LmSoBsQrV1TyGvfyEQ7pYVX7TJQlYaryJbXiTNAnIProBpubZBV0PZJ1DaBbBIUbVvVhBU 6MLx0IJfB6VYL3dYJxVc4VQpFiPB2JQGRDG3JATc== ID Date Data Source [id number] 01/01/2020 01:14:13 PM EDT [facility] Name Value Range Interpretation Code Description Data Sophia rce(s) Supporting Document(s) History and Physical [facility] PNYUFl4rOxWALuZr91/CPNznYLKqr4KtKUvsSTh6REvaHDHlS7HfFLL0mU1eIXG6XGbUYeKuAsHqMOP0 lbm [file] E+DQogICAgICAgICAgICAgICAgICAgICAgICAgICAg ICAgICAgICAgICAgICAgICAgICAgICAgICAgICAgICAgICAgICAgICAgICAgICAgICAgICAgICAgICAg ICAgICAgICAgICAgDQogICAgICAgICAgICAgICAgICAgICAgICAgICAgICAgICAgICAgICAgICAgICAg ICAgICAgICAgICAgICAgICAgICAgICAgICAgICAgIC AgICAgICAgICAgICAgICAgICAgICAgDQogICAgICAgICAgICAgICAgICAgICAgICAgICAgICAgICAgIC AgICAgICAgICAgICAgICAgICAgICAgICAgICAgICAgICAgICAgICAgICAgICAgICAgICAgICAgICAgIC AgICAgDQogICAgICAgICAgICAgICAgICAgICAgICAg ICAgICAgICAgICAgICAgICAgICAgICAgICAgICAgICAgICAgICAgICAgICAgICAgICAgICAgICAgICAg ICAgICAgICAgICAgICAgDQogICAgICAgICAgICAgICAgICAgICAgICAgICAgICAgICAgICAgICAgICAg ICAgICAgICAgICAgICAgICAgICAgICAgICAgICAgIC AgICAgICAgICAgICAgICAgICAgICAgICAgDQogICAgICAgICAgICAgICAgICAgICAgICAgICAgICAgIC AgICAgICAgICAgICAgICAgICAgICAgICAgICAgICAgICAgICAgICAgICAgICAgICAgICAgICAgICAgIC AgICAgICAgDQogICAgICAgICAgICAgICAgICAgICAg ICAgICAgICAgICAgICAgICAgICAgICAgICAgICAgICAgICAgICAgICAgICAgICAgICAgICAgICAgICAg ICAgICAgICAgICAgICAgICAgDQogICAgICAgICAgICAgICAgICAgICAgICAgICAgICAgICAgICAgICAg ICAgICAgICAgICAgICAgICAgICAgICAgICAgICAgIC AgICAgICAgICAgICAgICAgICAgICAgICAgICAgDQogICAgICAgICAgICAgICAgICAgICAgICAgICAgIC AgICAgICAgICAgICAgICAgICAgICAgICAgICAgICAgICAgICAgICAgICAgICAgICAgICAgICAgICAgIC AgICAgICAgICAgDQogICAgICAgICAgICAgICAgICAg ICAgICAgICAgICAgICAgICAgICAgICAgICAgICAgICAgICAgICAgICAgICAgICAgICAgICAgICAgICAg AXNeIBPbGCFyBASsMCSbRPKfTJRlSSp7Y7jyGTJfTXSfXL1uHMq2Bb7+TVzFWvIcNGU2xrTneA5KLZ3o i6IzKSjaXCPts1TsCCq1GY3XHEFtDUqrQB3TURkhta 6UTFItVRIjqJGSe5bmCeStNJX5VLNwWrzxMQ8DOSHpM1gasvHpAELkBPTUWTtyOKPPQEfjKNEKJD5JCv SsX8XzeF06HMCHTp4+FAjhutWoKceUQqF3DMQcx7VoAZc4GE2SZNSjBtivp8VtZenvMLJNTXqcRF4NIL T6NQF3ARIbNv7KHGCoU701xiPcMO9EYx9QQvFlFL4s pr2ANrvjAUYxLfoRDnl2QUxuAO5NhTFkXHrWYkHtLmamSWu5ISisEXEbw8GzMQloRUXcJFByHO2rRZ0x BLXwAKHnMlPiMCCLSK6FTVViKDWyiWLsYRXmLZGCQX2OVHplNQB7GGYjwkIzuGHiEFmvDC3RXOJgtkMv MjYgMCBSDQo+Jk9WSH2ps5UrHKouVRVyAF2oey7MOY cBQuRiW7Y7lEDnJ5C4XPuxCj2SUBCqDJGeDwYkYIDXLHsxXG7BAG5meeQ6AQ6MqVSgTYEtWARpyPXdQQ k9A19ybZReAMxhYO9GQUI+Lynda+Lv1DLBSxZRXhXMBeLrPsZUSAHwZuC2LxB5VAv1GlX2IcYW28qOvsnf JhGNuiEW8JHW4gVGOxUJLAVW7CzEYyeY4nmmRwGnDt CZKRGjXwG07hrGLvUCNqVKM7XRWiWq7AGELcD4MkohYcaGjnijFyVGTlICHIZP6BMPapvvKhsFSsiCir HS13bMlhHI7ZXe5QTcIlQC1xds4JeNBnKl2ERJHlCK5GBCDmFYLmKUYbMNV7UONiKcDiFVfrZMPoZUKg VMC1FZCzFKEuWJ0DXyMwFUUgCmX2EeYtOPRnCMBhfi 7CFNMyVLFdTYGxRmXjJLXpYPEnWChyKZAvSYLiPCC0DWOoFOZyRR6GPxJnKDBmLPIuOCOtZSXxMIEtxz 3HQGVvAXYzTfS9NhEnGGYdTLRmCHevYPTrDBW6IWM9TXOfWGYoWY1VFrXzZBZoXGvrQHGbFIMqNFEnta 0HZNSiIADzBIO3FFRpWIItTGUqVGsvBENoDOGdUOP6 ZNPrRIGaKH5RSmCeJCAbNLN5ICDfIXPjRVRpny6TGHKuOYHaPTbgAKBvFTFjYZFvMTbtORVjDYTrDKd5 KKNrGDWhYG4TAuXbAAToWDZ9KASoDZJnLMNcnl8UZNBnCGHvTxV7ZYGjLUJsGGAlAZolMOXeMETwRmSk EUUmYLTqOU6EAaZiKUTaEtO6UbqiFRSzJSQenj0SQX RsCNWyQIw9WcYaEYHoBKBkWQxgBFPtXKY0OAX9YATlEBCsPV8SHcVbJAVmDoFzJNIwNHHdVKWzki1KYH SjTJAwKZG0CTRcDFVhNKKtFNclNHNmCMY3FJs3HOHcUPYbLC8WOeTdRKLdHhH3WlCqDEPjRIZdzg3GCS OjAMRtFnk4UYRuAYQiFBIpOOpjZAGtCTY0RiV4VRGw HLXiVA4MRwMgCRVzYte9BTmeSOZgMSJowk5RTKVfZBZlPKc6ZFNgNZDoZNBpBQeiMVFdCDV0SPS1EAFf GRMeYY4FOdBzEWhsQVVDHxu3APhpJ1j1AMYoTI7MN6Nho6LnUsmrOGRQTSgiGW2qbbDaTYRvWf5YE7xW IunhVGJ0HFFdDXFcMKU7UDJtOnt6QWCwAKScBjUiLC M8XD9nEYX1Gew7YjQaGCRhTBOmUZJpKeGjH3BoQDY8GEN0TXe6AyMcZB4HXo3LJnR6EMG9cBUsPl9XOs qfHqlNRwHvUI7AGLf= ID Date Data Source [id number] 01/03/2020 12:43:00 PM [facility] Surgical Pathology ReportName: AMY MADDENMRN: [id number] Number: [id number] Date: 01/01/2020 00:00Received Date: 01/01/2020 13:50Physician(s): ANA [...] diagnosis is based on amicroscopic examination of patient care representative sections of tissue.Gross DescriptionThe specimen is [...] developed and their performance characteristics determined by [facility] Pathology department. They have not been cleared or approved by the USFood and Drug Administration. The FDA has determined that such clearanceor approval is not necessary. Name Value Range Interpretation Code Description Data Sophia rce(s) Supporting Document(s) ID Date Data Source [id number] 12/28/2019 11:50:08 AM [facility] Service Cmnt XXX-Imp : NoneMicroorganism XXX Cult : 2019 nCoV Real-Time RT-PCR: NOT DETECTEDThis test method was designed to detect the causative agent of COVID-19. The Dept. of Pathology [facility] has Emergency Use Authorization (EUA) from the FDA to peform this test to allow for rapid response during a declared public health emergency.Initial validation was performed by the Centers for Disease Control and Prevention (CDC) and additionally validated by the Dept. of Pathology [facility]. Negative results do not preclude SARS-CoV-2 infection and should not be used as the sole basis for patient management decisions.Additional information is available on the following FDA websites for health care providers and patients. https://www.fda.gov/media/909443/download, ht tps://www.fda.gov/media/232118/download. Name Value Range Interpretation Code Description Data Sophia rce(s) Supporting Document(s) ID Date Data Source [id number] 12/27/2019 12:53:00 PM [facility] Service Cmnt XXX-Imp : NoneMicroorganism XXX Cult : 2019 nCoV Real-Time RT-PCR: NOT DETECTEDThis test method was designed to detect the causative agent of COVID-19. The Dept. of Pathology [facility] has Emergency Use Authorization (EUA) from the FDA to peform this test to allow for rapid response during a declared public health emergency.Initial validation was performed by the Centers for Disease Control and Prevention (CDC) and additionally validated by the Dept. of Pathology [facility]. Negative results do not preclude SARS-CoV-2 infection and should not be used as the sole basis for patient management decisions.Additional information is available on the following FDA websites for health care providers and patients. https://www.fda.gov/media/879372/download, ht tps://www.fda.gov/media/111935/download. Name Value Range Interpretation Code Description Data Sophia rce(s) Supporting Document(s) Microorganism identified in Unspecified specimen by [facility] This lab was ordered by [facility] and reported by [facility]. ID Date Data Source [id number] 12/27/2019 12:52:56 PM EDT [facility] Name Value Range Interpretation Code Description Data Sophia rce(s) Supporting Document(s) Progress Note [facility] UJFZJv7oCnQSQbYp96/DGFxqMDIqc7SzMMbhRLj5BQqnVFXhT0BtLIU3gP0rTGZ8VBiEVpQbTkBlXBAd lbm [file] AgICAgICAgICAgICAgICAgICAgICAgICAgICAgICAgICAgICAgICAgICAgICAgICAgICAgICAgICAgIC AgICAgDQogICAgICAgICAgICAgICAgICAgICAgICAg ICAgICAgICAgICAgICAgICAgICAgICAgICAgICAgICAgICAgICAgICAgICAgICAgICAgICAgICAgICAg ICAgICAgICAgICAgICAgDQogICAgICAgICAgICAgICAgICAgICAgICAgICAgICAgICAgICAgICAgICAg ICAgICAgICAgICAgICAgICAgICAgICAgICAgICAgIC AgICAgICAgICAgICAgICAgICAgICAgICAgDQogICAgICAgICAgICAgICAgICAgICAgICAgICAgICAgIC AgICAgICAgICAgICAgICAgICAgICAgICAgICAgICAgICAgICAgICAgICAgICAgICAgICAgICAgICAgIC AgICAgICAgDQogICAgICAgICAgICAgICAgICAgICAg ICAgICAgICAgICAgICAgICAgICAgICAgICAgICAgICAgICAgICAgICAgICAgICAgICAgICAgICAgICAg ICAgICAgICAgICAgICAgICAgDQogICAgICAgICAgICAgICAgICAgICAgICAgICAgICAgICAgICAgICAg ICAgICAgICAgICAgICAgICAgICAgICAgICAgICAgIC AgICAgICAgICAgICAgICAgICAgICAgICAgICAgDQogICAgICAgICAgICAgICAgICAgICAgICAgICAgIC AgICAgICAgICAgICAgICAgICAgICAgICAgICAgICAgICAgICAgICAgICAgICAgICAgICAgICAgICAgIC AgICAgICAgICAgDQogICAgICAgICAgICAgICAgICAg ICAgICAgICAgICAgICAgICAgICAgICAgICAgICAgICAgICAgICAgICAgICAgICAgICAgICAgICAgICAg ICAgICAgICAgICAgICAgICAgICAgDQogICAgICAgICAgICAgICAgICAgICAgICAgICAgICAgICAgICAg ICAgICAgICAgICAgICAgICAgICAgICAgICAgICAgIC AgICAgICAgICAgICAgICAgICAgICAgICAgICAgICAgDQogICAgICAgICAgICAgICAgICAgICAgICAgIC AgICAgICAgICAgICAgICAgICAgICAgICAgICAgICAgICAgICAgICAgICAgICAgICAgICAgICAgICAgIC GiKXAePAFfKOXeUATyHGc4S2psQMLqKRIwSV1iSPq0 Jz8+CXtTTeXoRVN3jvDszY1KQH1ms0KsYPueFQJvq2KaIGj4AU2CZJIzHFhqGX3OJUunhb0NGEAzVSXv lPSEx4ekJlQtDUC8FWEbLwurOY5WLJTtR5aiazIaIHRfTKZWKO7TNoOdR8GreM42VOXJPy3+DQplbmRv PiyLOtT8BXOvo9JmIWh5CZ7JZQVxRiknu7DwQdVyVK NWNYccBD0MXTG2DTVcMXNaCa2RVAWuR550gcNbPD2ELn7VUtPmLK4ets8ALnWoGTWcFvkAAfd9JGaeOG 1MsAEnGZrOis9nvzMyhvCHt2YbpdAisLQDhw0lFY0raoaxTYWhiWdztfncZx9vRCSpDW6rMT4wYQDxRI VyZvOkEJUXPN8EKVZxIPIfmLJtCQXmBEIPUU2FWVqm MJB2CHOuflUxkFFmUOpvUQ0HWSInjtXdXGioWDCDMKf+Bz6XXZ9pw7SwWDrzEIJaVO5dmd2HSHdRBmNd E9V7aRRoL0I4UWwzSp2VDJJzADIaPFhlDNMBDKhcXH1IYY0yfjT3JW1VaXItRNEtJNDztIQaUVo3C52y oSMzWWqjXQ5SKOV+Lynda+Jb2HQFIyUVUsSONdZeFoQV ZYZmJeD8AuH3VNd1RsC4IgAX14zZgsnxKjKQhzIH7ZLB6dFVKrDCOUUZ1YkHBsuZ3nmtVhFJHvPKMIAd OlA55amTTwUECdHFP0WJXmSj0QHPYcL8ZgjxAmqJzsajHiKDCfBOGKHI3LWCgjcvBmeSUdrUczTI60zI rcUJ3IZz8MWeHvYV6yih7OmYOaXq3BRTEkQh3DJDKw XWDeOMAuRWE9YUNlXaJeVLzhKHWwXPHeDLT8ZZZmTVUwMT1NCnKxPSBrHAcuNCTvEZKmYNPisd3GBBZz HVPvREhqMmSlGBCpSICkSFbiMTWjNLWkVFM3JDJyODCsAH4AQyZcYOMbXQF1ZaZtFKUgTYMjsa6PBQZn MDAwMjEyNCAwMDAwMCBuDQowMDAwMDAzMDgzIDAwMD LbRN4INvKsNJNeZRUgWwjuQJKmNWRbcx0YULWuPVNdSeE3ZXPqVYWzDIMaCDjlTEInGOL3DNU4LWHtZT JfPX9EMkVfDRKsRBG6THpdLLIwOZUxkj1IJHInKSItFZdzOrQlLLKvHUOlENqxCJWjHTB5BHXuTTIjCZ OcDG3EOhOiJSPyLVF4XjtrFUMzWMCjbj2LKELuYDYe IxD9PnAzRUVdIGRrKZxpVVVoMFT8HRP9OPUbORSxNY9OVaLuIAKqXKeqGuLiUVEeUCHrxh3OLVQgDYTr WtD7TnVwJQXyRGDyBFcdNNOvSMA7HZHuLFBdFAYzNP1ITfNbBJDkSKt5JQLvCMXgWWQeak6ILPXuWFVt NSYwQaQbAYToPVDvNJc5byIsnONzCIq3AI8XL5Dlxk BeZsLDJi8Tm397YNKvLHSeXv9ZZ6xmSo3mJDUgSBGJUg1TNUe4VMBuCyYwNJY6DkTkWyciTPs0YXP8FQ AwNzcwMmRhOWE+XKlmUSMhPfTwFeOpNsM6Y1W5VNVmIGL5UBI4DwGmESD9WQ4lPKKGLv1+DQpzdGFydH tsEQEQApN4Moj5HZiuJGTIUo6S Procedure Social History Code Duration Value Status Description Data Source(s ) Smoking 01/27/2021 12:00:00 AM EDT Former Smoker completed Former Smoker eCW1 ([facility]) Smoking 12/28/2020 12:00:00 AM EDT Former Smoker completed Former Smoker eCW1 ([facility]) Smoking 05/06/2020 12:00:00 AM EST Former Smoker completed Former Smoker eCW1 ([facility]) Smoking 05/06/2020 12:00:00 AM EST Former Smoker completed Former Smoker eCW1 ([facility]) Smoking 05/06/2020 12:00:00 AM EST Former Smoker completed Former Smoker eCW1 ([facility]) Smoking 05/06/2020 12:00:00 AM EST Former Smoker completed Former Smoker eCW1 ([facility]) Smoking 04/23/2020 12:00:00 AM EST Former Smoker completed Former Smoker eCW1 ([facility]) Smoking 04/01/2020 12:00:00 AM EST Former Smoker completed Former Smoker eCW1 ([facility]) Smoking 04/01/2020 12:00:00 AM EST Former Smoker completed Former Smoker eCW1 ([facility]) Smoking 04/01/2020 12:00:00 AM EST Former Smoker completed Former Smoker eCW1 ([facility]) Alcohol intake 01/01/2020 12:00:00 AM EDT Ex-drinker (finding) comp leted Ex- drinker (finding) [facility] Tobacco use and exposure 01/01/2020 12:00:00 AM EDT Never used co mpleted Never used [facility] Cigarette pack-years 01/01/2020 12:00:00 AM EDT UNK completed [facility] Cigarettes smoked current (pack per day) - Reported 01/01/20 20 12:00:00 AM EDT UNK completed [facility] Smoking 01/01/2020 12:00:00 AM EDT Former smoker completed Former smoker [facility] Vital Signs ID Date Data Source UNK Name Value Range Interpretation Code Description Data Source(s) Body weight 116.2 [lb_av] 116.2 [lb_av] e[facility] ([facility] Body weight 52.71 kg 52.71 kg eCW1 ([facility]) Body height 65 [in_i] 65 [in_i] eCW1 ([facility]) Body mass index (BMI) [Ratio] 19.33 kg/m2 19.33 kg/m2 eCW1 ([facility]) Heart rate 101 /min 101 /min eCW1 ([facility]) Respiratory rate 18 /min 18 /min eCW1 (formerly [facility]) Body temperature 98.0 [degF] 98.0 [degF] eCW1 ( [facility]) Systolic blood pressure 140 mm[Hg] 140 mm[Hg] e CW1 ([facility]) Diastolic blood pressure 80 mm[Hg] 80 mm[Hg] eCW1 ([facility]) Body weight 120.6 [lb_av] 120.6 [lb_av] eCW1 ([facility] Body height 65 [in_i] 65 [in_i] eCW1 ([facility]) Body mass index (BMI) [Ratio] 20.07 kg/m2 20.07 kg/m2 eCW1 ([facility]) Heart rate 100 /min 100 /min eCW1 ([facility]) Respiratory rate 20 /min 20 /min eCW1 (formerly [facility]) Body temperature 97.2 [degF] 97.2 [degF] eCW1 ( [facility]) Systolic blood pressure 130 mm[Hg] 130 mm[Hg] e CW1 ([facility]) Diastolic blood pressure 78 mm[Hg] 78 mm[Hg] eCW1 ([facility]) Respiratory rate 14 /min 14 /min MEDENT ( [facility]) Body height 65 [in_i] 65 [in_i] MEDENT ([facility]) 5'5" Body weight 110.00 [lb_av] 110.00 [lb_av] MEDEN T ([facility], ) Body mass index (BMI) [Ratio] 18.3 kg/m2 18.3 k g/m2 MEDENT ([facility], ) Systolic blood pressure 140 mm[Hg] 140 mm[Hg] M EDENT ([facility]) Diastolic blood pressure 90 mm[Hg] 90 mm[Hg] MEDENT ([facility], ) Heart rate 74 /min 74 /min MEDENT ([facility], ) Bartelso body weight 125 [lb_av] 125 [lb_av] MEDEN T ([facility]) Body weight 115 [lb_av] 115 [lb_av] eCW1 (Formerly [facility]) Body height 65 [in_i] 65 [in_i] eCW1 (Formerly [facility], [facility]) Body mass index (BMI) [Ratio] 19.13 kg/m2 19.13 kg/m2 eCW1 ([facility]) Heart rate 123 /min 123 /min eCW1 ([facility]) Respiratory rate 17 /min 17 /min eCW1 (formerly [facility]) Body temperature 97.0 [degF] 97.0 [degF] eCW1 ( [facility]) Systolic blood pressure 124 mm[Hg] 124 mm[Hg] e CW1 ([facility]) Diastolic blood pressure 84 mm[Hg] 84 mm[Hg] eCW1 ([facility]) Patient Treatment Plan of Care Planned Activity Planned Date Details Description Data Source (s) pantoprazole 40 MG Delayed Release Oral Tablet 01/27/2021 12:00:00 AM EDT eCW1 ([facility]) Escitalopram 10 MG Oral Tablet 01/27/2021 12:00:00 AM EDT eCW1 ([facility]) Test Strips - 04/10/2020 12:00:00 AM EST eCW1 ([facility]) Blood Glucose Monitoring Suppl - 04/10/2020 12:00:00 AM EST eCW1 ([facility]) Lancets Misc. - 04/10/2020 12:00:00 AM EST eCW1 ([facility]) cefdinir 300 MG Oral Capsule 04/04/2020 12:00:00 AM EST eCW1 ([facility]) cefdinir 300 MG Oral Capsule 04/04/2020 12:00:00 AM EST eCW1 ([facility]) Blood Glucose Monitoring Suppl w/Device 04/01/2020 12:00:00 AM EST eCW1 ([facility]) Semglee 100 UNIT/ML 04/01/2020 12:00:00 AM EST eCW1 ([facility]) Semglee 100 UNIT/ML 04/01/2020 12:00:00 AM EST eCW1 ([facility]) Blood Glucose Monitoring Suppl w/Device 04/01/2020 12:00:00 AM EST eCW1 ([facility]) Semglee 100 UNIT/ML 04/01/2020 12:00:00 AM EST eCW1 ([facility]) Blood Glucose Monitoring Suppl w/Device 04/01/2020 12:00:00 AM EST eCW1 ([facility]) sodium chloride (preservative free) 0.9 % flush 3 mL 05:00:[address] [facility] sodium chloride (preservative free) 0.9 % flush 10 mL 01/01/2020 10:14:38 AM [facility] sodium chloride (preservative free) 0.9 % flush 10 mL 01/01/2020 10:14:37 AM [facility] heparin sodium, porcine 10 UNT/ML Injectable Solution 01/01/2020 10:14:37 AM [facility] 3 ML heparin sodium, porcine 100 UNT/ML Prefilled Syri nge 01/01/2020 10:14:37 AM [facility] Dicyclomine Hydrochloride 20 MG Oral Tablet 06/19/2019 12:00:00 AM [facility]
[2021-02-24] MEDS ORDERED: LORazepam 2 MG/ML VIAL IV ONE (23:40)
[2021-02-24 23:44] LABS: PHOSPHORUS LEVEL 3.2 MG/DL (2.5-4.9)
[2021-02-25] MEDS: METOCLOPRAMIDE INJ 10MG/2ML VIAL (J2765 PER 1) IV PRN ×2 (00:28→06:50)
[2021-02-25 00:55] VITALS: BP 134/75
[2021-02-25] MEDS: NS 1,000 ML IV SCH ×4 (01:15→18:48)
--- NOTE | 2021-02-25 01:22 | HPEPDOC ---
[facility] Medical History & Physical Date of Admission Feb 24, 2021 Date of Service: Feb 24, 2021 History and Physical CHIEF COMPLAINT: NAUSEA HISTORY OF PRESENT ILLNESS: 35-year-old female with a past medical history of type 1 diabetes mellitus, presented to the ER with a 2-day history of generalized malaise, nausea with vomiting which began earlier this morning. Patient also endorses acutely worsening shortness of breath while walking up and down stairs today. She denies any cough, subjective fevers or chills, chest pain , palpitations. On arrival to the ER patient was saturating 99%, was normotensive. Found to have acute kidney injury with creatinine 1.43. She appears to be fluid depleted and had difficulty finding IV access. Patient had no anion gap, normal CO2 level on CMP. VBG showed a pH of 7.475. Fasting glucose 124. She had a right femoral central line placed. Patient had elevated D-dimer to 680. Unfortunately due to policy a CT angiogram could not be obtained to rule out pulmonary embolism. Patient admitted to hospitalist service for additional work-up and exclusion of pulmonary embolism. 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 REVIEW OF SYSTEMS: 10 point ROS conducted, relevant findings are noted in HPI. HOME MEDICATIONS: Please see below. PHYSICAL EXAMINATION: VITAL SIGNS: please see below General: slim, appears well nourished, appears uncomfortable due to nausea. HEENT: PERRLA, EOMI, sclerae clear Neck: supple, normal ROM, no JVD Respiratory: lungs CTAB, no wheeze, no rales, no crackles CVS: RRR, normal S1, S2, no murmurs Abdo: old laparotomy scar. non distended abdomen, mildly tender to palpation in LLQ. Extremities: no edema, pulses 2+ MSK: no joint deformities, normal ROM Neuro: no focal neuro deficits, moving all 4 extremities, CN2-12 intact. Strength 5/5 in all 4 extremities. No nystagmus. Psych: calm, cooperative, AAO x 3 LABORATORY DATA: See below. IMAGING: CXR (02/24/21): FINDINGS: Lungs: Unremarkable. No consolidation. Pleural spaces: Unremarkable. No pleural effusion. No pneumothorax. Heart/Mediastinum: Unremarkable. No cardiomegaly. Bones/joints: Unremarkable. CT abdo pelvis wo contrast (02/24/21): IMPRESSION: 1. Right common femoral vein central line to the cephalad right common iliac vein. 2. There has been prior cholecystectomy and hysterectomy. 3. Pancreatic atrophy for age. 4. Otherwise negative CT abdomen/pelvis with decreased evidence of colitis since 12/26/2020. MICROBIOLOGY: Please see below. ASSESSMENT: 35-year-old female with a past medical history of type 1 diabetes mellitus, presented to the ER with a 2-day history of generalized malaise, nausea with vomiting which began earlier this morning. Patient also endorses acutely worsening shortness of breath while walking up and down stairs today. Sh e denies any cough, subjective fevers or chills, chest pain, palpitations. On arrival to the ER patient was saturating 99%, was normotensive. Found to have acute kidney injury with creatinine 1.43. She appears to be fluid depleted and had difficulty finding IV access. Patient had no anion gap, normal CO2 level on CMP. VBG showed a pH of 7.475. Fasting glucose 124. She had a right femoral central line placed. Patient had elevated D-dimer to 680. Unfortunately due to policy a CT angiogram could not be obtained to rule out pulmonary embolism. Patient admitted to hospitalist service for additional work-up and exclusion of pulmonary embolism. . PLAN: Dyspnea - no hypoxia, no cough - elevate D dimer - per CT, unable to push contrast through femoral central line overnight to obtain CTA PE - gave 1 dose lovenox 1 mg/kg (renally dosed) - CTA PE ordered for 02/25/21 AM to r/o PE. Vomiting - possible 2/2 gastroenteritis vs diabetic gastroparesis - on reglan at home (2.5 mg PO ACHS) - reglan prn, ativan once - c/w PPI, sucralfate - CLD for now. - does not meet criteria for DKA. Lipase wnl - consider upper GI series VANCE - Cr 1.43, baseline < 1.0. - c/w IVF NS 125 cc/hr - repeat BMP in AM Abdominal pain - possibly 2/2 vomiting, gastroparesis - c/w PPI - give GI cocktail. IDDM1 - resume levemir - ISS - hypoglycemia precautions - does not meet DKA criteria. Repeat BMP to assess AG. Hx of anemia - s/p EGD, found to have small erosion, otherwise wnl (was concern for obstructing mass) - no H pylori on path report Hypothyroidism - c/w levothyroxine (was reduced to 150 mcg/day) - TSH elevated, FT4 wnl - repeat TFTs as outpatient. Seizure disorder - c/w primidone (dose was increased during last admission) - she is no longer on keppra - f/u with neurology as outpatient. Hx of C diff - start probiotics - completed 10 days of dificid during prior admission RLS - c/w ropinirole Dispo: pending clinical improvement. Vital Signs Vital Signs Date Time Temp Pulse Resp B/P (MAP) Pulse Ox O2 Delivery O2 Flow Rate FiO2 02/25/21 00:48 70 99 02/25/21 00:45 110/55 (73) 02/24/21 21:45 97.8 19 Room Air Laboratory Data Labs 24H Laboratory Tests 2 02/24/21 17:09: Coronavirus (COVID-19)(PCR) NEGATIVE, Influenza Type A (RT-PCR) NEGATIVE, Influenza Type B (RT-PCR) NEGATIVE, Respiratory Syncytial Virus (PCR) NEGATIVE 02/24/21 17:10: Immature Granulocyte % (Auto) 0.3, Neutrophils (%) (Auto) 52.3, Lymphocytes (%) (Auto) 39.0, Monocytes (%) (Auto) 6.2, Eosinophils (%) (Auto) 1.4, Basophils (%) (Auto) 0.8, Neutrophils # (Auto) 3.3, Lymphocytes # (Auto) 2.5, Monocytes # (Auto) 0.4, Eosinophils # (Auto) 0.1, Basophils # (Auto) 0.1, Nucleated Red Blood Cells % (auto) 0.0, Blood Gas Bicarbonate Standard 18.3, Venous Blood pH 7.475H, Venous Blood Partial Pressure CO2 18.8L, Venous Blood Partial Pressure O2 151.9H, Venous Blood Total Carbon Dioxide 14.1L, Venous Blood HCO3 13.5L, Venous Blood Oxygen Saturation 98.9H, Venous Blood Base Excess -7.7L, Total Bilirubin 0.3, Direct Bilirubin < 0.1, Aspartate Amino Transf (AST/SGOT) 45H, Alanine Aminotransferase (ALT/SGPT) 55, Alkaline Phosphatase 183H, Total Creatine Kinase 177, Creatine Kinase MB 4.3H, Creatine Kinase MB Relative Index 2.43, Troponin I < 0.02, GG-Oeb-U-Type Natriuretic Peptide 36, Total Protein 7.6, Albumin 4.0, Albumin/Globulin Ratio 1.1L, Lipase 51L, Thyroid Stimulating Hormone (TSH) 45.700H, Thyroxine (T4) 6.1 02/24/21 17:29: POC Glucose (Misc Panel) 202H, POC Sodium (Misc Panel) 134L, POC Potassium (Misc Panel) 5.0, POC Chloride (Misc Panel) 109, POC Total CO2 (Misc Panel) 17.0L, POC Blood Urea Nitrogen (Misc Panel 39H, POC Ionized Calcium (Misc Panel) 4.2L, POC Creatinine (Misc Panel) 1.2, POC Hematocrit (Misc Panel) 37.0L 02/24/21 17:31: POC Troponin I (Misc) 0.03 02/24/21 18:51: Anion Gap 9, Glomerular Filtration Rate 40.3L, Calcium Level 9.7, Phosphorus Level 3.2, Magnesium Level 2.0, Total Creatine Kinase 136, Creatine Kinase MB 4.5H, Creatine Kinase MB Relative Index 3.31, Troponin I < 0.02 02/24/21 18:56: D-Dimer, Quantitative 608.38H 02/25/21 01:08: Bedside Glucose (Misc Panel) 104 CBC/BMP Laboratory Tests 02/24/21 17:10 02/24/21 18:51 Home Medications Scheduled Chlorthalidone (Chlorthalidone) 25 Mg Tablet, 12.5 MG PO DAILY Clobetasol Propionate (Temovate) 15 Gm Oint...g., 1 DOSE TOP BID APPLY TO PALMS OF HAND Escitalopram Oxalate (Lexapro) 10 Mg Tablet, 10 MG PO DAILY Gabapentin (Gabapentin) 300 Mg Capsule, 300 MG PO BID Insulin Glargine,Hum.rec.anlog (Semglee Pen) 100 Unit/Ml (3 Ml) Insuln.pen, 22 UNITS SC QHS Insulin Lispro (Admelog) 100 Unit/1 Ml Vial, 8 UNITS SC BID BEFORE BREAKFAST AND LUNCH: PLUS SLIDING SCALE Insulin Lispro (Admelog) 100 Unit/1 Ml Vial, 11 UNIT SC ACS PLUS SLIDING SCALE Levocetirizine Dihydrochloride (Levocetirizine Dihydrochloride) 5 Mg Tablet, 5 MG PO QHS Levothyroxine Sodium (Synthroid) 150 Mcg Tablet, 150 MCG PO DAILY Metoclopramide HCl (Metoclopramide HCl) 5 Mg Tablet, 2.5 MG PO ACHS Multivitamins (Thera M Plus Tablet) 1 Each Tablet, 1 TAB PO DAILY Pantoprazole Sodium (Pantoprazole Sodium) 40 Mg Tablet.dr, 40 MG PO DAILY Primidone (Primidone) 50 Mg Tablet, 100 MG PO BID Ropinirole HCl (Ropinirole HCl) 1 Mg Tablet, 1 MG PO BID NOON/QHS Rosuvastatin Calcium (Rosuvastatin Calcium) 40 Mg Tablet, 40 MG PO DAILY Sucralfate (Sucralfate) 1 Gm Tablet, 1 GM PO ACHS Scheduled PRN Metoclopramide HCl (Metoclopramide HCl) 5 Mg Tablet, 2.5 MG PO ACHS PRN for NAUSEA Allergies Coded Allergies: ciprofloxacin (Verified Allergy, Unknown, hives, 12/11/19) latex (Verified Allergy, Unknown, swelling/shortness of breath, 12/11/19) piperacillin (Verified Allergy, Unknown, rash, 12/11/19) tazobactam (Verified Allergy, Unknown, rash, 12/11/19) vancomycin (Verified Allergy, Unknown, rash, 12/11/19) A-FIB/CHADSVASC A-FIB History Current/History of A-Fib/PAF?: No ISSA NICOLAS MD Feb 25, 2021 01:22
[2021-02-25] MEDS: LEVEMIR (INSULIN DETEMIR) 1 UNITS/0.01ML SC SCH ×2 (01:50→20:22)
[2021-02-25] MEDS ORDERED: GI COCKTAIL 50ML BTL(HYOSCYAMINE/MAALOX/LIDOCAINE VISCOUS)(1:3:1) PO ONE (01:50)
[2021-02-25] MEDS ORDERED: SODIUM CHLORIDE 0.9% INJ 10 ML SYR IV PRN (02:40)
[2021-02-25] MEDS: rOPINIRole 1MG TAB PO SCH ×3 (02:52→20:23)
[2021-02-25] MEDS: GABAPENTIN 300 MG CAP PO SCH ×3 (02:52→20:23)
[2021-02-25] MEDS: PRIMIDONE 50 MG TAB PO SCH ×3 (02:53→20:23)
[2021-02-25 03:03] LABS: CALCIUM LEVEL 8.4 MG/DL (8.5-10.1); CREATININE FOR GFR 1.14 MG/DL (0.55-1.30); GLOMERULAR FILTRATION RATE 52.3 (>51); POTASSIUM SERUM 4.1 MEQ/L (3.5-5.1)
[2021-02-25] MEDS: SODIUM CHLORIDE 0.9% INJ 10 ML SYR IV SCH ×3 (05:35→23:20)
[2021-02-25] MEDS: LEVOTHYROXINE 150MCG TABLET (0.15MG) PO SCH (05:35)
[2021-02-25 05:51] LABS: BASO % 0.7 % (0.0-1.0); EOS # 0.1 10^3/uL (0.0-0.5); EOS % 1.6 % (0.0-3.0); HEMATOCRIT 29.1 % (36.0-47.0); LYMPH # 2.2 10^3/uL (1.5-5.0); LYMPH % 35.6 % (24.0-44.0); MEAN CORPUSCULAR HEMOGLOBIN 26.6 pg (27.0-33.0); MEAN CORPUSCULAR HGB CONC 31.3 g/dl (32.0-36.5); MEAN CORPUSCULAR VOLUME 85.1 fl (80.0-96.0); MONO # 0.4 10^3/uL (0.0-0.8); MONO % 5.7 % (2.0-8.0); NEUTROPHILS # 3.4 10^3/uL (1.5-8.5); NEUTROPHILS % 56.1 % (36.0-66.0); PLATELET COUNT, AUTOMATED 344 10^3/uL (150-450); RED BLOOD COUNT 3.42 10^6/uL (4.00-5.40); WHITE BLOOD COUNT 6.1 10^3/uL (4.0-10.0)
[2021-02-25 06:00] VITALS: BP 100/56
[2021-02-25 06:19] LABS: HEMOGLOBIN 9.1 g/dl (12.0-15.5)
[2021-02-25 06:27] LABS: ALBUMIN 3.2 GM/DL (3.2-5.2); BILIRUBIN,TOTAL 0.3 MG/DL (0.2-1.0); CALCIUM LEVEL 8.2 MG/DL (8.5-10.1); CREATININE FOR GFR 1.06 MG/DL (0.55-1.30); GLOMERULAR FILTRATION RATE 56.9 (>51); MAGNESIUM LEVEL 1.9 MG/DL (1.8-2.4); POTASSIUM SERUM 4.1 MEQ/L (3.5-5.1); TOTAL PROTEIN 5.8 GM/DL (6.4-8.2)
--- NOTE | 2021-02-25 08:55 | REP ---
INDICATION: r/o DVT. COMPARISON: None TECHNIQUE: Multiple ultrasonographic images of the deep venous structures of the bilateral thighs were obtained from the level of the common femoral vein to the popliteal vein in the longitudinal and transverse scan planes along with Doppler interrogation and color flow Doppler imaging. Compression ultrasound was also performed in the proximal calves. FINDINGS: The right groin at a bandage overlying and the common femoral vein cannot be evaluated on that side. There is no abnormal echogenic material seen within any of the visualized deep venous structures that would suggest acute thrombosis. Coaptation is unremarkable throughout. Doppler interrogation shows an expected response to respiratory variability and augmentation. The color flow Doppler images show what appears to be a normal vascular pattern throughout the thighs through the popliteal fossae. The bilateral calf vessels are not visualized due to swelling. IMPRESSION: There is no ultrasonographic evidence of deep venous thrombosis involving any of the visualized deep venous structures of the bilateral thighs as described above. Study limitations are as described above. Accredited by the [employer] in Vascular Peripheral Ultrasound. <Electronically signed by Edi Gamez > 02/25/21 0151
[2021-02-25] MEDS: CHLORTHALIDONE 12.5MG PER 1/2 TABLET PO SCH ×2 (09:00→09:31)
[2021-02-25] MEDS ORDERED: KETOROLAC 30 MG/ML 1ML VIAL IV ONE (09:00)
[2021-02-25] MEDS: ROSUVASTATIN 10 MG TAB (CRESTOR) PO SCH (09:30)
[2021-02-25] MEDS: HumaLOG INSULIN (NovoLOG) PER UNIT SC SCH ×4 (09:31→21:00)
[2021-02-25] MEDS: MULTIVITAMINS/MINERALS THERAP 1 TAB PO SCH (09:31)
[2021-02-25] MEDS: ESCITALOPRAM OXALATE 10 MG TAB (LEXAPRO) PO SCH (09:31)
[2021-02-25] MEDS: SUCRALFATE 1 GM TAB PO SCH ×4 (09:31→20:23)
[2021-02-25] MEDS: CLOBETASOL PROP 0.05% OINT 30 GM TOP SCH ×2 (09:32→20:22)
[2021-02-25] MEDS ORDERED: ISOVUE-370 76% 100ML VIAL As Ordered ONE (09:44)
--- NOTE | 2021-02-25 10:29 | REP ---
INDICATION: r/o PE COMPARISON: None. TECHNIQUE: CT angiography of the chest after the intravenous administration of 75 cc Isovue 370. Attention pulmonary arteries. FINDINGS: There is excellent visualization of the pulmonary arterial vasculature. There are no focal filling defects present that would be considered consistent with acute pulmonary emboli. There is no mediastinal or hilar adenopathy. There are no pleural or pericardial effusions. The imaged upper abdomen and imaged osseous structures are within normal limits. Evaluation of the lung keyes shows an 8 mm size nodule in the right lower lobe. IMPRESSION: 1. There is no evidence of a pulmonary embolus. 2. There is an 8 mm size nodule in the right lower lobe. According to the revised Fleischner society criteria this represents a lung rads category 4A lesion for which a 3 month follow-up chest CT is recommended. Additionally, since the nodule measures at least 8 mm PET-CT should be considered at this time. <Electronically signed by Joey Hilliard > 02/25/21 0163
[2021-02-25] MEDS: PANTOPRAZOLE 40MG VIAL (C9113 PER 1) IV SCH (11:43)
--- NOTE | 2021-02-25 13:17 | IPNPDOC ---
Date Seen The patient was seen on 02/25/21. Progress Note SUBJECTIVE: c/o diffuse abd pain w nausea. no f/c. still sob, and c/o pleuritc cp w/o hemoptysis, sputum production, palpitations, lightheadedness, dysphagia, odynophagia, hematemesis, coffee ground emesis, brbpr, diarrhea, or constipation. OBJECTIVE: PHYSICAL EXAMINATION: VITAL SIGNS: please see below General: cachectic no distress. aaox3 no cyanosis, icterus, or jaundice HEENT: PERRLA, EOMI, sclerae clear face symmetric tongue midline Neck: supple, normal ROM, no JVD dry mucus membranes Respiratory: lungs CTAB, no wheeze, no rales, no crackles I:E ratio1:2 CVS: RRR, normal S1, S2, no murmurs Abdo: soft no HSM no cva tenderness old laparotomy scar. non distended abdomen, mildly tender to palpation in LLQ. Extremities: no edema, pulses 2+ no cyanosis or clubbing. LABORATORY DATA: See below. IMAGING: CXR (02/24/21): FINDINGS: Lungs: Unremarkable. No consolidation. Pleural spaces: Unremarkable. No pleural effusion. No pneumothorax. Heart/Mediastinum: Unremarkable. No cardiomegaly. Bones/joints: Unremarkable. CT abdo pelvis wo contrast (02/24/21): IMPRESSION: 1. Right common femoral vein central line to the cephalad right common iliac vein. 2. There has been prior cholecystectomy and hysterectomy. 3. Pancreatic atrophy for age. 4. Otherwise negative CT abdomen/pelvis with decreased evidence of colitis since 12/26/2020. MICROBIOLOGY: Please see below. ASSESSMENT AND PLAN: 55 y/o admitted due to sob, abd pain. Diabetic gastroparesis -trial of reglan, check gastric emptying scan to confirm. -small more frequent meals. liquid diet for now. Abd pain -check mra abd r/o chronic ischemia -ct abd neg -no empiric abx -check procalcitonin Acute metabolic acidosis -monitor for dka. -supportive care. bicarb bid VANCE, resolved w ivfluids - Cr 1.43, baseline < 1.0. IDDM1 - resume levemir - ISS - hypoglycemia precautions Hx of anemia - s/p EGD, found to have small erosion -ct abd neg for mass. Hypothyroidism - on synthroid Seizure disorder -primidone Hx of C diff -on bacid RLS - c/w ropinirole VS, I&O, 24H, Kattye Vital Signs/I&O Vital Signs Date Time Temp Pulse Resp B/P (MAP) Pulse Ox O2 Delivery O2 Flow Rate FiO2 02/25/21 06:00 99.5 69 16 100/56 (71) 99 Room Air I&O- Last 24 Hours up to 6 AM 02/25/21 05:59 Intake Total 50 ml Output Total 0 ml Balance 50 ml Laboratory Data 24H LABS Laboratory Tests 2 02/24/21 17:09: Coronavirus (COVID-19)(PCR) NEGATIVE, Influenza Type A (RT-PCR) NEGATIVE, Influenza Type B (RT-PCR) NEGATIVE, Respiratory Syncytial Virus (PCR) NEGATIVE 02/24/21 17:10: Immature Granulocyte % (Auto) 0.3, Neutrophils (%) (Auto) 52.3, Lymphocytes (%) (Auto) 39.0, Monocytes (%) (Auto) 6.2, Eosinophils (%) (Auto) 1.4, Basophils (%) (Auto) 0.8, Neutrophils # (Auto) 3.3, Lymphocytes # (Auto) 2.5, Monocytes # (Auto) 0.4, Eosinophils # (Auto) 0.1, Basophils # (Auto) 0.1, Nucleated Red Blood Cells % (auto) 0.0, Blood Gas Bicarbonate Standard 18.3, Venous Blood pH 7.475H, Venous Blood Partial Pressure CO2 18.8L, Venous Blood Partial Pressure O2 151.9H, Venous Blood Total Carbon Dioxide 14.1L, Venous Blood HCO3 13.5L, Venous Blood Oxygen Saturation 98.9H, Venous Blood Base Excess -7.7L, Total Bilirubin 0.3, Direct Bilirubin < 0.1, Aspartate Amino Transf (AST/SGOT) 45H, Alanine Aminotransferase (ALT/SGPT) 55, Alkaline Phosphatase 183H, Total Creatine Kinase 177, Creatine Kinase MB 4.3H, Creatine Kinase MB Relative Index 2.43, Troponin I < 0.02, BW-Lof-V-Type Natriuretic Peptide 36, Total Protein 7.6, Albumin 4.0, Albumin/Globulin Ratio 1.1L, Lipase 51L, Thyroid Stimulating Hormone (TSH) 45.700H, Thyroxine (T4) 6.1 02/24/21 17:29: POC Glucose (Misc Panel) 202H, POC Sodium (Misc Panel) 134L, POC Potassium (Misc Panel) 5.0, POC Chloride (Misc Panel) 109, POC Total CO2 (Misc Panel) 17.0L, POC Blood Urea Nitrogen (Misc Panel 39H, POC Ionized Calcium (Misc Panel) 4.2L, POC Creatinine (Misc Panel) 1.2, POC Hematocrit (Misc Panel) 37.0L 02/24/21 17:31: POC Troponin I (Misc) 0.03 02/24/21 18:51: Anion Gap 9, Glomerular Filtration Rate 40.3L, Calcium Level 9.7, Phosphorus Level 3.2, Magnesium Level 2.0, Total Creatine Kinase 136, Creatine Kinase MB 4.5H, Creatine Kinase MB Relative Index 3.31, Troponin I < 0.02 02/24/21 18:56: D-Dimer, Quantitative 608.38H 02/25/21 01:08: Bedside Glucose (Misc Panel) 104 02/25/21 02:19: Anion Gap 9, Glomerular Filtration Rate 52.3, Calcium Level 8.4L 02/25/21 05:41: Immature Granulocyte % (Auto) 0.3, Neutrophils (%) (Auto) 56.1, Lymphocytes (%) (Auto) 35.6, Monocytes (%) (Auto) 5.7, Eosinophils (%) (Auto) 1.6, Basophils (%) (Auto) 0.7, Neutrophils # (Auto) 3.4, Lymphocytes # (Auto) 2.2, Monocytes # (Auto) 0.4, Eosinophils # (Auto) 0.1, Basophils # (Auto) 0.0, Nucleated Red Blood Cells % (auto) 0.0, Anion Gap 7L, Glomerular Filtration Rate 56.9, Calcium Level 8.2L, Magnesium Level 1.9, Total Bilirubin 0.3, Aspartate Amino Transf ( T/SGOT) 25, Alanine Aminotransferase (ALT/SGPT) 37, Alkaline Phosphatase 144H, Total Protein 5.8#L, Albumin 3.2, Albumin/Globulin Ratio 1.2 02/25/21 09:16: Bedside Glucose (Misc Panel) 121H 02/25/21 11:24: Bedside Glucose (Misc Panel) 210H CBC/BMP Laboratory Tests 02/24/21 17:10 02/24/21 18:51 02/25/21 02:19 02/25/21 05:41 INDIO MORGAN MD Feb 25, 2021 13:17
[2021-02-25] MEDS ORDERED: PROHANCE 279.3MG/ML 15ML VIAL As Ordered ONE (13:53)
[2021-02-25 14:00] VITALS: BP 100/54
[2021-02-25] MEDS: SODIUM BICARBONATE 325 MG TAB PO SCH ×2 (14:40→20:23)
[2021-02-25] MEDS: KETOROLAC 30 MG/ML 1ML VIAL IV PRN (20:21)
[2021-02-25 22:00] VITALS: BP 103/55
[2021-02-25] MEDS: RAMELTEON 8 MG TAB (ROZEREM) PO PRN (23:17)
[2021-02-26] MEDS: LEVEMIR (INSULIN DETEMIR) 1 UNITS/0.01ML SC SCH ×2 (01:00→21:00)
[2021-02-26 06:00] VITALS: BP 86/46
[2021-02-26 06:13] LABS: HEMOGLOBIN 8.1 g/dl (12.0-15.5); MEAN CORPUSCULAR HEMOGLOBIN 27.3 pg (27.0-33.0); MEAN CORPUSCULAR HGB CONC 31.2 g/dl (32.0-36.5); MEAN CORPUSCULAR VOLUME 87.5 fl (80.0-96.0); PLATELET COUNT, AUTOMATED 270 10^3/uL (150-450); RED BLOOD COUNT 2.97 10^6/uL (4.00-5.40); WHITE BLOOD COUNT 5.3 10^3/uL (4.0-10.0)
[2021-02-26] MEDS: LEVOTHYROXINE 150MCG TABLET (0.15MG) PO SCH (06:15)
[2021-02-26] MEDS: SODIUM CHLORIDE 0.9% INJ 10 ML SYR IV SCH ×3 (06:16→18:12)
[2021-02-26] MEDS: ACETAMINOPHEN TAB 650MG DOSE (2X325MG) PO PRN ×2 (06:19→14:22)
[2021-02-26] MEDS: NS 1,000 ML IV SCH ×3 (06:19→20:19)
[2021-02-26 06:40] LABS: CALCIUM LEVEL 7.9 MG/DL (8.5-10.1); CREATININE FOR GFR 1.02 MG/DL (0.55-1.30); GLOMERULAR FILTRATION RATE 59.5 (>51); MAGNESIUM LEVEL 2.1 MG/DL (1.8-2.4); POTASSIUM SERUM 3.7 MEQ/L (3.5-5.1)
--- NOTE | 2021-02-26 08:27 | REP ---
INDICATION: sob r/o pe pleuritic cp. COMPARISON: Prior CT angio chest obtained yesterday TECHNIQUE/RADIOTRACER AND DOSE: After the intravenous administration of 5.5 mCi of technetium 99 M MAA a perfusion lung study was performed. After the and elation of 1 mCi of technetium 99 M DTPA aerosol a ventilation lung study was performed. FINDINGS: Although no common density data has been provided the technologist who performed the examination is made D review are aware that the counts were lower than usual in the ventilation portion of the study. The ventilation portion of the exam shows significant clumping of the radiotracer throughout the tracheobronchial system. In addition, the activity within the lungs is only moderately higher than background activity. The perfusion portion of the examination shows no gross defect, however, a small ventilation perfusion mismatch cannot be determined due to the appearance of the ventilation study. IMPRESSION: Indeterminate exam. <Electronically signed by Joey Hilliard > 02/26/21 [id number]
[2021-02-26] MEDS: HumaLOG INSULIN (NovoLOG) PER UNIT SC SCH ×4 (09:00→21:00)
[2021-02-26] MEDS: SUCRALFATE 1 GM TAB PO SCH ×4 (09:00→20:18)
[2021-02-26] MEDS: CHLORTHALIDONE 12.5MG PER 1/2 TABLET PO SCH (09:00)
[2021-02-26] MEDS: PANTOPRAZOLE 40MG VIAL (C9113 PER 1) IV SCH (09:16)
[2021-02-26] MEDS: PRIMIDONE 50 MG TAB PO SCH ×2 (09:17→20:18)
[2021-02-26] MEDS: MULTIVITAMINS/MINERALS THERAP 1 TAB PO SCH (09:17)
[2021-02-26] MEDS: GABAPENTIN 300 MG CAP PO SCH ×2 (09:18→20:18)
[2021-02-26] MEDS: SODIUM BICARBONATE 325 MG TAB PO SCH ×2 (09:18→20:18)
[2021-02-26] MEDS: ESCITALOPRAM OXALATE 10 MG TAB (LEXAPRO) PO SCH (09:20)
[2021-02-26] MEDS: ROSUVASTATIN 10 MG TAB (CRESTOR) PO SCH (09:20)
[2021-02-26] MEDS: KETOROLAC 30 MG/ML 1ML VIAL IV PRN ×2 (09:22→18:12)
[2021-02-26] MEDS: CLOBETASOL PROP 0.05% OINT 30 GM TOP SCH ×2 (09:24→20:18)
[2021-02-26] MEDS: rOPINIRole 1MG TAB PO SCH ×2 (12:04→20:18)
--- NOTE | 2021-02-26 12:24 | IPNPDOC ---
Text Note Date of Service The patient was seen on 02/26/21. NOTE Subjective: Patient seen and examined at bedside. No acute overnight events reported. Patient voices no new medical complaints this morning. OBJECTIVE: Vital Signs: reviewed General: NAD, lying comfortably in bed HEENT: NC/AT, EOMI, edentulous Neck: supple, no masses Chest: lungs CTA B/L Heart: +S1S2, RRR Abd: soft, NT, ND, +BS Ext: no edema Skin: no rashes MSK: full ROM at large joints Neuro: no gross focal deficits Psych: AAOx3 ASSESSMENT AND PLAN: 55 y/o admitted due to sob, abd pain with PMHx including IDDM, with diabetic gastroparesis. #Diabetic gastroparesis -trial of reglan, check gastric emptying scan to confirm. -small more frequent meals. liquid diet for now. #Abd pain -check mra abd r/o chronic ischemia -ct abd neg -no empiric abx -check procalcitonin #Acute metabolic acidosis -monitor for dka. -supportive care. bicarb bid #VANCE, resolved w ivfluids - Cr 1.43, baseline < 1.0. #IDDM1 - resume levemir - ISS - hypoglycemia precautions #Hx of anemia - s/p EGD, found to have small erosion -ct abd neg for mass. #Hypothyroidism - on synthroid #Seizure disorder -primidone #Hx of C diff -on bacid #RLS - c/w ropinirole DVT prophylaxis - mechanical Dispo: pending MRA, gastric emptying scan VS,Fishbone, I+O VS, Fishbone, I+O Laboratory Tests 02/26/21 03:14 02/26/21 06:03 Vital Signs Date Time Temp Pulse Resp B/P (MAP) Pulse Ox O2 Delivery O2 Flow Rate FiO2 02/26/21 06:00 98.3 64 16 86/46 (59) 96 Room Air I&O- Last 24 Hours up to 6 AM 02/26/21 06:00 Intake Total 2970 ml Output Total 800 ml Balance 2170 ml ANDERSON WEBBER MD Feb 26, 2021 12:24
[2021-02-26] MEDS ORDERED: LIDOCAINE 1% MDV 20ML VIAL As Ordered ONE (14:42)
[2021-02-26] MEDS ORDERED: ISOVUE-300 61% 50ML VIAL As Ordered ONE (15:36)
[2021-02-26 16:00] VITALS: BP 100/46
[2021-02-26] MEDS ORDERED: SODIUM CHLORIDE 0.9% INJ 10 ML SYR IV PRN (16:55)
--- NOTE | 2021-02-26 17:00 | REP ---
PROCEDURE NAME: PICC LINE INSERTION W/SITERITE CLINICAL INFORMATION: poor venous access-need to dc femoral line RADHA. COMPARISON: None. PROCEDURE DESCRIPTION: The procedure was performed by HOUSTON Geller, under the direct supervision of Dr. Murguia. The risks and benefits of the procedure were explained to the patient and an informed consent was obtained both verbally and written. Directly prior to the start of the procedure a formal time-out was completed in the procedure room. The right basilic vein was localized using ultrasound guidance. The skin was prepped and draped in sterile fashion. Two mL of 1% lidocaine 10 mg/mL was used as a local anesthetic. Using ultrasound guidance the right basilic vein was cannulated, and a 0.018 guidewire was inserted and advanced to the level of SVC using fluoroscopic guidance. The needle was removed and a 6 Surinamese dilator and peel-away sheath was inserted over the guidewire. There was difficulty getting the guidewire to advance past the armpit region. A 50/50 solution of 2 cc of heparinized saline and 2 cc Isovue 300 were injected through the vessel dilator while DSA imaging was being taken. This imaging revealed that the vessel was partially occluded with collateral vessels. At this time the procedure was aborted the vessel dilator was removed and the area was bandaged. The left brachial vein was localized using ultrasound guidance. The skin was prepped and draped in sterile fashion. Two mL of 1% lidocaine 10 mg/mL was used as a local anesthetic. Using ultrasound guidance the left brachial vein was cannulated, and a 0.018 guidewire was inserted and advanced to the level of SVC using fluoroscopic guidance. The needle was removed and a 6 Surinamese dilator and peel-away sheath was inserted over the guidewire. A 5.5 Surinamese dual lumen catheter was cut to a length of 40 cm. The dilator was removed and the catheter was inserted over the guidewire with the tip ending at the level of the SVC. The peel-away sheath was removed and the catheter was flushed with heparinized saline as per hospital protocol. The catheter was affixed to the skin and a sterile dressing was applied. The patient tolerated the procedure well and there were no immediate complications. CONCLUSION: PICC line insertion into the left brachial vein. 1.8 minutes of fluoroscopy time was utilized for this procedure. Some fluoroscopic images are performed with last image hold technology. These images require no additional radiation. <Electronically signed by Nereida Gomes > 02/26/21 1642 <Electronically signed by Charlie Murguia > 02/26/21 0502
[2021-02-26] MEDS ORDERED: NEOSPORIN OINT 0.9 GM PKT TOP ONE (19:15)
[2021-02-26 22:00] VITALS: BP 136/69
[2021-02-26] MEDS: RAMELTEON 8 MG TAB (ROZEREM) PO PRN (22:09)
[2021-02-27] MEDS: NS 1,000 ML IV SCH (00:43)
[2021-02-27] MEDS: KETOROLAC 30 MG/ML 1ML VIAL IV PRN (00:43)
[2021-02-27] MEDS: LEVEMIR (INSULIN DETEMIR) 1 UNITS/0.01ML SC SCH (01:02)
[2021-02-27] MEDS: ONDANSETRON 4 MG ORAL DISINTEGRATING TAB PO PRN ×2 (03:02→12:42)
[2021-02-27] MEDS: LEVOTHYROXINE 150MCG TABLET (0.15MG) PO SCH (05:45)
[2021-02-27] MEDS: SODIUM CHLORIDE 0.9% INJ 10 ML SYR IV SCH (05:45)
[2021-02-27 06:00] VITALS: BP 130/75
[2021-02-27 06:02] LABS: HEMATOCRIT 26.6 % (36.0-47.0); HEMOGLOBIN 8.2 g/dl (12.0-15.5); MEAN CORPUSCULAR HGB CONC 30.8 g/dl (32.0-36.5); MEAN CORPUSCULAR VOLUME 87.5 fl (80.0-96.0); PLATELET COUNT, AUTOMATED 260 10^3/uL (150-450); RED BLOOD COUNT 3.04 10^6/uL (4.00-5.40); WHITE BLOOD COUNT 5.6 10^3/uL (4.0-10.0)
[2021-02-27 06:32] LABS: CALCIUM LEVEL 7.9 MG/DL (8.5-10.1); CREATININE FOR GFR 1.12 MG/DL (0.55-1.30); GLOMERULAR FILTRATION RATE 53.4 (>51); MAGNESIUM LEVEL 1.9 MG/DL (1.8-2.4); POTASSIUM SERUM 3.4 MEQ/L (3.5-5.1)
[2021-02-27] MEDS ORDERED: POTASSIUM CHLORIDE 10MEQ SR TABLET PO ONE (08:00)
[2021-02-27] MEDS: GABAPENTIN 300 MG CAP PO SCH (08:37)
[2021-02-27] MEDS: SODIUM BICARBONATE 325 MG TAB PO SCH (08:37)
[2021-02-27] MEDS: HumaLOG INSULIN (NovoLOG) PER UNIT SC SCH ×2 (08:37→12:00)
[2021-02-27] MEDS: MULTIVITAMINS/MINERALS THERAP 1 TAB PO SCH (08:37)
[2021-02-27] MEDS: PRIMIDONE 50 MG TAB PO SCH (08:37)
[2021-02-27] MEDS: ROSUVASTATIN 10 MG TAB (CRESTOR) PO SCH (08:37)
[2021-02-27] MEDS: CHLORTHALIDONE 12.5MG PER 1/2 TABLET PO SCH (08:38)
[2021-02-27] MEDS: SUCRALFATE 1 GM TAB PO SCH ×2 (08:38→12:42)
[2021-02-27] MEDS: ESCITALOPRAM OXALATE 10 MG TAB (LEXAPRO) PO SCH (08:38)
[2021-02-27] MEDS: CLOBETASOL PROP 0.05% OINT 30 GM TOP SCH (08:39)
[2021-02-27] MEDS ORDERED: PANTOPRAZOLE 40MG TAB (PROTONIX) PO SCH (09:00)
[2021-02-27] MEDS ORDERED: PROHANCE 279.3MG/ML 15ML VIAL As Ordered ONE (11:41)
[2021-02-27] MEDS: rOPINIRole 1MG TAB PO SCH (12:42)
[2021-02-27] MEDS: ACETAMINOPHEN TAB 650MG DOSE (2X325MG) PO PRN (12:43)
[2021-02-27] MEDS ORDERED: SUCR1TA PO (13:21)
--- NOTE | 2021-02-27 13:46 | REP ---
INDICATION: abd pain. COMPARISON: CT exams 01/02/2021, 02/24/2021. TECHNIQUE: MRA abdominal aorta and branches is performed utilizing 3D [id number] imaging following the intravenous administration of 12.5 mL ProHance. MIP reconstruction images are performed. FINDINGS: Mild to moderate diffuse narrowing of the distal abdominal aorta is noted. There is mild narrowing bilaterally of the proximal common iliac arteries. The external iliac and common femoral arteries are patent bilaterally. There is no evidence of mesenteric artery stenosis. The celiac, superior and inferior mesenteric arteries are patent without significant narrowing. A single main renal artery is visualized bilaterally. There is no evidence of significant narrowing or stenosis of either renal artery. There are small bilateral pleural effusions. There is a 9 mm hemangioma in the left lobe the liver. IMPRESSION: Mild to moderate diffuse narrowing of the distal abdominal aorta. No evidence of mesenteric or renal artery stenosis. <Electronically signed by Charlie Murguia > 02/27/21 [id number]
[2021-02-27 14:00] VITALS: BP 122/65
[2021-02-27 15:06] LABS: CK-MB VALUE MASS 6.5 NG/ML (<3.6); CPK CREATINE PHOSPHOKINASE 221 U/L (26-192); MB/CK RELATIVE INDEX 2.94 (< OR =4); TROPONIN I < 0.02 NG/ML (< 0.10)
--- NOTE | 2021-02-27 17:09 | DS.PDOC ---
Discharge Summary General Date of Admission Feb 24, 2021 at 23:16 Date of Discharge 02/27/2021 Discharge Summary PROCEDURES PERFORMED DURING STAY: [None]. DISCHARGE DIAGNOSES: #Abd pain #Acute metabolic acidosis #VANCE #IDDM1 #Hx of anemia #Hypothyroidism #Seizure disorder #Hx of C diff #RLS COMPLICATIONS/CHIEF COMPLAINT: Elevated D-Dimer; Vomiting. HISTORY OF PRESENT ILLNESS: .35-year-old female with a past medical history of type 1 diabetes mellitus, presented to the ER with a 2-day history of generalized malaise, nausea with vomiting which began earlier this morning. Patient also endorses acutely worsening shortness of breath while walking up and down stairs today. She denies any cough, subjective fevers or chills, chest pain, palpitations. On arrival to the ER patient was saturating 99%, was normotensive. Found to have acute kidney injury with creatinine 1.43. She appears to be fluid depleted and had difficulty finding IV access. Patient had no anion gap, normal CO2 level on CMP. VBG showed a pH of 7.475. Fasting glucose 124. She had a right femoral central line placed. Patient had elevated D-dimer to 680. Unfortunately due to policy a CT angiogram could not be obtained to rule out pulmonary embolism. Patient admitted to hospitalist service for additional work-up and exclusion of pu lmonary embolism. #Abd pain -mra abdomen unrevealing -ct abd neg -no empiric abx -symptoms resolved - possibly secondary to diabetic gastroparesis - encouraged small/frequent meals #Acute metabolic acidosis - resolved #VANCE, resolved w ivfluids #IDDM1 - resume insulin therapy, carb consistent diet #Hx of anemia - s/p EGD, found to have small erosion -ct abd neg for mass. #Hypothyroidism - on synthroid #Seizure disorder -primidone #Hx of C diff -on bacid #RLS - c/w ropinirole DISCHARGE MEDICATIONS: Please see below. ALLERGIES: Please see below. PHYSICAL EXAMINATION ON DISCHARGE: Vital Signs: reviewed General: NAD, lying comfortably in bed HEENT: NC/AT, EOMI, edentulous Neck: supple, no masses Chest: lungs CTA B/L Heart: +S1S2, RRR Abd: soft, NT, ND, +BS Ext: no edema Skin: no rashes MSK: full ROM at large joints Neuro: no gross focal deficits Psych: AAOx3 LABORATORY DATA: Please see below. ACTIVITY: [As tolerated]. DISCHARGE INSTRUCTIONS: 1. Follow up PCP in 3-5 days 2. Follow up lung nodule as per PCP 3. follow up distal abdominal aorta narrowing as per PCP. DISCHARGE CONDITION: [Stable]. TIME SPENT ON DISCHARGE: 35 minutes. Vital Signs/I&Os Vital Signs Date Time Temp Pulse Resp B/P (MAP) Pulse Ox O2 Delivery O2 Flow Rate FiO2 02/27/21 14:00 97.5 76 17 122/65 (84) 97 Room Air I&O- Last 24 Hours up to 6 AM 02/27/21 06:00 Intake Total 4240 ml Output Total 775 ml Balance 3465 ml Laboratory Data Labs 24H Laboratory Tests 2 02/26/21 20:46: Bedside Glucose (Misc Panel) 184H 02/27/21 00:50: Bedside Glucose (Misc Panel) 384H 02/27/21 05:50: Nucleated Red Blood Cells % (auto) 0.0, Anion Gap 6L, Glomerular Filtration Rate 53.4, Calcium Level 7.9L, Magnesium Level 1.9 02/27/21 12:32: Bedside Glucose (Misc Panel) 87 02/27/21 14:20: Total Creatine Kinase 221H, Creatine Kinase MB 6.5H, Creatine Kinase MB Relative Index 2.94, Troponin I < 0.02 CBC/BMP Laboratory Tests 02/27/21 05:50 FSBS Laboratory Tests Test 02/26/21 20:46 02/27/21 00:50 02/27/21 12:32 Range/Units Bedside Glucose (Misc Panel) 184 384 87 70-105 MG/DL Discharge Medications Scheduled Chlorthalidone (Chlorthalidone) 25 Mg Tablet, 12.5 MG PO DAILY, (Reported) Clobetasol Propionate (Temovate) 15 Gm Oint...g., 1 DOSE TOP BID, (Reported) APPLY TO PALMS OF HAND Escitalopram Oxalate (Lexapro) 10 Mg Tablet, 10 MG PO DAILY, (Reported) Gabapentin (Gabapentin) 300 Mg Capsule, 300 MG PO BID, (Reported) Insulin Glargine,Hum.rec.anlog (Semglee Pen) 100 Unit/Ml (3 Ml) Insuln.pen, 22 UNITS SC QHS, (Reported) Insulin Lispro (Admelog) 100 Unit/1 Ml Vial, 8 UNITS SC BID, (Reported) BEFORE BREAKFAST AND LUNCH: PLUS SLIDING SCALE Insulin Lispro (Admelog) 100 Unit/1 Ml Vial, 11 UNIT SC ACS, (Reported) PLUS SLIDING SCALE Levocetirizine Dihydrochloride (Levocetirizine Dihydrochloride) 5 Mg Tablet, 5 MG PO QHS, (Reported) Levothyroxine Sodium (Synthroid) 150 Mcg Tablet, 150 MCG PO DAILY, (Reported) Metoclopramide HCl (Metoclopramide HCl) 5 Mg Tablet, 2.5 MG PO ACHS Multivitamins (Thera M Plus Tablet) 1 Each Tablet, 1 TAB PO DAILY, (Reported) Pantoprazole Sodium (Pantoprazole Sodium) 40 Mg Tablet.dr, 40 MG PO DAILY, (Reported) Primidone (Primidone) 50 Mg Tablet, 100 MG PO BID, (Reported) Ropinirole HCl (Ropinirole HCl) 1 Mg Tablet, 1 MG PO BID, (Reported) NOON/QHS Rosuvastatin Calcium (Rosuvastatin Calcium) 40 Mg Tablet, 40 MG PO DAILY, (Reported) Sucralfate (Sucralfate) 1 Gm Tablet, 1 GM PO ACHS Scheduled PRN Metoclopramide HCl (Metoclopramide HCl) 5 Mg Tablet, 2.5 MG PO ACHS PRN for NAUSEA, (Reported) Allergies Coded Allergies: ciprofloxacin (Verified Allergy, Unknown, hives, 12/11/19) latex (Verified Allergy, Unknown, swelling/shortness of breath, 12/11/19) piperacillin (Verified Allergy, Unknown, rash, 12/11/19) tazobactam (Verified Allergy, Unknown, rash, 12/11/19) vancomycin (Verified Allergy, Unknown, rash, 12/11/19) ANDERSON WEBBER MD Feb 27, 2021 17:09
== END 2021-02-27 16:45 | disposition home or self-care (01) | DRG 48 ==
LOC: M ED 16:32 → M ED INP 23:16 → M MSPAV 02-25 00:54
PROVIDERS: ADMIT Family Medicine; ATTEND Internal Medicine
PROC: 02HV33Z Insertion of Infusion Device into Superior Vena Cava, Percutaneous Approach (ICD-10-PCS; principal; 2021-02-26 15:00)
DX: E10.43 Type 1 diabetes mellitus with diabetic autonomic (poly)neuropathy (principal); N17.9 Acute kidney failure, unspecified; E87.2 Acidosis; R06.00 Dyspnea, unspecified; G40.909 Epilepsy, unspecified, not intractable, without status epilepticus; R11.10 Vomiting, unspecified; K31.84 Gastroparesis; E03.9 Hypothyroidism, unspecified; G25.81 Restless legs syndrome; Z79.4 Long term (current) use of insulin; Z79.899 Other long term (current) drug therapy; Z91.040 Latex allergy status; Z88.8 Allergy status to other drugs, medicaments and biological substances; Z87.891 Personal history of nicotine dependence; I10 Essential (primary) hypertension

== ENCOUNTER 2021-03-04 15:01 | Emergency (ER) | payer OTHER ==
[~2021-03-04] VITALS: Ht 165.1 cm; Wt 54.5 kg
[~2021-03-04 15:01] MED LIST changes: +CHLO125TA; +CHLO125TA PO; +ESCITALOPRAM; +LEVOTAB10 PO; +LEXA1TAB PO; +PANT-23 PO; +SUCR1TA PO; +SYNT150T PO; +TEMO0.0517 TOP
--- OUTSIDE RECORDS SUMMARY | 2021-03-04 15:14 | CCD ---
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 Name Role Phone ANA CRISTINA HAYNES MD [...] Unavailable Ali, Robert Unavailable Unavailable Ali, Robert GARCIA Unavailable Unavailable AliRobert MD Unavailable Unavailable Paul Arenas MD Unavailable Unavailable ArenasPaul saravia MD Unavailable Unavailable ArenasPaul saravia MD Unavailable Unavailable ArenasPaul saravia MD Unavailable Unavailable ArenasPaul saravia MD Unavailable Unavailable ArenasPaul saravia MD Unavailable Unavailable ArenasPaul saravia MD Unavailable Unavailable ArenasPaul saravia MD Unavailable Unavailable ArenasPaul saravia MD Unavailable Unavailable ArenasPaul saravia MD Unavailable Unavailable ArenasPaul MD Unavailable Unavailable Arenas, L Devon GARCIA Unavailable Unavailable Arenas, L Devon GARCIA Unavailable Unavailable Arenas, L Devon GARCIA Unavailable Unavailable Arenas, L Devon GARCIA Unavailable Unavailable Arenas, L Devon GARCIA Unavailable Unavailable Arenas, L Devon GARCIA Unavailable Unavailable Arenas, L Devon GARCIA Unavailable Unavailable Areans, L Devon GARCIA Unavailable Unavailable Arenas, L Devon GARCIA Unavailable Unavailable Arenas, L Devon GARCIA Unavailable Unavailable Arenas, L Devon GARCIA Unavailable Unavailable Arenas, L Devon GARCIA Unavailable Unavailable Arenas, L Devon GARCIA Unavailable Unavailable Arenas, L Devon GARCIA Unavailable Unavailable Arenas, L Devon GARCIA Unavailable Unavailable Arenas, L Devon GARCIA Unavailable Unavailable Arenas, L Devon GARCIA Unavailable Unavailable Arenas, L Deovn GARCIA Unavailable Unavailable Arenas, L Devon GARCIA [...] LAWRENCE B STEVIE GARCIA Unavailable Unavailable LAWRENCEDeb DE LA CRUZ MD Unavailable Unavailable LAWRENCE, B STEVIE GARCIA Unavailable Unavailable LAWRENCE, B STEVIE GARCIA Unavailable Unavailable LAWRENCE, B STEVIE GARCIA Unavailable Unavailable LAWRENCE, B STEVIE GARCIA Unavailable Unavailable LAWRENCE, B STEVIE MD Unavailable Unavailable LAWRENCE, Deb HUBBARD MD [...] Unavailable ORTEZ, A ANDERSON PA Unavailable Unavailable Re-disclosure Warning The records that [...] is protected by Article 27-F of the [facility] Public Health law. If you continue you may have access to information: Regarding HIV / AIDS; Provided by facilities licensed or operated by the [facility] Office of Mental Health; or Provided by the [facility] Office for People With Developmental Disabilities. If such information is present, then the following [facility] mandated warning applies: This information has been [...] law may result in a fine or chcf sentence or both. A general authorization for the release of medical or other information is NOT sufficient authorization for further disc losure. Allergies and Adverse Reactions Type Description Substance Reaction Status Data Source(s ) Propensity to adverse reactions [facility] Encounters Encounter Providers Location Date Indications Data Source(s ) Outpatient Attender: ANDERSON FALCON 03/19/2021 12:00:00 AM [facility] Outpatient Attender: ANDERSON FALCON 02/17/2021 12:00:00 AM [facility] Outpatient Attender: STEVIE BRAVO MD [id number] 02/16/2021 12:00:00 AM [facility] Unknown [address] [facility] [address] 01/27/2021 12:00:00 AM EDT eCW1 (Formerly [facility]) Outpatient [address] [facility] [place] [address] 12/26/2020 12:00:00 AM EDT eCW1 ([facility]ly [facility]) Unknown [address] [facility] [place] [address] 12/12/2020 12:00:00 AM EDT eCW1 ([facility]ly [facility]) Unknown [address] [facility] [place] [address] 10/11/2020 12:00:00 AM EDT eCW1 ([facility]ly [facility]) Unknown [address] [facility] [place] [address] 10/07/2020 12:00:00 AM EDT eCW1 ([facility]ly [facility]) Office Visit Attender: Robert Barnard MD Main office - [place] 09/18/2020 01:45:00 PM EDT [facility] ([facility] ) Outpatient Attender: STEVIE BRAVO MD 07/25/2020 12:00:00 AM [facility] Outpatient 07/12/2020 12:00:00 AM [facility] Office Visit Attender: Robert Barnard MD Main office - [place] 06/24/2020 01:30:00 PM EST MEDENT ([facility]) Outpatient Attender: STEVIE BRAVO MDReferrer: Devon Arenas MD [id number] 06/13/2020 12:00:00 AM EST Pain in right hand [facility] Pain in right hand Outpatient Referrer: STEVIE BRAVO MD 06/13/2020 12:00: 00 AM EST Pain in right hand [facility] Pain in right hand [place] [address] [facility] [address] [place] [address] 05/07/2020 12:00:00 AM EST eCW1 ([facility]) Outpatient Attender: Robert Barnard MD Main office - [place] 05/06/2020 09:00:00 AM EST MED[facility] ([facility]) Outpatient Attender: Devon Arenas MD Physical Therapy 04/28/2020 0 8:00:00 AM EST [facility] ([facility]) [place] [address] [facility] [address] [place] [address] 04/22/2020 12:00:00 AM EST eCW1 ([facility]) [place] [address] [facility] [place] [address] 04/10/2020 12:00:00 AM EST eCW1 ([facility]) [place] [address] [facility] [place] [address] 04/04/2020 12:00:00 AM EST eCW1 ([facility]) [place] [address] [facility] [place] [address] 04/01/2020 12:00:00 AM EST eCW1 ([facility]) Outpatient LERAYLA 01/31/2020 09:32:00 AM EDT [facility] Outpatient LERAYDC 01/31/2020 08:44:01 AM EDT [facility] Outpatient Attender: ANA CRISTINA HAYNES MDAdmitter: ANA CRISTINA Donald MD [id number] 01/01/2020 12:00:00 AM EDT - 01/01/2020 01:37:00 PM EDT Chronic abdominal pain [R10.9, G89.29], rectal bleeding [facility] Chronic abdominal pain [R10.9, G89.29], rectal bleeding Patient discharged. Immunizations Vaccine Date Status Description Data Source(s) COVID-19 VACCINE Moderna 01/16/2021 12:00:00 AM EDT completed [facility] Vaccine Series Complete: YESThis Data wa s Submitted to [facility]. COVID-19 VACCINE Moderna 12/19/2020 12:00:00 AM EDT completed [facility] Vaccine Series Complete: NOThis Data was Submitted to [facility]. Medications Medication Brand Name Start Date Product Form Dose Route Admi nistrative Instructions Pharmacy Instructions Status Indications Reaction Description Data Source(s) pantoprazole 40 MG Delayed Release Oral Tablet Pantopr azole Sodium 40 MG Pantoprazole Sodium 40 MG 01/27/2021 12:00:00 AM EDT 1.0 {tablet} active Pantoprazole Sodium 40 MG eCW1 ( Formerly [facility]) Escitalopram 10 MG Oral Tablet Escitalopram Oxalate 10 MG Escitalopram Oxalate 10 MG 01/27/2021 12:00:00 AM EDT 1.0 {tablet} activ e Escitalopram Oxalate 10 MG eCW1 (Formerly [facility]) Primidone 50 MG Oral Tablet Primidone 06/24/2020 12:00:00 AM EST ORAL active MEDENT ([facility] ) ropinirole 1 MG Oral Tablet Ropinirole HCL 05/06/2020 12:00:00 AM EST active MED[facility] ([facility]) Levetiracetam 250 MG Oral Tablet Levetiracetam 05/06/2020 12:00:00 AM EST ORAL completed MED[facility] ([facility]) gabapentin 300 MG Oral Capsule Gabapentin 04/28/2020 12:00:00 AM EST ORAL active MEDENT ([facility]) Blood Glucose Monitoring Suppl - UNK 04/10/2020 12:00:00 AM EST active Blood Glucose Monitoring Suppl - eCW1 (Formerly [facility]) Test Strips - UNK 04/10/2020 12:00:00 AM EST acti ve Test Strips - eCW1 (Formerly [facility]) Test Strips - UNK 04/10/2020 12:00:00 AM EST acti ve Test Strips - eCW1 (Formerly [facility]) Lancets Misc. - UNK 04/10/2020 12:00:00 AM EST active Lancets Misc. - eCW1 (Formerly [facility]) Blood Glucose Monitoring Suppl - UNK 04/10/2020 12:00:00 AM EST active Blood Glucose Monitoring Suppl - eCW1 (Formerly [facility]) Blood Glucose Monitoring Suppl - UNK 04/10/2020 12:00:00 AM EST active Blood Glucose Monitoring Suppl - eCW1 (Formerly [facility]) Lancets Misc. - UNK 04/10/2020 12:00:00 AM EST active Lancets Misc. - eCW1 (Formerly [facility]) Lancets Misc. - UNK 04/10/2020 12:00:00 AM EST active Lancets Misc. - eCW1 (Formerly [facility]) Blood Glucose Monitoring Suppl - UNK 04/10/2020 12:00:00 AM EST active Blood Glucose Monitoring Suppl - eCW1 (Formerly [facility]) Lancets Misc. - UNK 04/10/2020 12:00:00 AM EST active Lancets Misc. - eCW1 (Formerly [facility]) Lancets Misc. - UNK 04/10/2020 12:00:00 AM EST active Lancets Misc. - eCW1 (Formerly [facility]) Lancets Misc. - UNK 04/10/2020 12:00:00 AM EST active Lancets Misc. - eCW1 (Formerly [facility]) Test Strips - UNK 04/10/2020 12:00:00 AM EST acti ve Test Strips - eCW1 (Formerly [facility]) Test Strips - UNK 04/10/2020 12:00:00 AM EST acti ve Test Strips - eCW1 (Formerly [facility]) Test Strips - UNK 04/10/2020 12:00:00 AM EST acti ve Test Strips - eCW1 (Formerly [facility]) Blood Glucose Monitoring Suppl - UNK 04/10/2020 12:00:00 AM EST active Blood Glucose Monitoring Suppl - eCW1 (Formerly [facility]) Lancets Misc. - UNK 04/10/2020 12:00:00 AM EST active Lancets Misc. - eCW1 (Formerly [facility]) Blood Glucose Monitoring Suppl - UNK 04/10/2020 12:00:00 AM EST active Blood Glucose Monitoring Suppl - eCW1 ([facility]ly [facility]) Test Strips - UNK 04/10/2020 12:00:00 AM EST acti ve Test Strips - eCW1 (Formerly [facility]) Blood Glucose Monitoring Suppl - UNK 04/10/2020 12:00:00 AM EST active Blood Glucose Monitoring Suppl - eCW1 ([facility]ly [facility]) Test Strips - UNK 04/10/2020 12:00:00 AM EST acti ve Test Strips - eCW1 (Formerly [facility]) Test Strips - UNK 04/10/2020 12:00:00 AM EST acti ve Test Strips - eCW1 ([facility]ly [facility]) Blood Glucose Monitoring Suppl - UNK 04/10/2020 12:00:00 AM EST active Blood Glucose Monitoring Suppl - eCW1 ([facility]ly [facility]) Lancets Misc. - UNK 04/10/2020 12:00:00 AM EST active Lancets Misc. - eCW1 (Formerly [facility]) cefdinir 300 MG Oral Capsule Cefdinir 300 MG Cefdinir 300 MG 04/04/2020 12:00:00 AM EST active Cefdinir 300 MG e CW1 (Formerly [facility]) cefdinir 300 MG Oral Capsule Cefdinir 300 MG Cefdinir 300 MG 04/04/2020 12:00:00 AM EST suspended Cefdinir 300 M G eCW1 (Formerly [facility]) cefdinir 300 MG Oral Capsule Cefdinir 300 MG Cefdinir 300 MG 04/04/2020 12:00:00 AM EST suspended Cefdinir 300 M G eCW1 (Formerly [facility]) cefdinir 300 MG Oral Capsule Cefdinir 300 MG Cefdinir 300 MG 04/04/2020 12:00:00 AM EST active Cefdinir 300 MG e CW1 (Formerly [facility]) cefdinir 300 MG Oral Capsule Cefdinir 300 MG Cefdinir 300 MG 04/04/2020 12:00:00 AM EST suspended Cefdinir 300 M G eCW1 (Formerly [facility]) cefdinir 300 MG Oral Capsule Cefdinir 300 MG Cefdinir 300 MG 04/04/2020 12:00:00 AM EST suspended Cefdinir 300 M G eCW1 (Formerly [facility]) cefdinir 300 MG Oral Capsule Cefdinir 300 MG Cefdinir 300 MG 04/04/2020 12:00:00 AM EST suspended Cefdinir 300 M G eCW1 (Formerly [facility]) cefdinir 300 MG Oral Capsule Cefdinir 300 MG Cefdinir 300 MG 04/04/2020 12:00:00 AM EST suspended Cefdinir 300 M G eCW1 ([facility]ly [facility]) cefdinir 300 MG Oral Capsule Cefdinir 300 MG Cefdinir 300 MG 04/04/2020 12:00:00 AM EST active Cefdinir 300 MG e CW1 (Formerly [facility]) Blood Glucose Monitoring Suppl w/Device UNK 04/01/2020 12:00:[address] active Blood Glucose Monitoring Sup pl w/Device eCW1 (Formerly [facility]) Semglee 100 UNIT/ML Semglee 100 UNIT/ML 04/01/2020 12:00:00 AM EST active Semglee 100 UNIT/ML eCW1 ([facility]) Semglee 100 UNIT/ML Semglee 100 UNIT/ML 04/01/2020 12:00:00 AM EST active Semglee 100 UNIT/ML eCW1 ([facility]) Blood Glucose Monitoring Suppl w/Device UNK 04/01/2020 12:00:[address] active Blood Glucose Monitoring Sup pl w/Device eCW1 (Formerly [facility]) Semglee 100 UNIT/ML Semglee 100 UNIT/ML 04/01/2020 12:00:00 AM EST active Semglee 100 UNIT/ML eCW1 ([facility]) Semglee 100 UNIT/ML Semglee 100 UNIT/ML 04/01/2020 12:00:00 AM EST active Semglee 100 UNIT/ML eCW1 ([facility]) Semglee 100 UNIT/ML Semglee 100 UNIT/ML 04/01/2020 12:00:00 AM EST active Semglee 100 UNIT/ML eCW1 ([facility]) Blood Glucose Monitoring Suppl w/Device UNK 04/01/2020 12:00:[address] active Blood Glucose Monitoring Sup pl w/Device eCW1 ([facility]ly [facility]) Blood Glucose Monitoring Suppl w/Device UNK 04/01/2020 12:00:[address] active Blood Glucose Monitoring Sup pl w/Device eCW1 ([facility]ly [facility]) Blood Glucose Monitoring Suppl w/Device UNK 04/01/2020 12:00:[address] active Blood Glucose Monitoring Sup pl w/Device eCW1 ([facility]) Blood Glucose Monitoring Suppl w/Device UNK 04/01/2020 12:00:[address] active Blood Glucose Monitoring Sup pl w/Device eCW1 ([facility]ly [facility]) Semglee 100 UNIT/ML Semglee 100 UNIT/ML 04/01/2020 12:00:00 AM EST active Semglee 100 UNIT/ML eCW1 ([facility]) Semglee 100 UNIT/ML Semglee 100 UNIT/ML 04/01/2020 12:00:00 AM EST active Semglee 100 UNIT/ML eCW1 ([facility]) Blood Glucose Monitoring Suppl w/Device UNK 04/01/2020 12:00:[address] active Blood Glucose Monitoring Sup pl w/Device eCW1 ([facility]) Semglee 100 UNIT/ML Semglee 100 UNIT/ML 04/01/2020 12:00:00 AM EST active Semglee 100 UNIT/ML eCW1 ([facility]) Blood Glucose Monitoring Suppl w/Device UNK 04/01/2020 12:00:[address] active Blood Glucose Monitoring Sup pl w/Device eCW1 ([facility]) Semglee 100 UNIT/ML Semglee 100 UNIT/ML 04/01/2020 12:00:00 AM EST active Semglee 100 UNIT/ML eCW1 ([facility]) Blood Glucose Monitoring Suppl w/Device UNK 04/01/2020 12:00:[address] active Blood Glucose Monitoring Sup pl w/Device eCW1 ([facility]) Blood Glucose Monitoring Suppl w/Device UNK 04/01/2020 12:00:[address] active Blood Glucose Monitoring Sup pl w/Device eCW1 ([facility]ly [facility]) Semglee 100 UNIT/ML Semglee 100 UNIT/ML 04/01/2020 12:00:00 AM EST active Semglee 100 UNIT/ML eCW1 ([facility]) sodium chloride (preservative free) 0.9 % flush [...] For 30 days, Pre-op [Order 6 End] [facility] Medication administered onsite sodium chloride (preservative free) 0.9 % flush 10 mL 40881- 186-00 01/01/2020 10:14:38 AM EDT 10 mL Intravenous active 10 mL, Intravenous, Continuous PRN, Line Care, Starting 01/01/20 at 1014, For 30 days, Pre- op
Verify blood return before use. For deaccessing: flush with 10 mL Sodium Chloride 0.9 % followed by 5 mL Heparin 100 units/mL. Flush per CM C-34C Central Line Policy for Infusaport.
[facility] Medication administered onsite 3 ML [...] CM C-34C Central Line Policy for Infusaport.
[facility] Medication administered onsite heparin sodium, porcine 10 UNT/ML Inject able Solution heparin lock flush 10 UNIT/ML injection 50 Units heparin lock flush 10 UNIT/ML injection 50 Units 01/01/2020 10:14:37 AM EDT 50 U Intravenous active 50 Units, Intravenous, Continuous PRN, Line Care, Starting e 01/01/20 at 1014, For 30 days, Pre-op
Verify blood return before use. For intermittent access: flush with 10 mL Sodium Chloride 0.9 % followed by 5 mL Heparin 10 units/mL. Flush per CM C-34C Central Line Policy for [place]ort.
[facility] Medication administered onsite sodium chloride (preservative free) 0.9 % flush 10 mL 94790- 186-00 01/01/2020 10:14:37 AM EDT 10 mL Intravenous active 10 mL, Intravenous, Continuous PRN, Line Care, Starting Tue01/01/20 at 1014, For 30 days, Pre- op
Verify blood return before use. For intermittent access: flush with 10 mL Sodium Chloride 0.9 % followed by 5 mL Heparin 10 units/mL. Flush per CM C-34C Central Line Policy for [place].
[facility] Medication administered onsite Dicyclomine Hydrochloride 20 MG Oral Tablet Dicyclomin e HCl 20 MG Oral Tablet Dicyclomine HCl 20 MG Oral Tablet 06/19/2019 12:00:00 AM EST 20 mg Oral active Chronic abdominal pain Take 1 tablet by mouth Th ree times daily [facility] Chronic abdominal pain Insurance Providers Payer name Policy type / Coverage type Policy ID Covered democrat ID Covered democrat's relationship to white Policy White Plan Information MEDICAID M [id number] Self [id number] DARWIN I [id number] Self [id number] DARWIN I [id number] Self [id number] DARWIN [id number] SP [id number] DARWIN CARE [place] O [id number] S [id number] Managed Care [place] P [id number] S [id number] Medicaid S [id number] S [id number] Managed Care [place] P UNAVAILABLE S UNAVAILABLE Medicaid S UNAVAILABLE S UNAVAILA BLE MEDICAID -O/P [id number] MEDICAID [id number] SP [id number] DARWIN [id number] SP [id number] 500 MEDICAID [id number] SP [id number] [place] O [id number] S [id number] [place] [id number] SP [id number] Problems, Conditions, and Diagnoses Code Display Name Description Problem Type Effective Dates Data Source(s) M79.641 Pain in right hand Pain in right hand Diagnosis 10:05:18 AM EST [facility] F33.9 [id number] Recurrent major depr essive disorder, remission status unspecified Problem 01/27/2021 12:00:00 AM EDT eCW1 ([facility]) E11.649 [id number] Hypoglycemia associated with type 2 diabe brandon mellitus Problem 12/28/2020 12:00:00 AM EDT eCW1 ([facility]) 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 Problem 09/18/2020 12:00:00 AM EDT MEDENT ([facility] ) I95.1 Orthostatic hypotension Orthostatic hypotension Proble m 06/24/2020 12:00:00 AM EST MED[facility] ([facility] ) G25.81 Restless legs Restless legs Problem 06/24/2020 12:00:00 AM EST [facility] ([facility] ) H91.93 [id number] Bilateral hearing loss, unspecified heari ng loss type Problem 05/07/2020 12:00:00 AM EST eCW1 ([facility]) G47.00 [id number] Insomnia, unspecified type Problem 12:00:00 AM EST eCW1 (Former[facility]) R25.2 Cramp and spasm Cramp and spasm Problem 05/06/2020 12:0 0:00 AM EST MEDENT ([facility] ) G21.8 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 Problem 05/06/2020 12:00:00 AM EST ME DENT ([facility] ) G25.0 Essential tremor Essential tremor Problem 05/06/2020 12 :00:00 AM EST MEDENT ([facility] ) E10.42 Type 1 diabetes mellitus with diabetic p olyneuropathy Type 1 diabetes mellitus with diabetic polyneuropathy Problem 05/06/2020 12:00:00 AM EST [facility] ([facility] ) G47.62 Cramp in lower leg associated with rest Cramp in lower leg associated with rest Problem 05/06/2020 12:00:00 AM EST MEDENT ([facility] ) Surgeries/Procedures Procedure Description Date Indications Data Source(s) EEG Complete STD Phys/QHP>36 HR<60 HR W/O Video 2020 12:00:00 AM EST [facility] ([facility] ) EEG Complete STD Phys/QHP>60 HR<84 HR W/O Video 2020 12:00:00 AM EST [facility] ([facility] ) TSTG ANS FUNCJ CARDIOVAGAL INNERVAJ PARASYMP 12:00:00 AM EST [facility] ([facility] ) TESTING AUTONOMIC NERVOUS SYSTEM FUNCTION 05/28/2020 1 2:00:00 AM EST [facility] ([facility] ) Results ID Date Data Source [id number] 02/24/2021 05:09:00 PM EST [facility] Name Value Range Interpretation Code Description Data Sophia rce(s) Supporting Document(s) SARS coronavirus 2 RNA [Presence] in Res piratory specimen by CRISTI with probe detection NEGATIVE [facility] This lab was ordered by [facility] a nd reported by [facility]. ID Date Data Source [id number] 02/18/2021 07:21:33 AM EDT [facility] Name Value Range Interpretation Code Description Data Sophia rce(s) Supporting Document(s) Progress Note [facility] SLTPRz2dXuHEIdZw01/WSZexXUIen4CvKJdtTCy9RKndVEQpS0CbUPR3hX9kWQC9IUsRJiPoQyOjNHRh lb [file] Dj6EWGw2ClNTMwYiZY8SQDp= ID Date Data Source [id number] 02/16/2021 06:42:03 PM EDT [facility] Name Value Range Interpretation Code Description Data Sophia rce(s) Supporting Document(s) Progress Note [facility] BWLJBf8nNxDXAuSx75/TAEicDSCrz9JjBWbxIUf3ZThoOVZsG3RdUON0zX1oPYF0UWfRWlGmYwMhUPIf lbm [file] AgICAgICAgICAgICAgICAgICAgICAgICAgICAgICAgICAgICAgICAgICAgICAgICAgICAgICAgICAgIC AgICAgICAgICAgICAgICAgICAgICAgICAgICAgICAgICAgICAgICANCiAgICAgICAgICAgICAgICAgIC AgICAgICAgICAgICAgICAgICAgICAgICAgICAgICAg ICAgICAgICAgICAgICAgICAgICAgICAgICAgICAgICAgICAgICAgICAgICAgICAgICANCiAgICAgICAg ICAgICAgICAgICAgICAgICAgICAgICAgICAgICAgICAgICAgICAgICAgICAgICAgICAgICAgICAgICAg ICAgICAgICAgICAgICAgICAgICAgICAgICAgICAgIC ANCiAgICAgICAgICAgICAgICAgICAgICAgICAgICAgICAgICAgICAgICAgICAgICAgICAgICAgICAgIC AgICAgICAgICAgICAgICAgICAgICAgICAgICAgICAgICAgICAgICAgICANCiAgICAgICAgICAgICAgIC AgICAgICAgICAgICAgICAgICAgICAgICAgICAgICAg ICAgICAgICAgICAgICAgICAgICAgICAgICAgICAgICAgICAgICAgICAgICAgICAgICAgICANCiAgICAg ICAgICAgICAgICAgICAgICAgICAgICAgICAgICAgICAgICAgICAgICAgICAgICAgICAgICAgICAgICAg ICAgICAgICAgICAgICAgICAgICAgICAgICAgICAgIC AgICANCiAgICAgICAgICAgICAgICAgICAgICAgICAgICAgICAgICAgICAgICAgICAgICAgICAgICAgIC AgICAgICAgICAgICAgICAgICAgICAgICAgICAgICAgICAgICAgICAgICAgICANCiAgICAgICAgICAgIC AgICAgICAgICAgICAgICAgICAgICAgICAgICAgICAg ICAgICAgICAgICAgICAgICAgICAgICAgICAgICAgICAgICAgICAgICAgICAgICAgICAgICAgICANCiAg ICAgICAgICAgICAgICAgICAgICAgICAgICAgICAgICAgICAgICAgICAgICAgICAgICAgICAgICAgICAg ICAgICAgICAgICAgICAgICAgICAgICAgICAgICAgIC AgICAgICANCiAgICAgICAgICAgICAgICAgICAgICAgICAgICAgICAgICAgICAgICAgICAgICAgICAgIC AgICAgICAgICAgICAgICAgICAgICAgICAgICAgICAgICAgICAgICAgICAgICAgICANCjw/yYPaA1hlvA NrfwZ0P5qyUa3HGe5DHU6um8AgCSFvDHavaeGyZwwU VoLzQGNkDxwACge9BSmiSM0GnFXiT2AyD3DfYBusLI6OZMPnOZMwsIUePXIpRXEkIrP3CANrATdpYM2F nYSlWDomYYVjPASyUB2QZECjM996viCuCC2MLj7ELxJxCX4auf3YAJetNRAqHwnKCcm4QQclEI3MlHMb zILnSRPmLLGLSsTpY4emz0GaVuZqQSZEMEwzVD3Yb1 VudCAxDQo+Zw2CEI0cb6GiEJdkAOSxSJ8wcx8AHKqPMpEdL0WyiAoqFLJqb8bgYGTuMV2jgQAlFZN9JQ Tlv68qpgTXSKFqCKXiKZqvRTXoUCIrMSIcSK3eNQNsJGP8EcP8WMOZTU5XXZPqOBTizSGwKBCoGQLTJU 9GPAcoOXG4LNUjzvWlfVAzYAdhAG0VTTDfooFwEVpi MCBSDQo+Qr3XPB8ku3FaKOxnAPZqWM0qnj2UJXgWRyLqB9J2hRHnX5V1DYstAj9SKJAoRITcLYnwLWHQ TRihKQ5RFX2jkeD8DF6CpXNzGNDqDWNawDKxLQw6M30ajWGqLLweAT2EVDQ+Lynda+Mg4YHPKnFSRyATGa SeXkHPQLOiUuP4NdF9QOc8QcM4VcBC31cMurpvCvIG paXC1UBY9uUYMdPOBGHJ9LuRXtoP7rvtUzIKSgPUCVEyMuD65sbJMjMXLlYGA0FJSkWl3ZTCUfB5Dfrb PblLoyeqIzTIUrOSHGZG0QWRdjefRlrEBvgWneXB44jMzeFE8TWt2VCwHhTN3wmr4NzAFnMu9NYLUzWb 1NHHSkHAPvBLJkAZR8FRCoPpWxKJklPLRkJFZuWBN4 RUFkUBMzLY4YXkQvYOWpSNs1VmyiEMRsPLAjwg5HFNGcJOFzKMR8OfGsLACnGHLoRWkhWZSuROXzSML6 AQRfETUcCQ9OTdOrIDFxPSJ7WNBgVYIuIURinm7MQVCvMNQfLeAiEFDlFQBdZPXfBCewOGZcHFPuVUF1 DNDrDJVcXT6NIbCaQHZbOFBiTlZdMJGuLKEgxs9NMT IaOZAjUPL2XxNrQPWmVLCeYOqmQTCbBJE6BaCcOQFuOMWaID5LCaBwBEJuUKQ5JFMeUNKoRFWkyi8MEW TfXEYdZRI7CNMpCQStIBQeQGsrJKEhTET9QFJ5YUFfFMUwRU0FLgCvQUOoSXqqNiOtONZmYDSpye2BJB LvQNRdChK9KEXwNBLpSUAtDGofEBGxDWV0URWvPCAf WSXdIB8DOjFnWEInNLb3FTBzESLvCSXizc6KIABlMBDpYHF4HpJcGJMwGEFpNUmvCXFxXPB5Gyb3VEMt MSFiAI4VEyIaVTTuLFv5XyUeYSAkNSYnrp5OOIAwKSTbCTWsQUAjCCGtBVMzMTi8koXpsHIkQBz5SK7I E1GkflPpJlUJIu7Gm654BODlXRNqDx1KC7dmLx0vYC NuBFJGVo9VUGb2WNN8YwQyDbZiRuU1OkW4HxLjFVYnXRz9JIYwPnExDrJ+URk0NPTvFlHhSGY6Hmn7IJ njMNHbGFMrUBDeAtX0AZWwBf1tRHIKWi3+BSthlSEotKwsOBCJOkFhOwM6TZhcUENVGo7W ID Date Data Source [id number] 01/06/2021 10:50:00 AM EDT [facility] Name Value Range Interpretation Code Description Data Sophia rce(s) Supporting Document(s) SARS coronavirus 2 RNA [Presence] in Res piratory specimen by [facility]I with probe detection NEGATIVE [facility] This lab was ordered by [facility] a nd reported by [facility]. ID Date Data Source [id number] 12/31/2020 09:38:00 AM EDT [facility] Name Value Range Interpretation Code Description Data Sophia rce(s) Supporting Document(s) SARS coronavirus 2 RNA [Presence] in Res piratory specimen by CRISTI with probe detection NEGATIVE [facility] This lab was ordered by [facility] a nd reported by [facility]. ID Date Data Source [id number] 12/27/2020 12:38:00 AM EDT [facility] Name Value Range Interpretation Code Description Data Sophia rce(s) Supporting Document(s) SARS coronavirus 2 RNA [Presence] in Res piratory specimen by CRISTI with probe detection NEGATIVE [facility] This lab was ordered by [facility] a nd reported by [facility]. ID Date Data Source [id number] 06/15/2020 10:34:46 AM [facility] Name Value Range Interpretation Code Description Data Sophia rce(s) Supporting Document(s) Progress Note [facility] NPERZo5gIyASRxPr47/VKPkdJKQfi8SdSUjzOKn3BIqiBQJsC4BaKVH9mU8qDUY2BCiVYyAkMcWnUzV3 [facility] [file] CfSLQ5ATVlLCFiXPQ7ICVvVdArBfFjMD5GBp1AMpO1BPF1jKZeBf1LRqNpKTcHApTdUH8IQYf= ID Date Data Source [id number] 06/13/2020 10:43:57 PM [facility] XR HAND 3 OR MORE VIEWS [id number] RESUL TInterpreted by:Jose Rafael Reynoso, [place] hand 4 viewsINDICATION: Contractures of right handCOMPARISON: [...] rce(s) Supporting Document(s) ID Date Data Source [id number] 06/13/2020 11:31:41 AM EST [facility] Name Value Range Interpretation Code Description Data Sophia rce(s) Supporting Document(s) Progress Note [facility] VWLTLy6hHzBOIvWb00/LUFwfXYKhy7ZrGWpnUKc2FDwuMRRtB2WgWYW2zX2uIFQ7ASkFVzFvYyQgJeU3 lbm VkLibTRcHbKQVdIcbRYcIqKBfsLbcssFLvRC8RnTW7MMCzU56mQRJoRRNyN3ZkISIpBnZ+To1WDHQznQ UhSG3AJifA1V6rClCLEz0GdD/HRgVrM5VZ+mMVkGLQKCUVgwjTfru2Pxb5iMSO6pSX6u67NO/PYKoYPl efMXLkAacL9Ph4YBf09UrQhhPS/u//ixt7MfcJ88/3 r8ebncaH5wua7WHz34gTZ/rYYaPHcmPRpH4K/qpdzqeu6gD3inVbmnr1wh54QPFglh3WXzSx+BaHR8Dc m0IZrpDdM3d5bQu0nRUXHR+XzujHhBYneTEIdWmWl/xAlzZISZHSnibjupVU+1CIvBCDC6ZMuC0Th/Ax NevQL6yUjgpduaX37qVG8rrglokCiLXSuauvHwe1bL OrTcF6xRSXMk/8kJd/0uw2uADTicTYqifGu/5KILfjsnaAs8/eGbqLWJdBxxChn954hSVf3lzh0MXDw6 u8ZzRqr8nSHj9SZLDOkRTh8FNcCikPzre9XVIZ7ZAdusxtgwf2674l0Zhop2lo5Tbx8ySj8UYED9+OBl NzM+PEob/gZWjKt+vE94tGzScZcimpbWMx6LAp266D y4hZ98FmR8irWX9ncLjRYg/1t8cxvCD3dLHeWcGQteg+sPFVsGmpIuBRs7Owc56kA7bCpOVS6386y74R +J7N64CqdRg74HtV95CKi2b4HTrqH9K9NSKcrZJ1tN7mqhVrbe3CpW5K6ByNsGCUPobGilu4aZ/y25E6 /xFcqzMUxusgNVNnZSUjqeUkeGQaFdin3T+GkbsZeN n//fDqP+m3NyHhZWjZgvXHumXl9OPKhumZSuupacl8pIZgcCFuaJRr/EfhfTpH9SzLgxPpHLpDv8fOtD 9GsU3PumMkX6kBDoPJrh/kycjeGHQGPO+B/ZdqCeyo8nVn1e5T8m8pllv2Yj3n7JockQzSmkdAqwomom 2x4fXe7PB5gKyI0T49QUdajXG6ohI6Nc0Fm4r47g53 [file] W09cN/KfhFSgigTG966n8v2Y+hMfQnViDC9Tm124qu8hqod3BN5U0ZktQDpQUk8u+fBs9hHXG8Nfd+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 [file] HAND HIDE STRETCHER/So2O0ljhf7F/IeB4ahzKohUQro8k3IOTruiASP [file] AqNvLF5OAi9LKvZ7NCK0mBLpJg9BVsB0UWPJFwQlPP7TOOm= ID Date Data Source [id number] 01/31/2020 08:55:50 AM EDT [facility] Current Problems: DENTAL CARIES EXTENDIN G INTO PULP (ICD-521.03) (ICD10- K02.63)Current Allergies: * LATEX (Critical) Dental Chart: Procedures:Type - CDT Code - Description B - (D0140) Limited oral evaluation - problem focused on Tooth # 30 (Performed by Guille Wong DDS) Existing:Type - CDT Code - Description[E] Missing - [place] and Root On #1 Surface O Region [...] XR, #9 Surface I Region XR Chart Notes:victor m (Jan 31 2020 9:31AM): CC: "I'm hvaing [...] Code Description Data Sophia rce(s) Supporting Document(s) Procedure Social History Code Duration Value Status Description Data Source(s ) Smoking 01/27/2021 12:00:00 AM EDT Former Smoker completed Former Smoker eCW1 (Formerly [facility]) Smoking 12/28/2020 12:00:00 AM EDT Former Smoker completed Former Smoker eCW1 (Formerly [facility]) Smoking 05/06/2020 12:00:00 AM EST Former Smoker completed Former Smoker eCW1 (Formerly [facility]) Smoking 05/06/2020 12:00:00 AM EST Former Smoker completed Former Smoker eCW1 (Formerly [facility]) Smoking 05/06/2020 12:00:00 AM EST Former Smoker completed Former Smoker eCW1 (Formerly [facility]) Smoking 05/06/2020 12:00:00 AM EST Former Smoker completed Former Smoker eCW1 (Formerly [facility]) Smoking 04/23/2020 12:00:00 AM EST Former Smoker completed Former Smoker eCW1 (Formerly [facility]) Smoking 04/01/2020 12:00:00 AM EST Former Smoker completed Former Smoker eCW1 (Formerly [facility]) Smoking 04/01/2020 12:00:00 AM EST Former Smoker completed Former Smoker eCW1 (Formerly [facility]) Smoking 04/01/2020 12:00:00 AM EST Former Smoker completed Former Smoker eCW1 (Formerly [facility]) Vital Signs ID Date Data Source UNK Name Value Range Interpretation Code Description Data Source(s) Body weight 116.2 [lb_av] 116.2 [lb_av] eCW1 ([facility]) Body weight 52.71 kg 52.71 kg eCW1 ([facility]) Body height 65 [in_i] 65 [in_i] eCW1 ([facility]) Body mass index (BMI) [Ratio] 19.33 kg/m2 19.33 kg/m2 eCW1 (Formerly [facility]) Heart rate 101 /min 101 /min eCW1 ([facility]) Respiratory rate 18 /min 18 /min eCW1 (formerly [facility]) Body temperature 98.0 [degF] 98.0 [degF] eCW1 ( [facility]) Systolic blood pressure 140 mm[Hg] 140 mm[Hg] e CW1 ([facility]) Diastolic blood pressure 80 mm[Hg] 80 mm[Hg] eCW1 ([facility]) Body weight 120.6 [lb_av] 120.6 [lb_av] eCW1 ([facility]) Body height 65 [in_i] 65 [in_i] eCW1 ([facility]) Body mass index (BMI) [Ratio] 20.07 kg/m2 20.07 kg/m2 eCW1 (Formerly [facility]) Heart rate 100 /min 100 /min eCW1 ([facility]) Respiratory rate 20 /min 20 /min eCW1 (formerly [facility]) Body temperature 97.2 [degF] 97.2 [degF] eCW1 ( [facility]) Systolic blood pressure 130 mm[Hg] 130 mm[Hg] e CW1 (Formerly [facility]) Diastolic blood pressure 78 mm[Hg] 78 mm[Hg] eCW1 (Formerly [facility]) Respiratory rate 14 /min 14 /min MEDENT ( [facility] ) Body height 65 [in_i] 65 [in_i] MEDENT ([facility], ) 5'5" Body weight 110.00 [lb_av] 110.00 [lb_av] MEDEN T ([facility], ) Body mass index (BMI) [Ratio] 18.3 kg/m2 18.3 k g/m2 MEDENT ([facility], ) Systolic blood pressure 140 mm[Hg] 140 mm[Hg] M EDENT ([facility], ) Diastolic blood pressure 90 mm[Hg] 90 mm[Hg] MEDENT ([facility], ) Heart rate 74 /min 74 /min MEDENT ([facility] [place] body weight 125 [lb_av] 125 [lb_av] MEDEN T ([facility]) Body weight 115 [lb_av] 115 [lb_av] eCW1 ([facility]) Body height 65 [in_i] 65 [in_i] eCW1 ([facility]) Body mass index (BMI) [Ratio] 19.13 kg/m2 19.13 kg/m2 eCW1 (Formerly [facility]) Heart rate 123 /min 123 /min eCW1 ([facility]) Respiratory rate 17 /min 17 /min eCW1 (formerly [facility]) Body temperature 97.0 [degF] 97.0 [degF] eCW1 ( [facility]) Systolic blood pressure 124 mm[Hg] 124 mm[Hg] e CW1 (Formerly [facility]) Diastolic blood pressure 84 mm[Hg] 84 mm[Hg] eCW1 (Formerly [facility]) Patient Treatment Plan of Care Planned Activity Planned Date Details Description Data Source (s) pantoprazole 40 MG Delayed Release Oral Tablet 01/27/2021 12:00:00 AM EDT eCW1 (Formerly [facility]) Escitalopram 10 MG Oral Tablet 01/27/2021 12:00:00 AM EDT eCW1 (Formerly [facility]) Test Strips - 04/10/2020 12:00:00 AM EST eCW1 (Formerly [facility]) Blood Glucose Monitoring Suppl - 04/10/2020 12:00:00 AM EST eCW1 (Formerly [facility]) Lancets Misc. - 04/10/2020 12:00:00 AM EST eCW1 (Formerly [facility]) cefdinir 300 MG Oral Capsule 04/04/2020 12:00:00 AM EST eCW1 (Formerly [facility]) cefdinir 300 MG Oral Capsule 04/04/2020 12:00:00 AM EST eCW1 (Formerly [facility]) Blood Glucose Monitoring Suppl w/Device 04/01/2020 12:00:00 AM EST eCW1 (Formerly [facility]) Semglee 100 UNIT/ML 04/01/2020 12:00:00 AM EST eCW1 (Formerly [facility]) Semglee 100 UNIT/ML 04/01/2020 12:00:00 AM EST eCW1 (Formerly [facility]) Blood Glucose Monitoring Suppl w/Device 04/01/2020 12:00:00 AM EST eCW1 (Formerly [facility]) Semglee 100 UNIT/ML 04/01/2020 12:00:00 AM EST eCW1 (Formerly [facility]) Blood Glucose Monitoring Suppl w/Device 04/01/2020 12:00:00 AM EST eCW1 (Formerly [facility]) sodium chloride (preservative free) 0.9 % flush 3 mL 05:00:00 PM [facility] sodium chloride (preservative free) 0.9 % flush 10 mL 01/01/2020 10:14:38 AM [facility] sodium chloride (preservative free) 0.9 % flush 10 mL 01/01/2020 10:14:37 AM [facility] heparin sodium, porcine 10 UNT/ML Injectable Solution 01/01/2020 10:14:37 AM [facility] 3 ML heparin sodium, porcine 100 UNT/ML Prefilled Syri nge 01/01/2020 10:14:37 AM [facility] Dicyclomine Hydrochloride 20 MG Oral Tablet 06/19/2019 12:00:00 AM [facility]
[2021-03-04 18:37] LABS: PARTIAL THROMBOPLASTIN TIME 20.6 SECONDS (25.9-37.0)
[2021-03-04 18:40] LABS: INR 0.8; PROTHROMBIN TIME 11.5 SECONDS (12.7-14.5)
[2021-03-04 18:46] LABS: ALBUMIN 3.7 GM/DL (3.2-5.2); ALT/SGPT 54 U/L (12-78); BILIRUBIN,DIRECT < 0.1 MG/DL (0.0-0.2); BILIRUBIN,TOTAL 0.2 MG/DL (0.2-1.0); BLOOD UREA NITROGEN 29 MG/DL (7-18); CARBON DIOXIDE LEVEL 30 MEQ/L (21-32); CHLORIDE LEVEL 103 MEQ/L (98-107); CREATININE FOR GFR 1.09 MG/DL (0.55-1.30); GLOMERULAR FILTRATION RATE 54.9 (>51); GLUCOSE, FASTING 210 MG/DL (70-100); LIPASE 217 U/L (73-393); POTASSIUM SERUM 4.3 MEQ/L (3.5-5.1); SODIUM LEVEL 139 MEQ/L (136-145); TOTAL PROTEIN 7.2 GM/DL (6.4-8.2)
[2021-03-04 18:49] LABS: BASO % 0.6 % (0.0-1.0); EOS # 0.3 10^3/uL (0.0-0.5); HEMATOCRIT 30.7 % (36.0-47.0); HEMOGLOBIN 9.6 g/dl (12.0-15.5); LYMPH # 2.8 10^3/uL (1.5-5.0); LYMPH % 43.7 % (24.0-44.0); MEAN CORPUSCULAR HEMOGLOBIN 27.1 pg (27.0-33.0); MEAN CORPUSCULAR HGB CONC 31.3 g/dl (32.0-36.5); MEAN CORPUSCULAR VOLUME 86.7 fl (80.0-96.0); MONO # 0.5 10^3/uL (0.0-0.8); MONO % 8.4 % (2.0-8.0); NEUTROPHILS # 2.7 10^3/uL (1.5-8.5); PLATELET COUNT, AUTOMATED 310 10^3/uL (150-450); RED BLOOD COUNT 3.54 10^6/uL (4.00-5.40); WHITE BLOOD COUNT 6.3 10^3/uL (4.0-10.0)
[2021-03-04] MEDS ORDERED: DICYCLOMINE 10 MG CAP PO ONE (18:55)
[2021-03-04] MEDS ORDERED: ISOVUE-370 76% 100ML VIAL As Ordered ONE (19:24)
[2021-03-04] MEDS ORDERED: GI COCKTAIL 50ML BTL(HYOSCYAMINE/MAALOX/LIDOCAINE VISCOUS)(1:3:1) PO ONE (19:45)
[2021-03-04] MEDS ORDERED: SIMETHICONE 80MG CHEW TAB PO STA (19:45)
--- NOTE | 2021-03-04 20:50 | REPVR ---
PROCEDURE INFORMATION: Exam: CT Abdomen And Pelvis With Contrast Exam date and time: 03/04/2021 7:25 PM Age: 56 years old Clinical indication: Abdominal pain; Additional info: Llq abd pain TECHNIQUE: Imaging protocol: Computed tomography of the abdomen and pelvis with contrast. Radiation optimization: All CT scans at this facility use at least one of these dose optimization techniques: automated exposure control; mA and/or kV adjustment per patient size (includes targeted exams where dose is matched to clinical indication); or iterative reconstruction. Contrast material: ISOVUE 370; Contrast volume: 100 ml; Contrast route: INTRAVENOUS (IV); COMPARISON: CT ABD PELVIS W/O CONTRAST 02/24/2021 9:11 PM FINDINGS: Liver: Unremarkable. No mass. Gallbladder and bile ducts: There has been prior cholecystectomy. No biliary duct dilation. Pancreas: Normal. No ductal dilation. Spleen: Normal. No splenomegaly. Adrenal glands: Normal. No mass. Kidneys and ureters: Unremarkable. No calculi or hydronephrosis. Stomach and bowel: Moderate amount of fecal material in the colon. The small bowel is unremarkable. No inflammatory changes or bowel obstruction. Appendix: No evidence of appendicitis. Intraperitoneal space: No free air. No significant fluid collection. Vasculature: Unremarkable. No abdominal aortic aneurysm. Lymph nodes: Unremarkable. No enlarged lymph nodes. Urinary bladder: Unremarkable as visualized. Reproductive: Unremarkable as visualized. Bones/joints: Unremarkable. No acute fracture. Soft tissues: Unremarkable. IMPRESSION: Constipation. No acute findings. No bowel obstruction or inflammatory changes in the GI tract. Electronically signed by: Sai Bourgeois On 03/04/2021 20:50:13 PM
[2021-03-04] MEDS ORDERED: MIRA3350 PO (21:31)
--- OUTSIDE RECORDS SUMMARY | 2021-03-04 21:34 | CCD ---
Author Author [facility] Organization [facility] Address Unknown Phone Unavailable Care Team Providers Care Web Press Roll Tender Name Role Phone ANA CRISTINA HAYNES MD [...] LAWRENCE, Deb HUBBARD MD Unavailable Unavailable LAWRENCE, eDb HUBBARD MD Unavailable Unavailable LAWRENCE, Deb HUBBARD [...] is protected by Article 27-F of the [facility] Public Health law. If you continue you may have access to information: Regarding HIV / AIDS; Provided by facilities licensed or operated by the [facility] Office of Mental Health; or Provided by the [facility] Office for People With Developmental Disabilities. If such information is present, then the following [facility] mandated warning applies: This information [...] Data Source(s ) Propensity to adverse reactions [facility] Encounters Encounter Providers Location Date Indications Data Source(s ) Outpatient Attender: ANDERSON FALCON 03/19/2021 12:00:00 AM [facility] Outpatient Attender: ANDERSON FALCON 02/17/2021 12:00:00 AM [facility] Outpatient Attender: STEVIE BRAVO MD [id number] 02/16/2021 12:00:00 AM [facility] Unknown [address] [facility] [address] 01/27/2021 12:00:00 AM EDT eCW1 ([facility]) Outpatient [address] [address] [address] 12/26/2020 12:00:00 AM EDT eCW1 ([facility]) Unknown [address] [facility] [address] 12/12/2020 12:00:00 AM EDT eCW1 ([facility]) Unknown [address] [facility] [address] 10/11/2020 12:00:00 AM EDT eCW1 ([facility]) Unknown [address] [facility] [address] 10/07/2020 12:00:00 AM EDT eCW1 ([facility]) Office Visit Attender: Robert Barnard MD Main office - [place] 09/18/2020 01:45:00 PM EDT MEDENT ([facility] ) Outpatient Attender: STEVIE BRAVO MD 07/25/2020 12:00:00 AM [facility] Outpatient 07/12/2020 12:00:00 AM [facility] Office Visit Attender: Robert Barnard MD Main office - [place] 06/24/2020 01:30:00 PM EST MEDENT ([facility]) Outpatient Attender: STEVIE BRAVO MDReferrer: Devon Arenas MD [id number] 06/13/2020 12:00:00 AM EST Pain in right hand [facility] Pain in right hand Outpatient Referrer: STEVIE BRAVO MD 06/13/2020 12:00: 00 AM EST Pain in right hand [facility] Pain in right hand [place] [address] [facility] [place] [address] 05/07/2020 12:00:00 AM EST eCW1 ([facility]) Outpatient Attender: Robert Barnard MD Main office - [place] 05/06/2020 09:00:00 AM EST MEDENT ([facility]) Outpatient Attender: Devon Arenas MD Physical Therapy 04/28/2020 0 8:00:00 AM EST MEDENT ([facility]) [place] [address] [facility] [place] [address] 04/22/2020 12:00:00 AM EST eCW1 ([facility]) [place] [address] [facility] [address] [place] [address] 04/10/2020 12:00:00 AM EST eCW1 ([facility]) [place] [address] [facility] [facility] [address] [place] [address] 04/04/2020 12:00:00 AM EST eCW1 ([facility]) [place] [address] [facility] [facility] [place] [address] 04/01/2020 12:00:00 AM EST eCW1 ([facility]) Outpatient LERAYIL 01/31/2020 09:32:00 AM EDT [facility] Outpatient LERAYDC 01/31/2020 08:44:01 AM EDT [facility] Outpatient Attender: ANA CRISTINA HAYNES MDAdmitter: ANA CRISTINA Donald MD [id number] 01/01/2020 12:00:00 AM EDT - 01/01/2020 01:37:00 PM EDT Chronic abdominal pain [R10.9, G89.29], rectal bleeding [facility] Chronic abdominal pain [R10.9, G89.29], rectal bleeding Patient discharged. Immunizations Vaccine Date Status Description Data Source(s) COVID-19 VACCINE Moderna 01/16/2021 12:00:00 AM EDT completed [facility] Vaccine Series Complete: YESThis Data wa s Submitted to [facility] Via [employer]. COVID-19 VACCINE Moderna 12/19/2020 12:00:00 AM EDT completed [facility] Vaccine Series Complete: NOThis Data was Submitted to [facility] Via [employer]. Medications Medication Brand Name Start Date Product Form Dose Route Admi nistrative Instructions Pharmacy Instructions Status Indications Reaction Description Data Source(s) pantoprazole 40 MG Delayed Release Oral Tablet Pantopr azole Sodium 40 MG Pantoprazole Sodium 40 MG 01/27/2021 12:00:00 AM EDT 1.0 {tablet} active Pantoprazole Sodium 40 MG eCW1 ( [facility]) Escitalopram 10 MG Oral Tablet Escitalopram Oxalate 10 MG Escitalopram Oxalate 10 MG 01/27/2021 12:00:00 AM EDT 1.0 {tablet} activ e Escitalopram Oxalate 10 MG eCW1 ([facility]) Primidone 50 MG Oral Tablet Primidone 06/24/2020 12:00:00 AM EST ORAL active MEDENT ([facility] ) ropinirole 1 MG Oral Tablet Ropinirole HCL 05/06/2020 12:00:00 AM EST active MEDENT ([facility]) Levetiracetam 250 MG Oral Tablet Levetiracetam 05/06/2020 12:00:00 AM EST ORAL completed MEDENT ([facility]) gabapentin 300 MG Oral Capsule Gabapentin 04/28/2020 12:00:00 AM EST ORAL active MEDENT ([facility]) Blood Glucose Monitoring Suppl - UNK 04/10/2020 12:00:00 AM EST active Blood Glucose Monitoring Suppl - eCW1 ([facility]) Test Strips - UNK 04/10/2020 12:00:00 AM EST acti ve Test Strips - eCW1 ([facility]) Test Strips - UNK 04/10/2020 12:00:00 AM EST acti ve Test Strips - eCW1 ([facility]) Lancets Misc. - UNK 04/10/2020 12:00:00 AM EST active Lancets Misc. - eCW1 ([facility]) Blood Glucose Monitoring Suppl - UNK 04/10/2020 12:00:00 AM EST active Blood Glucose Monitoring Suppl - eCW1 ([facility]) Blood Glucose Monitoring Suppl - UNK 04/10/2020 12:00:00 AM EST active Blood Glucose Monitoring Suppl - eCW1 ([facility]) Lancets Misc. - UNK 04/10/2020 12:00:00 AM EST active Lancets Misc. - eCW1 ([facility]) Lancets Misc. - UNK 04/10/2020 12:00:00 AM EST active Lancets Misc. - eCW1 ([facility]) Blood Glucose Monitoring Suppl - UNK 04/10/2020 12:00:00 AM EST active Blood Glucose Monitoring Suppl - eCW1 ([facility]) Lancets Misc. - UNK 04/10/2020 12:00:00 AM EST active Lancets Misc. - eCW1 ([facility]) Lancets Misc. - UNK 04/10/2020 12:00:00 AM EST active Lancets Misc. - eCW1 ([facility]) Lancets Misc. - UNK 04/10/2020 12:00:00 AM EST active Lancets Misc. - eCW1 ([facility]) Test Strips - UNK 04/10/2020 12:00:00 AM EST acti ve Test Strips - eCW1 ([facility]) Test Strips - UNK 04/10/2020 12:00:00 AM EST acti ve Test Strips - eCW1 ([facility]) Test Strips - UNK 04/10/2020 12:00:00 AM EST acti ve Test Strips - eCW1 ([facility]) Blood Glucose Monitoring Suppl - UNK 04/10/2020 12:00:00 AM EST active Blood Glucose Monitoring Suppl - eCW1 ([facility]) Lancets Misc. - UNK 04/10/2020 12:00:00 AM EST active Lancets Misc. - eCW1 ([facility]) Blood Glucose Monitoring Suppl - UNK 04/10/2020 12:00:00 AM EST active Blood Glucose Monitoring Suppl - eCW1 ([facility]) Test Strips - UNK 04/10/2020 12:00:00 AM EST acti ve Test Strips - eCW1 ([facility]) Blood Glucose Monitoring Suppl - UNK 04/10/2020 12:00:00 AM EST active Blood Glucose Monitoring Suppl - eCW1 ([facility]) Test Strips - UNK 04/10/2020 12:00:00 AM EST acti ve Test Strips - eCW1 ([facility]) Test Strips - UNK 04/10/2020 12:00:00 AM EST acti ve Test Strips - eCW1 ([facility]) Blood Glucose Monitoring Suppl - UNK 04/10/2020 12:00:00 AM EST active Blood Glucose Monitoring Suppl - eCW1 ([facility]) Lancets Misc. - UNK 04/10/2020 12:00:00 AM EST active Lancets Misc. - eCW1 ([facility]) cefdinir 300 MG Oral Capsule Cefdinir 300 MG Cefdinir 300 MG 04/04/2020 12:00:00 AM EST active Cefdinir 300 MG e CW1 ([facility]) cefdinir 300 MG Oral Capsule Cefdinir 300 MG Cefdinir 300 MG 04/04/2020 12:00:00 AM EST suspended Cefdinir 300 M G eCW1 ([facility]) cefdinir 300 MG Oral Capsule Cefdinir 300 MG Cefdinir 300 MG 04/04/2020 12:00:00 AM EST suspended Cefdinir 300 M G eCW1 ([facility]) cefdinir 300 MG Oral Capsule Cefdinir 300 MG Cefdinir 300 MG 04/04/2020 12:00:00 AM EST active Cefdinir 300 MG e CW1 ([facility]) cefdinir 300 MG Oral Capsule Cefdinir 300 MG Cefdinir 300 MG 04/04/2020 12:00:00 AM EST suspended Cefdinir 300 M G eCW1 ([facility]) cefdinir 300 MG Oral Capsule Cefdinir 300 MG Cefdinir 300 MG 04/04/2020 12:00:00 AM EST suspended Cefdinir 300 M G eCW1 ([facility]) cefdinir 300 MG Oral Capsule Cefdinir 300 MG Cefdinir 300 MG 04/04/2020 12:00:00 AM EST suspended Cefdinir 300 M G eCW1 ([facility]) cefdinir 300 MG Oral Capsule Cefdinir 300 MG Cefdinir 300 MG 04/04/2020 12:00:00 AM EST suspended Cefdinir 300 M G eCW1 ([facility]) cefdinir 300 MG Oral Capsule Cefdinir 300 MG Cefdinir 300 MG 04/04/2020 12:00:00 AM EST active Cefdinir 300 MG e CW1 ([facility]) Blood Glucose Monitoring Suppl w/Device UNK 04/01/2020 12:00:[address] active Blood Glucose Monitoring Sup pl w/Device eCW1 ([facility]) Semglee 100 UNIT/ML Semglee 100 UNIT/ML 04/01/2020 12:00:00 AM EST active Semglee 100 UNIT/ML eCW1 ([facility]) Semglee 100 UNIT/ML Semglee 100 UNIT/ML 04/01/2020 12:00:00 AM EST active Semglee 100 UNIT/ML eCW1 ([facility]) Blood Glucose Monitoring Suppl w/Device UNK 04/01/2020 12:00:[address] active Blood Glucose Monitoring Sup pl w/Device eCW1 ([facility]) Semglee 100 UNIT/ML Semglee 100 UNIT/ML 04/01/2020 12:00:00 AM EST active Semglee 100 UNIT/ML eCW1 ([facility]) Semglee 100 UNIT/ML Semglee 100 UNIT/ML 04/01/2020 12:00:00 AM EST active Semglee 100 UNIT/ML eCW1 ([facility]) Semglee 100 UNIT/ML Semglee 100 UNIT/ML 04/01/2020 12:00:00 AM EST active Semglee 100 UNIT/ML eCW1 ([facility]) Blood Glucose Monitoring Suppl w/Device UNK 04/01/2020 12:00:[address] active Blood Glucose Monitoring Sup pl w/Device eCW1 ([facility]) Blood Glucose Monitoring Suppl w/Device UNK 04/01/2020 12:00:[address] active Blood Glucose Monitoring Sup pl w/Device eCW1 ([facility]) Blood Glucose Monitoring Suppl w/Device UNK 04/01/2020 12:00:[address] active Blood Glucose Monitoring Sup pl w/Device eCW1 ([facility]) Blood Glucose Monitoring Suppl w/Device UNK 04/01/2020 12:00:[address] active Blood Glucose Monitoring Sup pl w/Device eCW1 ([facility]) Semglee 100 UNIT/ML Semglee 100 UNIT/ML 04/01/2020 12:00:00 AM EST active Semglee 100 UNIT/ML eCW1 ([facility]) Semglee 100 UNIT/ML Semglee 100 UNIT/ML 04/01/2020 12:00:00 AM EST active Semglee 100 UNIT/ML eCW1 ([facility]) Blood Glucose Monitoring Suppl w/Device UNK 04/01/2020 12:00:[address] active Blood Glucose Monitoring Sup pl w/Device eCW1 ([facility]) Semglee 100 UNIT/ML Semglee 100 UNIT/ML 04/01/2020 12:00:00 AM EST active Semglee 100 UNIT/ML eCW1 ([facility]) Blood Glucose Monitoring Suppl w/Device UNK 04/01/2020 12:00:[address] active Blood Glucose Monitoring Sup pl w/Device eCW1 ([facility]) Semglee 100 UNIT/ML Semglee 100 UNIT/ML 04/01/2020 12:00:00 AM EST active Semglee 100 UNIT/ML eCW1 ([facility]) Blood Glucose Monitoring Suppl w/Device UNK 04/01/2020 12:00:[address] active Blood Glucose Monitoring Sup pl w/Device eCW1 ([facility]) Blood Glucose Monitoring Suppl w/Device UNK 04/01/2020 12:00:[address] active Blood Glucose Monitoring Sup pl w/Device eCW1 ([facility]) Semglee 100 UNIT/ML Semglee 100 UNIT/ML 04/01/2020 12:00:00 AM EST active Semglee 100 UNIT/ML eCW1 ([facility]) sodium chloride (preservative free) 0.9 % flush [...] For 30 days, Pre-op [Order 6 End] [facility] Medication administered onsite sodium chloride (preservative free) 0.9 % flush 10 mL 77295- 186-00 01/01/2020 10:14:38 AM EDT 10 mL Intravenous active 10 mL, Intravenous, Continuous PRN, Line Care, Starting 01/01/20 at 1014, For 30 days, Pre- op
Verify blood return before use. For deaccessing: flush with 10 mL Sodium Chloride 0.9 % followed by 5 mL Heparin 100 units/mL. Flush per CM C-34C Central Line Policy for [facility].
[facility] Medication administered onsite 3 ML heparin [...] CM C-34C Central Line Policy for [facility].
[facility] Medication administered onsite heparin sodium, porcine [...] CM C-34C Central Line Policy for [facility].
[facility] Medication administered onsite sodium chloride (preservative free) 0.9 % flush 10 mL 97261- 186-00 01/01/2020 10:14:37 AM EDT 10 mL Intravenous active 10 mL, Intravenous, Continuous PRN, Line Care, Starting Tue01/01/20 at 1014, For 30 days, Pre- op
Verify blood return before use. For intermittent access: flush with 10 mL Sodium Chloride 0.9 % followed by 5 mL Heparin 10 units/mL. Flush per CM C-34C Central Line Policy for [facility].
[facility] Medication administered onsite Dicyclomine Hydrochloride 20 MG Oral Tablet Dicyclomin e HCl 20 MG Oral Tablet Dicyclomine HCl 20 MG Oral Tablet 06/19/2019 12:00:00 AM EST 20 mg Oral active Chronic abdominal pain Take 1 tablet by mouth Th ree times daily [facility] Chronic abdominal pain Insurance Providers Payer name Policy type / Coverage type Policy ID Covered alliance party ID Covered alliance party's relationship to white Policy White Plan Information MEDICAID M [id number] Self [id number] DARWIN I [id number] Self [id number] DARWIN I [id number] Self [id number] [place] [id number] SP [id number] [place] [id number] S [id number] Managed Care [place] P [id number] S [id number] Medicaid S [id number] S [id number] [place] UNAVAILABLE S UNAVAILABLE Medicaid S UNAVAILABLE S UNAVAILA BLE MEDICAID -O/[id number] MEDICAID [id number] SP [id number] DARWIN [id number] SP [id number] 500 MEDICAID [id number] SP [id number] [place] [id number] S [id number] EMEDNY [id number] SP [id number] Problems, Conditions, and Diagnoses Code Display Name Description Problem Type Effective Dates Data Source(s) M79.641 Pain in right hand Pain in right hand Diagnosis 10:05:18 AM EST [facility] F33.9 [id number] Recurrent major depr essive disorder, remission status unspecified Problem 01/27/2021 12:00:00 AM EDT eCW1 ([facility]) E11.649 [id number] Hypoglycemia associated with type 2 diabe brandon mellitus Problem 12/28/2020 12:00:00 AM EDT eCW1 ([facility]) 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 Problem 09/18/2020 12:00:00 AM EDT MEDENT ([facility] I95.1 Orthostatic hypotension Orthostatic hypotension Proble m 06/24/2020 12:00:00 AM EST MEDENT ([facility] ) G25.81 Restless legs Restless legs Problem 06/24/2020 12:00:00 AM EST MEDENT ([facility] H91.93 [id number] Bilateral hearing loss, unspecified heari ng loss type Problem 05/07/2020 12:00:00 AM EST eCW1 ([facility]) G47.00 [id number] Insomnia, unspecified type Problem 12:00:00 AM EST eCW1 ([facility]) R25.2 Cramp and spasm Cramp and spasm Problem 05/06/2020 12:0 0:00 AM EST MEDENT ([facility] G21.8 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 Problem 05/06/2020 12:00:00 AM EST ME DENT ([facility] ) G25.0 Essential tremor Essential tremor Problem 05/06/2020 12 :00:00 AM EST MEDENT ([facility] ) E10.42 Type 1 diabetes mellitus with diabetic p olyneuropathy Type 1 diabetes mellitus with diabetic polyneuropathy Problem 05/06/2020 12:00:00 AM EST MEDENT ([facility] ) G47.62 Cramp in lower leg associated with rest Cramp in lower leg associated with rest Problem 05/06/2020 12:00:00 AM EST MEDENT ([facility] ) Surgeries/Procedures Procedure Description Date Indications Data Source(s) EEG Complete STD Phys/QHP>36 HR<60 HR W/O Video 2020 12:00:00 AM EST MEDENT ([facility] EEG Complete STD Phys/QHP>60 HR<84 HR W/O Video 2020 12:00:00 AM EST MEDENT ([facility] ) TSTG ANS FUNCJ CARDIOVAGAL INNERVAJ PARASYMP 12:00:00 AM EST MEDENT ([facility] ) TESTING AUTONOMIC NERVOUS SYSTEM FUNCTION 05/28/2020 1 2:00:00 AM EST MEDENT ([facility] ) Results ID Date Data Source [id number] 02/24/2021 05:09:00 PM EST [facility] Name Value Range Interpretation Code Description Data Sophia rce(s) Supporting Document(s) SARS coronavirus 2 RNA [Presence] in Res piratory specimen by CRISTI with probe detection NEGATIVE [facility] This lab was ordered by [facility] a nd reported by [facility]. ID Date Data Source [id number] 02/18/2021 07:21:33 AM EDT [facility] Name Value Range Interpretation Code Description Data Sophia rce(s) Supporting Document(s) Progress Note [facility] FDKHMw6sBgQXDlFy10/SGKbnHWJlm5GzACgdGPl7ACjcLDSzU5QyDSZ6lF9mLOS4VMoXAyNjNoLdCPYh lb [file] Fm3APIf1JcYZUrRlTV1TPTz= ID Date Data Source [id number] 02/16/2021 06:42:03 PM EDT [facility] Name Value Range Interpretation Code Description Data Sophia rce(s) Supporting Document(s) Progress Note [facility] YOWXPd7xNbCYCvXi31/OPXlgOFKzo9AaCYfqKYk5HIfqAQJkK4XdABN9dK3aVAL3SYqAYaYkAqNwRNCf lbm [file] AgICAgICAgICAgICAgICAgICAgICAgICAgICAgICAgICAgICAgICAgICAgICAgICAgICAgICAgICAgIC AgICAgICAgICAgICAgICAgICAgICAgICAgICAgICAgICAgICAgICANCiAgICAgICAgICAgICAgICAgIC AgICAgICAgICAgICAgICAgICAgICAgICAgICAgICAg ICAgICAgICAgICAgICAgICAgICAgICAgICAgICAgICAgICAgICAgICAgICAgICAgICANCiAgICAgICAg ICAgICAgICAgICAgICAgICAgICAgICAgICAgICAgICAgICAgICAgICAgICAgICAgICAgICAgICAgICAg ICAgICAgICAgICAgICAgICAgICAgICAgICAgICAgIC ANCiAgICAgICAgICAgICAgICAgICAgICAgICAgICAgICAgICAgICAgICAgICAgICAgICAgICAgICAgIC AgICAgICAgICAgICAgICAgICAgICAgICAgICAgICAgICAgICAgICAgICANCiAgICAgICAgICAgICAgIC AgICAgICAgICAgICAgICAgICAgICAgICAgICAgICAg ICAgICAgICAgICAgICAgICAgICAgICAgICAgICAgICAgICAgICAgICAgICAgICAgICAgICANCiAgICAg ICAgICAgICAgICAgICAgICAgICAgICAgICAgICAgICAgICAgICAgICAgICAgICAgICAgICAgICAgICAg ICAgICAgICAgICAgICAgICAgICAgICAgICAgICAgIC AgICANCiAgICAgICAgICAgICAgICAgICAgICAgICAgICAgICAgICAgICAgICAgICAgICAgICAgICAgIC AgICAgICAgICAgICAgICAgICAgICAgICAgICAgICAgICAgICAgICAgICAgICANCiAgICAgICAgICAgIC AgICAgICAgICAgICAgICAgICAgICAgICAgICAgICAg ICAgICAgICAgICAgICAgICAgICAgICAgICAgICAgICAgICAgICAgICAgICAgICAgICAgICAgICANCiAg ICAgICAgICAgICAgICAgICAgICAgICAgICAgICAgICAgICAgICAgICAgICAgICAgICAgICAgICAgICAg ICAgICAgICAgICAgICAgICAgICAgICAgICAgICAgIC AgICAgICANCiAgICAgICAgICAgICAgICAgICAgICAgICAgICAgICAgICAgICAgICAgICAgICAgICAgIC AgICAgICAgICAgICAgICAgICAgICAgICAgICAgICAgICAgICAgICAgICAgICAgICANCjw/uXPxG2nmlG JvfyQ5C6bqDa5ILc2SNV9ei6XfEIFwAZgbxuUsUjvL NpRvXHDqKlkTXwa7TZnvAU0AwYYvD5RpA4SjHLutQS6YOLCjCXJkzJSfDEAjFHFrRpM0RQMvGNyqFK9B rIYgPXtnEZUaOHTeEG1SYGWmX909grRoWE8LYv7XAyTlMK0fva1PWWuuAAMrIgiVXms0ONzkJH5OdSBu mHWtBDYjSLVRCxJzV6mwa3OuAjLnUINJSCllUA4Tc5 VudCAxDQo+Jv4HMU2gp1FjXNbqVXThBL0wip8DTHzJFeOoH0UcjNaoTEWos7bbQDDsUX9prROdNWK2ZF Sjc93nzeZPHJJmRKWvXHctFIFdFKIyVNUuCU6uIQFvANW0MpI3PWPREW9LJNWhJAOigTGkQHOyTXOPQG 3KALklEYC3UQJbpwOhpMLlYLhqVL6DJCLfsnUgLIrp MCBSDQo+Ku1KTI3hp9FtVZcaLFTwWG7cye2SHFrSZlBvH7V5aURmE8S1SEsvRh4HWASyLYSaAPupGAIK WLwpBQ7RSB8fymT8KJ6GoBWlMRYgTNMotWWbRXy8E41dfXXfGSkqJJ9RHVZ+Lynda+Jh1CKHSsUPRzGYDl ZaDtRYEDXjFhO9KfQ4QWq8LkG2FwYT87cPtdyyMeCO rvRD9KYR9eLYZdTGWZBI2YfCKarE6oxkRjYIPkSXBKGfNcQ84goOWoCZSyXNC9MTHjCd4KZNMdE3Iedz AftOlpmyGeLQKsCJSDBU5REEmfjhUzeUMunJotJU83qIwuEA5YRs0CTvKmIO4ops7BzFCkLy0VAPKuGz 3GPEStYLCaDEGlMBZ5VVTbQyLbFRcdKKSgQWXeRDW9 NJCeGHSvSQ9CBcSjNCJwQPr0FmbsWIFvXGHdmn8XAIFqGWXnXXQ1TkHoVDAuVIBmGGtqPQWtXAVeCHJ7 GWJxMDGgDV8ENcFuPYNhMAO4SNAyNHEiHESjrd8DEPFuFNJwVwWnUQEnVAFjCWAeQHjxOVYaPNGiPPR0 ZZRvIQGwXA4SFjBpGMTxNEXgKtRbSFUqHQMhho9NOX JrEWYkNBT0CmZtGNUuRVIgHEkhNGUlBPM9MlSbTIDeKMNjFO8PEkFmIYHwZJI5MIWbMPVpJKNyso1MWX FmTJBzJBK7GDBmKRViQJKyPPgaCMAdWPW6PVM4PWFaUIRmWC1CIeZfRRYuUIqoQgDmLLDwQWTwro3LXY QqZLWpDqP9MONbSDHzMBJfUUdqLUXhBJL0CRFpQCPn PJThCR3WDsRhFTLwNIy9HFJtTOYiBGJdxj0YOFVdKKEeRNS2OlQcJJPtABGrTRxjAPPuVDJ7Vzo2AYLp PVPrEQ1HQgShOQQpIHx4PcIoOWNsQSFaer3SZZFbQYCvVMFzSXLyFVBsIPEuQIp3uoXjjZFfZSh4CZ0X S8HfywTuAtUHEa9Ip992XFYjIZNwSo1BT3woTw6tRO PcDHTFNu2UTHq1PRU7SlAuQxLmNuB3WfL0BjHnYCYgFYs6PYPbZwYuVyB+NRr0BFUmGvIiKEQ7Job0PF xzARJkLIMwFJZpItP8WHTlVj3lMAMCNt4+OCaeoUAmaMtuXIMMMlXhIcL6CJfrHLAXJc8C ID Date Data Source [id number] 01/06/2021 10:50:00 AM EDT [facility] Name Value Range Interpretation Code Description Data Sophia rce(s) Supporting Document(s) SARS coronavirus 2 RNA [Presence] in Res piratory specimen by CRISTI with probe detection NEGATIVE [facility] This lab was ordered by [facility] a nd reported by [facility]. ID Date Data Source [id number] 12/31/2020 09:38:00 AM EDT [facility] Name Value Range Interpretation Code Description Data Sophia rce(s) Supporting Document(s) SARS coronavirus 2 RNA [Presence] in Res piratory specimen by CRISTI with probe detection NEGATIVE [facility] This lab was ordered by [facility] a nd reported by [facility]. ID Date Data Source [id number] 12/27/2020 12:38:00 AM EDT [facility] Name Value Range Interpretation Code Description Data Sophia rce(s) Supporting Document(s) SARS coronavirus 2 RNA [Presence] in Res piratory specimen by CRISTI with probe detection NEGATIVE [facility] This lab was ordered by [facility] a nd reported by [facility]. ID Date Data Source [id number] 06/15/2020 10:34:46 AM [facility] Name Value Range Interpretation Code Description Data Sophia rce(s) Supporting Document(s) Progress Note [facility] LWSAOp3cUpGISfGm77/QFKztVRWjs9ZoZLrzAMz2UJrxZLKgE3MdDIE1jP5aSWM5XNrPRvQxRnEjKbA9 [facility] [file] OzXYD7CDUdFJZcPNY4WMKfWdHoNyKlJA3CWf2XPuB5REE5fCKzXj0YJmJqRCjAGlLoSH5WWGu= ID Date Data Source [id number] 06/13/2020 10:43:57 PM [facility] XR HAND 3 OR MORE VIEWS [id number] RESUL TInterpreted by:Jose Rafael Reynoso, [place] hand [...] rce(s) Supporting Document(s) ID Date Data Source [id number] 06/13/2020 11:31:41 AM EST [facility] Name Value Range Interpretation Code Description Data Sophia rce(s) Supporting Document(s) Progress Note [facility] ENBQSi0dVcWGPuAz65/RSBivXFSvb6YaVJfdRQo6EUxjNPIfL9FkAHE9kX8gXNB0HQuHBnUpDrEzOuV1 lbm ToXzkKNaLiREWbYrvZGaOhEKsbLztvpSXoKU1BfQW1BBLeR44mSJPrGKTjU0EqVVCuTiC+Lp4QGFQmaC XfQE2BYkyH1H6tSkBMSp9GrI/QQwHaQ2ZS+pFNdWWMMAQFwesEvxm7Ijh0kEFU3iXA5z59WU/PYKoYPl ugUJOpXjxO7Le6KUt76UcTtsFN/u//vwv4HtiH45/3 s0vjlzeL5kos3AEu52fFK/aUVlFIghYWmM5R/wnjuqkm3mR9okQwuve6xy61PNTqcq8ZYcCa+LgPY5Os c4NIccIiV4y3nXy9mXLXRY+XzujHhBYneTEIdWmWl/xAlzZISZHSnibjupVU+4VMiFWKG6VVwU7Ge/Ax FumRO0iVmlpvdwI84wMM4epaqpeOxRPEsvzzEls3uO XgQmN8iFSYNn/8kJd/5dx2tYFNdlIXhizFx/9WJXdwuzyLh5/sTdoSZKcBgjWct609zPGk2olx5SHUq1 e8HtLpu6jBFn2EDAEGlQQt9JXnBrdTgka6TDLQ3ULlsaceolr5464o7Ettw3na2Atv8gSz9TUUK2+OBl NzM+PEob/gZWjKt+oB68fPiGaXzycwsDEh6HOo279X r0uI67SvV5doYF0pjLtPTp/9p2vpcSP4jRWfXeDIekd+gTMTiEokDiSBl2Ezc74pF2wKxHIB1960s72E +A8C42ZjcWk18MgB38ONm4u6XHdwR5C9NFSsxRR0uY0qmlTmjx5BsS0Y6GxNkUTPTcbAsgl1zJ/y25E6 /vZxjnXSksdhVIXyYOYvypDfaUZiAiwa4S+GkbsZeN n//fDqP+y6MzVuHRaChoELaiVz3AIZepcAXnarodp9gCPsxQUrcOJq/BfszAhZ7IdMxhIhQLqGv4mGzF 6JdZ8NgiGiE4tIIiLQfa/kycjeGHQGPO+B/TdcBqof8dMt4p3X3b1yctl0Qk5t0XoncDkJhuvBxgesea 0r6aOt7DZ9dSrM9Q96OBuioML1iaK4Al2Jb9m38c65 [file] W09cN/DixYDnrySL311g5y0V+dAwRmYtVD8Lw060ta5nfeu1RT0E7YsxKAcMWw3p+mQw3jVBT3Fta+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 [file] 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/Hi6Q2qnjm2I/GbE3vctSfqAJdv1j3EUSpcoBOR [file] FeWtOH8LWy7FLpE6UVT8vXXoTx2EVgW6QDAXCnVrRK9RNXk= ID Date Data Source [id number] 01/31/2020 08:55:50 AM EDT [facility] Current Problems: DENTAL CARIES EXTENDIN G INTO PULP (ICD-521.03) (ICD10- K02.63)Current Allergies: * LATEX (Critical) Dental Chart: Procedures:Type - CDT Code - Description B - (D0140) Limited oral evaluation - problem focused on Tooth # 30 (Performed by Guille Wong DDS) Existing:Type - CDT Code - Description[E] Missing - [place] and Root On #1 Surface O Region [...] Former Smoker completed Former Smoker eCW1 (Formerly [facility]) Smoking 12/28/2020 12:00:00 AM EDT Former Smoker completed Former Smoker eCW1 ([facility]) Smoking 05/06/2020 12:00:00 AM EST Former Smoker completed Former Smoker eCW1 ([facility]) Smoking 05/06/2020 12:00:00 AM EST Former Smoker completed Former Smoker eCW1 ([facility]) Smoking 05/06/2020 12:00:00 AM EST Former Smoker completed Former Smoker eCW1 ([facility]) Smoking 05/06/2020 12:00:00 AM EST Former Smoker completed Former Smoker eCW1 ([facility]) Smoking 04/23/2020 12:00:00 AM EST Former Smoker completed Former Smoker eCW1 ([facility]) Smoking 04/01/2020 12:00:00 AM EST Former Smoker completed Former Smoker eCW1 ([facility]) Smoking 04/01/2020 12:00:00 AM EST Former Smoker completed Former Smoker eCW1 ([facility]) Smoking 04/01/2020 12:00:00 AM EST Former Smoker completed Former Smoker eCW1 ([facility]) Vital Signs ID Date Data Source UNK Name Value Range Interpretation Code Description Data Source(s) Body weight 116.2 [lb_av] 116.2 [lb_av] eCW1 ([facility]) Body weight 52.71 kg 52.71 kg eCW1 ([facility]) Body height 65 [in_i] 65 [in_i] eCW1 ([facility]) Body mass index (BMI) [Ratio] 19.33 kg/m2 19.33 kg/m2 eCW1 ([facility]) Heart rate 101 /min 101 /min eCW1 ([facility]) Respiratory rate 18 /min 18 /min eCW1 ([facility]) Body temperature 98.0 [degF] 98.0 [degF] eCW1 ( [facility]) Systolic blood pressure 140 mm[Hg] 140 mm[Hg] e CW1 ([facility]) Diastolic blood pressure 80 mm[Hg] 80 mm[Hg] eCW1 ([facility]) Body weight 120.6 [lb_av] 120.6 [lb_av] eCW1 ([facility]) Body height 65 [in_i] 65 [in_i] eCW1 ([facility]) Body mass index (BMI) [Ratio] 20.07 kg/m2 20.07 kg/m2 eCW1 ([facility]) Heart rate 100 /min 100 /min eCW1 ([facility]) Respiratory rate 20 /min 20 /min eCW1 ([facility]) Body temperature 97.2 [degF] 97.2 [degF] eCW1 ( [facility]) Systolic blood pressure 130 mm[Hg] 130 mm[Hg] e CW1 ([facility]) Diastolic blood pressure 78 mm[Hg] 78 mm[Hg] eCW1 ([facility]) Respiratory rate 14 /min 14 /min MEDENT ( [facility] ) Body height 65 [in_i] 65 [in_i] MEDENT ([facility], ) 5'5" Body weight 110.00 [lb_av] 110.00 [lb_av] MEDEN T ([facility] ) Body mass index (BMI) [Ratio] 18.3 kg/m2 18.3 k g/m2 MEDENT ([facility] ) Systolic blood pressure 140 mm[Hg] 140 mm[Hg] M EDENT ([facility], ) Diastolic blood pressure 90 mm[Hg] 90 mm[Hg] MEDENT ([facility] ) Heart rate 74 /min 74 /min MEDENT ([facility]) [place] body weight 125 [lb_av] 125 [lb_av] MEDEN T ([facility]) Body weight 115 [lb_av] 115 [lb_av] eCW1 ([facility]) Body height 65 [in_i] 65 [in_i] eCW1 ([facility]) Body mass index (BMI) [Ratio] 19.13 kg/m2 19.13 kg/m2 eCW1 ([facility]) Heart rate 123 /min 123 /min eCW1 ([facility]) Respiratory rate 17 /min 17 /min eCW1 ([facility]) Body temperature 97.0 [degF] 97.0 [degF] eCW1 ( [facility]) Systolic blood pressure 124 mm[Hg] 124 mm[Hg] e CW1 ([facility]) Diastolic blood pressure 84 mm[Hg] 84 mm[Hg] eCW1 ([facility]) Patient Treatment Plan of Care Planned Activity Planned Date Details Description Data Source (s) pantoprazole 40 MG Delayed Release Oral Tablet 01/27/2021 12:00:00 AM EDT eCW1 ([facility]) Escitalopram 10 MG Oral Tablet 01/27/2021 12:00:00 AM EDT eCW1 ([facility]) Test Strips - 04/10/2020 12:00:00 AM EST eCW1 ([facility]) Blood Glucose Monitoring Suppl - 04/10/2020 12:00:00 AM EST eCW1 ([facility]) Lancets Misc. - 04/10/2020 12:00:00 AM EST eCW1 ([facility]) cefdinir 300 MG Oral Capsule 04/04/2020 12:00:00 AM EST eCW1 ([facility]) cefdinir 300 MG Oral Capsule 04/04/2020 12:00:00 AM EST eCW1 ([facility]) Blood Glucose Monitoring Suppl w/Device 04/01/2020 12:00:00 AM EST eCW1 ([facility]) Semglee 100 UNIT/ML 04/01/2020 12:00:00 AM EST eCW1 ([facility]) Semglee 100 UNIT/ML 04/01/2020 12:00:00 AM EST eCW1 ([facility]) Blood Glucose Monitoring Suppl w/Device 04/01/2020 12:00:00 AM EST eCW1 ([facility]) Semglee 100 UNIT/ML 04/01/2020 12:00:00 AM EST eCW1 ([facility]) Blood Glucose Monitoring Suppl w/Device 04/01/2020 12:00:00 AM EST eCW1 ([facility]) sodium chloride (preservative free) 0.9 % flush 3 mL 05:00:00 PM [facility] sodium chloride (preservative free) 0.9 % flush 10 mL 01/01/2020 10:14:38 AM [facility] sodium chloride (preservative free) 0.9 % flush 10 mL 01/01/2020 10:14:37 AM [facility] heparin sodium, porcine 10 UNT/ML Injectable Solution 01/01/2020 10:14:37 AM [facility] 3 ML heparin sodium, porcine 100 UNT/ML Prefilled Syri nge 01/01/2020 10:14:37 AM [facility] Dicyclomine Hydrochloride 20 MG Oral Tablet 06/19/2019 12:00:00 AM [facility]
[2021-03-04 21:43] VITALS: BP 114/56
== END 2021-03-04 21:46 | disposition home or self-care (01) ==
LOC: M ED 15:01
DX: R10.32 Left lower quadrant pain (principal); K59.00 Constipation, unspecified; E11.9 Type 2 diabetes mellitus without complications; E78.5 Hyperlipidemia, unspecified; E03.9 Hypothyroidism, unspecified; Z86.73 Personal history of transient ischemic attack (TIA), and cerebral infarction without residual deficits; Z88.1 Allergy status to other antibiotic agents; Z91.040 Latex allergy status; Z79.899 Other long term (current) drug therapy; Z79.890 Hormone replacement therapy
CPT/HCPCS: 36415; 74177; 80048; 80076; 81001; 83690; 85025; 85610; 85730; 99283; Q9967

== ENCOUNTER 2021-05-22 20:15 | Inpatient (IN) | payer OTHER ==
[~2021-05-22] VITALS: Ht 165.1 cm; Wt 56.5 kg
[2021-05-22] MEDS ORDERED: NS 1,000 ML IV ONE (20:35)
[2021-05-22] MEDS ORDERED: PROPOFOL 1,000 MG/100 ML VIAL As Ordered ONE (20:38)
[2021-05-22] MEDS: propofoL 1,000 MG in IV 1 EA IV SCH (20:40)
[2021-05-22 21:00] LABS: ABG BASE EXCESS -1.6 (-2.0-2.0); ABG HCO3 21.6 MEQ/L (22.0-26.0); ABG O2 SATURATION 99.5 % (95.0-99.0); ABG PARTIAL PRESSURE O2 292.8 mmHg (75.0-100.0); ABG STANDARD HCO3 23.2 MEQ/L (22.0-26.0); ABG TOTAL CO2 22.5 MEQ/L (22.0-29.0)
[2021-05-22 21:27] LABS: AMPHETAMINES LEVEL URINE NEGATIVE (NEGATIVE); BARBITURATES URINE POSITIVE (NEGATIVE); BENZODIAZEPINES URINE NEGATIVE (NEGATIVE); CANNABINOIDS URINE NEGATIVE (NEGATIVE); COCAINE METABOLITE URINE NEGATIVE (NEGATIVE); METHADONE URINE NEGATIVE (NEGATIVE); OPIATES URINE NEGATIVE (NEGATIVE); PHENCYCLIDINE URINE NEGATIVE (NEGATIVE)
[2021-05-22] MEDS ORDERED: ISOVUE-370 76% 100ML VIAL As Ordered ONE (21:35)
[2021-05-22 21:37] LABS: BASO % 0.2 % (0.0-1.0); EOS # 0.1 10^3/uL (0.0-0.5); EOS % 2.4 % (0.0-3.0); HEMATOCRIT 29.5 % (36.0-47.0); HEMOGLOBIN 9.5 g/dl (12.0-15.5); LYMPH # 1.2 10^3/uL (1.5-5.0); MEAN CORPUSCULAR HEMOGLOBIN 26.5 pg (27.0-33.0); MEAN CORPUSCULAR HGB CONC 32.2 g/dl (32.0-36.5); MEAN CORPUSCULAR VOLUME 82.2 fl (80.0-96.0); MONO # 0.5 10^3/uL (0.0-0.8); MONO % 8.8 % (2.0-8.0); NEUTROPHILS % 67.3 % (36.0-66.0); PLATELET COUNT, AUTOMATED 335 10^3/uL (150-450); RED BLOOD COUNT 3.59 10^6/uL (4.00-5.40); WHITE BLOOD COUNT 5.9 10^3/uL (4.0-10.0)
[2021-05-22] MEDS ORDERED: NALOXONE 2MG/2ML SYRINGE (J2310 PER 1MG) As Ordered ONE (22:05)
[2021-05-22] MEDS ORDERED: NALOXONE 2MG/2ML SYRINGE (J2310 PER 1MG) IV STA (22:08)
[2021-05-22 22:10] LABS: CK-MB VALUE MASS 3.8 NG/ML (<3.6); MB/CK RELATIVE INDEX 2.75 (< OR =4)
[2021-05-22 22:13] LABS: ACETAMINOPHEN LEVEL < 2.0 UG/ML (10.0-30.0); ALBUMIN 3.4 GM/DL (3.2-5.2); ALT/SGPT 73 U/L (12-78); BILIRUBIN,DIRECT < 0.1 MG/DL (0.0-0.2); BILIRUBIN,TOTAL 0.3 MG/DL (0.2-1.0); BLOOD UREA NITROGEN 33 MG/DL (7-18); CALCIUM LEVEL 8.7 MG/DL (8.5-10.1); CARBON DIOXIDE LEVEL 24 MEQ/L (21-32); CHLORIDE LEVEL 103 MEQ/L (98-107); ETHYL ALCOHOL (ETHANOL) 0.003 % (0.000-0.010); GLOMERULAR FILTRATION RATE 32.9 (>51); GLUCOSE, FASTING 224 MG/DL (70-100); POTASSIUM SERUM 4.1 MEQ/L (3.5-5.1); SALICYLATE LEVEL < 1.7 MG/DL (5.0-30.0); SODIUM LEVEL 137 MEQ/L (136-145); TOTAL PROTEIN 6.8 GM/DL (6.4-8.2)
[2021-05-22] MEDS ORDERED: PHENYTOIN 100 MG/2 ML VIAL (J1165) IV ONE (23:20)
[2021-05-22] MEDS ORDERED: PHENYTOIN INJ 250 MG/5 ML VIAL (J1165) IV ONE (23:30)
[2021-05-23] VITALS (64 sets, daily range): BP systolic 60–196; BP diastolic 26–85; O2SAT 98
[2021-05-23] MEDS ORDERED: PRIM250T8 PO (00:37)
[2021-05-23] MEDS ORDERED: SUCR1TAB56 PO (00:37)
[2021-05-23] MEDS ORDERED: ROPI1TAB3 PO (00:37)
[2021-05-23] MEDS ORDERED: LEVO200T4 PO (00:37)
[2021-05-23] MEDS ORDERED: NIRM1TAB PO (00:37)
[2021-05-23] MEDS ORDERED: AMIT10TA7 PO (00:37)
[2021-05-23] MEDS ORDERED: HOME MED LIST COMPLETE! XX SCH (00:40)
[2021-05-23] MEDS ORDERED: ACETAMINOPHEN 650MG ER TAB (TYLENOL ARTHRITIS) PO SCH (00:45)
[2021-05-23] MEDS: dexmedeTOMidine 200 MCG in IV 1 EA IV SCH ×3 (02:16→12:19)
[2021-05-23] MEDS: propofoL 1,000 MG in IV 1 EA IV SCH (02:17)
[2021-05-23] MEDS ORDERED: MAG SULF 1GM/100ML (MAG RUN) 1 GM in IV 1 EA IV SCH (03:00)
[2021-05-23] MEDS ORDERED: NOREPINEPHRINE 4 MG/4 ML AMP As Ordered ONE (03:24)
[2021-05-23] MEDS ORDERED: NOREPINEPHRINE BITARTRATE 8 MG in D5W 492 ML IV SCH ×6 (03:30→15:30)
[2021-05-23] MEDS ORDERED: NOREPINEPHRINE BITARTRATE 8 MG in D5W 492 ML IV STA ×2 (03:35→03:36)
[2021-05-23 03:56] LABS: BASO % 0.2 % (0.0-1.0); EOS # 0.1 10^3/uL (0.0-0.5); EOS % 1.5 % (0.0-3.0); HEMATOCRIT 30.5 % (36.0-47.0); HEMOGLOBIN 9.8 g/dl (12.0-15.5); LYMPH # 1.6 10^3/uL (1.5-5.0); LYMPH % 18.5 % (24.0-44.0); MEAN CORPUSCULAR HEMOGLOBIN 26.3 pg (27.0-33.0); MEAN CORPUSCULAR HGB CONC 32.1 g/dl (32.0-36.5); MONO % 10.9 % (2.0-8.0); NEUTROPHILS % 68.6 % (36.0-66.0); PLATELET COUNT, AUTOMATED 412 10^3/uL (150-450); RED BLOOD COUNT 3.72 10^6/uL (4.00-5.40); WHITE BLOOD COUNT 8.8 10^3/uL (4.0-10.0)
[2021-05-23] MEDS ORDERED: fentaNYL CITRATE 1,000 MCG in NS 80 ML IV STA (03:56)
[2021-05-23] MEDS: ACETAMINOPHEN 325 MG/10.15 ML UDC GT PRN ×2 (03:58→15:43)
[2021-05-23 04:08] LABS: INR 0.87; PARTIAL THROMBOPLASTIN TIME 25.8 SECONDS (25.9-37.0); PROTHROMBIN TIME 12.2 SECONDS (12.7-14.5)
[2021-05-23 04:27] LABS: ALBUMIN 3.1 GM/DL (3.2-5.2); BILIRUBIN,TOTAL 0.2 MG/DL (0.2-1.0); CALCIUM LEVEL 8.3 MG/DL (8.5-10.1); CREATININE FOR GFR 1.45 MG/DL (0.55-1.30); GLOMERULAR FILTRATION RATE 39.5 (>51); PHOSPHORUS LEVEL 3.1 MG/DL (2.5-4.9); TOTAL PROTEIN 6.4 GM/DL (6.4-8.2)
[2021-05-23] MEDS ORDERED: fentaNYL CITRATE 1,000 MCG in NS 80 ML IV SCH (05:00)
[2021-05-23 06:22] LABS: ABG BASE EXCESS -1.5 (-2.0-2.0); ABG HCO3 21.4 MEQ/L (22.0-26.0); ABG O2 SATURATION 98.3 % (95.0-99.0); ABG PARTIAL PRESSURE CO2 30.1 mmHg (35.0-45.0); ABG PARTIAL PRESSURE O2 130.2 mmHg (75.0-100.0); ABG STANDARD HCO3 23.2 MEQ/L (22.0-26.0); ABG TOTAL CO2 22.3 MEQ/L (22.0-29.0)
[2021-05-23] MEDS: NS 1,000 ML IV SCH (06:24)
[2021-05-23] MEDS: CHLORHEXIDINE GLUCONATE 0.12 % 15ML UDC (PERIDEX ORAL RINSE) MT SCH ×2 (08:52→20:46)
[2021-05-23] MEDS ORDERED: PANTOPRAZOLE 40MG VIAL (C9113 PER 1) IV SCH (09:00)
[2021-05-23] MEDS ORDERED: levETIRAcetam **XR** 500 MG TABLET PO SCH (09:00)
[2021-05-23] MEDS: ASCORBIC ACID 500 MG TAB PO SCH (09:00)
[2021-05-23] MEDS ORDERED: FUROSEMIDE 20MG/2ML VIAL (J1940) As Ordered ONE (14:07)
[2021-05-23] MEDS ORDERED: DEXTROSE 50% 50 ML SYRINGE IV PRN (14:15)
[2021-05-23] MEDS ORDERED: GLUCOSE 4GM CHEW TABLET PO PRN (14:15)
[2021-05-23] MEDS ORDERED: GLUCAGON INJ 1MG VIAL SC PRN (14:15)
[2021-05-23] MEDS: HEPARIN SOD (PORCINE) 5000UNITS/ML 1ML VIAL/SYRINGE SQ SCH ×2 (14:29→22:15)
[2021-05-23 14:35] LABS: ABG BASE EXCESS -0.2 (-2.0-2.0); ABG HCO3 21.1 MEQ/L (22.0-26.0); ABG PARTIAL PRESSURE CO2 26.5 mmHg (35.0-45.0); ABG PARTIAL PRESSURE O2 96.3 mmHg (75.0-100.0); ABG STANDARD HCO3 24.4 MEQ/L (22.0-26.0); ABG TOTAL CO2 21.9 MEQ/L (22.0-29.0); ABG pH (ARTERIAL) 7.519 UNITS (7.350-7.450)
[2021-05-23 14:37] LABS: ABG O2 SATURATION 97.6 % (95.0-99.0)
[2021-05-23] MEDS ORDERED: FUROSEMIDE 20MG/2ML VIAL (J1940) IV ONE (15:00)
[2021-05-23] MEDS ORDERED: FUROSEMIDE 20 MG TAB PO ONE (16:00)
[2021-05-23 16:14] LABS: ABG BASE EXCESS -0.8 (-2.0-2.0); ABG HCO3 22.5 MEQ/L (22.0-26.0); ABG PARTIAL PRESSURE CO2 32.1 mmHg (35.0-45.0); ABG PARTIAL PRESSURE O2 59.4 mmHg (75.0-100.0); ABG STANDARD HCO3 23.8 MEQ/L (22.0-26.0); ABG TOTAL CO2 23.5 MEQ/L (22.0-29.0); ABG pH (ARTERIAL) 7.463 UNITS (7.350-7.450)
[2021-05-23] MEDS ORDERED: LORazepam 2 MG/ML VIAL As Ordered ONE (16:40)
[2021-05-23] MEDS: HumaLOG INSULIN (NovoLOG) PER UNIT SC SCH (16:45)
[2021-05-23 17:17] LABS: MAGNESIUM LEVEL 1.9 MG/DL (1.7-2.2)
[2021-05-23] MEDS ORDERED: LORazepam 2 MG/ML VIAL IM STA (17:28)
[2021-05-23] MEDS: levETIRAcetam **XR** 500 MG TABLET PO SCH (18:07)
[2021-05-23] MEDS ORDERED: IBUPROFEN 600MG TAB PO PRN (18:30)
[2021-05-23] MEDS ORDERED: HumaLOG INSULIN (NovoLOG) PER UNIT SC SCH (21:00)
[2021-05-24] VITALS (22 sets, daily range): BP systolic 89–135; BP diastolic 42–68
[2021-05-24] MEDS: ACETAMINOPHEN 325 MG/10.15 ML UDC GT PRN (02:02)
[2021-05-24] MEDS: NS 1,000 ML IV SCH (02:02)
[2021-05-24] MEDS: levETIRAcetam **XR** 500 MG TABLET PO SCH (05:28)
[2021-05-24] MEDS: HEPARIN SOD (PORCINE) 5000UNITS/ML 1ML VIAL/SYRINGE SQ SCH ×3 (05:29→21:24)
[2021-05-24 05:54] LABS: HEMATOCRIT 27.8 % (36.0-47.0); HEMOGLOBIN 8.6 g/dl (12.0-15.5); MEAN CORPUSCULAR HEMOGLOBIN 26.1 pg (27.0-33.0); MEAN CORPUSCULAR HGB CONC 30.9 g/dl (32.0-36.5); MEAN CORPUSCULAR VOLUME 84.2 fl (80.0-96.0); PLATELET COUNT, AUTOMATED 252 10^3/uL (150-450); WHITE BLOOD COUNT 9.4 10^3/uL (4.0-10.0)
[2021-05-24 06:23] LABS: PHOSPHORUS LEVEL 3.4 MG/DL (2.5-4.9)
[2021-05-24 06:32] LABS: ALBUMIN 2.4 GM/DL (3.2-5.2); BILIRUBIN,TOTAL 0.5 MG/DL (0.2-1.0); CALCIUM LEVEL 7.9 MG/DL (8.5-10.1); CREATININE FOR GFR 1.78 MG/DL (0.55-1.30); GLOMERULAR FILTRATION RATE 31.2 (>51); POTASSIUM SERUM 3.8 MEQ/L (3.5-5.1); TOTAL PROTEIN 5.5 GM/DL (6.4-8.2)
[2021-05-24] MEDS: HumaLOG INSULIN (NovoLOG) PER UNIT SC SCH ×3 (06:36→17:36)
[2021-05-24 06:38] LABS: ABG BASE EXCESS -2.8 (-2.0-2.0); ABG HCO3 21.2 MEQ/L (22.0-26.0); ABG O2 SATURATION 95.6 % (95.0-99.0); ABG PARTIAL PRESSURE CO2 33.6 mmHg (35.0-45.0); ABG PARTIAL PRESSURE O2 77.2 mmHg (75.0-100.0); ABG STANDARD HCO3 22.1 MEQ/L (22.0-26.0); ABG TOTAL CO2 22.2 MEQ/L (22.0-29.0); ABG pH (ARTERIAL) 7.418 UNITS (7.350-7.450)
[2021-05-24 07:00] LABS: BASOPHILS 1 % (0-1); EOSINOPHILS 2 % (0-3); LYMPHOCYTES 11 % (16-44); MONOCYTES 4 % (0-5); MYELOCYTES 1 % (0-0); NEUTROPHILS 55 % (28-66); PLATELET CLUMPS SMALL AMT; PLATELET ESTIMATE NORMAL (NORMAL)
[2021-05-24 07:01] LABS: OVALOCYTES 1+; POIKILOCYTOSIS 1+; SCHISTOCYTES 1+
[2021-05-24] MEDS: CHLORHEXIDINE GLUCONATE 0.12 % 15ML UDC (PERIDEX ORAL RINSE) MT SCH (08:31)
[2021-05-24] MEDS: ASCORBIC ACID 500 MG TAB PO SCH (08:48)
[2021-05-24] MEDS ORDERED: PANTOPRAZOLE 40MG TAB (PROTONIX) PO SCH (09:00)
[2021-05-24] MEDS ORDERED: FUROSEMIDE 20 MG TAB PO SCH (09:00)
[2021-05-24] MEDS ORDERED: dexameTHASONE 4 MG/ML 1ML VIAL (J1100 PER 1MG) IV SCH (09:00)
[2021-05-24] MEDS ORDERED: MIDODRINE 5 MG TAB PO SCH (09:30)
[2021-05-24] MEDS ORDERED: PERCOCET 5MG/325MG TAB PO ONE (09:30)
[2021-05-24] MEDS ORDERED: HumaLOG INSULIN (NovoLOG) PER UNIT SC STA (09:39)
[2021-05-24] MEDS ORDERED: LORazepam 2 MG/ML VIAL IV STA ×2 (09:52→09:59)
[2021-05-24] MEDS ORDERED: LORazepam 2 MG/ML VIAL As Ordered ONE (09:53)
[2021-05-24] MEDS ORDERED: levETIRAcetam INJection 1,000 MG in D5W 100 ML IV SCH (09:55)
[2021-05-24] MEDS ORDERED: PHENYTOIN INJection 1,000 MG in NS 100 ML IV STA (09:59)
[2021-05-24] MEDS ORDERED: LORazepam 2 MG TAB PO ONE (10:40)
[2021-05-24] MEDS ORDERED: LORazepam 2 MG/ML VIAL IV PRN (10:50)
[2021-05-24] MEDS ORDERED: GLUCOSE 4GM CHEW TABLET PO PRN (11:35)
[2021-05-24] MEDS ORDERED: DEXTROSE 50% 50 ML SYRINGE IV PRN (11:35)
[2021-05-24] MEDS ORDERED: GLUCAGON INJ 1MG VIAL SC PRN (11:35)
[2021-05-24] MEDS: NS 0.45% 1,000 ML IV SCH (14:10)
[2021-05-24] MEDS: LEVOTHYROXINE 100MCG (0.1MG) VIAL IV SCH (14:10)
[2021-05-24] MEDS ORDERED: REMDESIVIR 200 MG in NS 250 ML IV ONE (15:00)
[2021-05-24 15:21] LABS: FERRITIN 82 NG/ML (8-252); NT-PRO BNP 1400 PG/ML (<125)
[2021-05-24] MEDS ORDERED: ACETAMINOPHEN *IV* 650 MG in IV 1 EA IV ONE (16:00)
[2021-05-24 16:02] LABS: MAGNESIUM LEVEL 1.6 MG/DL (1.7-2.2)
[2021-05-24] MEDS ORDERED: SODIUM CHLORIDE 0.9% INJ 10 ML SYR IV ONE (17:00)
[2021-05-25] VITALS (18 sets, daily range): BP systolic 100–147; BP diastolic 49–67
[2021-05-25] MEDS: HumaLOG INSULIN (NovoLOG) PER UNIT SC SCH ×4 (00:13→17:23)
[2021-05-25] MEDS: ACETAMINOPHEN 325 MG/10.15 ML UDC PO PRN ×2 (00:34→22:24)
[2021-05-25] MEDS: HEPARIN SOD (PORCINE) 5000UNITS/ML 1ML VIAL/SYRINGE SQ SCH ×3 (05:23→21:55)
[2021-05-25 05:38] LABS: BASO # 0.1 10^3/uL (0.0-0.2); BASO % 0.4 % (0.0-1.0); EOS # 0.2 10^3/uL (0.0-0.5); EOS % 2.1 % (0.0-3.0); HEMATOCRIT 24.8 % (36.0-47.0); HEMOGLOBIN 7.9 g/dl (12.0-15.5); LYMPH # 1.2 10^3/uL (1.5-5.0); LYMPH % 10.9 % (24.0-44.0); MEAN CORPUSCULAR HEMOGLOBIN 26.4 pg (27.0-33.0); MEAN CORPUSCULAR HGB CONC 31.9 g/dl (32.0-36.5); MEAN CORPUSCULAR VOLUME 82.9 fl (80.0-96.0); MONO # 0.8 10^3/uL (0.0-0.8); MONO % 6.9 % (2.0-8.0); NEUTROPHILS # 8.9 10^3/uL (1.5-8.5); NEUTROPHILS % 79.1 % (36.0-66.0); PLATELET COUNT, AUTOMATED 248 10^3/uL (150-450); RED BLOOD COUNT 2.99 10^6/uL (4.00-5.40); WHITE BLOOD COUNT 11.2 10^3/uL (4.0-10.0)
[2021-05-25 06:06] LABS: ALBUMIN 2.4 GM/DL (3.2-5.2); ALT/SGPT 67 U/L (12-78); BILIRUBIN,DIRECT < 0.1 MG/DL (0.0-0.2); BILIRUBIN,TOTAL 0.2 MG/DL (0.2-1.0); BLOOD UREA NITROGEN 23 MG/DL (7-18); CALCIUM LEVEL 8.2 MG/DL (8.5-10.1); CARBON DIOXIDE LEVEL 22 MEQ/L (21-32); CHLORIDE LEVEL 109 MEQ/L (98-107); CREATININE FOR GFR 1.08 MG/DL (0.55-1.30); GLOMERULAR FILTRATION RATE 55.5 (>51); GLUCOSE, FASTING 265 MG/DL (70-100); POTASSIUM SERUM 3.7 MEQ/L (3.5-5.1); SODIUM LEVEL 140 MEQ/L (136-145); TOTAL PROTEIN 5.7 GM/DL (6.4-8.2)
[2021-05-25] MEDS ORDERED: MEROPENEM INJ 500 MG in IV 1 EA IV SCH (07:40)
[2021-05-25] MEDS ORDERED: PILL CUTTER 1 EACH XX PRN (08:05)
[2021-05-25] MEDS: PRIMIDONE 250 MG TAB PO SCH ×2 (08:20→21:54)
[2021-05-25] MEDS: LEVOTHYROXINE 100MCG (0.1MG) VIAL IV SCH (08:21)
[2021-05-25 09:03] LABS: HEMATOCRIT 25.9 % (36.0-47.0); HEMOGLOBIN 8.1 g/dl (12.0-15.5)
[2021-05-25] MEDS: MEROPENEM INJ 1 GM in IV 1 EA IV SCH ×2 (09:44→17:01)
[2021-05-25] MEDS ORDERED: ACETAMINOPHEN *IV* 650 MG in IV 1 EA IV ONE (09:45)
[2021-05-25] MEDS ORDERED: PHENYTOIN INJection 1,000 MG in NS 100 ML IV ONE (10:00)
[2021-05-25 10:08] LABS: HEPATITIS B SURFACE ANTIGEN NEGATIVE (NEGATIVE)
[2021-05-25] MEDS: NS 0.45% 1,000 ML IV SCH (11:14)
[2021-05-25 14:08] LABS: HEPATITIS B CORE ANTIBODY IGM NEGATIVE (NEGATIVE); HEPATITIS C VIRUS ABY INDEX < 0.0 INDEX (<0.8)
[2021-05-25] MEDS ORDERED: LIDOCAINE 1% MDV 20ML VIAL As Ordered ONE (14:56)
[2021-05-25] MEDS ORDERED: REMDESIVIR 100 MG in NS 250 ML IV SCH (15:00)
[2021-05-25] MEDS ORDERED: VALPROATE SOD INJ 1,000 MG in D5W 50 ML IV ONE (15:00)
[2021-05-25] MEDS ORDERED: SODIUM CHLORIDE 0.9% INJ 10 ML SYR IV SCH (16:00)
[2021-05-25 19:34] LABS: MAGNESIUM LEVEL 1.8 MG/DL (1.7-2.2)
[2021-05-26] VITALS (18 sets, daily range): BP systolic 88–133; BP diastolic 49–89
[2021-05-26] MEDS: HumaLOG INSULIN (NovoLOG) PER UNIT SC SCH ×4 (00:35→17:36)
[2021-05-26] MEDS: MEROPENEM INJ 1 GM in IV 1 EA IV SCH ×3 (02:44→17:36)
[2021-05-26] MEDS: HEPARIN SOD (PORCINE) 5000UNITS/ML 1ML VIAL/SYRINGE SQ SCH ×3 (06:09→22:00)
[2021-05-26 06:16] LABS: BASO % 0.4 % (0.0-1.0); EOS # 0.6 10^3/uL (0.0-0.5); HEMATOCRIT 25.2 % (36.0-47.0); HEMOGLOBIN 7.8 g/dl (12.0-15.5); LYMPH % 10.5 % (24.0-44.0); MEAN CORPUSCULAR HEMOGLOBIN 26.3 pg (27.0-33.0); MEAN CORPUSCULAR VOLUME 84.8 fl (80.0-96.0); MONO # 0.6 10^3/uL (0.0-0.8); MONO % 6.6 % (2.0-8.0); NEUTROPHILS # 7.4 10^3/uL (1.5-8.5); NEUTROPHILS % 75.9 % (36.0-66.0); PLATELET COUNT, AUTOMATED 360 10^3/uL (150-450); RED BLOOD COUNT 2.97 10^6/uL (4.00-5.40); WHITE BLOOD COUNT 9.7 10^3/uL (4.0-10.0)
[2021-05-26 06:37] LABS: INR 1.01; PROTHROMBIN TIME 13.7 SECONDS (12.7-14.5)
[2021-05-26 06:38] LABS: PARTIAL THROMBOPLASTIN TIME 37.1 SECONDS (25.9-37.0)
[2021-05-26 06:50] LABS: ALBUMIN 2.4 GM/DL (3.2-5.2); ALT/SGPT 51 U/L (12-78); BILIRUBIN,DIRECT < 0.1 MG/DL (0.0-0.2); BILIRUBIN,TOTAL 0.2 MG/DL (0.2-1.0); BLOOD UREA NITROGEN 18 MG/DL (7-18); CALCIUM LEVEL 8.4 MG/DL (8.5-10.1); CARBON DIOXIDE LEVEL 24 MEQ/L (21-32); CHLORIDE LEVEL 108 MEQ/L (98-107); CREATININE FOR GFR 0.87 MG/DL (0.55-1.30); FERRITIN 126 NG/ML (8-252); GLOMERULAR FILTRATION RATE > 60.0 (>51); GLUCOSE, FASTING 143 MG/DL (70-100); LDH LACTATE DEHYDROGENASE 246 U/L (84-246); NT-PRO BNP 1431 PG/ML (<125); PHENYTOIN (DILANTIN) 26.4 UG/ML (10.0-20.0); POTASSIUM SERUM 4.2 MEQ/L (3.5-5.1); SODIUM LEVEL 139 MEQ/L (136-145); TOTAL PROTEIN 5.4 GM/DL (6.4-8.2); VALPROIC ACID (DEPAKOTE) < 3.0 UG/ML (50.0-100.0)
[2021-05-26] MEDS: PANTOPRAZOLE 40MG TAB (PROTONIX) PO SCH (09:00)
[2021-05-26] MEDS ORDERED: VALPROATE SOD INJ 500 MG in D5W 50 ML IV SCH (09:00)
[2021-05-26] MEDS: ROSUVASTATIN 10 MG TAB (CRESTOR) PO SCH (09:00)
[2021-05-26] MEDS: LEVOTHYROXINE 100MCG (0.1MG) VIAL IV SCH (09:29)
[2021-05-26] MEDS: PRIMIDONE 250 MG TAB PO SCH ×2 (09:29→20:48)
[2021-05-26 13:07] LABS: ANTINUCLEAR ANTIBODIES DIRECT Negative (Negative)
[2021-05-26] MEDS: SUCRALFATE 1 GM TAB PO SCH ×2 (17:36→20:45)
[2021-05-26 17:37] LABS: MAGNESIUM LEVEL 1.9 MG/DL (1.7-2.2)
[2021-05-26] MEDS: hydrOXYzine 10 MG TAB PO PRN (20:45)
[2021-05-26] MEDS: VALPROIC ACID 250MG CAP PO SCH (20:46)
[2021-05-26] MEDS: rOPINIRole 1MG TAB PO SCH (20:46)
[2021-05-26] MEDS ORDERED: HumaLOG INSULIN (NovoLOG) PER UNIT SC SCH (21:00)
[2021-05-26] MEDS ORDERED: LEVEMIR (INSULIN DETEMIR) 1 UNITS/0.01ML SC SCH (21:00)
[2021-05-27] MEDS: MEROPENEM INJ 1 GM in IV 1 EA IV SCH ×2 (02:00→10:41)
[2021-05-27 04:07] VITALS: BP 115/58
[2021-05-27 05:41] LABS: BASO % 0.5 % (0.0-1.0); EOS # 0.3 10^3/uL (0.0-0.5); EOS % 3.1 % (0.0-3.0); HEMATOCRIT 25.2 % (36.0-47.0); HEMOGLOBIN 7.8 g/dl (12.0-15.5); LYMPH # 1.4 10^3/uL (1.5-5.0); LYMPH % 17.1 % (24.0-44.0); MEAN CORPUSCULAR HEMOGLOBIN 26.3 pg (27.0-33.0); MEAN CORPUSCULAR VOLUME 84.8 fl (80.0-96.0); MONO # 0.8 10^3/uL (0.0-0.8); MONO % 9.3 % (2.0-8.0); NEUTROPHILS # 5.7 10^3/uL (1.5-8.5); NEUTROPHILS % 69.2 % (36.0-66.0); PLATELET COUNT, AUTOMATED 398 10^3/uL (150-450); RED BLOOD COUNT 2.97 10^6/uL (4.00-5.40); WHITE BLOOD COUNT 8.3 10^3/uL (4.0-10.0)
[2021-05-27] MEDS: HEPARIN SOD (PORCINE) 5000UNITS/ML 1ML VIAL/SYRINGE SQ SCH ×3 (05:46→20:44)
[2021-05-27] MEDS: LEVOTHYROXINE 100MCG TABLET (0.1MG) PO SCH (05:46)
[2021-05-27 06:03] LABS: BLOOD UREA NITROGEN 16 MG/DL (7-18); CALCIUM LEVEL 8.4 MG/DL (8.5-10.1); CARBON DIOXIDE LEVEL 23 MEQ/L (21-32); CHLORIDE LEVEL 107 MEQ/L (98-107); CREATININE FOR GFR 0.73 MG/DL (0.55-1.30); GLOMERULAR FILTRATION RATE > 60.0 (>51); GLUCOSE, FASTING 33 MG/DL (70-100); POTASSIUM SERUM 3.9 MEQ/L (3.5-5.1); SODIUM LEVEL 140 MEQ/L (136-145)
[2021-05-27] MEDS: HumaLOG INSULIN (NovoLOG) PER UNIT SC SCH ×3 (07:30→17:36)
[2021-05-27] MEDS: ROSUVASTATIN 10 MG TAB (CRESTOR) PO SCH (08:21)
[2021-05-27] MEDS: PANTOPRAZOLE 40MG TAB (PROTONIX) PO SCH (08:21)
[2021-05-27] MEDS: VALPROIC ACID 250MG CAP PO SCH ×2 (08:21→20:42)
[2021-05-27] MEDS: SUCRALFATE 1 GM TAB PO SCH ×4 (08:21→20:42)
[2021-05-27] MEDS: rOPINIRole 1MG TAB PO SCH ×2 (08:21→20:43)
[2021-05-27] MEDS ORDERED: LEVEMIR (INSULIN DETEMIR) 1 UNITS/0.01ML SC SCH ×2 (09:00→21:00)
[2021-05-27] MEDS: PRIMIDONE 250 MG TAB PO SCH ×2 (09:38→20:43)
[2021-05-27 11:55] VITALS: BP 154/69
[2021-05-27 15:09] LABS: BODY FLUID CULTURE Not indicated. (.); LEGIONELLA ANTIGEN URINE Negative (Negative); ORGANISM ID Not indicated. (.); SPECIMEN SOURCE Urine (.); URINE STREP PNEUMONIAE ANTIGEN Negative (Negative)
[2021-05-27 15:34] LABS: MAGNESIUM LEVEL 1.8 MG/DL (1.7-2.2)
[2021-05-27] MEDS: ACETAMINOPHEN TAB 650MG DOSE (2X325MG) PO PRN (17:36)
[2021-05-27] MEDS ORDERED: SODIUM CHLORIDE 0.9% INJ 10 ML SYR IV PRN (19:00)
[2021-05-27 20:00] VITALS: BP 136/57
[2021-05-27] MEDS: hydrOXYzine 10 MG TAB PO PRN (20:42)
[2021-05-27] MEDS: AUGMENTIN 875 MG TAB PO SCH (20:42)
[2021-05-27] MEDS: SODIUM CHLORIDE 0.9% INJ 10 ML SYR IV SCH (20:45)
[2021-05-28 04:00] VITALS: BP 137/72
[2021-05-28] MEDS ORDERED: guaiFENesin SYRUP 200 MG/10 ML UDC PO PRN (04:30)
[2021-05-28] MEDS: ACETAMINOPHEN TAB 650MG DOSE (2X325MG) PO PRN ×2 (05:02→20:59)
[2021-05-28] MEDS: HEPARIN SOD (PORCINE) 5000UNITS/ML 1ML VIAL/SYRINGE SQ SCH ×3 (05:03→21:01)
[2021-05-28] MEDS: SODIUM CHLORIDE 0.9% INJ 10 ML SYR IV SCH ×3 (05:03→21:02)
[2021-05-28] MEDS: BENZONATATE 100MG CAPSULE PO PRN ×2 (05:03→09:56)
[2021-05-28] MEDS: LEVOTHYROXINE 100MCG TABLET (0.1MG) PO SCH (05:03)
[2021-05-28 08:50] LABS: BASO % 0.6 % (0.0-1.0); EOS # 0.2 10^3/uL (0.0-0.5); EOS % 2.2 % (0.0-3.0); HEMOGLOBIN 8.9 g/dl (12.0-15.5); LYMPH # 1.2 10^3/uL (1.5-5.0); LYMPH % 17.9 % (24.0-44.0); MEAN CORPUSCULAR HEMOGLOBIN 26.4 pg (27.0-33.0); MEAN CORPUSCULAR HGB CONC 30.7 g/dl (32.0-36.5); MEAN CORPUSCULAR VOLUME 86.1 fl (80.0-96.0); MONO # 0.6 10^3/uL (0.0-0.8); NEUTROPHILS # 4.5 10^3/uL (1.5-8.5); NEUTROPHILS % 66.9 % (36.0-66.0); PLATELET COUNT, AUTOMATED 422 10^3/uL (150-450); RED BLOOD COUNT 3.37 10^6/uL (4.00-5.40); WHITE BLOOD COUNT 6.7 10^3/uL (4.0-10.0)
[2021-05-28 08:59] LABS: INR 0.96; PROTHROMBIN TIME 13.2 SECONDS (12.7-14.5)
[2021-05-28 09:00] LABS: PARTIAL THROMBOPLASTIN TIME 38.5 SECONDS (25.9-37.0)
[2021-05-28] MEDS ORDERED: LEVEMIR (INSULIN DETEMIR) 1 UNITS/0.01ML SC ONE (09:10)
[2021-05-28] MEDS: HumaLOG INSULIN (NovoLOG) PER UNIT SC SCH ×4 (09:35→21:01)
[2021-05-28 09:44] LABS: ALBUMIN 2.5 GM/DL (3.2-5.2); ALT/SGPT 32 U/L (12-78); BILIRUBIN,DIRECT < 0.1 MG/DL (0.0-0.2); BILIRUBIN,TOTAL 0.4 MG/DL (0.2-1.0); BLOOD UREA NITROGEN 21 MG/DL (7-18); CALCIUM LEVEL 8.5 MG/DL (8.5-10.1); CARBON DIOXIDE LEVEL 14 MEQ/L (21-32); CHLORIDE LEVEL 97 MEQ/L (98-107); CREATININE FOR GFR 1.12 MG/DL (0.55-1.30); FERRITIN 98 NG/ML (8-252); GLOMERULAR FILTRATION RATE 53.2 (>51); GLUCOSE, FASTING 582 MG/DL (70-100); LDH LACTATE DEHYDROGENASE 200 U/L (84-246); NT-PRO BNP 804 PG/ML (<125); POTASSIUM SERUM 5.4 MEQ/L (3.5-5.1); SODIUM LEVEL 131 MEQ/L (136-145); TOTAL PROTEIN 5.9 GM/DL (6.4-8.2)
[2021-05-28] MEDS: rOPINIRole 1MG TAB PO SCH ×2 (09:54→20:58)
[2021-05-28] MEDS: AUGMENTIN 875 MG TAB PO SCH ×2 (09:54→20:58)
[2021-05-28] MEDS: LACTOBACILLUS ACIDOPHILUS CAP (BACID) PO SCH (09:54)
[2021-05-28] MEDS: SUCRALFATE 1 GM TAB PO SCH ×4 (09:54→21:00)
[2021-05-28] MEDS: PRIMIDONE 250 MG TAB PO SCH ×2 (09:54→20:59)
[2021-05-28] MEDS: PANTOPRAZOLE 40MG TAB (PROTONIX) PO SCH (09:54)
[2021-05-28] MEDS: ROSUVASTATIN 10 MG TAB (CRESTOR) PO SCH (09:54)
[2021-05-28] MEDS: VALPROIC ACID 250MG CAP PO SCH ×2 (09:55→20:58)
[2021-05-28 10:33] LABS: FOLATE 9.3 NG/ML; VITAMIN B12 LEVEL 773 PG/ML
[2021-05-28] MEDS ORDERED: NS 1,000 ML IV ONE (14:00)
[2021-05-28 14:10] VITALS: BP 113/52
[2021-05-28] MEDS: METOCLOPRAMIDE INJ 10MG/2ML VIAL (J2765 PER 1) IV SCH ×2 (14:15→20:57)
[2021-05-28 16:00] VITALS: BP 100/50
[2021-05-28] MEDS: BENZONATATE 100MG CAPSULE PO SCH ×2 (16:07→20:57)
[2021-05-28 17:49] LABS: MAGNESIUM LEVEL 1.9 MG/DL (1.7-2.2)
[2021-05-28 18:13] LABS: CALCIUM LEVEL 8.6 MG/DL (8.5-10.1); CREATININE FOR GFR 1.24 MG/DL (0.55-1.30); GLOMERULAR FILTRATION RATE 47.3 (>51); POTASSIUM SERUM 4.4 MEQ/L (3.5-5.1)
[2021-05-28 20:00] VITALS: BP 149/64
[2021-05-28] MEDS: DEXTROMETHORPHAN 60MG/10ML SUSP 90ML BTL(DELSYM) PO SCH (20:59)
[2021-05-28] MEDS: LEVEMIR (INSULIN DETEMIR) 1 UNITS/0.01ML SC SCH (21:00)
[2021-05-28 23:57] VITALS: BP 146/77
[2021-05-29] MEDS: HumaLOG INSULIN (NovoLOG) PER UNIT SC SCH ×5 (00:01→16:54)
[2021-05-29] MEDS: hydrOXYzine 10 MG TAB PO PRN ×2 (01:42→12:34)
[2021-05-29 04:00] VITALS: BP 131/79
[2021-05-29] MEDS ORDERED: MORPHINE 2 MG/ML 1ML VIAL (J2270) IV ONE (04:00)
[2021-05-29] MEDS: LEVOTHYROXINE 100MCG TABLET (0.1MG) PO SCH (05:46)
[2021-05-29] MEDS: HEPARIN SOD (PORCINE) 5000UNITS/ML 1ML VIAL/SYRINGE SQ SCH (05:46)
[2021-05-29] MEDS: METOCLOPRAMIDE INJ 10MG/2ML VIAL (J2765 PER 1) IV SCH ×3 (05:46→21:36)
[2021-05-29] MEDS: SODIUM CHLORIDE 0.9% INJ 10 ML SYR IV SCH ×3 (05:46→21:35)
[2021-05-29 06:11] LABS: BASO % 0.5 % (0.0-1.0); EOS # 0.4 10^3/uL (0.0-0.5); EOS % 4.7 % (0.0-3.0); HEMATOCRIT 23.8 % (36.0-47.0); HEMOGLOBIN 7.7 g/dl (12.0-15.5); LYMPH # 2.7 10^3/uL (1.5-5.0); LYMPH % 33.6 % (24.0-44.0); MEAN CORPUSCULAR HEMOGLOBIN 26.5 pg (27.0-33.0); MEAN CORPUSCULAR HGB CONC 32.4 g/dl (32.0-36.5); MEAN CORPUSCULAR VOLUME 81.8 fl (80.0-96.0); MONO # 0.9 10^3/uL (0.0-0.8); MONO % 11.5 % (2.0-8.0); NEUTROPHILS # 3.8 10^3/uL (1.5-8.5); NEUTROPHILS % 46.6 % (36.0-66.0); PLATELET COUNT, AUTOMATED 459 10^3/uL (150-450); RED BLOOD COUNT 2.91 10^6/uL (4.00-5.40); WHITE BLOOD COUNT 8.1 10^3/uL (4.0-10.0)
[2021-05-29 06:26] LABS: BLOOD UREA NITROGEN 17 MG/DL (7-18); CALCIUM LEVEL 8.1 MG/DL (8.5-10.1); CARBON DIOXIDE LEVEL 25 MEQ/L (21-32); CHLORIDE LEVEL 109 MEQ/L (98-107); CREATININE FOR GFR 0.88 MG/DL (0.55-1.30); GLOMERULAR FILTRATION RATE > 60.0 (>51); GLUCOSE, FASTING 85 MG/DL (70-100); POTASSIUM SERUM 4.2 MEQ/L (3.5-5.1); SODIUM LEVEL 141 MEQ/L (136-145)
[2021-05-29 08:00] VITALS: BP 107/59
[2021-05-29] MEDS: VALPROIC ACID 250MG CAP PO SCH ×2 (08:33→21:36)
[2021-05-29] MEDS: AUGMENTIN 875 MG TAB PO SCH ×2 (08:33→21:34)
[2021-05-29] MEDS: BENZONATATE 100MG CAPSULE PO SCH ×3 (08:34→21:34)
[2021-05-29] MEDS: rOPINIRole 1MG TAB PO SCH ×2 (08:34→21:33)
[2021-05-29] MEDS: SUCRALFATE 1 GM TAB PO SCH ×4 (08:34→21:33)
[2021-05-29] MEDS: ROSUVASTATIN 10 MG TAB (CRESTOR) PO SCH (08:34)
[2021-05-29] MEDS: PRIMIDONE 250 MG TAB PO SCH ×2 (08:34→21:34)
[2021-05-29] MEDS: LACTOBACILLUS ACIDOPHILUS CAP (BACID) PO SCH (08:34)
[2021-05-29] MEDS: PANTOPRAZOLE 40MG TAB (PROTONIX) PO SCH (08:35)
[2021-05-29] MEDS: DEXTROMETHORPHAN 60MG/10ML SUSP 90ML BTL(DELSYM) PO SCH ×2 (08:35→21:34)
[2021-05-29] MEDS ORDERED: LEVEMIR (INSULIN DETEMIR) 1 UNITS/0.01ML SC SCH ×2 (09:00→12:00)
[2021-05-29 12:00] VITALS: BP 103/59
[2021-05-29] MEDS: ENOXAPARIN 40MG/0.4ML SYRINGE (J1650 PER 10MG) SC SCH (14:04)
[2021-05-29] MEDS: DICYCLOMINE 10 MG CAP PO PRN (14:04)
[2021-05-29 16:00] VITALS: BP 123/62
[2021-05-29] MEDS: MAGIC MOUTHWASH SUSPENSION BTL SS PRN (19:32)
[2021-05-29 19:58] VITALS: BP 118/59
[2021-05-29] MEDS: LEVEMIR (INSULIN DETEMIR) 1 UNITS/0.01ML SC SCH (20:12)
[2021-05-29] MEDS: ACETAMINOPHEN TAB 650MG DOSE (2X325MG) PO PRN (21:33)
[2021-05-29 23:44] VITALS: BP 137/66
[2021-05-30 04:00] VITALS: BP 147/71
[2021-05-30] MEDS: METOCLOPRAMIDE INJ 10MG/2ML VIAL (J2765 PER 1) IV SCH ×3 (05:42→21:22)
[2021-05-30] MEDS: LEVOTHYROXINE 100MCG TABLET (0.1MG) PO SCH (05:42)
[2021-05-30] MEDS: MAGIC MOUTHWASH SUSPENSION BTL SS PRN (05:43)
[2021-05-30] MEDS: SODIUM CHLORIDE 0.9% INJ 10 ML SYR IV SCH ×3 (05:43→21:22)
[2021-05-30 06:22] LABS: INR 0.83; PROTHROMBIN TIME 11.8 SECONDS (12.7-14.5)
[2021-05-30 06:23] LABS: PARTIAL THROMBOPLASTIN TIME 38.4 SECONDS (25.9-37.0)
[2021-05-30 06:42] LABS: ALBUMIN 2.3 GM/DL (3.2-5.2); ALT/SGPT 26 U/L (12-78); BILIRUBIN,DIRECT < 0.1 MG/DL (0.0-0.2); BILIRUBIN,TOTAL < 0.1 MG/DL (0.2-1.0); FERRITIN 45 NG/ML (8-252); LDH LACTATE DEHYDROGENASE 159 U/L (84-246); NT-PRO BNP 403 PG/ML (<125); TOTAL PROTEIN 5.4 GM/DL (6.4-8.2)
[2021-05-30 08:00] VITALS: BP 145/70
[2021-05-30] MEDS: DEXTROMETHORPHAN 60MG/10ML SUSP 90ML BTL(DELSYM) PO SCH ×2 (08:52→21:43)
[2021-05-30] MEDS: ENOXAPARIN 40MG/0.4ML SYRINGE (J1650 PER 10MG) SC SCH (08:52)
[2021-05-30] MEDS: rOPINIRole 1MG TAB PO SCH ×2 (08:53→21:53)
[2021-05-30] MEDS: AUGMENTIN 875 MG TAB PO SCH (08:53)
[2021-05-30] MEDS: VALPROIC ACID 250MG CAP PO SCH ×2 (08:53→21:23)
[2021-05-30] MEDS: ROSUVASTATIN 10 MG TAB (CRESTOR) PO SCH (08:53)
[2021-05-30] MEDS: HumaLOG INSULIN (NovoLOG) PER UNIT SC SCH ×3 (08:53→17:51)
[2021-05-30] MEDS: PANTOPRAZOLE 40MG TAB (PROTONIX) PO SCH (08:53)
[2021-05-30] MEDS: BENZONATATE 100MG CAPSULE PO SCH ×3 (08:54→21:43)
[2021-05-30] MEDS: SUCRALFATE 1 GM TAB PO SCH ×4 (08:54→21:43)
[2021-05-30] MEDS: LACTOBACILLUS ACIDOPHILUS CAP (BACID) PO SCH (08:54)
[2021-05-30] MEDS: PRIMIDONE 250 MG TAB PO SCH ×2 (08:54→21:23)
[2021-05-30] MEDS: ACETAMINOPHEN TAB 650MG DOSE (2X325MG) PO PRN (11:07)
[2021-05-30 12:00] VITALS: BP 149/67
[2021-05-30] MEDS: LEVEMIR (INSULIN DETEMIR) 1 UNITS/0.01ML SC SCH ×2 (12:40→20:19)
[2021-05-30] MEDS: hydrOXYzine 10 MG TAB PO PRN (12:41)
[2021-05-30 12:46] LABS: CALCIUM LEVEL 8.8 MG/DL (8.5-10.1); CREATININE FOR GFR 1.24 MG/DL (0.55-1.30); GLOMERULAR FILTRATION RATE 47.3 (>51); POTASSIUM SERUM 4.6 MEQ/L (3.5-5.1)
[2021-05-30 16:00] VITALS: BP 123/58
[2021-05-30] MEDS ORDERED: LORazepam 2 MG/ML VIAL IV STA (19:23)
[2021-05-30 19:25] VITALS: BP 182/92
[2021-05-30 23:42] VITALS: BP 125/61
[2021-05-31 03:52] VITALS: BP 148/63
[2021-05-31] MEDS: METOCLOPRAMIDE INJ 10MG/2ML VIAL (J2765 PER 1) IV SCH ×2 (05:54→13:12)
[2021-05-31] MEDS: SODIUM CHLORIDE 0.9% INJ 10 ML SYR IV SCH ×3 (05:54→21:20)
[2021-05-31] MEDS: LEVOTHYROXINE 100MCG TABLET (0.1MG) PO SCH (06:06)
[2021-05-31] MEDS: ACETAMINOPHEN TAB 650MG DOSE (2X325MG) PO PRN (06:06)
[2021-05-31 06:13] LABS: HEMATOCRIT 25.5 % (36.0-47.0); MEAN CORPUSCULAR HEMOGLOBIN 26.1 pg (27.0-33.0); MEAN CORPUSCULAR HGB CONC 31.4 g/dl (32.0-36.5); MEAN CORPUSCULAR VOLUME 83.3 fl (80.0-96.0); PLATELET COUNT, AUTOMATED 577 10^3/uL (150-450); RED BLOOD COUNT 3.06 10^6/uL (4.00-5.40); WHITE BLOOD COUNT 5.8 10^3/uL (4.0-10.0)
[2021-05-31 06:36] LABS: BLOOD UREA NITROGEN 15 MG/DL (7-18); CALCIUM LEVEL 8.3 MG/DL (8.5-10.1); CARBON DIOXIDE LEVEL 26 MEQ/L (21-32); CHLORIDE LEVEL 107 MEQ/L (98-107); CREATININE FOR GFR 0.84 MG/DL (0.55-1.30); GLOMERULAR FILTRATION RATE > 60.0 (>51); GLUCOSE, FASTING 226 MG/DL (70-100); POTASSIUM SERUM 4.6 MEQ/L (3.5-5.1); SODIUM LEVEL 140 MEQ/L (136-145)
[2021-05-31 06:39] LABS: EOSINOPHILS 6 % (0-3); LYMPHOCYTES 31 % (16-44); METAMYELOCYTES 2 % (0-0); MONOCYTES 8 % (0-5); MYELOCYTES 2 % (0-0); NEUTROPHILS 49 % (28-66); PLASMA CELL 1 % (0-0)
[2021-05-31 06:40] LABS: ANISOCYTOSIS 1+; PLATELET ESTIMATE INCREASED (NORMAL); POIKILOCYTOSIS 1+
[2021-05-31 06:42] LABS: OVALOCYTES 1+; SCHISTOCYTES 1+
[2021-05-31 08:00] VITALS: BP 124/60
[2021-05-31] MEDS: ENOXAPARIN 40MG/0.4ML SYRINGE (J1650 PER 10MG) SC SCH (08:29)
[2021-05-31] MEDS: HumaLOG INSULIN (NovoLOG) PER UNIT SC SCH ×3 (08:29→17:54)
[2021-05-31] MEDS: LACTOBACILLUS ACIDOPHILUS CAP (BACID) PO SCH (08:30)
[2021-05-31] MEDS: ROSUVASTATIN 10 MG TAB (CRESTOR) PO SCH (08:30)
[2021-05-31] MEDS: VALPROIC ACID 250MG CAP PO SCH ×2 (08:30→21:17)
[2021-05-31] MEDS: BENZONATATE 100MG CAPSULE PO SCH ×3 (08:31→21:18)
[2021-05-31] MEDS: rOPINIRole 1MG TAB PO SCH ×2 (08:31→21:18)
[2021-05-31] MEDS: PRIMIDONE 250 MG TAB PO SCH ×2 (08:31→21:18)
[2021-05-31] MEDS: DEXTROMETHORPHAN 60MG/10ML SUSP 90ML BTL(DELSYM) PO SCH (08:31)
[2021-05-31] MEDS: PANTOPRAZOLE 40MG TAB (PROTONIX) PO SCH (08:31)
[2021-05-31] MEDS: SUCRALFATE 1 GM TAB PO SCH ×4 (08:32→21:19)
[2021-05-31] MEDS: DICYCLOMINE 10 MG CAP PO PRN (10:06)
[2021-05-31 12:10] VITALS: BP 110/56
[2021-05-31] MEDS: LEVEMIR (INSULIN DETEMIR) 1 UNITS/0.01ML SC SCH ×2 (13:13→21:00)
[2021-05-31] MEDS: hydrOXYzine 10 MG TAB PO PRN ×2 (13:14→21:17)
[2021-05-31] MEDS: KETOROLAC TROMETHAMINE 10 MG TAB PO PRN ×2 (13:15→21:19)
[2021-05-31] MEDS ORDERED: DEXTROMETHORPHAN 60MG/10ML SUSP 90ML BTL(DELSYM) PO PRN (13:35)
[2021-05-31 15:54] VITALS: BP 123/59
[2021-05-31 19:27] VITALS: BP 141/66
[2021-06-01] VITALS: BP 129/61
[2021-06-01] MEDS: ACETAMINOPHEN TAB 650MG DOSE (2X325MG) PO PRN ×2 (00:01→08:16)
[2021-06-01] MEDS: METOCLOPRAMIDE INJ 10MG/2ML VIAL (J2765 PER 1) IV PRN ×2 (00:10→11:03)
[2021-06-01 00:56] VITALS: BP 190/90
[2021-06-01 01:28] VITALS: BP 154/68
[2021-06-01 05:05] VITALS: BP 123/58
[2021-06-01] MEDS: LEVOTHYROXINE 100MCG TABLET (0.1MG) PO SCH (05:06)
[2021-06-01] MEDS: SODIUM CHLORIDE 0.9% INJ 10 ML SYR IV SCH ×2 (05:07→13:41)
[2021-06-01] MEDS: KETOROLAC TROMETHAMINE 10 MG TAB PO PRN ×2 (05:56→12:17)
[2021-06-01] MEDS: MAGIC MOUTHWASH SUSPENSION BTL SS PRN (06:05)
[2021-06-01 06:17] LABS: HEMATOCRIT 23.7 % (36.0-47.0); HEMOGLOBIN 7.5 g/dl (12.0-15.5); MEAN CORPUSCULAR HEMOGLOBIN 26.6 pg (27.0-33.0); MEAN CORPUSCULAR HGB CONC 31.6 g/dl (32.0-36.5); PLATELET COUNT, AUTOMATED 579 10^3/uL (150-450); RED BLOOD COUNT 2.82 10^6/uL (4.00-5.40); WHITE BLOOD COUNT 6.1 10^3/uL (4.0-10.0)
[2021-06-01 06:45] LABS: CALCIUM LEVEL 8.4 MG/DL (8.5-10.1); CREATININE FOR GFR 1.15 MG/DL (0.55-1.30); GLOMERULAR FILTRATION RATE 51.6 (>51); POTASSIUM SERUM 4.6 MEQ/L (3.5-5.1)
[2021-06-01 06:59] LABS: ATYPICAL LYMPH 2 % (0-5); BASOPHILS 1 % (0-1); EOSINOPHILS 4 % (0-3); LYMPHOCYTES 47 % (16-44); MONOCYTES 9 % (0-5); MYELOCYTES 3 % (0-0); NEUTROPHILS 33 % (28-66)
[2021-06-01 07:00] LABS: ANISOCYTOSIS 2+; OVALOCYTES 1+; PLATELET ESTIMATE INCREASED (NORMAL); POIKILOCYTOSIS 2+
[2021-06-01 07:45] VITALS: BP 123/60
[2021-06-01] MEDS: PRIMIDONE 250 MG TAB PO SCH (08:13)
[2021-06-01] MEDS: VALPROIC ACID 250MG CAP PO SCH (08:13)
[2021-06-01] MEDS: PANTOPRAZOLE 40MG TAB (PROTONIX) PO SCH (08:13)
[2021-06-01] MEDS: LACTOBACILLUS ACIDOPHILUS CAP (BACID) PO SCH (08:13)
[2021-06-01] MEDS: rOPINIRole 1MG TAB PO SCH (08:13)
[2021-06-01] MEDS: HumaLOG INSULIN (NovoLOG) PER UNIT SC SCH ×2 (08:14→12:05)
[2021-06-01] MEDS: ROSUVASTATIN 10 MG TAB (CRESTOR) PO SCH (08:14)
[2021-06-01] MEDS: BENZONATATE 100MG CAPSULE PO SCH (08:14)
[2021-06-01] MEDS: SUCRALFATE 1 GM TAB PO SCH ×2 (08:14→11:03)
[2021-06-01] MEDS: ENOXAPARIN 40MG/0.4ML SYRINGE (J1650 PER 10MG) SC SCH (08:14)
[2021-06-01] MEDS ORDERED: Magic Mouthwash SS (11:58)
[2021-06-01] MEDS ORDERED: BENZ-18 PO (11:58)
[2021-06-01] MEDS ORDERED: VALP1CAP2 PO (11:58)
[2021-06-01] MEDS: LEVEMIR (INSULIN DETEMIR) 1 UNITS/0.01ML SC SCH (12:05)
[2021-06-01] MEDS ORDERED: LEXA5TAB13 PO (12:17)
== END 2021-06-01 15:02 | disposition home health service (06) | DRG 53 ==
LOC: M ED 20:15 → M ED INP 05-23 00:44 → M ICU 05-23 02:14 → M 4MAIN 05-27 11:51
PROVIDERS: ADMIT Anesthesiology; ATTEND Internal Medicine Nephrology
PROC: 02HV33Z Insertion of Infusion Device into Superior Vena Cava, Percutaneous Approach (ICD-10-PCS; principal; 2021-05-26)
DX: G40.909 Epilepsy, unspecified, not intractable, without status epilepticus (principal); U07.1 COVID-19; J96.01 Acute respiratory failure with hypoxia; J69.0 Pneumonitis due to inhalation of food and vomit; G93.41 Metabolic encephalopathy; N17.9 Acute kidney failure, unspecified; E10.43 Type 1 diabetes mellitus with diabetic autonomic (poly)neuropathy; E10.51 Type 1 diabetes mellitus with diabetic peripheral angiopathy without gangrene; N18.30 Chronic kidney disease, stage 3 unspecified; F32.A Depression, unspecified; D50.9 Iron deficiency anemia, unspecified; E03.9 Hypothyroidism, unspecified; I12.9 Hypertensive chronic kidney disease with stage 1 through stage 4 chronic kidney disease, or unspecified chronic kidney disease; E78.5 Hyperlipidemia, unspecified; G25.81 Restless legs syndrome; Z91.19 Patient's noncompliance with other medical treatment and regimen; Z79.4 Long term (current) use of insulin; Z79.899 Other long term (current) drug therapy; Z91.040 Latex allergy status; Z88.8 Allergy status to other drugs, medicaments and biological substances

== ENCOUNTER → 2021-07-03 | Outpatient (CLI) | payer OTHER ==
[~2021-07-03] MED LIST changes: +AMIT10TA7 PO; +BENZ-18 PO; +LEXA5TAB13 PO; +Magic Mouthwash SS; +NIRM1TAB PO; +PRIM250T8 PO; +SUCR1TAB56 PO; +VALP1CAP2 PO
[2021-07-03 17:26] LABS: BASO % 0.2 % (0.0-1.0); EOS # 0.3 10^3/uL (0.0-0.5); EOS % 4.5 % (0.0-3.0); HEMATOCRIT 29.6 % (36.0-47.0); HEMOGLOBIN 9.3 g/dl (12.0-15.5); LYMPH # 1.7 10^3/uL (1.5-5.0); LYMPH % 26.1 % (24.0-44.0); MEAN CORPUSCULAR HEMOGLOBIN 26.5 pg (27.0-33.0); MEAN CORPUSCULAR HGB CONC 31.4 g/dl (32.0-36.5); MEAN CORPUSCULAR VOLUME 84.3 fl (80.0-96.0); MONO # 0.9 10^3/uL (0.0-0.8); MONO % 14.5 % (2.0-8.0); NEUTROPHILS # 3.5 10^3/uL (1.5-8.5); NEUTROPHILS % 54.4 % (36.0-66.0); PLATELET COUNT, AUTOMATED 283 10^3/uL (150-450); RED BLOOD COUNT 3.51 10^6/uL (4.00-5.40); WHITE BLOOD COUNT 6.4 10^3/uL (4.0-10.0)
[2021-07-03 17:59] LABS: CALCIUM LEVEL 9.6 MG/DL (8.5-10.1); CREATININE FOR GFR 1.07 MG/DL (0.55-1.30); FREE T4 1.42 NG/DL (0.76-1.46); GLOMERULAR FILTRATION RATE 56.1 (>51); POTASSIUM SERUM 5.2 MEQ/L (3.5-5.1); THYROID STIMULATING HORMONE 0.07 uIU/ML (0.358-3.740)
== END ==
LOC: M PLALAB 14:02
PROVIDERS: ATTEND Student in an Organized Health Care Education/Training Program
DX: E87.6 Hypokalemia (principal); E03.9 Hypothyroidism, unspecified; D64.9 Anemia, unspecified

== ENCOUNTER → 2021-07-10 | Outpatient (CLI) | payer OTHER | LOC: M PLALAB 15:40 | PROVIDERS: ATTEND Student in an Organized Health Care Education/Training Program | DX: Z53.9 Procedure and treatment not carried out, unspecified reason (principal) ==

== ENCOUNTER → 2021-07-13 | Outpatient (CLI) | payer OTHER ==
[2021-07-13 14:16] LABS: BLOOD UREA NITROGEN 26 MG/DL (7-18); CALCIUM LEVEL 8.7 MG/DL (8.5-10.1); CARBON DIOXIDE LEVEL 24 MEQ/L (21-32); CHLORIDE LEVEL 104 MEQ/L (98-107); FERRITIN 10 NG/ML (8-252); GLOMERULAR FILTRATION RATE > 60.0 (>51); GLUCOSE, FASTING 315 MG/DL (70-100); IRON (FE) 62 UG/DL (50-170); PERCENT SATURATION 16.8 % (13.2-45.0); SODIUM LEVEL 134 MEQ/L (136-145); TOTAL IRON BINDING CAPACITY 369 UG/DL (250-450)
== END ==
LOC: M PLALAB 10:39
PROVIDERS: ATTEND Student in an Organized Health Care Education/Training Program
DX: Z01.818 Encounter for other preprocedural examination (principal); D64.9 Anemia, unspecified

== ENCOUNTER → 2021-08-13 | Outpatient (CLI) | payer OTHER ==
[2021-08-13 15:11] LABS: BASO % 0.6 % (0.0-1.0); EOS # 0.2 10^3/uL (0.0-0.5); EOS % 2.8 % (0.0-3.0); HEMATOCRIT 33.3 % (36.0-47.0); HEMOGLOBIN 10.3 g/dl (12.0-15.5); LYMPH # 1.9 10^3/uL (1.5-5.0); LYMPH % 27.4 % (24.0-44.0); MEAN CORPUSCULAR HGB CONC 30.9 g/dl (32.0-36.5); MEAN CORPUSCULAR VOLUME 84.1 fl (80.0-96.0); MONO # 0.7 10^3/uL (0.0-0.8); MONO % 9.9 % (2.0-8.0); NEUTROPHILS % 58.9 % (36.0-66.0); PLATELET COUNT, AUTOMATED 385 10^3/uL (150-450); RED BLOOD COUNT 3.96 10^6/uL (4.00-5.40); WHITE BLOOD COUNT 6.8 10^3/uL (4.0-10.0)
[2021-08-13 15:46] LABS: ALBUMIN 3.2 GM/DL (3.2-5.2); ALT/SGPT 54 U/L (12-78); BILIRUBIN,TOTAL 0.3 MG/DL (0.2-1.0); BLOOD UREA NITROGEN 15 MG/DL (7-18); CALCIUM LEVEL 9.5 MG/DL (8.5-10.1); CARBON DIOXIDE LEVEL 23 MEQ/L (21-32); CHLORIDE LEVEL 107 MEQ/L (98-107); GLOMERULAR FILTRATION RATE > 60.0 (>51); GLUCOSE, FASTING 315 MG/DL (70-100); POTASSIUM SERUM 5.6 MEQ/L (3.5-5.1); SODIUM LEVEL 139 MEQ/L (136-145); TOTAL PROTEIN 6.7 GM/DL (6.4-8.2); VALPROIC ACID (DEPAKOTE) 12.3 UG/ML (50.0-100.0)
[2021-08-13 16:02] LABS: FOLATE 21.9 NG/ML; TOTAL 25(OH) VITAMIN D 13.2 NG/ML (30.0-100.0); VITAMIN B12 LEVEL 583 PG/ML
== END ==
LOC: M PLALAB 13:04
PROVIDERS: ATTEND Psychiatry & Neurology Neurology
DX: G40.909 Epilepsy, unspecified, not intractable, without status epilepticus (principal); G62.9 Polyneuropathy, unspecified; E55.9 Vitamin D deficiency, unspecified; E53.8 Deficiency of other specified B group vitamins; D64.9 Anemia, unspecified